=== PATIENT | female | born 1945 | race Caucasian/White ===

== ENCOUNTER 2022-11-20 09:16 | Outpatient (OUT) | payer MEDICARE, OTHER, SELFPAY | END 2022-11-20 09:17 | PROVIDERS: PCP Family Medicine; Visit Provider Physician Assistant | DX: I70.235 Atherosclerosis of native arteries of right leg with ulceration of other part of foot (principal); L97.511 Non-pressure chronic ulcer of other part of right foot limited to breakdown of skin; L97.512 Non-pressure chronic ulcer of other part of right foot with fat layer exposed; I87.9 Disorder of vein, unspecified; I70.234 Atherosclerosis of native arteries of right leg with ulceration of heel and midfoot; L97.411 Non-pressure chronic ulcer of right heel and midfoot limited to breakdown of skin | CPT/HCPCS: 99212; G0463 ==

== ENCOUNTER 2022-12-09 14:48 | Outpatient (OUT) | payer MEDICARE, OTHER, SELFPAY | END 2022-12-09 14:49 | disposition home or self-care (01) | LOC: WC 14:48 | PROVIDERS: PCP Family Medicine; Visit Provider Podiatrist Foot & Ankle Surgery | DX: I70.235 Atherosclerosis of native arteries of right leg with ulceration of other part of foot (principal); L97.511 Non-pressure chronic ulcer of other part of right foot limited to breakdown of skin; I70.234 Atherosclerosis of native arteries of right leg with ulceration of heel and midfoot; L97.411 Non-pressure chronic ulcer of right heel and midfoot limited to breakdown of skin; I96 Gangrene, not elsewhere classified; E11.621 Type 2 diabetes mellitus with foot ulcer; E11.69 Type 2 diabetes mellitus with other specified complication; E11.65 Type 2 diabetes mellitus with hyperglycemia; K21.9 Gastro-esophageal reflux disease without esophagitis; I10 Essential (primary) hypertension; I87.9 Disorder of vein, unspecified | CPT/HCPCS: G0463 ==

== ENCOUNTER 2022-12-19 09:33 | Outpatient (OUT) | payer MEDICARE, OTHER, SELFPAY | END 2022-12-19 09:34 | disposition home or self-care (01) | LOC: WC 09:33 | PROVIDERS: PCP Family Medicine; Visit Provider Podiatrist Foot & Ankle Surgery | DX: I70.235 Atherosclerosis of native arteries of right leg with ulceration of other part of foot (principal); L97.511 Non-pressure chronic ulcer of other part of right foot limited to breakdown of skin; L97.411 Non-pressure chronic ulcer of right heel and midfoot limited to breakdown of skin; I70.212 Atherosclerosis of native arteries of extremities with intermittent claudication, left leg; E11.621 Type 2 diabetes mellitus with foot ulcer; E11.21 Type 2 diabetes mellitus with diabetic nephropathy; E11.69 Type 2 diabetes mellitus with other specified complication; E11.65 Type 2 diabetes mellitus with hyperglycemia; K21.9 Gastro-esophageal reflux disease without esophagitis; I10 Essential (primary) hypertension; I87.9 Disorder of vein, unspecified; I73.9 Peripheral vascular disease, unspecified; L97.512 Non-pressure chronic ulcer of other part of right foot with fat layer exposed; I96 Gangrene, not elsewhere classified | CPT/HCPCS: G0463 ==

== ENCOUNTER 2023-01-02 09:06 | Outpatient (OUT) | payer MEDICARE, OTHER, SELFPAY ==
--- NOTE | 2023-01-02 09:11 | ECG_ITS ---
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
--- NOTE | 2023-01-02 10:11 | PM.PRESUREVA ---
History of Present Illness History of Present Illness Chief complaint: Gangrene and Arterial Ulcer 3rd Right Toe Narrative: Patient presents for preadmission testing. Please see HPI from Dr. Ware dated 12/19/2022. Review of Systems ROS Narrative REVIEW OF SYSTEMS: Negative except as stated in HPI, ten or more systems reviewed. Constitutional: No fever , chills, weakness ENT: No sore throat or epistaxis Cardiovascular: No edema, chest pain, palpitations, or activity intolerance Respiratory: No shortness of breath, cough, or wheezing Gastrointestinal: No abdominal pain, constipation, diarrhea, or vomiting Genitourinary: No dysuria or hematuria Neurological: No numbness, tingling, weakness, or headache Psychiatric: No mood changes PFSH PFS Medical History (Updated 01/02/23 @ 09:49 by Anika Choudhury NP) Surgical History (Updated 01/02/23 @ 09:49 by Anika Choudhury NP) Family History (Updated 01/02/23 @ 09:49 by Anika Choudhury NP) Other Family history of breast cancer Family history of diabetes mellitus Family history of heart disease Family history of myocardial infarction Social History (Updated 01/02/23 @ 09:42 by Anika Choudhury NP) Within the past year, how often did you have a drink containing alcohol: never Score interpretation: A score less than 3 is consistent with normal alcohol consumption. Smoking status: Never smoker Highest level of school completed/degree received: high school graduate Meds Home Medications and Allergies Home Medications Medication Instructions Recorded Confirmed Type acetaminophen 500 mg capsule 500 mg PO Q6H PRN pain 01/02/23 01/02/23 History aspirin 81 mg tablet,delayed 81 mg PO DAILY 01/02/23 01/02/23 History release (Adult Aspirin Regimen) cholecalciferol (vitamin D3) 50 50 mcg PO DAILY 01/02/23 01/02/23 History mcg (2,000 unit) capsule clopidogrel 75 mg tablet 75 mg PO QDAY 01/02/23 01/02/23 History diphenhydramine 25 1 tab PO QDAY PRN sleep 01/02/23 01/02/23 History mg-acetaminophen 500 mg tablet (Acetaminophen PM Extra Strength) duloxetine 30 mg capsule,delayed 30 mg PO QDAY 01/02/23 01/02/23 History release ferrous sulfate 325 mg (65 mg 325 mg PO BID 01/02/23 01/02/23 History iron) tablet (FeroSul) insulin aspar prt-insulin aspart 1 sliding scale dose subcut 01/02/23 01/02/23 History 100 unit/mL (70-30) subcutaneous USEASDIRECTD soln (Novolog Mix 70-30 U-100 Insuln) liraglutide 0.6 mg/0.1 mL (18 mg/3 1.2 mg subcut DAILY 01/02/23 01/02/23 History mL) subcutaneous pen injector (Victoza 2-Ananda) lisinopril 5 mg tablet 2.5 mg PO QDAY 01/02/23 01/02/23 History lovastatin 40 mg tablet 40 mg PO QDAY 01/02/23 01/02/23 History nadolol 40 mg tablet 20 mg PO QDAY 01/02/23 01/02/23 History omeprazole 40 mg capsule,delayed 40 mg PO QDAY 01/02/23 01/02/23 History release paroxetine HCl 40 mg tablet 40 mg PO QDAY 01/02/23 01/02/23 History pentoxifylline 400 mg 400 mg PO Q12H 01/02/23 01/02/23 History tablet,extended release pregabalin 100 mg capsule 100 mg PO Q12H 01/02/23 01/02/23 History ropinirole 1 mg tablet 1 mg PO QDAY 01/02/23 01/02/23 History tramadol 50 mg tablet 50 mg PO Q12H 01/02/23 01/02/23 History Allergies Allergy/AdvReac Type Severity Reaction Status Date / Time adhesive tape Allergy Rash Verified 01/02/23 09:30 codeine Allergy Nausea Verified 01/02/23 09:30 Sulfa (Sulfonamide Allergy Nausea Verified 01/02/23 09:30 Antibiotics) Exam Narrative Exam Narrative: Constitutional: Awake, alert, comfortable, pale skin, nontoxic, interactive, vital signs as charted Head: Normocephalic, atraumatic Neck: Supple, normal appearance, normal range of motion, no meningeal signs, no lymphadenopathy Respiratory: No respiratory distress, breath sounds clear Cardiovascular: Regular rate and rhythm, strong and regular heart tones Psychiatric: Oriented ?3, normal affect Assessment and Plan Assessment and Plan (1) Arterial leg ulcer: (2) Gangrene: Plan Right transmetatarsal amputation scheduled with Dr. Ware 01/12/2023.
[2023-01-02 10:24] LABS: Basophils Absolute Auto 0.1 10^3/uL (0.0-0.1); Basophils Percent Auto 1.1 % (0.2-2.0); Eosinophils Absolute Auto 0.2 10^3/uL (0.0-0.7); Eosinophils Percent Auto 3.8 % (0.9-7.0); Hematocrit 37.4 % (36.0-48.0); Hemoglobin 12.7 g/dL (12.0-16.0); Immature Granulocytes Abs Auto 0.01 10^3/uL (0.00-0.03); Immature Granulocytes Pct Auto 0.2 % (0.0-0.5); Lymphocytes Absolute Auto 1.8 10^3/uL (1.2-3.8); Lymphocytes Percent Auto 33.1 % (20.5-60.0); Mean Corpuscular Hemoglobin 32.5 pg (26.7-34.0); Mean Corpuscular Volume 95.7 fL (81.0-99.0); Mean Platelet Volume 10.1 fL (9.5-13.5); Monocytes Absolute Auto 0.4 10^3/uL (0.3-0.8); Monocytes Percent Auto 6.8 % (1.7-12.0); Platelet Count 257 10^3/uL (150-450); Red Blood Count 3.91 10^6/uL (4.20-5.40); Red Cell Distribution Width 11.7 % (11.0-15.0); White Blood Count 5.5 10^3/uL (4.0-11.0)
[2023-01-02 11:46] LABS: Anion Gap 13.1; Carbon Dioxide 26.4 mmol/L (21.0-32.0); Chloride 105 mmol/L (98-107); Estimated GFR (African America 46 (>=60); Estimated GFR (Non-African Ame 38 (>=60); Glucose 198 mg/dL (74-106); Potassium 4.5 mmol/L (3.5-5.1); Sodium 140 mmol/L (136-145)
== END 2023-01-02 09:07 | disposition home or self-care (01) ==
LOC: PST 09:06
PROVIDERS: PCP Family Medicine; Visit Provider Podiatrist Foot & Ankle Surgery
DX: Z01.812 Encounter for preprocedural laboratory examination (principal); Z01.810 Encounter for preprocedural cardiovascular examination; Z01.818 Encounter for other preprocedural examination; I96 Gangrene, not elsewhere classified; L97.511 Non-pressure chronic ulcer of other part of right foot limited to breakdown of skin; E11.9 Type 2 diabetes mellitus without complications; D64.9 Anemia, unspecified
CPT/HCPCS: 36415; 80048; 85025; 93005; G0463

== ENCOUNTER 2023-01-12 09:56 | Observation (INO) | payer MEDICARE, OTHER, SELFPAY ==
[2023-01-02 09:43] VITALS: BP 146/87; PULSE 81; RESP 16; TEMP 36; O2SAT 97; BMI 30.9
[2023-01-12] VITALS (11 sets, daily range): BP systolic 124–179; BP diastolic 63–84; PULSE 61–95; RESP 14–20; TEMP 36.3–36.6; O2SAT 94–99; BMI 29.7
[2023-01-12 07:03] LABS: Glucometer 202 mg/dL (74-106)
--- NOTE | 2023-01-12 07:12 | PC.NURSE ---
SMALL OPEN AREAS NOTED TO TOES TO RIGHT FOOT. TOES ARE SCABBED OVER.
[2023-01-12] MEDS: LACTATED RINGER'S SOLUTION 1,000 ML 50 ML IV (07:21)
[2023-01-12] MEDS: CEFAZOLIN SODIUM/DEXTROSE,ISO 2 GM/50 ML PIGGYBACK IV ×3 (07:27→22:10)
[2023-01-12] MEDS: BUPIVACAINE HCL 0.5% PF 50 MG/10 ML VIAL INJ (08:11)
--- NOTE | 2023-01-12 08:44 | XR_ITS ---
The [address] [address] Patient Name: SERGEY MEZA MRN: [id number] date: 1945 Sex: F Assigned Patient Location: [facility] Current Patient Location: [place] Accession/Order Number: [id number] Exam Date: 01/12/2023 09:25 Report Date: 01/12/2023 09:55 At the request of: JOAQUÍN CORREA Procedure: XR foot RT min 3V PROCEDURE: XR foot RT min 3V HISTORY: post-op COMPARISON: XR foot right 09/17/2022 FINDINGS: BONES:Amputation of the first through fifth toes at the level of the metatarsal necks. Prominent calcaneal plantar spur. Unremarkable midfoot. SOFT TISSUES:Soft tissue swelling surrounding the foot. Images were obtained to cast material which limits evaluation. Atherosclerotic disease. EFFUSION:None visible. OTHER: Negative. XR/XR foot RT min 3V IMPRESSION: 1. Amputation of all 5 toes at the the level of the distal forefoot. Electronically authenticated by: RAFAEL SOTO Date: 01/12/2023 09:55
[2023-01-12 09:09] LABS: Glucometer 192 mg/dL (74-106)
--- NOTE | 2023-01-12 09:36 | P.ORON_ITS ---
Brief Operative Note Date of procedure: 01/12/23 Pre-op diagnosis: right toe ulcer with gangrene/ischemia, heel ulcer & T2DM with neuropathy Post-op diagnosis: same Procedure: PROCEDURES PERFORMED: Right transmetatarsal amputation with application of short leg splint INTRAOPERATIVE FINDINGS: Right 3rd toe ulcer which is full-thickness but no signs of infection. No purulence. Bone quality overall was poor however of the metatarsals but may be considered consistent with patient's age and gender. Skin edges bled appropriately. PROCEDURES IN DETAILS: Patient was identified in pre op and consent was reviewed. Correct side and site were identified and marked. Pre-op antibiotics were started. Patient was brought to OR suite and place on table in a supine position. General anesthesia was administered. Tourniquet applied. Operative extremity was prepped and draped in usual sterile fashion. Formal time-out was performed and the foot/ankle were exsanguinated and tourniquet inflated. A fishmouth incision was placed over the distal foot. Sharp dissection down to bone was performed. An elevator was used to raised full-thickness flap dorsally. Then a sagittal saw was used to perform osteotomies of each metatarsal taking care to preserve metatarsal parabola and avoid any bony prominences. Then with a comminution sharp and blunt dissection the distal forefoot was amputated and passed back table for specimen. Surgical site was irrigated with normal saline. bones of the metatarsals were osteopenic but of normal color. There is no other signs of infection noted. The tourniquet was deflated and skin edges bled appropriately with good capillary refill. The incision was then closed loosely without tension in layers. A dry sterile dressing consisting of Xeroform on the incisions followed by 4 x 4 gauze, ABDs, and Kerlix were applied. Multiple layers of cast padding were then applied to ensure all bony prominences were well-padded. A plaster posterior splint was then applied which was held in place by Tam wraps. 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 she has had these wounds for roughly 34 weeks. She also had a right heel ulcer but after revascularization this wound has greatly improved. Most recently she was cleared by her vascular surgeon to undergo amputation given her ischemic pain has been very difficult to manage.. I educated her and her family on potential risks and benefits. All questions were answered. Potential risks include incision healing problems, infection, dehiscence, wound, pain, numbness and tingling, need for more proximal indication. Patient and family are aware that she has a limb threatening issue.
[2023-01-12] MEDS: PREGABALIN 100 MG CAPSULE PO ×2 (11:11→21:43)
[2023-01-12] MEDS: ENOXAPARIN SODIUM 40 MG/0.4 ML SYRINGE SUBQ (11:12)
[2023-01-12] MEDS: INSULIN ASPART 300 UNIT/3 ML PEN SUBQ ×3 (11:13→21:41)
--- NOTE | 2023-01-12 11:38 | PM.HP ---
H&P: HPI History of Present Illness Chief complaint: Gangrene and Arterial Ulcer 3rd Right Toe Narrative: 77 o female admitted for post op pain control/observation after right TMA performed for chronic non healing diabetic foot ulcer/infection. Denies any active complaints. Pain is controlled. Review of Systems ROS Status of ROS 10 or more systems reviewed and unremarkable except as noted in history and below [facility] PFS Medical History (Updated 01/12/23 @ 11:43 by Shaikh Tony MD) Surgical History (Updated 01/12/23 @ 11:42 by Shaikh Tony MD) Family History (Updated 01/02/23 @ 09:49 by Anika Choudhury NP) Other Family history of breast cancer Family history of diabetes mellitus Family history of heart disease Family history of myocardial infarction Social History (Updated 01/12/23 @ 11:40 by Shaikh Tony MD) Within the past year, how often did you have a drink containing alcohol: never Score interpretation: A score less than 3 is consistent with normal alcohol consumption. Smoking status: Never smoker Non-prescribed substance use: denies use Highest level of school completed/degree received: high school graduate Meds Home Medications and Allergies Home Medications Medication Instructions Recorded Confirmed Type acetaminophen 500 mg capsule 500 mg PO Q6H PRN pain 01/02/23 01/12/23 History aspirin 81 mg tablet,delayed 81 mg PO DAILY 01/02/23 01/12/23 History release (Adult Aspirin Regimen) cholecalciferol (vitamin D3) 50 50 mcg PO DAILY 01/02/23 01/12/23 History mcg (2,000 unit) capsule clopidogrel 75 mg tablet 75 mg PO QDAY 01/02/23 01/02/23 History diphenhydramine 25 1 tab PO QDAY PRN sleep 01/02/23 01/12/23 History mg-acetaminophen 500 mg tablet (Acetaminophen PM Extra Strength) duloxetine 30 mg capsule,delayed 30 mg PO QDAY 01/02/23 01/12/23 History release ferrous sulfate 325 mg (65 mg 325 mg PO BID 01/02/23 01/12/23 History iron) tablet (FeroSul) insulin aspar prt-insulin aspart 1 sliding scale dose subcut 01/02/23 01/12/23 History 100 unit/mL (70-30) subcutaneous USEASDIRECTD soln (Novolog Mix 70-30 U-100 Insuln) liraglutide 0.6 mg/0.1 mL (18 mg/3 1.2 mg subcut DAILY 01/02/23 01/12/23 History mL) subcutaneous pen injector (Victoza 2-Ananda) lisinopril 5 mg tablet 2.5 mg PO QDAY 01/02/23 01/12/23 History lovastatin 40 mg tablet 40 mg PO QDAY 01/02/23 01/12/23 History nadolol 40 mg tablet 20 mg PO QDAY 01/02/23 01/12/23 History omeprazole 40 mg capsule,delayed 40 mg PO QDAY 01/02/23 01/02/23 History release paroxetine HCl 40 mg tablet 40 mg PO QDAY 01/02/23 01/12/23 History pentoxifylline 400 mg 400 mg PO Q12H 01/02/23 01/02/23 History tablet,extended release pregabalin 100 mg capsule 100 mg PO Q12H 01/02/23 01/12/23 History ropinirole 1 mg tablet 1 mg PO QDAY 01/02/23 01/12/23 History tramadol 50 mg tablet 50 mg PO Q12H 01/02/23 01/12/23 History ondansetron 4 mg disintegrating 4 mg PO QDAY PRN nausea and 01/12/23 Rx tablet vomiting 3 days #6 tabs sennosides 8.6 mg tablet (senna) 8.6 mg PO BID PRN constipation 3 01/12/23 Rx days #6 tabs Allergies Allergy/AdvReac Type Severity Reaction Status Date / Time adhesive tape Allergy Rash Verified 01/02/23 09:30 codeine Allergy Nausea Verified 01/02/23 09:30 Sulfa (Sulfonamide Allergy Nausea Verified 01/02/23 09:30 Antibiotics) Exam Constitutional Vital Signs, click to edit/add: Last Vital Signs Temp 97.9 F 01/12/23 09:40 Pulse 94 H 01/12/23 09:40 Resp 18 01/12/23 09:40 BP 157/78 H 01/12/23 09:40 Pulse Ox 96 01/12/23 09:40 O2 Del Method Room Air 01/12/23 09:28 Documenting provider has reviewed patient's vital signs: yes Common normals: no apparent distress and oriented x3 Nutritional appearance: obese HENMT Common normals: normocephalic and head/scalp atraumatic Eye Common normals: conjunctivae normal and no scleral icterus Respiratory Common normals: normal respiratory effort, no use of accessory muscles and clear to auscultation bilaterally Cardio Common normals: no JVD, regular rate, regular rhythm, S1 normal heart sound, S2 normal heart sound and no murmurs GI Common normals: Normal to inspection, nondistended, normoactive bowel sounds present, soft to palpation, non-tender and no hepatosplenomegaly Extremity General: normal exam except as noted (right RLE in post op dressing ) Neuro Common normals: oriented x3, CN's II-XII intact bilaterally, moves all extremities, no focal motor deficits and no sensory deficits noted Psych Common normals: mental status grossly normal, thought process normal, cooperative, denies homicidal ideation and denies suicidal ideation Assessment and Plan Assessment and Plan (1) Status post transmetatarsal amputation of right foot: Assessment and Plan: s/p TMA of right foot. Pain is well controlled. Being admitted for post op observation for pain control. (2) PAD (peripheral artery disease): Assessment and Plan: On ASA, Plavix, statin (3) Diabetes: Assessment and Plan: T2 DM with neuropathy, PAD. While in patient, will keep her on sliding scale insulin along with 15 units of Levemir. Outpatient f/u with PCP and endocrine. 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 at goal (5) High cholesterol: Assessment and Plan: C/w statin. (6) Polyneuropathy: Assessment and Plan: From T2 DM. on Lyrica and Cymbalta for it.
--- NOTE | 2023-01-12 12:46 | CM.NOTE ---
Rounds made with Dr. Jimenez, surgical pt of Dr. Ware. PT will evaluate pt today and will follow pt for any discharge needs.
[2023-01-12] MEDS: OXYCODONE HCL 5 MG TABLET PO ×2 (14:55→22:45)
[2023-01-12] MEDS: ACETAMINOPHEN 500 MG TABLET PO (16:29)
--- NOTE | 2023-01-12 16:32 | SWNOTE1 ---
LAURA met with pt and her family in room, 2 daughters or grand-daughters were in room. Pt's sister will be staying in the home with her for a few days and other family is availble and will be assisting in the home as well. Pt has a walker at home with no wheels but used a wheeled walker with therapy and liked that better. Possible need for wheeled walker at discharge which we can go through her insurance. Pt's family asked about renting a wheelchair, SW to give them list of DME companies. Pt also asked about home health. LAURA went over what HH is. LAURA brought in medicare.gov star rating list and family is going to review and let know what home health company. LAURA updated case management.
[2023-01-12 20:24] LABS: Glucometer 230 mg/dL (74-106)
[2023-01-12] MEDS: INSULIN DETEMIR 300 UNIT/3 ML INSULN.PEN 15 UNIT SUBQ (21:41)
[2023-01-12] MEDS: ROPINIROLE HCL 1 MG TABLET PO (21:42)
[2023-01-12] MEDS: FERROUS SULFATE 325 MG TABLET PO (21:42)
[2023-01-13 03:53] VITALS: O2SAT 96
[2023-01-13 05:47] VITALS: BP 159/64; PULSE 54; RESP 18; TEMP 36.4; O2SAT 95
[2023-01-13] MEDS: CEFAZOLIN SODIUM/DEXTROSE,ISO 2 GM/50 ML PIGGYBACK IV (06:05)
[2023-01-13 07:39] LABS: Glucometer 172 mg/dL (74-106)
[2023-01-13] MEDS: SENNOSIDES 8.6 MG TABLET PO (08:22)
[2023-01-13] MEDS: INSULIN ASPART 300 UNIT/3 ML PEN SUBQ ×2 (08:22→13:15)
[2023-01-13] MEDS: PAROXETINE HCL 20 MG TABLET 40 MG PO (08:23)
[2023-01-13] MEDS: ATORVASTATIN CALCIUM 10 MG TABLET PO (08:23)
[2023-01-13] MEDS: OXYCODONE HCL 5 MG TABLET PO ×2 (08:23→15:06)
[2023-01-13] MEDS: DULOXETINE HCL 30 MG CAPSULE.DR PO (08:23)
[2023-01-13] MEDS: OMEPRAZOLE 40 MG CAPSULE.DR PO (08:23)
[2023-01-13] MEDS: FERROUS SULFATE 325 MG TABLET PO (08:23)
[2023-01-13] MEDS: ASPIRIN 81 MG TABLET.DR PO (08:24)
[2023-01-13] MEDS: CLOPIDOGREL BISULFATE 75 MG TABLET PO (08:24)
[2023-01-13] MEDS: CHOLECALCIFEROL (VITAMIN D3) 25 MCG/1,000 UNITS TABLET 50 MCG PO (08:27)
[2023-01-13] MEDS: NADOLOL 40 MG TABLET 20 MG PO (08:58)
--- NOTE | 2023-01-13 09:46 | P.PODCN_ITS ---
see other note HPI - Podiatry Data of Consult Requesting physician: Roel Ware MD Primary care provider: SHAHZAD TAVAREZYANY Consult Narrative cc:: CC: Roel Ware MD [facility] Medical History (Updated 01/12/23 @ 11:43 by Shaikh Tony MD) Surgical History (Updated 01/12/23 @ 11:42 by Shaikh Tony MD) Family History (Updated 01/02/23 @ 09:49 by Anika Choudhury NP) Other Family history of breast cancer Family history of diabetes mellitus Family history of heart disease Family history of myocardial infarction Social History (Updated 01/12/23 @ 11:40 by Shaikh Tony MD) Within the past year, how often did you have a drink containing alcohol: never Score interpretation: A score less than 3 is consistent with normal alcohol consumption. Smoking status: Never smoker Non-prescribed substance use: denies use Highest level of school completed/degree received: high school graduate Exam Constitutional Vital Signs, click to edit/add: Last Vital Signs Temp 97.5 F L 01/13/23 05:47 Pulse 54 L 01/13/23 05:47 Resp 18 01/13/23 05:47 BP 159/64 H 01/13/23 05:47 Pulse Ox 95 01/13/23 05:47 O2 Del Method Room Air 01/13/23 05:47 Assessment and Plan Assessment and Plan (1) Status post transmetatarsal amputation of right foot: Assessment and Plan: s/p TMA of right foot. Pain is well controlled. Being admitted for post op observation for pain control. (2) PAD (peripheral artery disease): Assessment and Plan: On ASA, Plavix, statin (3) Diabetes: Assessment and Plan: T2 DM with neuropathy, PAD. While in patient, will keep her on sliding scale insulin along with 15 units of Levemir. Outpatient f/u with PCP and endocrine. 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 at goal (5) High cholesterol: Assessment and Plan: C/w statin. (6) Polyneuropathy: Assessment and Plan: From T2 DM. on Lyrica and Cymbalta for it.
--- NOTE | 2023-01-13 09:47 | PM.PN ---
Progress Note: Subjective Subjective Interval history: sensation seen and evaluated this morning. No acute overnight events. No new complaints today. States overnight she had some restless leg syndrome which she thinks led to some foot pain. States overall her pain is better than preoperatively which is promising. Denies any constitutional symptoms. Exam Narrative Exam Narrative: splint left clean dry and intact No saturation noted No pain with calf compression Wiggles her ankle without discomfort Constitutional Vital Signs, click to edit/add: Last Vital Signs Temp 97.5 F L 01/13/23 05:47 Pulse 54 L 01/13/23 05:47 Resp 18 01/13/23 05:47 BP 159/64 H 01/13/23 05:47 Pulse Ox 95 01/13/23 05:47 O2 Del Method Room Air 01/13/23 05:47 Progress Note: A&P Assessment and Plan (1) Status post transmetatarsal amputation of right foot: (2) PAD (peripheral artery disease): (3) Diabetes: Qualifiers: Diabetes mellitus type: type 2 Diabetes mellitus residential insulin use: with residential use Diabetes mellitus complication status: with circulatory complication (4) Hypertension: (5) High cholesterol: (6) Polyneuropathy: Plan assessment: One day status post right transmetatarsal amputation for gangrene, PAD Plan Patient seen and evaluated Physical exam findings discussed with the patient Labs and vitals reviewed Bradycardic and hypertensive this morning She took one dose of Lovenox yesterday and restarted her aspirin and Plavix today She states she will likely go home today, her sister and daughters are here to offer her some partner going to stay with her We discussed nonweightbearing which she states she's worked with physical therapy yesterday and will work with them again today We discussed how to go up her stairs to be nonweightbearing We'll see her in one week in clinic for splint change After dressing become saturated she will come in earlier She may call if questions or concerns Please page with questions or concerns
--- NOTE | 2023-01-13 10:11 | CM.NOTE ---
Spoke with pt and daughter regarding transition to home. Pt voices that they have decided to go with [facility] at discharge. Pt's clinical faxed along with referral to [facility] and telephoned to make sure fax had been received. Pt also feels as if the wheeled walker has worked better for her when PT worked with her. Message sent to Dr. Jimenez for script for wheeled walker for pt at discharge. Pt wishes to use [facility] in [place] for walker if available, contacted [facility] and awaiting call back. Second choice for pt is [facility] in [place]. Pt does have good support and assistance at home, pt's children are very involved.
[2023-01-13] MEDS: ENOXAPARIN SODIUM 40 MG/0.4 ML SYRINGE SUBQ (10:59)
[2023-01-13] MEDS: PREGABALIN 100 MG CAPSULE PO (10:59)
[2023-01-13] MEDS: POLYETHYLENE GLYCOL 3350 17 GM POWDER PACKET PO (10:59)
[2023-01-13 11:06] VITALS: O2SAT 95
[2023-01-13 11:20] VITALS: O2SAT 94
--- NOTE | 2023-01-13 11:29 | P.DS_ITS ---
DS: Providers Provider Primary care physician: SHAHZAD DUMONT Consults: 01/12/23 08:44 Consult to [employer] Worker Routine Reason for consult:: Utility assistance Physical Therapy Eval and Treat Routine 01/12/23 08:46 Consult to Hospitalist Routine Consulting Provider: Shaikh Jimenez Attending physician on discharge: Shaikh Tony Discharging clinician: Shaikh Tony DS: Diagnosis Discharge Diagnosis (1) Status post transmetatarsal amputation of right foot: Assessment and plan: Well controlled pain. Ok to discharge home. F/u with Podiatry Patient had PT/OT while in patient and it was noted that she needs a wheeled walker to ambulate due to her recent TMA. She will need it to improve her balance, prevent falls and walk safely and reduce risk of falls. Patient will require it possibly for 3 months atleast until her surgical wound heels and she is able to bear weight on her post op foot w/o experiencing pain (2) PAD (peripheral artery disease): Assessment and plan: On ASA, PLAVIX and statin Outpatient f/u (3) Diabetes: Assessment and plan: Poorly controlled with erratic blood glucose. Defer to PCP and endocrine. Qualifiers: Diabetes mellitus type: type 2 Diabetes mellitus prison insulin use: with prison use Diabetes mellitus complication status: with circulatory complication (4) Hypertension: Assessment and plan: C/w home meds/ (5) High cholesterol: Assessment and plan: C/w statin (6) Polyneuropathy: Assessment and plan: From T2 DM. Lyrica for pain control DS: Summary Hospital Course Hospital Course: Admitted for observation after TMA of her righty foot. 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 No post complications. Pain is controlled. Patient has no active complaints to offer. Will d/c home with family. Patient will need a wheeled walker to ambulate as discussed above. Script written for it. Podiatry f/u as outpatient. Status at Discharge Functional status at discharge: uses cane/walker Overall status at discharge: patient is back to baseline Time Spent with Patient Time attestation: Total time spent providing and/or coordinating discharge services: Time spent: greater than 30 minutes Exam Constitutional Vital Signs, click to edit/add: Last Vital Signs Temp 97.5 F L 01/13/23 05:47 Pulse 54 L 01/13/23 05:47 Resp 18 01/13/23 05:47 BP 159/64 H 01/13/23 05:47 Pulse Ox 95 01/13/23 11:06 O2 Del Method Room Air 01/13/23 11:06 Documenting provider has reviewed patient's vital signs: yes Common normals: no apparent distress and oriented x3 Nutritional appearance: obese HENMT Common normals: normocephalic and head/scalp atraumatic Eye Common normals: conjunctivae normal and no scleral icterus Respiratory Common normals: normal respiratory effort, no use of accessory muscles and clear to auscultation bilaterally Cardio Common normals: no JVD, regular rate, regular rhythm, S1 normal heart sound, S2 normal heart sound and no murmurs GI Common normals: Normal to inspection, nondistended, normoactive bowel sounds present, soft to palpation, non-tender and no hepatosplenomegaly Extremity General: normal exam except as noted (right RLE in post op dressing ) Neuro Common normals: oriented x3, CN's II-XII intact bilaterally, moves all extremities, no focal motor deficits and no sensory deficits noted Psych Common normals: mental status grossly normal, thought process normal, cooperative, denies homicidal ideation and denies suicidal ideation DS: Data Data Completed and Pending Labs on day of discharge: Labs from last 24 hours 01/13/23 01/12/23 07:35 20:22 POC Glucose 172 H 230 H Discharge Plan Discharge Disposition: Home, Self-Care Condition: Good Discharge Medications: New sennosides [senna] 8.6 mg tablet 8.6 mg PO BID PRN (Reason: constipation) 3 Days Qty: 6 0RF ondansetron 4 mg tablet,disintegrating 4 mg PO QDAY PRN (Reason: nausea and vomiting) 3 Days Qty: 6 0RF No Action clopidogrel 75 mg tablet 75 mg PO QDAY duloxetine 30 mg capsule,delayed release(DR/EC) 30 mg PO QDAY ferrous sulfate [FeroSul] 325 mg (65 mg iron) tablet 325 mg PO BID lisinopril 5 mg tablet 2.5 mg PO QDAY lovastatin 40 mg tablet 40 mg PO QDAY nadolol 40 mg tablet 20 mg PO QDAY omeprazole 40 mg capsule,delayed release(DR/EC) 40 mg PO QDAY paroxetine HCl 40 mg tablet 40 mg PO QDAY pentoxifylline 400 mg tablet extended release 400 mg PO Q12H pregabalin 100 mg capsule 100 mg PO Q12H ropinirole 1 mg tablet 1 mg PO QDAY tramadol 50 mg tablet 50 mg PO Q12H acetaminophen 500 mg capsule 500 mg PO Q6H PRN (Reason: pain) diphenhydramine-acetaminophen [Acetaminophen PM Extra Str] 25-500 mg tablet 1 tab PO QDAY PRN (Reason: sleep) aspirin [Adult Aspirin Regimen] 81 mg tablet,delayed release (DR/EC) 81 mg PO DAILY cholecalciferol (vitamin D3) 50 mcg (2,000 unit) capsule 50 mcg PO DAILY Victoza 2-Ananda 0.6 mg/0.1 mL (18 mg/3 mL) pen injector 1.2 mg subcut DAILY insulin asp prt-insulin aspart [Novolog Mix 70-30 U-100 Insuln] 100 unit/mL (70-30) solution 1 sliding scale dose subcut USEASDIRECTD Follow Up Appointments: follow up apointment with Dr Ware on ThursdayJanuary 19 at 2:00 [phone] Activity: ambulate only with your walker, as per physical therapy and increase activity as tolerated Diet: advance to your usual diet
[2023-01-13 11:42] VITALS: BMI 29.7
--- NOTE | 2023-01-13 11:56 | CM.NOTE ---
Rounds made with Dr. Jimenez. Plan for discharge today. Follow up with Podiatry as directed.
[2023-01-13 12:27] LABS: Glucometer 273 mg/dL (74-106)
--- NOTE | 2023-01-13 12:49 | CM.NOTE ---
[facility] has accepted pt for HH therapy and will be able to see pt 01/14/23. [facility] called back and they can supply wheeled walker for pt, pt would have to pay $125 dollar up front. Pt and daughter ok with paying the $125 dollars and then [facility] will submit to insurance. Script for walker sent to [facility] and actual script given to daughter to pick walker up prior to pt's discharge. Discussed again after PT worked with pt today about skilled therapy. Pt and daughter both refuse skilled therapy and want to do HH, they believe she will have enough help at home with her children and HH. Pt does have BSC, walker, wheeled walker, and family have reached out to rent wheelchair. Pt and daughter both confident in their decision to go home with [facility].
[2023-01-13 13:51] VITALS: BP 111/66; PULSE 51; RESP 16; TEMP 36.4; O2SAT 97
--- NOTE | 2023-01-13 15:42 | CM.NOTE ---
Important Message From [employer] discussed with pt, pt verbalizes understanding and signs paper. Original given to pt and copy placed on pt's chart.
== END 2023-01-13 15:35 | disposition home health service (06) ==
LOC: SURGOUT 01-13 15:36 → MS 01-13 15:36
PROVIDERS: Podiatrist Foot & Ankle Surgery; Admitting Provider Internal Medicine; PCP Family Medicine; Visit Provider Internal Medicine
PROC: (CPT 28805; principal; 2023-01-12 07:30)
DX: E11.52 Type 2 diabetes mellitus with diabetic peripheral angiopathy with gangrene (principal); I96 Gangrene, not elsewhere classified; E11.42 Type 2 diabetes mellitus with diabetic polyneuropathy; E11.69 Type 2 diabetes mellitus with other specified complication; M86.671 Other chronic osteomyelitis, right ankle and foot; E66.9 Obesity, unspecified; Z79.02 Long term (current) use of antithrombotics/antiplatelets; I10 Essential (primary) hypertension; E78.00 Pure hypercholesterolemia, unspecified; Z79.82 Long term (current) use of aspirin; Z79.899 Other long term (current) drug therapy; Z79.4 Long term (current) use of insulin; Z68.29 Body mass index [BMI] 29.0-29.9, adult; G25.81 Restless legs syndrome
CPT/HCPCS: 28805; 36415; 73630; 82948; 88305; 88311; 94761; 96365; 96366; 96372; 97161; 97530; G0378; J2704

== ENCOUNTER 2023-01-19 13:50 | Outpatient (OUT) | payer MEDICARE, OTHER, SELFPAY | END 2023-01-19 13:51 | disposition home or self-care (01) | LOC: WC 13:50 | PROVIDERS: PCP Family Medicine; Visit Provider Physician Assistant | DX: I70.235 Atherosclerosis of native arteries of right leg with ulceration of other part of foot (principal); L97.511 Non-pressure chronic ulcer of other part of right foot limited to breakdown of skin; T87.89 Other complications of amputation stump | CPT/HCPCS: G0463 ==

== ENCOUNTER 2023-02-03 15:05 | Outpatient (OUT) | payer MEDICARE, OTHER, SELFPAY | END 2023-02-03 15:06 | disposition home or self-care (01) | LOC: WC 15:05 | PROVIDERS: PCP Family Medicine; Visit Provider Podiatrist Foot & Ankle Surgery | DX: M79.641 Pain in right hand (principal); T87.89 Other complications of amputation stump | CPT/HCPCS: 73130 ==

== ENCOUNTER 2023-02-03 16:32 | Outpatient (OUT) | payer MEDICARE, OTHER, SELFPAY ==
--- NOTE | 2023-02-03 | XR_ITS ---
The [address] [address] Patient Name: SERGEY MEZA MRN: [id number] date: 1945 Sex: F Assigned Patient Location: [facility] Current Patient Location: Accession/Order Number: [id number] Exam Date: 02/03/2023 16:50 Report Date: 02/04/2023 05:46 At the request of: YUSRA CROWDER Procedure: XR hand RT min 3V PROCEDURE: XR hand RT min 3V HISTORY: pain ; right hand pain; pain and swelling over second and third metacarpals; hit hand on doorway COMPARISON: None. FINDINGS: BONES:No fracture or dislocation. Multifocal mild degenerative joint disease. Small lucency within distal aspect of the second middle phalanx; likely bone cyst. Tiny ossification medial to the third proximal interphalangeal joint favoring sequela of remote injury. SOFT TISSUES:Mild dorsal soft tissue swelling. Marked atherosclerotic disease. EFFUSION:None visible. OTHER: Negative. XR/XR hand RT min 3V IMPRESSION: 1. No appreciable acute bone abnormality. Minimal degenerative changes. Electronically authenticated by: RAFAEL SOTO Date: 02/04/2023 05:46
== END 2023-02-03 16:33 | disposition home or self-care (01) ==
LOC: RAD 16:34
PROVIDERS: PCP Family Medicine; Visit Provider Podiatrist Foot & Ankle Surgery
DX: M79.641 Pain in right hand (principal)
CPT/HCPCS: 73130

== ENCOUNTER 2023-02-06 10:37 | Outpatient (OUT) | payer MEDICARE, OTHER, SELFPAY | END 2023-02-06 10:38 | disposition home or self-care (01) | LOC: WC 10:37 | PROVIDERS: PCP Family Medicine; Visit Provider Podiatrist Foot & Ankle Surgery | DX: T87.89 Other complications of amputation stump (principal) | CPT/HCPCS: 29445 ==

== ENCOUNTER 2023-02-13 10:42 | Outpatient (OUT) | payer MEDICARE, OTHER, SELFPAY | END 2023-02-13 10:43 | disposition home or self-care (01) | LOC: WC 10:42 | PROVIDERS: PCP Family Medicine; Visit Provider Podiatrist Foot & Ankle Surgery | DX: T87.89 Other complications of amputation stump (principal) | CPT/HCPCS: 29445; A6196 ==

== ENCOUNTER 2023-02-16 10:32 | Outpatient (OUT) | payer MEDICARE, OTHER, SELFPAY | END 2023-02-16 10:33 | disposition home or self-care (01) | LOC: WC 10:32 | PROVIDERS: PCP Family Medicine; Visit Provider Physician Assistant | DX: E11.621 Type 2 diabetes mellitus with foot ulcer (principal); L97.512 Non-pressure chronic ulcer of other part of right foot with fat layer exposed; T87.89 Other complications of amputation stump; E11.69 Type 2 diabetes mellitus with other specified complication; I70.221 Atherosclerosis of native arteries of extremities with rest pain, right leg; I70.234 Atherosclerosis of native arteries of right leg with ulceration of heel and midfoot; L97.411 Non-pressure chronic ulcer of right heel and midfoot limited to breakdown of skin | CPT/HCPCS: G0463 ==

== ENCOUNTER 2023-02-24 15:17 | Outpatient (OUT) | payer MEDICARE, OTHER, SELFPAY | END 2023-02-24 15:18 | disposition home or self-care (01) | LOC: WC 15:17 | PROVIDERS: PCP Family Medicine; Visit Provider Podiatrist Foot & Ankle Surgery | DX: T87.89 Other complications of amputation stump (principal) | CPT/HCPCS: G0463 ==

== ENCOUNTER 2023-03-04 15:25 | Outpatient (OUT) | payer MEDICARE, OTHER, SELFPAY | END 2023-03-04 15:26 | disposition home or self-care (01) | LOC: WC 15:25 | PROVIDERS: PCP Family Medicine; Visit Provider Podiatrist Foot & Ankle Surgery | DX: T87.89 Other complications of amputation stump (principal) | CPT/HCPCS: G0463 ==

== ENCOUNTER 2023-03-16 15:04 | Outpatient (OUT) | payer MEDICARE, OTHER, SELFPAY | END 2023-03-16 15:05 | disposition home or self-care (01) | LOC: WC 15:08 | PROVIDERS: PCP Family Medicine; Visit Provider Physician Assistant | DX: T87.89 Other complications of amputation stump (principal) | CPT/HCPCS: G0463 ==

== ENCOUNTER 2023-04-13 14:55 | Outpatient (OUT) | payer MEDICARE, OTHER, SELFPAY | END 2023-04-13 14:56 | disposition home or self-care (01) | LOC: WC 14:55 | PROVIDERS: PCP Family Medicine; Visit Provider Physician Assistant | DX: T87.89 Other complications of amputation stump (principal); E11.621 Type 2 diabetes mellitus with foot ulcer; L97.512 Non-pressure chronic ulcer of other part of right foot with fat layer exposed; E11.69 Type 2 diabetes mellitus with other specified complication; K21.9 Gastro-esophageal reflux disease without esophagitis; I70.221 Atherosclerosis of native arteries of extremities with rest pain, right leg; I87.9 Disorder of vein, unspecified; I10 Essential (primary) hypertension | CPT/HCPCS: 11043 ==

== ENCOUNTER 2023-05-05 14:24 | Outpatient (OUT) | payer MEDICARE, OTHER, SELFPAY | END 2023-05-05 14:25 | disposition home or self-care (01) | LOC: WC 14:25 | PROVIDERS: PCP Family Medicine; Visit Provider Podiatrist Foot & Ankle Surgery | DX: T87.89 Other complications of amputation stump (principal) | CPT/HCPCS: G0463 ==

== ENCOUNTER 2023-06-01 14:18 | Outpatient (OUT) | payer MEDICARE, OTHER, SELFPAY | END 2023-06-01 14:19 | disposition home or self-care (01) | LOC: WC 14:18 | PROVIDERS: PCP Family Medicine; Visit Provider Physician Assistant | DX: T87.89 Other complications of amputation stump (principal) | CPT/HCPCS: G0463 ==

== ENCOUNTER 2023-07-21 13:37 | Outpatient (OUT) | payer MEDICARE, OTHER, SELFPAY ==
--- OUTSIDE RECORDS SUMMARY | 2023-07-21 13:45 | XMS_ITS | CCD ---
Author Name Unknown Address [address] [place] [address] Organization [facility] Care Team Providers Care Stock Taker Name Role Phone Medina Dumont M Primary Care Provider Kana Yates Unavailable Petfina Medina M Primary Care Provider Petfina, Medina M Primary Care Provider Petznick, DO Medina Primary Care Provider MD Saúl Whelan Attending Provider PetMedina harden M Primary Care Provider Petznick, DO Medina Primary Care Provider MD Saúl Whelan Attending Provider [phone] MD Arnav Cox Emergency Provider [phone] MD Baltazar Marc Attending Provider BRUNILDA iMner Emergency Provider Jazlyn Cerda Unavailable Baltazar Marc Unavailable Michael Weller Unavailable MEDINA DUMONT Primary Care Physician Petfina, Medina Primary Care Provider MD Baltazar Marc Attending Provider BRUNILDA Miner Emergency Provider Baltazar Marc Admitting Unavailmichoacano e Baltazar Marc Attending Unavailabl e Petfina, Medina Primary Care Unavailable Petfina, Medina Primary Care Unavailable Saúl Whelan Admitting Unavailable Haladay, Saúl Attending Unavailable Petznick, Medina Primary Care Unavailable Langenberg, Baltazar T Admitting Unavailabl e Langenberg, Baltazar T Attending Unavailabl e Langenberg, Baltazar T Admitting Unavailabl e Langenberg, Baltazar T Attending Unavailabl e Petznick, Medina Primary Care Unavailable Petznick, Medina Primary Care Unavailable Arnav Cox Admitting Unavailable Cox, Arnav Attending Unavailable Isidra, Norma E Admitting Unavailable Isidra, Norma E Attending Unavailable Petznick, Mednia Primary Care Unavailable HIGHLANDER, YUSRA Casillas Admitting Unavailable HIGHLANDER, YUSRA Casillas Attending Unavailable HIGHLANDER, YUSRA Casillas Admitting Unavailable HIGHLANDER, YUSRA Casillas Attending Unavailable HIGHLNAI, YUSRA Casillas Attending Unavailable HIGHLYUSRA TRIMBLE Admitting Unavailable PETZNICK, DR PIKE Primary Care Unavailable LAKSHMIPATHY ., SHAKIRA Admitting Julisa vailable PETZNICK, DR PIKE Primary Care Unavailable LAKSHMIPATHY ., SHAKIRA Attending Julisa vailable PETZNICK, DR PIKE Primary Care Unavailable KYRA BEE Admitting Unavailable KYRA BEE Attending Unavailable YUSRA CROWDER Admitting Unavailable PETZNICK, DR PIKE Primary Care Unavailable YUSRA CROWDER Attending Unavailable WEST, DR JENNY Chung Consulting Unavailable YUSRA CROWDER Admitting Unavailable PETZNICK, DR PIKE Primary Care Unavailable HIGHLANDER, YUSRA Casillas Attending Unavailable YUSRA CROWDER Consulting Unavailable CRISTAL, KYRA Admitting Unavailable PETZNICK, DR PIKE Primary Care Unavailable KYRA BEE Attending Unavailable KYRA BEE Attending Unavailable KYRA BEE Admitting Unavailable PetMedina harden Primary Care Provider LIANNE BURNETT Admitting Unavailable LIANNE BURNETT Attending Unavailable CONNOR JONES Referring Unavailable MEDINA DUMONT Primary Care Unavailable OMAR LOWERY Consulting Unavailable LIANNE MANDEL Consulting Unavailable MEDINA DUMONT Attending Unavailable MEDINA DUMONT Referring Unavailable KoreyRamone FShabnam Admitting Unavailable Korey, Ramone FShabnam Attending Unavailable YUSRA CROWDER Referring Unavailable NONE, XXXX Referring Unavailable Korey, Mohamed FShabnam Admitting Unavailable Korey, Ramone FShabnam Attending Unavailable Joaquín Pugh Admitting Unavaila ble NONE, XXXX Referring Unavailable Joaquín Pugh Attending Unavaila ble NONE, XXXX Referring Unavailable Joaquín Pugh Attending Unavaila ble Joaquín Pugh Admitting Unavaila ble Joaquín Pugh Attending Unavaila ble Joaquín Pugh Referring Unavaila ble Nakul TORRES Attending Unavailable Carlos BARBA Referring Unavailable Joaquín Pugh Attending Unavaila ble Joaquín Pugh Referring Unavaila ble ChristJoaquín killian Admitting Unavaila ble ChristJoaquín killian Admitting Unavaila ble ChristJoaquín killian Attending Unavaila ble Joaquín Pugh Referring Unavaila ble Korey, Mohamed FShabnam Admitting Unavailable Korey, Mohamed FShabnam Attending Unavailable Korey, Mohamed FShabnam Referring Unavailable Joaquín Pugh Admitting Unavaila ble Joaquín Pugh Attending Unavaila ble Joaquín Pugh Admitting Unavaila ble Joaquín Pugh Attending Unavaila ble NONE, XXXX Referring Unavailable Joaquín Pugh Attending Unavaila ble PETZNICK, MEDINA M Primary Care Unavailable CONNOR NIXON Referring Unavailabl e PETZNICK, MEDINA M Primary Care Unavailable PETZNICK, MEDINA M Referring Unavailable PETZNICK, MEDINA M Primary Care Unavailable CONNOR NIXON Referring Unavailabl e PETZNICK, MEDINA M Primary Care Unavailable JOAQUÍN PUGH Referring Unavailab le PETZNICK, MEDINA M Primary Care Unavailable PETZNICK, MEDINA M Referring Unavailable PETZNICK, MEDINA M Primary Care Unavailable BALTAZAR MARC Referring Unavailabl e PETZNICK, MEDINA M Primary Care Unavailable KAMADANA, DEBORA Referring Unavailable PETZNICK, MEDINA M Primary Care Unavailable PETZNICK, MEDINA M Referring Unavailable KAMADANA, DEBORA Referring Unavailable PETZNICK, MEDINA M Primary Care Unavailable CONNOR JONES Attending Unavailable PETZNICK, MEDINA M Primary Care Unavailable PETZNICK, MEDINA M Primary Care Unavailable PETZNICK, MEDINA M Referring Unavailable Allergies Allergy Classification Reported Allergen(s) Allergy Type Date of Onset Reaction(s) Facility Adhesive Tape (1 source) Adhesive Tape Substance Allergy 11-28-19 14 Other (See Comments) [facility] metFORMIN (1 source) metFORMIN Drug Allergy 08-08-19 12 Nausea Only [facility] Opioid Agonists (1 source) Codeine Drug Allergy 04-12-20 11 Other (See Comments) [facility] Sulfonamides (antibiotic) (1 source) Sulfonamides (Antibiotic) Drug Allergy 04-12-20 11 Nausea Only [facility] (20 sources) Adhesive Tape; Translations: [adhesive tape] Propensity to adverse reactions to drug 11-28-19 14 Other (See Comments) [employer] [place] (20 sources) Codeine; Translations: [codeine] Drug Allergy 04-12-20 11 Other (See Comments) [employer] (20 sources) metFORMIN; Translations: [metformin] Drug Allergy 08-08-19 12 Nausea Only [employer] [facility] [place] (20 sources) Sulfonamides (Antibiotic) Propensity to adverse reactions to drug 04-12-20 11 Nausea Only [employer] [facility] [place] (12 sources) Sulfacetamide Sod-Sulfur Drug allergy stomach upset [email or web address] Other (6 sources) Sulfonamides (Antibiotic) Propensity to adverse reactions to drug 04-12-20 11 Nausea Only [facility] [employer] (3 sources) oxyCODONE; Translations: [oxycodone] Drug Allergy 07-04-19 23 Vomiting [facility] (8 sources) Adhesive Tape; Translations: [Tape] Drug allergy [facility] (1 source) Codeine Drug Allergy 07-04-19 23 [facility] (1 source) metFORMIN Drug Allergy 07-04-19 [facility] Medications Current Medications Medication Drug Class(es) Dates Sig (Normalized) Sig (Original) Accu-Chek Radha SmartView w/Device (12 sources) Start: 08-28-2017 Accu-Chek Radha SmartView w/Device fsbs once a day for 1 year *please review for potential _update for e-prescription and drug interaction check* Aug, Active Accu-Chek SmartView - (12 sources) Start: 03-11-2018 Accu-Chek SmartView - fsbs in vitro 3 times a day for 90 days Feb, Active acetaminophen 325 mg / HYDROcodone bitartrate 5 mg oral tablet (14 sources) Opioid Agonist Start: 07-04-2022 take 1 tablet by mouth every four hours Hydrocodone-Acetam inophen Active 1 TAB PO Q4H 20 July 04, 2022 take 1 tablet by kacie th every six hours as needed Cotter 7.5-325 MG 1 tablet as needed Oral ly every 6 hrs Not-Taking take 1 tablet by kacie th every six hours as needed Cotter 7.5-325 MG 1 tablet as needed Oral ly every 6 hrs Active take 1 tablet by kacie th every six hours as needed Cotter 5-325 MG 1 tablet as needed Orally every 6 hrs Active aspirin 81 mg oral tablet (20 sources) Platelet Aggregation Inhibitor, Nonsteroidal Anti-inflammatory Drug Start: 12-06-2014 take 1 tablet by mouth once daily aspirin 81 mg oral tablet 81 mg = 1 tab(s), Oral, Daily, Refills(s) 0, Prophylaxis Start Date: 12/06/14 Status: Ordered take 1 tablet by kacie th every twenty-four hours Aspirin Adult Low Strength 81 MG 1 tablet Orally Once a day Active cholecalciferol 0.05 mg oral tablet (20 sources) Vitamin D Start: 06-05-2022 take 1 tablet by mouth once daily Cholecalciferol (Vitamin D3) (Vitamin D3) 50 mcg (2,000 unit) Tablet Active 50 MCG PO Daily June 05, 2022 1:00am take 1 capsule by mouth twice da jaime Cholecalciferol (VITAMIN D) 2000 UNITS CAPS capsule Take 1 capsule by mouth 2 times daily 0 Active clopidogrel 75 mg oral tablet (19 sources) P2Y12 Platelet Inhibitor Start: 02-25-2023 take 1 tablet by mouth once daily Plavix 75 mg Tab 75 mg = 1 tab(s), Oral, Daily, Refills(s) 0 Start Date: 02/25/23 Status: Ordered Start: 06-05-2022 take 1 tablet by kacie th once daily clopidogrel (PLAVIX) 75 MG tablet Take 1 tablet by mouth daily 0 06/05/2022 Active Cymbalta 30 mg Cap-DR (4 sources) Start: 02-25-2023 take 1 capsule by mouth once daily Cymbalta 30 mg Cap-DR 30 mg, Oral, Daily, Refills(s) 0 Start Date: 02/25/23 Status: Ordered diphenhydrAMINE hydrochloride 25 mg oral tablet (1 source) Histamine-1 Receptor Antagonist Start: 04-26-2019 take 25 mg by mouth once daily as needed Benadryl 25 mg, Oral, Daily, PRN Insomnia, Refills(s) 0 Start Date: 04/26/19 Status: Ordered DULoxetine 30 mg delayed release oral capsule (15 sources) Serotonin and Norepinephrine Reuptake Inhibitor Start: 06-05-2022 take 1 capsule by mouth once daily DULoxetine (CYMBALTA) 30 MG extended release capsule Take 1 capsule by mouth daily 0 06/05/2022 Active Start: 06-05-2022 Duloxetine Act daniel MG PO June 05, 2022 1:00am Cymbalta Active ferrous sulfate 325 mg oral tablet (20 sources) Start: 06-05-2022 Ferrous Sulfat e (Ferosul) 325 mg (65 mg iron) tablet Active MG TABLET June 05, 2022 1:00am Start: 12-07-2014 take 325 mg by mouth once immanuel y ferrous sulfate 325 mg, Oral, Daily, Refills(s) 0, Prophylaxis Start Date: 12/07/14 Status: Ordered Start: 09-22-2014 take 1 tablet by kacie th every twelve hours Ferrous Sulfate 325 (65 Fe) MG 1 tablet Orally bid Sep, Active Start: 09-22-2014 take 1 tablet by kacie th twice daily Ferrous Sulfate 325 (65 Fe) MG 1 tablet Orally bid Sep, Active Folinic Acid-Vit B6-Vit B12 (FOLINIC-PLUS PO) (17 sources) Folinic Acid-Vit B6-Vit B12 (FOLINIC-PLUS PO) Take by mouth daily 0 Active Folinic-Plus (1 source) Start: 03-24-2019 take 1 tablet by mouth once daily Folinic-Plus 1 tab(s), Oral, Daily, Refill(s) 0 Start Date: 03/24/19 Status: Ordered Foltanx (1 source) Start: 12-07-2014 take 1 tablet by mouth once daily Foltanx 1 tab(s), Oral, Daily, Refill(s) 0 Start Date: 12/07/14 Status: Ordered glimepiride 1 mg oral tablet (1 source) Sulfonylurea Start: 12-06-2014 glimepiride 1 mg Tab See Instructions, 1 tab(s) Oral, Refills(s) 0, High blood sugar Start Date: 12/06/14 Status: Ordered Handicap Placard 5 year 5 year (2 sources) Start: 12-06-2018 Handicap Carlotta 5 year 5 year 1 misc daily for 1825 days *please review for potential _update for e-prescription and drug interaction check* Nov, Active Insulin Aspart Prot & Aspart (NOVOLOG MIX 70/30 FLEXPEN SC) (20 sources) Insulin Aspart P rot & Aspart (NOVOLOG MIX 70/30 FLEXPEN SC) Inject 36 Units into the skin 2 times daily 0 Active Insulin Aspart P rot & Aspart (NOVOLOG MIX 70/30 FLEXPEN SC) Inject 40 Units into the skin 2 times daily 0 Active Insulin Aspart P rot & Aspart (NOVOLOG MIX 70/30 FLEXPEN SC) Inject 25 Units into the skin See Admin Instructions Pt takes 25 units in A.M. And 35 units in P.M. 0 Active 3 ml insulin aspart protamine, human 70 unt/ml / insulin aspart, human 30 unt/ml pen injector (12 sources) Insulin Analog Start: 05-27-2017 NovoLOG Mix 70 /30 FlexPen (70-30) 100 UNIT/ML 15 units breakfast and 20 dinner Subcutaneous May, Active Lantus (1 source) Insulin Analog Start: 12-06-2014 inject 44 [IU] by subcutaneous injection once daily Lantus insulin 44 unit(s), SubCutaneous, Daily, Refills(s) 0, High blood sugar Start Date: 12/06/14 Status: Ordered Victoza (20 sources) GLP-1 Receptor Agonist Start: 12-06-2014 inject 1.2 mg by subcutaneous injection once daily Victoza 1.2 mg, SubCutaneous, Daily, Refills(s) 0, Blood glucose Start Date: 12/06/14 Status: Ordered Start: 09-19-2014 inject 1.2 mg by sub cutaneous injection once daily Victoza 18 MG/3ML 1.2 mg Subcutaneous Once a day Aug, Active lisinopril 5 mg oral tablet (20 sources) Angiotensin Converting Enzyme Inhibitor Start: 06-05-2022 Lisinopril Active MG TABLET June 05, 2022 1:00am Start: 04-03-2014 End: 03-01-2020 take 1 tablet by mouth once daily lisinopril 10 mg Tab 10 mg = 1 tab(s), Oral, Daily, Refills(s) 0, High blood pressure Start Date: 12/06/14 Status: Ordered meloxicam 7.5 mg oral tablet (15 sources) Nonsteroidal Anti-inflammatory Drug Start: 04-29-2020 take 1 tablet by mouth once daily meloxicam (MOBIC) 7.5 MG tablet Take 1 tablet by mouth daily 20 tablet 1 04/29/2020 Active nadolol 40 mg oral tablet (20 sources) beta-Adrenergic Theodore Start: 06-05-2022 Nadolo l Active MG TABLET June 05, 2022 1:00am Start: 06-22-2008 take 1 tablet by kacie th once daily nadolol 40 mg Tab 40 mg = 1 tab(s), Oral, Daily, Refills(s) 0, High blood pressure Start Date: 12/06/14 Status: Ordered NovoLog Mix 70/30 FlexPen (7 sources) Start: 03-24-2019 NovoLog Mix 70 /30 FlexPen See Instructions, Refill(s) 0 Start Date: 03/24/19 Status: Ordered oxyCODONE hydrochloride 5 mg oral tablet (3 sources) Opioid Agonist Start: 06-26-2022 take 10 mg by mouth every six hours Oxycodone Active 10 MG PO Every 6 hours 40 June 26, 2022 PARoxetine hydrochloride 40 mg oral tablet (20 sources) Serotonin Reuptake Inhibitor Start: 06-05-2022 Paroxetine Hcl Active MG PO June 05, 2022 1:00am Start: 05-09-2019 take 40 mg by mouth once daily paroxetine 40 mg, Oral, Daily, Refills(s) 0 Start Date: 05/09/19 Status: Ordered Start: 08-22-2014 End: 11-25-2022 take 1 tablet by mouth once daily in the morning PARoxetine (PAXIL) 20 MG tablet Indications: Anxiety and depression Take 1 tablet by mouth every morning. 30 tablet 5 08/22/2014 11/25/2022 Discontinued (LIST CLEANUP) take 1 tablet by kacie th every twenty-four hours PARoxetine HCl 40 MG 1 tablet Orally Once a day Active pentoxifylline 400 mg extended release oral tablet (20 sources) Blood Viscosity Track Worker Start: 02-25-2023 take 1 tablet by mouth once daily pentoxifylline 400 mg ER Tab 400 mg = 1 tab(s), Oral, Daily, Refills(s) 0 Start Date: 02/25/23 Status: Ordered Start: 06-05-2022 take 1 tablet by kacie th once daily pentoxifylline (TRENTAL) 400 MG extended release tablet Take 1 tablet by mouth daily 0 06/05/2022 Active Start: 06-05-2022 take 1 tablet by [facility] three times daily at mealtime Pentoxifylline (Trental) 400 mg Tablet Extended Release Active 400 MG PO Three times daily June 05, 2022 1:00am must administer with a meal/food Trental Active pregabalin (20 sources) Start: 06-05-2022 Pregabalin Act daniel MG June 05, 2022 1:00am Start: 06-05-2022 Pregabalin Act daniel MG June 05, 2022 12:00am Start: 09-19-2014 take 100 mg by mouth twice aj ly Lyrica 100 mg, Oral, BID, Refills(s) 0 Start Date: 05/09/19 Status: Ordered take 1 capsule by [facility] twice daily pregabalin (LYRICA) 75 MG capsule Take 1 capsule by mouth 2 times daily. 0 Active take 1 capsule by [facility] once daily at bedtime Pregabalin 150 MG TAKE 1 CAPSULE BY MOUTH DAILY AT BEDTIME. Oral for 14 Days Active rOPINIRole 1 mg oral tablet (20 sources) Nonergot Dopamine Agonist Start: 06-05-2022 Ropinirole Active MG TABLET June 05, 2022 1:00am Start: 12-06-2014 take 2 tablets by [facility] once daily ropinirole 0.25 mg Tab 0.5 mg = 2 tab(s), Oral, Daily, Refills(s) 0 Start Date: 12/06/14 Status: Ordered take 4 tablets by [facility] once daily, then take 2 tablets by mouth at bedtime rOPINIRole (REQUIP) 0.25 MG tablet Take 4 tablets by mouth nightly Per Dr. vargas at [facility]-take 2 tablets at bedtime 0 Active take 1 tablet by [facility] at bedtime rOPINIRole HCl 1 MG 1 tablet 1 to 3 hours before bedtime Orally at bedtime Active traMADol hydrochloride 50 mg oral tablet (20 sources) Opioid Agonist Start: 03-24-2019 take 50 mg by mouth every six hours Ultram 50 mg, Oral, q6hr, Refills(s) 0 Start Date: 03/24/19 Status: Ordered Vitamin D (11 sources) Start: 03-24-2019 Vitamin D 1,20 0 International_Unit , Oral, Daily, Refills(s) 0 Start Date: 03/24/19 Status: Ordered Vitamin D Active Completed/Discontinued Medications Medication Drug Class(es) Dates Sig (Normalized) Sig (Original) Tylenol (19 sources) Start: 12-06-2014 Tylenol 500 mg , Oral, PRN Pain 1-5, Refills(s) 0 Start Date: 12/06/14 Status: Ordered take 1 tablet by kacie th every six hours as needed Acetaminophen 500 MG 1 tablet as needed Orally every 6 hrs Active cholecalciferol 5000 intl units oral tablet (7 sources) Start: 12-06-2014 take 1 tablet by mouth twice daily cholecalciferol 5000 intl units oral tablet 5,000 International_Unit = 1 tab(s), Oral, BID, Refills(s) 0, Prophylaxis Start Date: 12/06/14 Status: Ordered 200 ml ciprofloxacin 2 mg/ml injection (1 source) Quinolone Antimicrobial Start: 11-26-2022 End: 11-26-2022 ciprofloxacin (CIPRO) IVPB 400 mg iopamidol (ISOVUE-370) 76 % injection 45 mL (1 source) Start: 11-25-2022 End: 11-25-2022 iopamidol (ISOVUE-370) 76 % injection 45 mL lovastatin 10 mg oral tablet (20 sources) HMG-CoA Reductase Inhibitor Start: 06-05-2022 End: 06-05-2022 take 10 mg by mouth once daily Lovastatin Discontinued 10 MG PO Daily June 05, 2022 1:00am June 05, 2022 3:07pm Start: 07-12-2014 take 1 tablet by kacie th once daily lovastatin 40 mg Tab 40 mg = 1 tab(s), Oral, Daily, Refills(s) 0, High cholesterol Start Date: 12/06/14 Status: Ordered mupirocin 0.02 mg/mg topical ointment (2 sources) RNA Synthetase Inhibitor Antibacterial Start: 12-08-2011 End: 03-01-2020 mupirocin (BACTROBAN) 2 % ointment Apply 3 times daily. 0 12/08/2011 03/01/2020 Discontinued (LIST CLEANUP) 2 ml ondansetron 2 mg/ml injection (20 sources) Serotonin-3 Receptor Antagonist Start: 11-25-2022 End: 11-25-2022 ondansetron (ZOFRAN) injection 4 mg Start: 08-26-2019 End: 08-26-2019 ondansetron (ZOFRAN-ODT) disintegrating tablet 8 mg Start: 08-25-2019 End: 08-25-2019 take 1 tablet by mouth every six hours as needed for nausea ondansetron (ZOFRAN ODT) 4 MG disintegrating tablet Take 1 tablet by mouth every 6 hours as needed for Nausea or Vomiting 15 tablet 1 08/26/2019 Active Start: 03-24-2019 take 8 mg by mouth e very eight hours as needed for nausea Zofran 8 mg, Oral, q8hr, PRN as needed for nausea/vomiting, Refills(s) 0 Start Date: 03/24/19 Status: Ordered regular insulin, human 100 unt/ml injectable solution (1 source) Insulin Start: 03-01-2020 End: 03-01-2020 insulin regular (HUMULIN R;NOVOLIN R) injection 10 Units 50 ml sodium chloride 9 mg/m l injection (2 sources) Start: 11-25-2022 End: 11-25-2022 0.9 % sodium chloride bolus Start: 03-01-2020 End: 03-01-2020 0.9 % sodium chloride bolus technetium sestamibi (CARDIOLITE) injection 10 millicurie (1 source) Start: 07-01-2021 End: 07-01-2021 technetium sestamibi (CARDIOLITE) injection 10 millicurie Problems Active Problems Problem Classification Problem Date Documented Date Episodic/Chronic Anxiety disorders (19 sources) Anxiety; Translations: [Anxiety disorder, unspecified] 03-24-2019 Chronic Cataract (19 sources) Bilateral cataracts; Translations: [Unspecified cataract] 03-24-2019 Chronic Chronic kidney disease (20 sources) Chronic kidney disease stage 3; Translations: [CKD (chronic kidney disease), stage III] Onset: 4 03-24-2019 Chronic Chronic kidney disease (2 sources) Chronic kidney disease; Translations: [Chronic kidney disease, stage 3b] Onset: 3 Chronic ulcer of skin (15 sources) Non-pressure chronic ulcer of other part of right foot with fat layer exposed; Translations: [Non-pressure chronic ulcer of other part of right foot limited to breakdown of skin] Onset: 3 Chronic Coronary atherosclerosis and other heart disease (1 source) Coronary atherosclerosis and other heart disease; Translations: [Atherosclerosis of [place] arteries of extremities with intermittent claudication, bilateral legs] Onset: 3 Deficiency and other anemia (19 sources) Iron deficiency anemia; Translations: [Iron deficiency anemia, unspecified] 03-24-2019 Episodic Diabetes mellitus with complications (20 sources) Type II diabetes mellitus uncontrolled; Translations: [Type 2 diabetes mellitus with hyperglycemia] Onset: 3 Chronic Diabetes mellitus without complication (20 sources) Diabetes mellitus; Translations: [Type 2 diabetes mellitus without complications] Onset: 1 Resolved: 3 11-08-2012 Chronic Diabetes mellitus without complication (1 source) Diabetes mellitus without complication; Translations: [Type 2 diabetes mellitus with foot ulcer] Onset: 2 Disorders of lipid metabolism (20 sources) Pure hypercholesterolemia; Translations: [Pure hypercholesterolemia, unspecified] Onset: 1 04-12-2011 Chronic Epilepsy; convulsions (1 source) Partial seizure; Translations: [Focal seizure (HCC)] Episodic Esophageal disorders (20 sources) Gastroesophageal reflux disease; Translations: [Gastro-esophageal reflux disease without esophagitis] Onset: 1 Resolved: 4 12-17-2011 Chronic Essential hypertension (20 sources) Benign essential hypertension; Translations: [Essential (primary) hypertension] Onset: 1 03-24-2019 Chronic Gangrene (1 source) 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; Translations: [Atherosclerosis of [place] arteries of extremities with gangrene, right leg] Onset: 3 Chronic Gangrene (7 sources) Gangrene of toe; Translations: [Gangrene, not elsewhere classified] Episodic Genitourinary symptoms and ill-defined conditions (5 sources) Urine drug levels - finding; Translations: [Unspecified symptoms and signs involving the genitourinary system] Onset: 4 Resolved: 4 12-07-2013 Episodic Miscellaneous mental health disorders (12 sources) Primary insomnia; Translations: [Primary insomnia] Chronic Mycoses (12 sources) Onychomycosis due to dermatophyte ; Translations: [Tinea unguium] Episodic Nausea and vomiting (1 source) Nausea and vomiting; Translations: [Non-intractable vomiting with nausea, unspecified vomiting type] Episodic Nutritional deficiencies (20 sources) Vitamin D deficiency; Translations: [Vitamin D deficiency, unspecified] Onset: 3 03-24-2019 Chronic Osteoarthritis (20 sources) Degenerative joint disease involving multiple joints; Translations: [Primary generalized (osteo)arthritis] 03-24-2019 Chronic Other acquired deformities (12 sources) Lumbar spondylolisthesis; Translations: [Spondylolisthesis, lumbar region] Episodic Other acquired deformities (7 sources) Spondylolisthesis 03-24-2019 Episodic Comment on above: lumbar Other aftercare (12 sources) Long-term current use of insulin; Translations: [resistance brazer (current) use of insulin] Episodic Other circulatory disease (5 sources) Ischemic toe; Translations: [Other disorder of circulatory system] 06-03-2022 Episodic Other circulatory disease (1 source) Other disorder of circulatory system Episodic Other connective tissue disease (12 sources) Inflammation of rotator cuff tendon; Translations: [Other shoulder lesions, left shoulder] Episodic Other connective tissue disease (20 sources) Pain in limb; Translations: [Pain in left foot] Episodic Other connective tissue disease (2 sources) Foot pain; Translations: [Pain in right foot] 07-04-2022 Episodic Other connective tissue disease (1 source) Pain in leg, unspecified Episodi c Other connective tissue disease (7 sources) Tendinitis of left rotator cuff 03-24-2019 Episodic Other connective tissue disease (5 sources) Pain in right foot; Translations: [PAIN IN RIGHT FOOT] Onset: 3 Episodic Other diseases of kidney and ureters (2 sources) Secondary hyperparathyroidism of renal origin; Translations: [Secondary hyperparathyroidism of renal origin] Onset: 3 Chronic Other diseases of veins and lymphatics (1 source) Disorder of vein, unspecified; Translations: [DISORDER OF VEIN UNSPECIFIED] Onset: 3 Episodic Other endocrine disorders (19 sources) Hypoglycemia; Translations: [Hypoglycemia, unspecified] 03-24-2019 Chronic Other gastrointestinal disorders (1 source) H/O: colitis; Translations: [Personal history of other diseases of the digestive system] Episodic Other hereditary and degenerative nervous system conditions (20 sources) Restless legs; Translations: [Restless legs syndrome] Onset: 1 03-24-2019 Chronic Other liver diseases (1 source) Alkaline phosphatase raised; Translations: [Abnormal levels of other serum enzymes] Episodic Other nervous system disorders (12 sources) Chronic pain; Translations: [Other chronic pain] Chronic Other nervous system disorders (12 sources) Polyneuropathy associated with another disorder; Translations: [Polyneuropathy in diseases classified elsewhere] Chronic Other nervous system disorders (3 sources) Other chronic pain; Translations: [Other chronic pain G89.29] Onset: 1 Resolved: 2 Chronic Other nervous system disorders (7 sources) Chronic pain syndrome 03-24-2019 Chronic Other nervous system disorders (7 sources) Polyneuropathy 03-24-2019 Chronic Other nervous system disorders (1 source) Other specified polyneuropathies; Translations: [OTHER SPECIFIED POLYNEUROPATHIES] Onset: 3 Chronic Other nervous system disorders (2 sources) Other acute postprocedural pain Episodic Other non-epithelial cancer of skin (20 sources) History of malignant basal cell neoplasm of skin; Translations: [Personal history of other malignant neoplasm of skin] 03-24-2019 Episodic Other non-traumatic joint disorders (7 sources) Arthritis of knee 03-24-2019 Chronic Other non-traumatic joint disorders (1 source) Effusion, left knee; Translations: [Effusion of left knee] Episodic Other nutritional; endocrine; and metabolic disorders (20 sources) Severe obesity; Translations: [Morbid (severe) obesity due to excess calories] 03-24-2019 Chronic Other nutritional; endocrine; and metabolic disorders (12 sources) Body mass index 30+ - obesity; Translations: [Body mass index (BMI) 35.0-35.9, adult] Chronic Other nutritional; endocrine; and metabolic disorders (7 sources) Obesity 12-07-2014 Chronic Other nutritional; endocrine; and metabolic disorders (1 source) H/O: diabetes mellitus; Translations: [Personal history of other endocrine, nutritional and metabolic disease] Episodic Other skin disorders (1 source) Nail dystrophy; Translations: [NAIL DYSTROPHY] Onset: 3 Episodic Peripheral and visceral atherosclerosis (20 sources) Peripheral vascular disease; Translations: [Peripheral vascular disease, unspecified] Onset: 2 Chronic Pulmonary heart disease (20 sources) Pulmonary hypertension; Translations: [Pulmonary hypertension, unspecified] Onset: 4 Chronic Residual codes; unclassified (1 source) Influenza-like symptoms; Translations: [Flu-like symptoms] Episodic Residual codes; unclassified (7 sources) Insomnia 03-24-2019 Episodic Spondylosis; intervertebral disc disorders; other back problems (20 sources) Cervical arthritis; Translations: [Unspecified inflammatory spondylopathy, cervical region] Onset: 1 Resolved: 2 Chronic Spondylosis; intervertebral disc disorders; other back problems (20 sources) Neck pain; Translations: [Acute back pain with sciatica] Episodic Unclassified (1 source) Patient encounter status; Translations: [Visit for screening mammogram] Unclassified (1 source) Pain in right foot; Translations: [Pain in right foot] Onset: 3 Unclassified (1 source) Pain in right toe(s); Translations: [Pain in right toe(s)] Onset: 2 Unclassified (1 source) Pain in right hand; Translations: [Pain in right hand] Onset: 2 Past or Other Problems Problem Classification Problem Date Documented Da te Episodic/Chronic Acute and unspecified renal failure (20 sources) Acute renal failure syndrome; Translations: [Acute kidney failure, unspecified] Onset: 11-27-2013 Episodic Diabetes mellitus without complication (19 sources) Hyperglycemia; Translations: [Hyperglycemia, unspecified] Onset: 03-01-2020 03-01-2020 Episodic Intestinal infection (2 sources) Infectious colitis; Translations: [Infectious gastroenteritis and colitis, unspecified] Onset: 11-25-2022 Episodic Malaise and fatigue (20 sources) Asthenia; Translations: [Weakness] Onset: 11-27-2013 Episodic Nutritional deficiencies (20 sources) Burning feet; Translations: [Other disturbances of skin sensation] Onset: 07-22-2013 07-22-2013 Episodic Other connective tissue disease (2 sources) Pain in right toe(s); Translations: [Pain in right toe(s)] Onset: 05-30-2022 Episodic Other fractures (1 source) Wedge compression fracture of first lumbar vertebra, initial encounter for closed fracture; Translations: [Compression fracture of L1 lumbar vertebra S32.010A] Onset: 04-09-2021 Resolved: 04-09-2021 Episodic Other gastrointestinal disorders (1 source) Personal history of other diseases of the digestive system; Translations: [Personal history of other diseases of the digestive system] Onset: 11-25-2022 Episodic Other injuries and conditions due to external causes (20 sources) Elevated urine levels of drugs, medicaments and biological substances; Translations: [Finding of urine substance level] Onset: 11-27-2013 Resolved: 12-07-2013 12-07-2013 Episodic Other liver diseases (1 source) Abnormal levels of other serum enzymes; Translations: [Abnormal levels of other serum enzymes] Onset: 11-25-2022 Episodic Other lower respiratory disease (20 sources) Chronic cough; Translations: [Cough] Onset: 07-22-2013 Resolved: 12-07-2013 12-07-2013 Episodic Other lower respiratory disease (1 source) Pleurodynia Onset: 09-10-2021 Resolved: 09-10-2021 Episodic Other nervous system disorders (20 sources) Numbness of toe; Translations: [Anesthesia of skin] Onset: 07-22-2013 07-22-2013 Episodic Other non-traumatic joint disorders (2 sources) Pain in left knee; Translations: [Left knee pain M25.562] Onset: 04-09-2021 Resolved: 09-10-2021 Episodic Other nutritional; endocrine; and metabolic disorders (2 sources) Other symptoms and signs concerning food and fluid intake; Translations: [Other symptoms concerning nutrition, metabolism, and development] Onset: 11-25-2022 Episodic Other nutritional; endocrine; and metabolic disorders (1 source) Personal history of other endocrine, nutritional and metabolic disease; Translations: [Personal history of other endocrine, nutritional and metabolic disease] Onset: 11-25-2022 Episodic Other screening for suspected conditions (not mental disorders or infectious disease) (20 sources) Blood chemistry abnormal; Translations: [Other specified abnormal findings of blood chemistry] Onset: 04-12-2011 Resolved: 12-07-2013 04-04-2017 Episodic Other upper respiratory disease (20 sources) Allergic rhinitis due to pollen; Translations: [Allergic rhinitis due to pollen] Onset: 04-12-2011 Resolved: 12-07-2013 12-07-2013 Chronic Other upper respiratory infections (20 sources) Sinusitis; Translations: [Chronic sinusitis, unspecified] Onset: 12-01-2013 Resolved: 12-07-2013 12-07-2013 Chronic Other upper respiratory infections (20 sources) Sinusitis; Translations: [Sinusitis] Onset: 12-01-2013 Resolved: 12-07-2013 12-07-2013 Episodic Residual codes; unclassified (20 sources) Flushing; Translations: [Flushing] Onset: 11-08-2012 11-08-2012 Episodic Unclassified (12 sources) Positive urine drug screen Onset: 11-27-2013 Resolved: 12-07-2013 12-07-2013 Urinary tract infections (4 sources) Acute cystitis; Translations: [Acute cystitis with hematuria] Onset: 07-29-2022 Episodic Results Test Name Value Interpretation Reference Range Facility Cult,Urineon 05-24-2023 Cult,Urine Specimen Description .URINE Culture ESCHERICHIA COLI >100,000 CFU/ML Report Status FINAL 05/24/2023 SUSCEPTIBILITY Organism ESCHERICHIA COLI Method REJI Ampicillin 4 SUSCEPTIBLE Cefazolin <=4 SUSCEPTIBLE Cefazolin sensitivity results can be used to predict the effectiveness of oral cephalosporins (eg. Cephalexin) in uncomplicated Urinary Tract Infections due to E. coli, K. pneumoniae, and P. mirabilis Ceftriaxone <=0.25 SUSCEPTIBLE ESBL NEGATIVE Gentamicin <=1 SUSCEPTIBLE Levofloxacin <=0.12 SUSCEPTIBLE Nitrofurantoin 64 INTERMEDIATE Piperacillin/Tazobactam <=4 SUSCEPTIBLE Tobramycin <=1 SUSCEPTIBLE Trimethoprim/Sulfa <=20 SUSCEPTIBLE Susceptible [facility] Comment on above: Performed By: #### C DP, SED #### [facility] [address] [place] [address] Furnace Door Tender: Jenny Harvey MD Coding Queryon 05-22-2023 Coding Query - From: Joyce Arango To: Melecio POTTER, Joaquín Chirinos; Cc: Venus Stone; Sent: 04/16/2023 12:50:37 EDT ! Subject: Coding Query Dr pugh, After reviewing the cardiovascular notes, it looks like atherectomy and 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 was done of the Fem/popliteal and atherectomy/stent/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 was done of the Tibial Peroneal trunk. If that information is correct, can you please do an addendum to the OP note that reflects that part of the procedure. Thanks, Amber Coding From: Melecio POTTER, Joaquín Chirinos To: Joyce Arango; Sent: 05/22/2023 10:05:42 EST Subject: RE: Coding Query Caller Name: CHLEO MEZA I; Caller Number: H completed Normal [facility] Operative Reporton 3 Operative Report Indication for Surge ry Critical limb ischemia Preoperative Diagnosis Known PAD prior intervention staged due to healing dissection Postoperative Diagnosis 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 of the right popliteal and TP trunk successful Operation 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 right popliteal and TP trunk with direct drug-eluting stent Surgeon(s) Joaquín Pugh MD Anesthesia Conscious sedation Estimated Blood Loss Trivial Findings 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 note: Successful 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 right popliteal with drug-coated balloon followed by drug-coated stent of the TP trunk for 90% stenosed PATRICE III flow reduced to 0% residual PATRICE-3 flow Complications None Technique Following full informed consent this admission for was brought to the Bag Checker where sterile prep and drape ministered in usual fashion. Anesthesia obtained left groin with lidocaine administration, stage. A 5 Armenian sheath was placed out complication. The bifurcation was crossed with a destination sheath and a what was advanced into the distal peroneal artery. Balloon angioplasty was performed in the popliteal artery following which a stent was placed in the distal popliteal artery. The groin sheath was left in place as short 7 Armenian for later removed by manual hemostasis no complications in error the above note did not include atherectomy of the distal SFA/Popliteal artery. This was performed prior to the balloon angioplasty. A CSI device 1.5 deborah was used to pass through the SFA 6 passes. No complications. Normal [facility] Comment on above: Result Comment: Elec tronically Signed By: Melecio POTTER, Joaquín Chirinos\.br\Date and Time Signed: 05/22/23 10:00 EST UA w/Reflex Cultureon 2022 Bilirubin, SemiQt,Ur Negative Normal NEG [facility] Comment on above: Performed By: #### U #### [place] [id number] Furnace Door Tender: Job Wick MD [facility] [address] [place] [address] Furnace Door Tender: Jenny Harvey MD Blood, Urine TRACE Abnormal NEG [facility] Comment on above: Performed By: #### U RC #### [facility] [address] [place] [address] Furnace Door Tender: Job Wick MD [facility] [address] [place] [address] Furnace Door Tender: Jenny Harvey MD Clarity (U) Clear Normal CLEAR [facility] Comment on above: Performed By: #### U RC #### [facility] [address] [place] [address] Furnace Door Tender: Job Wick MD [facility] [address] [place] [address] Furnace Door Tender: Jenny Harvey MD Color (U) Yellow Normal YEL [facility] Comment on above: Performed By: #### U RC #### [facility] [address] [place] [address] Furnace Door Tender: Job Wick MD [facility] [address] [place] [address] Furnace Door Tender: Jenny Harvey MD Comment Normal [facility] Comment on above: Performed By: #### U RC #### [facility] [address] [place] [address] Furnace Door Tender: Job Wick MD [facility] [address] [place] [address] Furnace Door Tender: Jenny Harvey MD Glucose Ql (U) 50 mg/dL Abnormal NEG [facility] Comment on above: Performed By: #### U RC #### [facility] [address] [place] [address] Furnace Door Tender: Job Wick MD [facility] [address] [place] [address] Furnace Door Tender: Jenny Harvey MD Ketones Ql (U) Negative Normal NEG [facility] Comment on above: Performed By: #### U RC #### [facility] [address] [place] [address] Furnace Door Tender: Job Wick MD [facility] [address] [place] [address] Furnace Door Tender: Jenny Harvey MD Leukocyte esterase Test strip Ql (U) 3+ Abnormal NEG [facility] Comment on above: Performed By: #### U RC #### [address] [address] Furnace Door Tender: Job Wick MD [facility] [address] [place] [address] Furnace Door Tender: Jenny Harvey MD Nitrite,Ur Negative Normal NEG [facility] Comment on above: Performed By: #### U RC #### [address] [address] Furnace Door Tender: Job Wick MD [facility] [address] [place] [address] Furnace Door Tender: Jenny Harvey MD PH,Ur 5.0 Normal 5.0-8.0 [facility] Comment on above: Performed By: #### U RC #### [facility] [address] [place] [address] Furnace Door Tender: Job Wick MD [facility] [address] [place] [address] Furnace Door Tender: Jenny Harvey MD Protein Ql (U) 1+ mg/dL Abnormal NEG [facility] Comment on above: Performed By: #### U RC #### [address] [address] Furnace Door Tender: Job Wick MD [facility] [address] [place], [place] [id number] Furnace Door Tender: Jenny Harvey MD Spec. [place],Ur 1.010 Normal 1.005-1.03 0 [facility] Comment on above: Performed By: #### U RC #### [address] [address] Furnace Door Tender: Job Wick MD [facility] [address] [place] [address] Furnace Door Tender: Jenny Harvey MD Urobilinogen,Ur Normal Normal 0.0-1.0 [facility] Comment on above: Performed By: #### U RC #### [address] [address] Furnace Door Tender: Job Wick MD [facility] [address] [place] [address] Furnace Door Tender: Jenny Harvey MD Urinalysis,Microon 3 ----- Normal [facility] Comment on above: Performed By: #### U RC #### [address] [address] Furnace Door Tender: Job Wick MD [facility] [address] [place] [address] Furnace Door Tender: Jenny Harvey MD Bacteria 3+ Abnormal NONE [facility] Comment on above: Performed By: #### U RC #### [address] [address] Furnace Door Tender: Job Wick MD [facility] [address] [place] [address] Furnace Door Tender: Jenny Harvey MD Epithelial cells LM Ql (Urine sed) 2 TO 5 Normal [facility] Comment on above: Performed By: #### U RC #### [address] [id number] Furnace Door Tender: Job Wick MD [facility] [address] [place], [place] [id number] Furnace Door Tender: Jenny Harvey MD Urine RBC's 0 TO 2 Normal 0-2 [facility] Comment on above: Performed By: #### U RC #### [facility] [address], [place] [address] Furnace Door Tender: Job Wick MD [facility] [address] [facility] [place], [place] [id number] Furnace Door Tender: Jenny Harvey MD Urine WBC's 10 TO 20 Normal 0 [facility] Comment on above: Performed By: #### U RC #### [facility] [address], [place] [id number] Furnace Door Tender: Job Wick MD [facility] [address] [place], [place] [address] Furnace Door Tender: Jenny Harvey MD Consent for Procedure/Surger yon 05-21-2023 Consent for Procedure/Surgery [id number] Normal [facility] Outside Labson 05-21-2023 Outside Labs [id number]#[id number] Normal [facility] Cardiovascular Reporton 04-23 Cardiovascular Report [id number] Normal [facility] Consent for Treatmenton 04-23 Consent for Treatment [id number] Normal [facility] Inpatient Clinical Summaryon 05-20-2023 Inpatient Clinical Summary [address] [address] Clinical Summary Person Information: Name: CHLOE MEZA I Age: 78 Years : 1945 Sex: Female PCP: MEDINA DUMONT DO Marital Status: Race: White Ethnicity: Non- or Language: Kazakh Visit Id: Visit Reason: I70.222 ATHEROSCLEROSIS Speciality: Acuity: Enc Type: Ambulatory/Same Day Surgery Med Service: Surgery Arrival: 05/20/2023 06:35:27 Discharge: Dispo Type: Address: [address] [place] [address] [address] [facility] [id number] Provider Notes: Diagnosis: Problems Active Restless leg syndrome Spondylisthesis Arthritis, lumbar spine Chronic pain disorder Lumbago with sciatica, right side Type 2 diabetes mellitus with hypoglycemia Hypoglycemia Severe obesity History of basal cell carcinoma (BCC) Cervical arthritis Arthritis of knee, left Both eyes affected by mild nonproliferative diabetic retinopathy with macular edema, associated with type 2 diabetes mellitus Basal cell carcinoma of left upper extremity Lumbago with sciatica, left side Iron deficiency anemia Restless leg syndrome Primary osteoarthritis involving multiple joints Vitamin D deficiency Polyneuropathy Type 2 diabetes mellitus with diabetic polyneuropathy Gastroesophageal reflux disease without esophagitis Insomnia Hypercholesterolemia Tendonitis of left rotator cuff Essential hypertension Anxiety Kidney disease, chronic, stage III (moderate, EGFR 30-59 ml/min) Cataract, bilateral Obesity Smoking Status: Never Smoker Functional Status: Sensory Deficits: History of Falls: Mobility Assistance Prior to Admission: Independent ADLs: Independent Current Level of Assistance for Self-Care/Mobility: Cognitive Status: Allergies codeine Tape metFORMIN Measurements: Height: 157 cm Weight: 76 kg Blood Pressure: 156 mmHg / 61 mmHg BMI: 30.83 kg/m2 Procedures Angiography of lower extremity arteries with serialography (05/20/2023) Immunizations No Immunizations Documented This Visit Final Med List: acetaminophen (Tylenol) 500 Milligram By Mouth as needed Pain 1-5. aspirin (aspirin 81 mg oral tablet) 1 Tablets By Mouth every day. cholecalciferol (cholecalciferol 5000 intl units oral tablet) 1 Tablets By Mouth 2 times a day. clopidogrel (Plavix 75 mg Tab) 1 Tablets By Mouth every day. duloxetine (Cymbalta 30 mg Cap-DR) 30 Milligram By Mouth every day. ferrous sulfate 325 Milligram By Mouth every day. insulin aspart-insulin aspart protamine (NovoLog Mix 70/30 FlexPen) liraglutide (Victoza) 1.2 Milligram Subcutaneous every day. lisinopril (lisinopril 10 mg Tab) 1 Tablets By Mouth every day. lovastatin (lovastatin 40 mg Tab) 1 Tablets By Mouth every day. nadolol (nadolol 40 mg Tab) 1 Tablets By Mouth every day. pentoxifylline (pentoxifylline 400 mg ER Tab) 1 Tablets By Mouth every day. pregabalin (Lyrica) 100 Milligram By Mouth 2 times a day. ropinirole (ropinirole 0.25 mg Tab) 2 Tablets By Mouth every day. Care Team Members: Attending Physician: Joaquín Pugh MD Consulting Physician: Referring Physician: Joaquín Pugh MD Follow up: With: Address: When: Joaquín Pugh 07/21/2023 11:00 AM Type Location Start [facility] Cardiology Follow Up (FT) [facility] [place] 07/21/2023 11:00 AM 07/21/2023 11:15 AM Confirmed Patient Education Information: Angiogram, Care After, [id number] Normal [facility] Inpatient Patient Summaryon 05-20-2023 Inpatient Patient Summary [place] [address] Patient Discharge Instructions PERSON INFORMATION Name: CHLOE MEZA I Date of : 1945 Current Date: 05/20/2023 10:58:31 PHYSICIANS Admitting Physician: Joaquín Pugh MD Primary Care Physician: MEDINA DUMONT DO PCP Comment: Discharge Diagnosis: Condition at Discharge: Unchanged CHLOE MEZA I has been given the following list of follow-up instructions, prescriptions, and patient education materials: PATIENT FOLLOW-UP INFORMATION Diet: Regular Discharge Activity: Resume normal activities in 24 hours Discharge Restrictions: No driving for 24 hrs, Do not make important decisions for 24 hours, Do not drink alcoholic beverages for 24 hours Wound Care Instructions: Remove Your Dressing In 1 Days Call Your Doctor For: IF UNABLE TO CONTACT YOUR PHYSICIAN AND YOU FEEL IT IS AN EMERGENCY, GO TO THE NEAREST EMERGENCY ROOM OR CALL 911 Home Treatment: Devices/Equipment: Special Services: Additional Instructions: Primary Care Physician to provide the following pending test results: None Follow up: With: Address: When: Joaquín Pugh 07/21/2023 11:00 AM In the event that this physician does not participate in your insurance network, please consult with your insurance company to find a nearby participating provider. Type Location Start [facility] Follow Up (FT) [facility] [place] 07/21/2023 11:00 AM 07/21/2023 11:15 AM Confirmed Comment: DERRICK Spicer EDNA I, have received the attached patient education materials/instructions and have verbalized understanding: Patient Signature ____ Date Clinican/Nurse Signature Date HERE ARE THE MEDICATION CHANGES THAT OCCURRED DURING YOUR HOSPITAL STAY Medications to Continue with No Changes Other Medications acetaminophen (Tylenol) 500 Milligram By Mouth as needed Pain 1-5. Last Dose: Next Dose: aspirin (aspirin 81 mg oral tablet) 1 Tablets By Mouth every day. Last Dose: Next Dose: cholecalciferol (cholecalciferol 5000 intl units oral tablet) 1 Tablets By Mouth 2 times a day. Last Dose: Next Dose: clopidogrel (Plavix 75 mg Tab) 1 Tablets By Mouth every day. Last Dose: Next Dose: duloxetine (Cymbalta 30 mg Cap-DR) 30 Milligram By Mouth every day. Last Dose: Next Dose: ferrous sulfate 325 Milligram By Mouth every day. Last Dose: Next Dose: insulin aspart-insulin aspart protamine (NovoLog Mix 70/30 FlexPen) Last Dose: Next Dose: liraglutide (Victoza) 1.2 Milligram Subcutaneous every day. Last Dose: Next Dose: lisinopril (lisinopril 10 mg Tab) 1 Tablets By Mouth every day. Last Dose: Next Dose: lovastatin (lovastatin 40 mg Tab) 1 Tablets By Mouth every day. Last Dose: Next Dose: nadolol (nadolol 40 mg Tab) 1 Tablets By Mouth every day. Last Dose: Next Dose: pentoxifylline (pentoxifylline 400 mg ER Tab) 1 Tablets By Mouth every day. Last Dose: Next Dose: pregabalin (Lyrica) 100 Milligram By Mouth 2 times a day. Last Dose: Next Dose: ropinirole (ropinirole 0.25 mg Tab) 2 Tablets By Mouth every day. Last Dose: Next Dose: Comment: MEDICATION LIST PROVIDED FOR YOU IS A LIST OF YOUR CURRENT MEDICATIONS. PLEASE CARRY THIS WITH YOU AT ALL TIMES. acetaminophen (Tylenol) 500 Milligram By Mouth as needed Pain 1-5. aspirin (aspirin 81 mg oral tablet) 1 Tablets By Mouth every day. cholecalciferol (cholecalciferol 5000 intl units oral tablet) 1 Tablets By Mouth 2 times a day. clopidogrel (Plavix 75 mg Tab) 1 Tablets By Mouth every day. duloxetine (Cymbalta 30 mg Cap-DR) 30 Milligram By Mouth every day. ferrous sulfate 325 Milligram By Mouth every day. insulin aspart-insulin aspart protamine (NovoLog Mix 70/30 FlexPen) liraglutide (Victoza) 1.2 Milligram Subcutaneous every day. lisinopril (lisinopril 10 mg Tab) 1 Tablets By Mouth every day. lovastatin (lovastatin 40 mg Tab) 1 Tablets By Mouth every day. nadolol (nadolol 40 mg Tab) 1 Tablets By Mouth every day. pentoxifylline (pentoxifylline 400 mg ER Tab) 1 Tablets By Mouth every day. pregabalin (Lyrica) 100 Milligram By Mouth 2 times a day. ropinirole (ropinirole 0.25 mg Tab) 2 Tablets By Mouth every day. Pharmacy Information: D (more content not included)... Normal [facility] Operative Reporton 3 Operative Report Indication for Surge ry Claudication, PAD, abnormal ANDREINA Preoperative Diagnosis Presumed PAD Postoperative Diagnosis Confirmed mild/moderate PAD with no significant obstruction Operation Left lower extremity runoff Surgeon(s) Joaquín Pugh MD Anesthesia Conscious sedation Estimated Blood Loss Trivial Findings LL runoff: The left lower extremity runoff shows patent common iliac and internal iliac arteries. External iliac artery is widely patent. The common femoral artery is widely patent. The superficial femoral artery has mild diffuse disease and 50% mid distal stenosis with patent profunda femoris. The popliteal artery is widely patent. There is three-vessel below-knee runoff to the ankle. Conclusions: No significant narrowings medical therapy is advised suspect pseudoclaudication Complications None Technique Following full and informed consent patient was brought to the Bag Checker where sterile prep and drape were administered in the usual fashion. Anesthesia was given to the groin with lidocaine after conscious sedation. A right femoral 5 Armenian arterial sheath was placed complication. a 5 Armenian IM catheter advanced into the contralateral common femoral artery followed which bolus was performed on the contralateral leg for runoff. Digital subtraction views were obtained of the below-knee vessels. Catheter was removed and the groin sheath removed with hemostasis obtained by manual pressure with no immediate complications. Normal [facility] Comment on above: Result Comment: Elec tronically Signed By: Melecio POTTER, Joaquín Chirinos\.br\Date and Time Signed: 05/20/23 20:21 EST Patient Education - Texton 1 07-20-2022 Patient Education - Text Radiology Angiogram, Care After This sheet gives you information about how to care for yourself after your procedure. Your doctor may also give you more specific instructions. If you have problems or questions, contact your doctor. What can I expect after the procedure? After the procedure, it is common to have these problems at the point where the catheter was inserted: ? Bruising. ? Tenderness. ? A collection of blood (hematoma). This may feel like a small lump under the skin at the insertion site. Follow these instructions at home: Insertion site care ? Follow instructions from your doctor about how to take care of the area where the catheter was inserted. Make sure you: ? Wash your hands with soap and water before you change your bandage (dressing). If you cannot use soap and water, use hand welt slasher. ? Change your bandage as told by your doctor. ? Do not take baths, swim, or use a hot tub until your doctor says it is okay. ? You may shower 24?48 hours after the procedure, or as told by your doctor. To clean the area: ? Gently wash the area with plain soap and water. ? Pat the area dry with a clean towel. ? Do not rub the area. This may cause bleeding. ? Check your insertion area every day for signs of infection. Check for: ? Redness, swelling, or pain. ? Fluid or blood. ? Warmth. ? Pus or a bad smell. ? Do not apply powder or lotion to the area. Keep the area clean and dry. Activity ? Do not drive for 24 hours if you were given a medicine to help you relax (sedative). ? Rest as told by your doctor, usually for 1?2 days. ? Do not lift anything that is heavier than 10 lbs. (4.5 kg) or as told by your doctor. ? If your insertion site was in your leg, try to avoid stairs for a few days. ? Return to your normal activities as told by your doctor. Ask your doctor what activities are safe for you. General instructions ? If the insertion area starts to bleed, lie flat and put pressure on the area. If the bleeding does not stop, get help right away. This is an emergency. ? Take [id number] and prescription medicines only as told by your doctor. ? Drink enough fluid to keep your pee (urine) pale yellow. ? Keep all follow-up visits as told by your doctor. This is important. Contact a doctor if: ? You have a fever. ? You have chills. ? You have redness, swelling, or pain around your insertion area. ? You have fluid or blood coming from your insertion area. ? The insertion area feels warm to the touch. ? You have pus or a bad smell coming from your insertion area. ? You have more bruising around the insertion area. Get help right away if: ? You have a lot of pain in the insertion area. ? The insertion area swells very fast. ? The insertion area is bleeding, and the bleeding does not stop after you hold steady pressure on the area. ? The area around the insertion area becomes pale, cool, tingly, or numb. ? You have chest pain. ? You have trouble breathing. ? You have a rash. ? You have any signs of a stroke. BE FAST is an easy way to remember the main warning signs: ? B - Balance. Signs are dizziness, sudden trouble walking, or loss of balance. ? E - Eyes. Signs are trouble seeing or a change in how you see. ? F - Face. Signs are sudden weakness or loss of feeling of the face, or the face or eyelid drooping on one side. ? A - Arms. Signs are weakness or loss of feeling in an arm. This happens suddenly and usually on one side of the body. ? S - Speech. Signs are sudden trouble speaking, slurred speech, or trouble understanding what people say. ? T - Time. Time to call emergency services. Write down what time symptoms started. ? You have other signs of a stroke, such as: ? A sudden, very bad headache with no known cause. ? Feeling like you may vomit (nausea). ? Vomiting. ? A seizure. These symptoms may be an emergency. Do not wait to see if the symptoms will go away. Get medical help right away. Call your local emergency services (911 in the [place] Do not drive yourself to the hospital. Summary ? After the procedure, it is common to have bruising and tenderness at the insertion area. ? Do not take baths, swim, or use a hot tub until your doctor says it is okay to do so. You may shower 24?48 hours after the procedure or as told by your doctor. ? It is important to rest and drink plenty of fluids. ? If the insertion area starts to bleed, lie flat and put pressure on the area. If the bleeding does not stop, get help right away. This is an emergency. This information is not intended to replace advice given to you by your health care provider. Make sure you discuss any questions you have with your health care provider. Document Revised: 04/11/2020 Document Reviewed: 04/11/2020 [employer] Patient Education ? 2022 [employer] Normal [facility] Outside Labson 05-18-2023 Outside Labs [id number] Normal [facility] Heart and Vascular Office/Cl inic Noteon 05-17-2023 Heart and Vascular Office/Clinic Note Chief Complaint 2 week f/u History of Present Illness Chloe Meza is a 78-year-old female who presents today for a follow-up evaluation of lower extremity peripheral arterial disease, critical limb ischemia, and a nonhealing wound of the right leg. The patient reports that her right leg is faring well. She experienced relief and was able to sleep soundly during the first week post-surgery. However, she now experiences sharp pains in her leg that wake her up. She mentions that her surgical wound did not heal as expected, requiring tape when the stitches were removed. She points out a small area, about the size of a needle tip, that does not heal as quickly as the rest. She has been applying Santyl cream to it twice daily. She also mentions that on the night of 04/19/2023, she experienced discomfort in her left foot. The discomfort was most severe that evening, and she notes that her left foot felt like it was asleep. She also reports persistent numbness in her toes. Review of Systems PHQ Score Initial Depression Screen Score: 0 Constitutional: no fever, no sweats, no weakness Skin: no rash, no lesions, no bruising/petechiae ENMT: no sore throat, no congestion, no hoarseness Respiratory: no shortness of breath, no cough, no orthopnea, no wheezing Cardiovascular: no chest pain, no palpitations, no edema Gastrointestinal: no nausea, no vomiting, no diarrhea, no GI bleeding Genitourinary: no anuria/oliguria no hematuria Musculoskeletal: no back pain, no trauma Neurologic: no headache, no dizziness, no numbness, no weakness Psychiatric: no sleeping problems, no irritability, no anxiety/depression. Heme/Lymph: no bleeding tendency, no bruising tendency Allergy/Immunologic: no recurrent infections, no impaired immunity Additional ROS info: Except as noted in the above Review of Systems and in the History of Present Illness all other systems have been reviewed and are negative or noncontributory Physical Exam Vitals & Measurements HR: 84(Peripheral) BP: 112/68 SpO2: 96% HT: 62 in HT: 157 cm WT: 76 kg WT: 167.2 lb BMI: 30.83 General: alert, no acute distress Skin: warm, dry intact Head: atraumatic, normocephalic Neck: trachea midline, no JVD, no bruit Eye: normal conjunctiva, sclera clear ENMT: oral mucosa moist Cardiovascular: regular rate and rhythm, no murmur, normal peripheral perfusion Respiratory: lungs CTA, respirations non labored Chest wall: no deformity. Gastrointestinal: soft, non-distended, no tenderness, no guarding. Back: no tenderness, normal ROM, normal alignment. Extremities: no edema, no deformity, no trauma Neurological: oriented x 4, LOC appropriate for age, sensation equal & normal bilaterally, speech normal Psychiatric: cooperative, affect appropriate for age, normal judgement, normal psychiatric thoughts. Assessment/Plan Chloe Meza is a 78-year-old female with lower extremity peripheral arterial disease, critical limb ischemia, and a nonhealing wound on the right leg. We did an angiogram and have now placed stents twice. She still has symptoms on the left, which I am sure represents PAD. We will do a left lower extremity angiogram and possible 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 for critical limb ischemia on the left. Follow up in 3 months. Portions of this record may have been created with voice recognition artificial intelligence software, specifically [employer], [employer] and or [employer]. Substitutions may have occurred due to the inherent limitations of voice recognition and artificial intelligence software. ATTESTATION: Documentation services were performed after patient or guardian consented to allow [employer] to record this visit. YUNIOR design engineering specialist and provider reviewed before signing. YUNIOR: Aicha Horne Brody Follow-up No qualifying data available Problem List/Past Medical History Ongoing Anxiety Arthritis of knee, left Arthritis, lumbar spine Basal cell carcinoma of left upper extremity Both eyes affected by mild nonproliferative diabetic retinopathy with macular edema, associated with type 2 diabetes mellitus Cataract, bilateral Cervical arthritis Chronic pain disorder Essential hypertension Gastroesophageal reflux disease without esophagitis History of basal cell carcinoma (BCC) Hypercholesterolemia Hypoglycemia Insomnia Iron deficiency anemia Kidney disease, chronic, stage III (moderate, EGFR 30-59 ml/min) Lumbago with sciatica, left side Lumbago with sciatica, right side Obesity Polyneuropathy Primary osteoarthritis involving multiple joints Restless leg syndrome Restless leg syndrome Severe obesity Spondylisthesis Tendonitis of left rotator cuff Type 2 diabetes mellitus with diabetic polyneuropathy Type 2 diabetes mellitus with hypoglycemia Vitamin D deficiency Historical No qualifying data Procedure/Surgical History Placement of stent (04/07/2023), Angiography of lower extremity arteries (more content not included)... Normal [facility] Comment on above: Result Comment: Elec tronically Signed By: Melecio POTTER, Joaquín Chirinos\.br\Date and Time Signed: 05/17/23 19:37 EST\.br\Electronically Co-Signed By: Aicha Skinner\.br\Date and Time Co-Signed: 04/21/23 17:51 EDT Heart and Vascular Office/Cl inic Noteon 05-16-2023 Heart and Vascular Office/Clinic Note Chief Complaint 2 week F/U Angiogram History of Present Illness Chloe Meza is a 77-year-old female who presents today for a follow-up evaluation. She is accompanied by an adult female. The patient reports feeling content for two days post-surgery, but then experienced a recurrence of symptoms. She is experiencing pain in her right foot, although she is uncertain if it is due to adequate blood circulation. She likens the pain to ?1000 bumble bees delivering stings? in her right foot. The pain does not extend to the heel. She observes that her right foot is swollen, dark red in color and the swelling appears to be worsening. She has been applying bandages to her right foot. The pain is so severe that it prevents her from sleeping in bed. She has been undergoing physical therapy at home. She mentions that Dr. Nair used a blood pressure cuff on her right leg, but she cannot recall the results. She points out that the toes on her right foot are numb, which made her feel concerned. She has been coping with this issue with her right foot since 03/2022. Review of Systems PHQ Score Initial Depression Screen Score: 0 Constitutional: no fever, no sweats, no weakness Skin: no rash, no lesions, no bruising/petechiae ENMT: no sore throat, no congestion, no hoarseness Respiratory: no shortness of breath, no cough, no orthopnea, no wheezing Cardiovascular: no chest pain, no palpitations, no edema Gastrointestinal: no nausea, no vomiting, no diarrhea, no GI bleeding Genitourinary: no anuria/oliguria no hematuria Musculoskeletal: no back pain, no trauma Neurologic: no headache, no dizziness, no numbness, no weakness Psychiatric: no sleeping problems, no irritability, no anxiety/depression. Heme/Lymph: no bleeding tendency, no bruising tendency Allergy/Immunologic: no recurrent infections, no impaired immunity Additional ROS info: Except as noted in the above Review of Systems and in the History of Present Illness all other systems have been reviewed and are negative or noncontributory Physical Exam Vitals & Measurements HR: 87(Peripheral) BP: 136/82 SpO2: 99% HT: 62 in HT: 157 cm WT: 72.2 kg WT: 158.84 lb BMI: 29.29 General: alert, no acute distress Skin: warm, dry intact Head: atraumatic, normocephalic Neck: trachea midline, no JVD, no bruit Eye: normal conjunctiva, sclera clear ENMT: oral mucosa moist Cardiovascular: regular rate and rhythm, no murmur, normal peripheral perfusion Respiratory: lungs CTA, respirations non labored Chest wall: no deformity. Gastrointestinal: soft, non-distended, no tenderness, no guarding. Back: no tenderness, normal ROM, normal alignment. Extremities: no edema, no deformity, no trauma Neurological: oriented x 4, LOC appropriate for age, sensation equal & normal bilaterally, speech normal Psychiatric: cooperative, affect appropriate for age, normal judgement, normal psychiatric thoughts. Assessment/Plan 1. Right foot pain. I will order a Doppler ultrasound of the right foot. Portions of this record may have been created with voice recognition artificial intelligence software, specifically [employer], [employer] and or [employer]. Substitutions may have occurred with voice recognition and artificial intelligence software. Documentation services were performed after patient or guardian consented to allow [employer] to record this visit. YUNIOR design engineering specialist and provider reviewed before signing. YUNIOR: Roxane Lane. Follow-up No qualifying data available Problem List/Past Medical History Ongoing Anxiety Arthritis of knee, left Arthritis, lumbar spine Basal cell carcinoma of left upper extremity Both eyes affected by mild nonproliferative diabetic retinopathy with macular edema, associated with type 2 diabetes mellitus Cataract, bilateral Cervical arthritis Chronic pain disorder Essential hypertension Gastroesophageal reflux disease without esophagitis History of basal cell carcinoma (BCC) Hypercholesterolemia Hypoglycemia Insomnia Iron deficiency anemia Kidney disease, chronic, stage III (moderate, EGFR 30-59 ml/min) Lumbago with sciatica, left side Lumbago with sciatica, right side Obesity Polyneuropathy Primary osteoarthritis involving multiple joints Restless leg syndrome Restless leg syndrome Severe obesity Spondylisthesis Tendonitis of left rotator cuff Type 2 diabetes mellitus with diabetic polyneuropathy Type 2 diabetes mellitus with hypoglycemia Vitamin D deficiency Historical No qualifying data Procedure/Surgical History Angiography of lower extremity arteries with serialography (02/25/2023), Appendectomy, Carpal tunnel release, Cataract extraction, Hysterectomy, sinus surgery, Tonsillectomy. Medications aspirin 81 mg oral tablet, 81 mg= 1 tab(s), Oral, Daily cholecalciferol 5000 intl units oral tablet, 5000 International_Unit= 1 tab(s), Oral, BID Cymbalta 30 (more content not included)... Normal [facility] Comment on above: Result Comment: Elec tronically Signed By: Melecio POTTER, Joaquín Chirinos\.br\Date and Time Signed: 05/16/23 11:30 EST\.br\Electronically Co-Signed By: Roxane Lane\.br\Date and Time Co-Signed: 03/11/23 14:07 EDT Basic Metabolic Profon 05-15 Anion gap [Moles/Vol] 7 mmol/L Low 9-17 [facility] Comment on above: Performed By: #### C DP, SED #### [facility] [address] [place] [address] Furnace Door Tender: Jenny Harvey MD BUN/CRE Ratio 19 Normal 9-20 [facility] Comment on above: Performed By: #### C DP, SED #### [facility] [address] [place], [place] [id number] Furnace Door Tender: Jenny Harvey MD Calcium [Mass/Vol] 8.6 mg/dL Normal 8.6-10.4 [facility] Comment on above: Performed By: #### C DP, SED #### [facility] [address] [place], [place] [id number] Furnace Door Tender: Jenny Harvey MD Chloride [Moles/Vol] 97 mmol/L Low 98-107 [facility] Comment on above: Performed By: #### C DP, SED #### [facility] [address] [place], [place] [id number] Furnace Door Tender: Jenny Harvey MD CO2 [Moles/Vol] 25 mmol/L Normal 20-31 [facility] Comment on above: Performed By: #### C DP, SED #### [facility] [address] [place] [address] Furnace Door Tender: Jenny Harvey MD Creatinine [Mass/Vol] 1.4 mg/dL High 0.5-0.9 [facility] Comment on above: Performed By: #### C DP, SED #### [facility] [address] [place], [place] [id number] Furnace Door Tender: Jenny Harvey MD GFR/1.73 sq M.predicted among non-blacks MDRD (S/P/Bld) [Vol rate/Area] 39 mL/min/{1.73_m2} Low >60 [facility] Comment on above: Result Comment: These results are not intended for use in patients <18 years of age. eGFR results are calculated without a race factor using the 2020 CKD-EPI equation. Careful clinical correlation is recommended, particularly when comparing to results calculated using previous equations. The CKD-EPI equation is less accurate in patients with extremes of muscle mass, extra-renal metabolism of creatine, excessive creatine ingestion, or following therapy that affects renal tubular secretion. Performed By: #### C DP, SED #### [facility] [address] [place] [address] Furnace Door Tender: Jenny Harvey MD Glucose [Mass/Vol] 573 mg/dL Critically high 70-99 [facility] Comment on above: Performed By: #### C DP, SED #### [facility] [address] [place] [address] Furnace Door Tender: Jenny Harvey MD Potassium [Moles/Vol] 4.8 mmol/L Normal 3.7-5.3 [facility] Comment on above: Performed By: #### C DP, SED #### [facility] [address] [place], [place] [id number] Furnace Door Tender: Jenny Harvey MD Sodium [Moles/Vol] 129 mmol/L Low 135-144 [facility] Comment on above: Performed By: #### C DP, SED #### [facility] [address] [place] [address] Furnace Door Tender: Jenny Harvey MD Urea nitrogen [Mass/Vol] 26 mg/dL High 8-23 [facility] Comment on above: Performed By: #### C DP, SED #### [facility] [address] [place] [address] Furnace Door Tender: Jenny Harvey MD CBC with Diffon 05-15-2023 Abs. Basophil 0.06 k/uL Normal 0.00-0.20 [facility] Comment on above: Performed By: #### C DP, SED #### [facility] [address] [place] [address] Furnace Door Tender: Jenny Harvey MD Abs.Imm.Granulocyte 0.01 k/uL Normal 0.00-0.30 [facility] Comment on above: Performed By: #### C DP, SED #### [facility] [address] [place] [address] Furnace Door Tender: Jenny Harvey MD Abs.Neutrophil (Seg) 3.85 k/uL Normal 2.5-7.0 [facility] Comment on above: Performed By: #### C DP, SED #### [facility] [address] [place] [address] Furnace Door Tender: Jenny Harvey MD Basophils/100 WBC (Bld) 1 % Normal 0-2 [facility] Comment on above: Performed By: #### C DP, SED #### [facility] [address] [place] [id number] Furnace Door Tender: Jenny Harvey MD Eosinophils (Bld) [#/Vol] 0.20 10*3/uL Normal 0.00-0.40 [facility] Comment on above: Performed By: #### C DP, SED #### [facility] [address] [place], [place] [id number] Furnace Door Tender: Jenny Harvey MD Eosinophils/100 WBC (Bld) 3 % Normal 0-5 [facility] Comment on above: Performed By: #### C DP, SED #### [facility] [address] [place], [place] [id number] Furnace Door Tender: Jenny Harvey MD Erythrocyte distribution width (RBC) [Ratio] 11.5 % Low 12.1-15.2 [facility] Comment on above: Performed By: #### C DP, SED #### [facility] [address] [place], [place] [id number] Furnace Door Tender: Jenny Harvey MD Hematocrit (Bld) [Volume fraction] 31.0 % Low 36.0-46.0 [facility] Comment on above: Performed By: #### C DP, SED #### [facility] [address] [place], [place] [id number] Furnace Door Tender: Jenny Harvey MD Hemoglobin (Bld) [Mass/Vol] 10.9 g/dL Low 12.0-16.0 [facility] Comment on above: Performed By: #### C DP, SED #### [facility] [address] [place], [place] [id number] Furnace Door Tender: Jenny Harvey MD Immature granulocytes/100 WBC (Bld) 0 % Normal 0-5 [facility] Comment on above: Performed By: #### C DP, SED #### [facility] [address] [place] [address] Furnace Door Tender: Jenny Harvey MD Lymphocytes (Bld) [#/Vol] 1.87 10*3/uL Normal 1.00-4.80 [facility] Comment on above: Performed By: #### C DP, SED #### [facility] [address] [place] [address] Furnace Door Tender: Jenny Harvey MD Lymphocytes/100 WBC (Bld) 30 % Normal 15-40 [facility] [facility] Comment on above: Performed By: #### C DP, SED #### [facility] [address] [place] [address] Furnace Door Tender: Jenny Harvey MD MCH (RBC) [Entitic mass] 32.2 pg Normal 26.0-34.0 [facility] Comment on above: Performed By: #### C DP, SED #### [facility] [address] [place] [address] Furnace Door Tender: Jenny Harvey MD MCHC (RBC) [Mass/Vol] 35.2 g/dL Normal 31.0-37.0 [facility] Comment on above: Performed By: #### C DP, SED #### [facility] [address] [place] [address] Furnace Door Tender: Jenny Harvey MD MCV (RBC) [Entitic vol] 91.7 fL Normal 80.0-100.0 [facility] Comment on above: Performed By: #### C DP, SED #### [facility] [address] [place] [address] Furnace Door Tender: Jenny Harvey MD Monocytes (Bld) [#/Vol] 0.35 10*3/uL Normal 0.00-1.00 [facility] Comment on above: Performed By: #### C DP, SED #### [facility] [address] [place] [address] Furnace Door Tender: Jenny Harvey MD Monocytes/100 WBC (Bld) 6 % Normal 4-8 [facility] Comment on above: Performed By: #### C DP, SED #### [facility] [address] [place] [address] Furnace Door Tender: Jenny Harvey MD Neutrophil (Seg) 61 % Normal 47-75 [facility] Comment on above: Performed By: #### C DP, SED #### [facility] [address] [place] [address] ([phone] Furnace Door Tender: Jenny Harvey MD Platelet mean volume (Bld) [Entitic vol] 10.0 fL Normal 6.0-12.0 [facility] Comment on above: Performed By: #### C DP, SED #### [facility] [address] [place] [address] ([phone] Furnace Door Tender: Jenny Harvey MD Platelets (Bld) [#/Vol] 258 10*3/uL Normal 140-450 [facility] Comment on above: Performed By: #### C DP, SED #### [facility] [address] [place] [address] (804) Furnace Door Tender: Jenny Harvey MD RBC (Bld) [#/Vol] 3.38 10*6/uL Low 4.00-5.20 [facility] Comment on above: Performed By: #### C DP, SED #### [facility] [address] [place] [address] (074) Furnace Door Tender: Jenny Harvey MD WBC (Bld) [#/Vol] 6.3 10*3/uL Normal 3.5-11.0 [facility] Comment on above: Performed By: #### C DP, SED #### [facility] [address] [place] [id number] ([phone] Furnace Door Tender: Jenny Harvey MD Outside Labson 05-15-2023 Outside Labs [id number] Normal [facility] Cult,Urineon 04-25-2023 Cult,Urine Specimen Description .URINE Culture ESCHERICHIA COLI >100,000 CFU/ML Report Status FINAL 04/25/2023 SUSCEPTIBILITY Organism ESCHERICHIA COLI Method REJI Ampicillin 4 SUSCEPTIBLE Cefazolin <=4 SUSCEPTIBLE Cefazolin sensitivity results can be used to predict the effectiveness of oral cephalosporins (eg. Cephalexin) in uncomplicated Urinary Tract Infections due to E. coli, K. pneumoniae, and P. mirabilis Ceftriaxone <=0.25 SUSCEPTIBLE ESBL NEGATIVE Gentamicin <=1 SUSCEPTIBLE Levofloxacin <=0.12 SUSCEPTIBLE Nitrofurantoin <=16 SUSCEPTIBLE Piperacillin/Tazobactam <=4 SUSCEPTIBLE Tobramycin <=1 SUSCEPTIBLE Trimethoprim/Sulfa <=20 SUSCEPTIBLE Susceptible [facility] Comment on above: Performed By: #### U RC #### [facility] [address] [place] [address] Furnace Door Tender: Job Wick MD [facility] [address] [facility] [place] [address] Furnace Door Tender: Jenny Harvey MD Physician Orderon 04-23-2023 Physician Order [id number]#[id number] Normal [facility] UA w/Reflex Cultureon 2022 Bilirubin, SemiQt,Ur Negative Normal NEG [facility] Comment on above: Performed By: #### U A, UMICAO #### [facility] [address] [place] [address] Furnace Door Tender: Jenny Harvey MD Blood, Urine 1+ Abnormal NEG [facility] Comment on above: Performed By: #### U A, UMICAO #### [facility] [address] [place] [address] Furnace Door Tender: Jenny Harvey MD Clarity (U) Cloudy Abnormal CLEAR [facility] Comment on above: Performed By: #### U A, UMICAO #### [facility] [address] [place] [address] Furnace Door Tender: Jenny Harvey MD Color (U) Yellow Normal YEL [facility] Comment on above: Performed By: #### U A, UMICAO #### [facility] [address] [place] [address] Furnace Door Tender: Jenny Harvey MD Comment Normal [facility] Comment on above: Performed By: #### U A, UMICAO #### [facility] [address] [place] [address] Furnace Door Tender: Jenny Harvey MD Glucose Ql (U) Negative Normal NEG [facility] Comment on above: Performed By: #### U A, UMICAO #### [facility] [address] [place] [address] Furnace Door Tender: Jenny Harvey MD Ketones Ql (U) Negative Normal NEG [facility] Comment on above: Performed By: #### U A, UMICAO #### [facility] [address] [place] [address] Furnace Door Tender: Jenny Harvey MD Leukocyte esterase Test strip Ql (U) 3+ Abnormal NEG [facility] Comment on above: Performed By: #### U A, UMICAO #### [facility] [address] [place] [address] Furnace Door Tender: Jenny Harvey MD Nitrite,Ur Positive Abnormal NEG [facility] Comment on above: Performed By: #### U A, UMICAO #### [facility] [address] [place] [address] Furnace Door Tender: Jenny Harvey MD PH,Ur 6.5 Normal 5.0-8.0 [facility] Comment on above: Performed By: #### U A, UMICAO #### [facility] [address] [place] [address] Furnace Door Tender: Jenny Harvey MD Protein Ql (U) 1+ mg/dL Abnormal NEG [facility] Comment on above: Performed By: #### U A, UMICAO #### [facility] [address] [place] [address] Furnace Door Tender: Jenny Harvey MD Spec. [place],Ur 1.015 Normal 1.005-1.03 0 [facility] Comment on above: Performed By: #### U A, UMICAO #### [facility] [address] [place], [place] [id number] Furnace Door Tender: Jenny Harvey MD Urobilinogen,Ur Normal Normal 0.0-1.0 [facility] Comment on above: Performed By: #### U A, UMICAO #### [facility] [address] [place], [place] [id number] Furnace Door Tender: Jenny Harvey MD Urinalysis,Microon 3 ----- Normal [facility] Comment on above: Performed By: #### U A, UMICAO #### [facility] [address] [place], [place] [id number] Furnace Door Tender: Jenny Harvey MD Bacteria 4+ Abnormal NONE [facility] Comment on above: Performed By: #### U A, UMICAO #### [facility] [address] [place], [place] [phone] Furnace Door Tender: Jenny Harvey MD Epithelial cells LM Ql (Urine sed) 5 TO 10 Normal [facility] Comment on above: Performed By: #### U A, UMICAO #### [facility] [address] [place], [place] [id number] Furnace Door Tender: Jenny Harvey MD Urine RBC's 2 TO 5 Normal 0-2 [facility] Comment on above: Performed By: #### U A, UMICAO #### [facility] [address] [place], [place] [id number] Furnace Door Tender: Jenny Harvey MD Urine WBC's LOADED Normal 0 [facility] Comment on above: Performed By: #### U A, UMICAO #### [facility] [address] [place], [place] [id number] Furnace Door Tender: Jenny Harvey MD PTH, Intacton 04-22-2023 PTH, Intact 64.3 pg/mL Normal 14.0-72.0 [facility] Comment on above: Result Comment: SAMP LES FROM PATIENTS ROUTINELY RECEIVING HIGH DOSE BIOTIN THERAPY MAY SHOW FALSELY DEPRESSED RESULTS. ADDITIONAL INFORMATION MAY BE REQUIRED FOR DIAGNOSIS. Performed By: #### C DP, SED #### [facility] [address] [place] [address] Furnace Door Tender: Jenny Harvey MD Vitamin D 25 OHon 04-22-2023 Vitamin D 25 [place] 40.5 ng/mL Normal >29.9 [facility] Comment on above: Result Comment: Reference Range: Vitamin D status Range Deficiency <20 ng/mL Mild Deficiency 20-30 ng/mL Sufficiency 30-100 ng/mL Toxicity >100 ng/mL Performed By: #### U RC #### [facility] [address], [place] [id number] Furnace Door Tender: Job Wick MD [facility] [address] [place] [address] Furnace Door Tender: Jenny Harvey MD Ambulatory Visit Summaryon 1 Ambulatory Visit Summary CHLOE MEZA I :1945 Visit Date:04/21/2023 Ambulatory Visit Instructions Your Care Team Attending Physician - Melecio POTTER, Joaquín Chirinos Primary Care Physician - MEDINA DUMONT DO Referring Physician - NONE, XXXX This Is Your Medications List acetaminophen (Tylenol) aspirin (aspirin 81 mg oral tablet) cholecalciferol (cholecalciferol 5000 intl units oral tablet) clopidogrel (Plavix 75 mg Tab) duloxetine (Cymbalta 30 mg Cap-DR) ferrous sulfate insulin aspart-insulin aspart protamine (NovoLog Mix 70/30 FlexPen) liraglutide (Victoza) lisinopril (lisinopril 10 mg Tab) lovastatin (lovastatin 40 mg Tab) nadolol (nadolol 40 mg Tab) pentoxifylline (pentoxifylline 400 mg ER Tab) pregabalin (Lyrica) ropinirole (ropinirole 0.25 mg Tab) Procedures Performed Placement of stent (04/07/2023), Angiography of lower extremity arteries with serialography (02/25/2023), Appendectomy, Carpal tunnel release, Cataract extraction, Hysterectomy, sinus surgery, Tonsillectomy. What to do next Scheduled Follow-Up Appointments Thursday 11:00 AM EST With: Melecio POTTER, Joaquín Chirinos Where: [facility] Medications What How Much When Instructions Unchanged acetaminophen (Tylenol) 500 Milligram By Mouth As needed for Pain 1-5 Unchanged aspirin (aspirin 81 mg oral tablet) 1 Tablets By Mouth Every day Unchanged cholecalciferol (cholecalciferol 5000 intl units oral tablet) 1 Tablets By Mouth 2 times a day Unchanged clopidogrel (Plavix 75 mg Tab) 1 Tablets By Mouth Every day Unchanged duloxetine (Cymbalta 30 mg Cap-DR) 30 Milligram By Mouth Every day Unchanged ferrous sulfate 325 Milligram By Mouth Every day Unchanged insulin aspart-insulin aspart protamine (NovoLog Mix 70/ 30 FlexPen) See instructions Unchanged liraglutide (Victoza) 1.2 Milligram Subcutaneous Every day Unchanged lisinopril (lisinopril 10 mg Tab) 1 Tablets By Mouth Every day Unchanged lovastatin (lovastatin 40 mg Tab) 1 Tablets By Mouth Every day Unchanged nadolol (nadolol 40 mg Tab) 1 Tablets By Mouth Every day Unchanged pentoxifylline (pentoxifylline 400 mg ER Tab) 1 Tablets By Mouth Every day Unchanged pregabalin (Lyrica) 100 Milligram By Mouth 2 times a day Unchanged ropinirole (ropinirole 0.25 mg Tab) 2 Tablets By Mouth Every day Allergies Tape codeine metFORMIN Problems Ongoing - Any problem that you are currently receiving treatment for. Anxiety Arthritis of knee, left Arthritis, lumbar spine Basal cell carcinoma of left upper extremity Both eyes affected by mild nonproliferative diabetic retinopathy with macular edema, associated with type 2 diabetes mellitus Cataract, bilateral Cervical arthritis Chronic pain disorder Essential hypertension Gastroesophageal reflux disease without esophagitis History of basal cell carcinoma (BCC) Hypercholesterolemia Hypoglycemia Insomnia Iron deficiency anemia Kidney disease, chronic, stage III (moderate, EGFR 30-59 ml/min) Lumbago with sciatica, left side Lumbago with sciatica, right side Obesity Polyneuropathy Primary osteoarthritis involving multiple joints Restless leg syndrome Restless leg syndrome Severe obesity Spondylisthesis Tendonitis of left rotator cuff Type 2 diabetes mellitus with diabetic polyneuropathy Type 2 diabetes mellitus with hypoglycemia Vitamin D deficiency Patient Survey You may receive a survey via text or e-mail asking about your office visit. Please share your experience with us by completing your survey. We appreciate your feedback and thank you for choosing us for your care. Normal [facility] Consent for Treatmenton 03-24 Consent for Treatment [id number]#[id number] Normal [facility] Physician Orderon 04-21-2023 Physician Order [id number]#[id number] [facility] Renal Function Panelon 04-21 Albumin [Mass/Vol] 4.0 g/dL Normal 3.5-5.2 [facility] Comment on above: Performed By: #### U RC #### [facility] [address] [place] [address] Furnace Door Tender: Job Wick MD [facility] [address] [place], [place] [id number] Furnace Door Tender: Jenny Harvey MD Anion gap [Moles/Vol] 6 mmol/L Low 9-17 [facility] Comment on above: Performed By: #### U RC #### [facility] [address] [place] [address] Furnace Door Tender: Job Wick MD [facility] [address] [place], [place] [phone] Furnace Door Tender: Jenny Harvey MD BUN/CRE Ratio 22 High 9-20 [facility] Comment on above: Performed By: #### U RC #### [facility] [address] [place] [address] Furnace Door Tender: Job Wick MD [facility] [address] [place], [place] [id number] Furnace Door Tender: Jenny Harvey MD Calcium [Mass/Vol] 9.4 mg/dL Normal 8.6-10.4 [facility] Comment on above: Performed By: #### U RC #### [facility] [address] [place] [address] Furnace Door Tender: Job Wick MD [facility] [address] [place], [place] [address] Furnace Door Tender: Jenny Harvey MD Chloride [Moles/Vol] 100 mmol/L Normal 98-107 [facility] Comment on above: Performed By: #### U RC #### [facility] [address] [place] [address] Furnace Door Tender: Job Wick MD [facility] [address] [place], [place] [address] Furnace Door Tender: Jenny Harvey MD CO2 [Moles/Vol] 28 mmol/L Normal 20-31 [facility] Comment on above: Performed By: #### U RC #### [facility] [address] [place] [address] Furnace Door Tender: Job Wick MD [facility] [address] [place], [place] [address] Furnace Door Tender: Jneny Harvey MD Creatinine [Mass/Vol] 1.3 mg/dL High 0.5-0.9 [facility] Comment on above: Performed By: #### U RC #### [facility] [address] [place] [address] Furnace Door Tender: Job Wick MD [facility] [address] [place], [place] [id number] Furnace Door Tender: Jenny Harvey MD GFR/1.73 sq M.predicted among non-blacks MDRD (S/P/Bld) [Vol rate/Area] 42 mL/min/{1.73_m2} Low >60 [facility] Comment on above: Result Comment: These results are not intended for use in patients <18 years of age. eGFR results are calculated without a race factor using the 2020 CKD-EPI equation. Careful clinical correlation is recommended, particularly when comparing to results calculated using previous equations. The CKD-EPI equation is less accurate in patients with extremes of muscle mass, extra-renal metabolism of creatine, excessive creatine ingestion, or following therapy that affects renal tubular secretion. Performed By: #### U RC #### [place] [address] [place] [address] Furnace Door Tender: Job Wick MD [facility] [address] [place] [address] Furnace Door Tender: Jenny Harvey MD Glucose [Mass/Vol] 235 mg/dL High 70-99 [facility] Comment on above: Performed By: #### U RC #### [address] [address] Furnace Door Tender: Job Wick MD [facility] [address] [place] [address] Furnace Door Tender: Jenny Harvey MD Phosphorus, Inorg. 3.7 mg/dL Normal 2.6-4.5 [facility] Comment on above: Performed By: #### U RC #### [address] [address] Furnace Door Tender: Job Wick MD [facility] [address] [place] [address] Furnace Door Tender: Jenny Harvey MD Potassium [Moles/Vol] 4.7 mmol/L Normal 3.7-5.3 [facility] Comment on above: Performed By: #### U RC #### [address] [address] Furnace Door Tender: Job Wick MD [facility] [address] [place] [address] Furnace Door Tender: Jenny Harvey MD Sodium [Moles/Vol] 134 mmol/L Low 135-144 [facility] Comment on above: Performed By: #### U RC #### [facility] [employer] [address], [place] [address] Furnace Door Tender: Job Wick MD [facility] [address] [place], [place] [address] Furnace Door Tender: Jenny Harvey MD Urea nitrogen [Mass/Vol] 28 mg/dL High 8- [facility] Comment on above: Performed By: #### U RC #### [facility] [employer] [address] [place] [address] Furnace Door Tender: Job Wick MD [facility] [address] [place] [address] Furnace Door Tender: Jenny Harvey MD OT - Otheron 04-20-2023 OT - Other [id number] [facility] Cardiovascular Reporton 03-22 Cardiovascular Report [id number]#1.00TIFF [facility] Consent for Procedure/Surger yon 04-08-2023 Consent for Procedure/Surgery [id number]#1.00TIFF [facility] Discharge Instructionson Discharge Instructions [id number]#1.00TIFF [facility] Cardiovascular Reporton 03-22 Cardiovascular Report [id number]#1.00TIFF [facility] Consent for Treatmenton 03-22 Consent for Treatment [id number]#[id number] Normal [facility] Inpatient Clinical Summaryon 04-07-2023 Inpatient Clinical Summary [address] [address] Clinical Summary Person Information: Name: CHLOE MEZA I Age: 78 Years : 1945 Sex: Female PCP: MEDINA DUMONT DO Marital Status: Race: White Ethnicity: Non- or Language: Kazakh Visit Id: Visit Reason: I73.9, I70.221 Speciality: Acuity: Enc Type: Ambulatory/Same Day Surgery Med Service: Surgery Arrival: 04/07/2023 06:39:09 Discharge: Dispo Type: Address: [address] [place] [address] [address] [facility] [id number] Provider Notes: Diagnosis: Problems Active Restless leg syndrome Spondylisthesis Arthritis, lumbar spine Chronic pain disorder Lumbago with sciatica, right side Type 2 diabetes mellitus with hypoglycemia Hypoglycemia Severe obesity History of basal cell carcinoma (BCC) Cervical arthritis Arthritis of knee, left Both eyes affected by mild nonproliferative diabetic retinopathy with macular edema, associated with type 2 diabetes mellitus Basal cell carcinoma of left upper extremity Lumbago with sciatica, left side Iron deficiency anemia Restless leg syndrome Primary osteoarthritis involving multiple joints Vitamin D deficiency Polyneuropathy Type 2 diabetes mellitus with diabetic polyneuropathy Gastroesophageal reflux disease without esophagitis Insomnia Hypercholesterolemia Tendonitis of left rotator cuff Essential hypertension Anxiety Kidney disease, chronic, stage III (moderate, EGFR 30-59 ml/min) Cataract, bilateral Obesity Smoking Status: Never Smoker Functional Status: Sensory Deficits: Uncorrected visual impairment History of Falls: Within last one year Mobility Assistance Prior to Admission: ADLs: Independent Current Level of Assistance for Self-Care/Mobility: Cognitive Status: Allergies codeine Tape metFORMIN Measurements: Height: 157 cm Weight: 72.2 kg Blood Pressure: 147 mmHg / 71 mmHg BMI: 29.29 kg/m2 Procedures Placement of stent (04/07/2023) Immunizations No Immunizations Documented This Visit Final Med List: acetaminophen (Tylenol) 500 Milligram By Mouth as needed Pain 1-5. aspirin (aspirin 81 mg oral tablet) 1 Tablets By Mouth every day. cholecalciferol (cholecalciferol 5000 intl units oral tablet) 1 Tablets By Mouth 2 times a day. clopidogrel (Plavix 75 mg Tab) 1 Tablets By Mouth every day. duloxetine (Cymbalta 30 mg Cap-DR) 30 Milligram By Mouth every day. ferrous sulfate 325 Milligram By Mouth every day. insulin aspart-insulin aspart protamine (NovoLog Mix 70/30 FlexPen) liraglutide (Victoza) 1.2 Milligram Subcutaneous every day. lisinopril (lisinopril 10 mg Tab) 1 Tablets By Mouth every day. lovastatin (lovastatin 40 mg Tab) 1 Tablets By Mouth every day. nadolol (nadolol 40 mg Tab) 1 Tablets By Mouth every day. pentoxifylline (pentoxifylline 400 mg ER Tab) 1 Tablets By Mouth every day. pregabalin (Lyrica) 100 Milligram By Mouth 2 times a day. ropinirole (ropinirole 0.25 mg Tab) 2 Tablets By Mouth every day. Care Team Members: Attending Physician: Joaquín Pugh MD Consulting Physician: Referring Physician: Joaquín Pugh MD Follow up: With: Address: When: Joaquín Pugh [address] [place] [id number] [facility] () 04/21/2023 3:15 PM Comments: Keep scheduled appointment Type Location Start [facility] Cardiology Follow Up ([facility]) [facility] [place] 04/21/2023 3:15 PM 04/21/2023 3:30 PM Confirmed Patient Education Information: CV - Cardiovascular PCI Discharge Instructions (Custom) Normal [facility] Inpatient Patient Summaryon 04-07-2023 Inpatient Patient Summary [address] [address] Patient Discharge Instructions PERSON INFORMATION Name: CHLOE MEZA I Date of : 1945 Current Date: 04/07/2023 10:41:17 PHYSICIANS Admitting Physician: Joaquín Pugh MD Primary Care Physician: MEDINA DUMONT DO PCP Comment: Discharge Diagnosis: Condition at Discharge: Stable CHLOE MEZA I has been given the following list of follow-up instructions, prescriptions, and patient education materials: PATIENT FOLLOW-UP INFORMATION Diet: Discharge Activity: Discharge Restrictions: No driving for 24 hrs, Do not operate machinery or tools, Do not make important decisions for 24 hours, Do not drink alcoholic beverages for 24 hours Wound Care Instructions: Remove dressing as instructed Remove Your Dressing In Days Call Your Doctor For: IF UNABLE TO CONTACT YOUR PHYSICIAN AND YOU FEEL IT IS AN EMERGENCY, GO TO THE NEAREST EMERGENCY ROOM OR CALL 911 Home Treatment: Blood glucose monitoring Devices/Equipment: None Special Services: Additional Instructions: Primary Care Physician to provide the following pending test results: None Follow up: With: Address: When: Joaquín Pugh [facility] [place] [address] Business (1) 04/21/2023 3:15 PM Comments: Keep scheduled appointment In the event that this physician does not participate in your insurance network, please consult with your insurance company to find a nearby participating provider. Type Location [facility] Cardiology Follow Up ([facility]) [facility] [place] 04/21/2023 3:15 PM 04/21/2023 3:30 PM Confirmed Comment: DERRICK Spicer EDNA I, have received the attached patient education materials/instructions and have verbalized understanding: Patient Signature ____ Date Clinican/Nurse Signature Date HERE ARE THE MEDICATION CHANGES THAT OCCURRED DURING YOUR HOSPITAL STAY Medications to Continue with No Changes Other Medications acetaminophen (Tylenol) 500 Milligram By Mouth as needed Pain 1-5. Last Dose: Next Dose: aspirin (aspirin 81 mg oral tablet) 1 Tablets By Mouth every day. Last Dose: Next Dose: cholecalciferol (cholecalciferol 5000 intl units oral tablet) 1 Tablets By Mouth 2 times a day. Last Dose: Next Dose: clopidogrel (Plavix 75 mg Tab) 1 Tablets By Mouth every day. Last Dose: Next Dose: duloxetine (Cymbalta 30 mg Cap-DR) 30 Milligram By Mouth every day. Last Dose: Next Dose: ferrous sulfate 325 Milligram By Mouth every day. Last Dose: Next Dose: insulin aspart-insulin aspart protamine (NovoLog Mix 70/30 FlexPen) Last Dose: Next Dose: liraglutide (Victoza) 1.2 Milligram Subcutaneous every day. Last Dose: Next Dose: lisinopril (lisinopril 10 mg Tab) 1 Tablets By Mouth every day. Last Dose: Next Dose: lovastatin (lovastatin 40 mg Tab) 1 Tablets By Mouth every day. Last Dose: Next Dose: nadolol (nadolol 40 mg Tab) 1 Tablets By Mouth every day. Last Dose: Next Dose: pentoxifylline (pentoxifylline 400 mg ER Tab) 1 Tablets By Mouth every day. Last Dose: Next Dose: pregabalin (Lyrica) 100 Milligram By Mouth 2 times a day. Last Dose: Next Dose: ropinirole (ropinirole 0.25 mg Tab) 2 Tablets By Mouth every day. Last Dose: Next Dose: Comment: MEDICATION LIST PROVIDED FOR YOU IS A LIST OF YOUR CURRENT MEDICATIONS. PLEASE CARRY THIS WITH YOU AT ALL TIMES. acetaminophen (Tylenol) 500 Milligram By Mouth as needed Pain 1-5. aspirin (aspirin 81 mg oral tablet) 1 Tablets By Mouth every day. cholecalciferol (cholecalciferol 5000 intl units oral tablet) 1 Tablets By Mouth 2 times a day. clopidogrel (Plavix 75 mg Tab) 1 Tablets By Mouth every day. duloxetine (Cymbalta 30 mg Cap-DR) 30 Milligram By Mouth every day. ferrous sulfate 325 Milligram By Mouth every day. insulin aspart-insulin aspart protamine (NovoLog Mix 70/30 FlexPen) liraglutide (Victoza) 1.2 Milligram Subcutaneous every day. lisinopril (lisinopril 10 mg Tab) 1 Tablets By Mouth every day. lovastatin (lovastatin 40 mg Tab) 1 Tablets By Mouth every day. nadolol (nadolol 40 mg Tab) 1 Tablets By Mouth every day. pentoxifylline (pentoxifylline 400 mg ER Tab) 1 Tablets By Mouth every day. pre (more content not included)... Normal [facility] Patient Education - Texton 1 Patient Education - Text [place], [place] Cardiovascular PCI DISCHARGE INSTRUCTIONS Diet: ? Resume pre-procedure diet. ? Increase water intake the next 2 days to flush dye out of the body. Activity: If groin access: ? Limit activity today. Do not operate a vehicle, machinery or power tools. ? NO LIFTING OVER 10 POUNDS (a gallon of milk weighs 8 pounds) for 3 days. ? Limit climbing stairs, bending, squatting and stooping for 3 days. ? May resume driving in 24 hours. ? Let pain/discomfort guide your activity. If you are having pain, stop. ? No sexual activity for 1 week. ? Return to the Emergency Room if you have trouble breathing, walking or nausea and vomiting. Medications: ? Resume pre-procedure medication, unless otherwise directed. ? Hold the following medications for 48 hours post procedure: Actoplus Met Glucophage Glucophage XR Glucovance Avandamet Fortamet Apo-metformin Glycon Judith-metformin Glumetza Janumet Metaglip Riomet Glycomet ? Minimal pain, soreness and/or discomfort is expected. ? If you are prescribed an aspirin and/or antiplatelet (such as Plavix, Brilinta or Effient) do NOT stop taking these medications for any reason without talking to your editor farm journal Site Care: ? Do not remove dressing for 24 hours unless it becomes saturated, then replace. ? Keep site clean and dry; inspect site daily. ? Do not use any lotions, powders, or ointments at the groin or wrist site for 1 week. ? May shower 24 hours after the procedure. Clean site with soap and water. Pat dry and apply band aid. No tub baths, swimming or hot tubs for 3 days. Post Procedure: ? Soreness and tenderness to the site can last up to one week. ? Bruising may occur to site. ? A responsible adult should be with you for the first 24 hours after you arrive home. ? Keep follow-up appointment. ? Carry your stent card with you at all times. This provides information about your heart disease for any doctor who cares for you. ? No smoking for 24 hours as it increases the risk of developing blood clots. ? If you are interested in smoking cessation, contact [facility] at [phone], ext. [phone]. ? In the event you are unable to reach your physician, please call [facility] at [phone] and the screen printing machine operator will assist you. Seek Medicare Care for: ? Bleeding: Apply continuous pressure to the site and Call 911. ? Should the arm or leg become cold, numb, blue or white call your physician immediately. ? Signs of infection are redness, warmth, swelling, getting more sore, colored drainage, fever or chills ? Chest pain ? Blood in your urine or stool ? Black tarry stools Normal [facility] Auto Diffon 03-17-2023 Basophils/100 WBC (Bld) 0.9 % Normal 0.0-2.0 [facility] Comment on above: Order Comment: Order Added by Discern Expert. Performed By: #### 1 [id number], [id number], [id number], [id number] ####[address] [address] Basophils/Leukocytes Auto (Bld) [Pure # fraction] 0.0 E9/L Normal 0.0-0.2 [facility] Comment on above: Order Comment: Order Added by Kandy Expert. Performed By: #### 1 [id number], [id number], 5403165, 1240559 ####[address] [address] Eosinophils/100 WBC (Bld) 3.5 % Normal 0.0-8.0 [facility] Comment on above: Order Comment: Order Added by Discern Expert. Performed By: #### 1 [id number], 6141485, 2907654, 2596752 ####[address] [place] [address] Eosinophils/Leukocytes Auto (Bld) [Pure # fraction] 0.2 E9/L Normal 0.0-0.5 [facility] Comment on above: Order Comment: Order Added by Discern Expert. Performed By: #### 1 [id number], 5310077, 1682960, 9105369 ####[address] [address] Lymphocytes/100 WBC (Bld) 42.9 % Normal 14.0-50.0 [facility] Comment on above: Order Comment: Order Added by Discern Expert. Performed By: #### 1 [id number], 0507868, 0627231, 0578959 ####[address] [place] [address] Lymphocytes/Leukocytes Auto (Bld) [Pure # fraction] 2.1 E9/L Normal 1.0-4.0 [facility] Comment on above: Order Comment: Order Added by Discern Expert. Performed By: #### 1 8491582, 8363595, 2833654, 7620916 ####[address] [place] [address] Monocytes/100 WBC (Bld) 8.7 % Normal 4.0-14.0 [facility] Comment on above: Order Comment: Order Added by Kandy Expert. Performed By: #### 1 [id number], 9562664, 5245034, 5026979 ####[address] [address] Monocytes/Leukocytes Auto (Bld) [Pure # fraction] 0.4 E9/L Normal 0.2-1.0 [facility] Comment on above: Order Comment: Order Added by Kandy Expert. Performed By: #### 1 [id number], 3056514, 6918673, 5839886 ####[address] [address] Neutrophils/100 WBC (Bld) 44.0 % Normal 36.0-75.0 [facility] Comment on above: Order Comment: Order Added by Kandy Expert. Performed By: #### 1 [id number], 0800432, 4673063, 8566891 ####[address] [place] [address] Neutrophils/Leukocytes Auto (Bld) [Pure # fraction] 2.2 E9/L Normal 2.0-7.5 [facility] Comment on above: Order Comment: Order Added by Kandy Expert. Performed By: #### 1 [id number], 7354154, 3204707, 6593541 ####[address] [place] [address] BMPon 03-17-2023 Anion gap [Moles/Vol] 12 mmol/L Normal 6-16 [facility] Comment on above: Performed By: #### 1 [id number], 5264716, 5205641, 9631231 ####[facility] [address] [place] [address] Calcium [Mass/Vol] 9.2 mg/dL Normal 8.9-11.1 [facility] Comment on above: Performed By: #### 1 1131225, 0413699, 8107749, 0421852 ####[facility] [address] [place] [address] Chloride [Moles/Vol] 108 mmol/L Normal 101-111 [facility] Comment on above: Performed By: #### 1 4618082, 3919220, 8118988, 1353875 ####[facility] [address] [place] [address] CO2 [Moles/Vol] 26 mmol/L Normal 21-31 [facility] Comment on above: Performed By: #### 1 1723584, 4144701, 0782510, 7839852 ####[facility] [address] [place] [address] Creatinine [Mass/Vol] 1.1 mg/dL Normal 0.5-1.3 [facility] Comment on above: Performed By: #### 1 7992226, 5533527, 6521900, 4052516 ####[facility] [address] [place] [address] Glucose [Mass/Vol] 56 mg/dL Normal 55-199 [facility] Comment on above: Result Comment: If t his glucose result represents a fasting glucose, interpretation should refer to the following reference range: 55-99 mg/dL Performed By: #### 1 6351560, 8289965, 8924160, 5506114 ####[facility] [address] [place] [address] Potassium [Moles/Vol] 4.7 mmol/L Normal 3.5-5.3 [facility] Comment on above: Performed By: #### 1 6603978, 0294872, 0613345, 3076184 ####[facility] [address] [place] [address] Sodium [Moles/Vol] 141 mmol/L Normal 135-145 [facility] Comment on above: Performed By: #### 1 2504324, 9010635, 7556628, 2755485 ####[facility] [address] [place] [address] Urea nitrogen [Mass/Vol] 27 mg/dL High 5-21 [facility] Comment on above: Performed By: #### 1 6652542, 9947058, 9023365, 6848562 ####[address] [place] [address] Urea nitrogen/Creatinine [Mass ratio] 24 No Units High 10-20 [facility] Comment on above: Performed By: #### 1 6409078, 3509865, 5802926, 4099962 ####[facility] [address] [place] [address] CBC w/ Auto Diffon 3 Erythrocyte distribution width (RBC) [Ratio] 14.1 % Normal 10.9-14.2 [facility] Comment on above: Performed By: #### 1 8077711, 9290249, 1510957, 3646495 ####[address] [place] [address] Hematocrit (Bld) [Volume fraction] 35.1 % Normal 34.0-46.0 [facility] Comment on above: Performed By: #### 1 4649817, 2606444, 7702292, 1853811 ####[facility] [address] [place] [address] Hemoglobin (Bld) [Mass/Vol] 12.2 g/dL Normal 12.0-16.0 [facility] Comment on above: Performed By: #### 1 3980080, 6930393, 5459959, 8126288 ####[address] [place] [address] MCH (RBC) [Entitic mass] 33.2 pg Normal 27.0-34.0 [facility] Comment on above: Performed By: #### 1 5571069, 5517633, 3272710, 5769849 ####[facility] [address] [place] [address] MCHC (RBC) [Mass/Vol] 34.7 g/dL Normal 31.4-36.0 [facility] Comment on above: Performed By: #### 1 3695939, 4979403, 3894142, 0462353 ####[address] [place] [address] MCV (RBC) [Entitic vol] 95.7 fL Normal 80.0-100.0 [facility] Comment on above: Performed By: #### 1 1222328, 6837972, 2034445, 3489439 ####[id number] Platelet mean volume (Bld) [Entitic vol] 8.4 fL Normal 6.4-10.8 [facility] Comment on above: Performed By: #### 1 8533445, 0878100, 2899439, 2086828 ####[address] [place] [address] Platelets (Bld) [#/Vol] 262.0 E9/L Normal 150.0-500. 0 [facility] Comment on above: Performed By: #### 1 4781442, 5867266, 3013963, 9469688 ####[address] [place] [address] RBC (Bld) [#/Vol] 3.7 E12/L Low 4.3-5.9 [facility] Comment on above: Performed By: #### 1 8660658, 5291284, 7226580, 1648615 ####[facility] [address] [place] [address] WBC corrected for nucl RBC Auto (Bld) [#/Vol] 4.9 E9/L Normal 4.0-11.0 [facility] Comment on above: Performed By: #### 1 4664378, 8472363, 1851028, 8136107 ####[facility] [address] [place] [address] CHEMISTRYOrdered By: SYSTEM SYSTEM on 03-17-2023 Anion gap [Moles/Vol] 12 mmol/L Normal 6 - 16 mEq/L FT Remisol Calcium [Mass/Vol] 9.2 mg/dL Normal 8.9 - 11. 1 mg/dL [facility] Chloride [Moles/Vol] 108 mmol/L Normal 101 - 1 11 mmol/L [facility] CO2 [Moles/Vol] 26 mmol/L Normal 21 - 31 mmol/L [facility] Creatinine [Mass/Vol] 1.1 mg/dL Normal 0.5 - 1.3 mg/dL [facility] Remisol GFR/1.73 sq M.predicted among non-blacks MDRD (S/P/Bld) [Vol rate/Area] 52 mL/min/1.73 m2 Low >=59mL/min /1.73 m2 [facility] Chem S Comment on above: Interpretive Data: C hronic kidney disease could be indicated at eGFR's of less than 60 mL/min/1.73m2. Kidney failure is indicated at less than 15 mL/min/1.73m2. Glucose [Mass/Vol] 56 mg/dL Normal 55 - 199 mg/dL [facility] Remisol Comment on above: Interpretive Data: I f this glucose result represents a fasting glucose, interpretation should refer to the following reference range: 55-99 mg/dL Potassium [Moles/Vol] 4.7 mmol/L Normal 3.5 - 5.3 mmol/L [facility] Remisol Sodium [Moles/Vol] 141 mmol/L Normal 135 - 145 mmol/L [facility] Remisol Urea nitrogen [Mass/Vol] 27 mg/dL High 5 - 21 mg/dL [facility] Remisol Urea nitrogen/Creatinine [Mass ratio] 24 mg/mg High 10 - 20 FT Remisol Consent for Treatmenton 02-21 Consent for Treatment [id number]:12 7 Normal [facility] HEMATOLOGYOrdered By: SYSTEM SYSTEM on 03-17-2023 Basophils/100 WBC (Bld) 0.9 % Normal 0.0 - 2.0 % [facility] HemeAutoSS Basophils/Leukocytes Auto (Bld) [Pure # fraction] 0.0 E9/L Normal 0.0 - 0.2 E9/L [facility]eAuto[facility] Eosinophils/100 WBC (Bld) 3.5 % Normal 0.0 - 8.0 % [facility]eAutoSS Eosinophils/Leukocytes Auto (Bld) [Pure # fraction] 0.2 E9/L Normal 0.0 - 0.5 E9/L [facility]eAuto[facility] Lymphocytes/100 WBC (Bld) 42.9 % Normal 14.0 - 50.0 % [facility] HemeAutoSS Lymphocytes/Leukocytes Auto (Bld) [Pure # fraction] 2.1 E9/L Normal 1.0 - 4.0 E9/L [facility]eAuto[facility] Monocytes/100 WBC (Bld) 8.7 % Normal 4.0 - 14.0 % [facility]eAutoSS Monocytes/Leukocytes Auto (Bld) [Pure # fraction] 0.4 E9/L Normal 0.2 - 1.0 E9/L [facility] Neutrophils/100 WBC (Bld) 44.0 % Normal 36.0 - 75.0 % [facility]eAuto[facility] Neutrophils/Leukocytes Auto (Bld) [Pure # fraction] 2.2 E9/L Normal 2.0 - 7.5 E9/L [facility] HEMATOLOGYOrdered By: Wily Day on 03-17-2023 Erythrocyte distribution width (RBC) [Ratio] 14.1 % Normal 10.9 - 14.2 % [facility] Hematocrit (Bld) [Volume fraction] 35.1 % Normal 34.0 - 46.0 % [facility]eAuto[facility] Hemoglobin (Bld) [Mass/Vol] 12.2 g/dL Normal 12.0 - 16.0 gm/dL [facility] MCH (RBC) [Entitic mass] 33.2 pg Normal 27.0 - 34.0 pg [facility]eAuto[facility] MCHC (RBC) [Mass/Vol] 34.7 g/dL Normal 31.4 - 36.0 gm/dL [facility] MCV (RBC) [Entitic vol] 95.7 fL Normal 80.0 - 100.0 fL [facility] HemeAutoSS Platelet mean volume (Bld) [Entitic vol] 8.4 fL Normal 6.4 - 10.8 fL [facility] HemeAutoSS Platelets (Bld) [#/Vol] 262.0 E9/L Normal 150.0 - 500.0 E9/L [facility]eAutoSS RBC (Bld) [#/Vol] 3.7 E12/L Low 4.3 - 5.9 E12/L [facility] HemeAutoSS WBC corrected for nucl RBC Auto (Bld) [#/Vol] 4.9 E9/L Normal 4.0 - 11.0 E9/L [facility] HemeAutoSS eGFRon 03-17-2023 GFR/1.73 sq M.predicted among non-blacks MDRD (S/P/Bld) [Vol rate/Area] 52 mL/min/1.73 m2 Low >=59 [facility] Comment on above: Order Comment: Order added by Discern Expert. Result Comment: Bias Cutter annie kidney disease could be indicated at eGFR's of less than 60 mL/min/1.73m2. Kidney failure is indicated at less than 15 mL/min/1.73m2. Performed By: #### 1 [id number], 5149040, 5676843, 1650198 ####[facility] [address] [place] [address] Physician Orderon 03-13-2023 Physician Order [id number]:12 7 Normal [facility] Consent for Treatmenton 02-21 Consent for Treatment [id number]:12 7 Normal [facility] Heart and Vascular Office/Cl inic Noteon 03-01-2023 Heart and Vascular Office/Clinic Note Chief Complaint here to establish care History of Present Illness Chloe Meza presents today for an evaluation of right leg pain. She is accompanied by her son and her sister. The patient underwent an amputation of her [address] Crowder at [place]. She initially sought help on 03/26/2023 for toe pain which might be related to diabetes. An angiogram performed on 06/05/2023, by Dr. Mckeon was successful, although the pain worsened, stating it was a different kind of pain. The procedure involved the use of balloon catheters. She reports a negative experience with Dr. Mckeon during which he attempted to remove her toenails and scabs from her toes. He abruptly left the room without explanation, leading her to scream due to the presence of blood on the floor. A nurse assisted her. She is under the care of Dr. Crowder for podiatry and is satisfied with the service provided. She underwent an ankle-brachial index assessment. She still has her toes during the tests. A referral was made to Dr. Nair at [facility] for a vascular surgery consultation. If she agrees to the procedure, she was scheduled to see Dr. Crowder again. However, her appointment got delayed due to his travel between [facility]. Her vascular surgery consultation was delayed also. She is in the process of recovery from her toe amputation. Stitches were removed two weeks ago due to them embedding into the skin. One side of the affected area is bleeding heavily and causing intense pain. She is experiencing overall foot pain and complains of pain on the side of her leg. Pressing on a specific spot on her leg exacerbates the pain. She finds it challenging for her to sleep and rest, especially at night. After the amputation, she is supposed to see vascular surgery and discuss the potential need for another angiogram. Regarding the pain, it was manageable with pain medication, but it worsened after gradually taking off the medication. She is uncertain if another vascular procedure is necessary. On 02/16/2023, she had difficulty sensing a pulse in her right foot. After multiple attempts, she eventually detected a faint and feeble pulse. She scheduled an appointment at the clinic to assess the blood flow in her foot, expressing the desire to prevent losing her foot. She reports having a bone infection that has since been resolved. She visits the collector weekly for monitoring and cleaning of the surgical site. She is unable to sleep on her own bed due to the pain, which worsens when her legs are raised. She was advised to use heating bads on her legs instead of ice packs. She finds relief when her legs are positioned downward. She reports numbness and paresthesia on her left toes. She is diagnosed with diabetes, type II. She administers insulin twice daily, with dosage adjustments as needed. Her diabetes management knowledge has improved, and her family supports her in this, especially with her diet. Her blood glucose levels are consistently stable. She denies any chest pain, breathing issues, or cardiac issues. She has not undergone any stress test or echocardiogram. She has been using extra strength Tylenol throughout the day. Review of Systems Constitutional: no fever, no sweats, no weakness Skin: no rash, no lesions, no bruising/petechiae ENMT: no sore throat, no congestion, no hoarseness Respiratory: no shortness of breath, no cough, no orthopnea, no wheezing Cardiovascular: no chest pain, no palpitations, no edema Gastrointestinal: no nausea, no vomiting, no diarrhea, no GI bleeding Genitourinary: no anuria/oliguria no hematuria Musculoskeletal: no back pain, no trauma Neurologic: no headache, no dizziness, no numbness, no weakness Psychiatric: no sleeping problems, no irritability, no anxiety/depression. Heme/Lymph: no bleeding tendency, no bruising tendency Allergy/Immunologic: no recurrent infections, no impaired immunity Additional ROS info: Except as noted in the above Review of Systems and in the History of Present Illness all other systems have been reviewed and are negative or noncontributory Physical Exam Vitals & Measurements HR: 87(Peripheral) BP: 120/62 SpO2: 98% HT: 62 in HT: 157 cm WT: 73.7 kg WT: 162.14 lb BMI: 29.9 General: alert, no acute distress Skin: warm, dry intact Head: atraumatic, normocephalic Neck: trachea midline, no JVD, no bruit Eye: normal conjunctiva, sclera clear ENMT: oral mucosa moist Cardiovascular: regular rate and rhythm, no murmur, normal peripheral perfusion Respiratory: lungs CTA, respirations non labored Chest wall: no deformity. Gastrointestinal: soft, non-distended, no tenderness, no guarding. Back: no tenderness, normal ROM, normal alignment. Extremities: no edema, status post amputation of toes. Neurological: oriented x 4, LOC appropriate for age, sensation equal & normal bilaterally, speech normal Psychiatric: cooperative, affect appropriate for age, normal judgement, norm (more content not included)... Normal [facility] Comment on above: Result Comment: Elec tronically Signed By: Melecio POTTER, Joaquín Chirinos\.br\Date and Time Signed: 03/01/23 07:31 EDT\.br\Electronically Co-Signed By: Roxane Lane\.br\Date and Time Co-Signed: 02/19/23 16:54 EDT Operative Reporton 3 Operative Report Indication for Surge ry Critical limb ischemia, rest pain, known PAD Preoperative Diagnosis PresumedPAD new or worsening narrowings Postoperative Diagnosis Confirmed PAD and severe stenosis of the distal SFA and critical stenosis of the distal pop and PT trunk. Operation Abdominal aortogram Right lower extremity runoff 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 of the right SFA with drug-coated balloon 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 of the distal popliteal and TP trunk balloon angioplasty This note is completed immediately following the procedure the date and time of this procedure are the same as this note. Surgeon(s) Joaquín Pugh MD Anesthesia Conscious sedation Estimated Blood Loss Trivial Findings AO: Abdominal aortogram at the level of the renal arteries demonstrated widely patent abdominal aorta with widely patent renal arteries and no stenosis. There is no aneurysm. The bifurcation is patent. RL runoff: The right lower extremity runoff shows patent common iliac and internal iliac arteries. External iliac artery is widely patent. The common femoral artery is widely patent. The superficial femoral artery has 70-80% distal diffuse disease and stenosis. The profunda femoris is widely patent. The popliteal artery is diffusely diseased with severe distal stenosis 99% subtotal. Just beyond the anterior tibial artery comes off and reaches the ankle. The posterior tibial artery is totally occluded and the TP trunk is severely diseased. Peroneal artery is patent with mild to moderate disease. 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 note: Success 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 distal SFA with 5.0/120 drug-coated balloon. Successful 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 distal popliteal and proximal TP trunk with balloon angioplasty 2.0, 3.0 balloons successively. Residual stenosis is minimal with dissection apparent initially that seem to be resolving after balloon inflations. Conclusions: Successful 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 of the right SFA and popliteal artery as well as TP trunk. Area was not stented due to desire for later atherectomy of the entire tibial and popliteal system. Patient will be brought back in 4 to 6 weeks for that procedure. Complications None Technique Following full and informed consent patient was brought to the Bag [facility]er where sterile prep and drape were administered in the usual fashion. Anesthesia was given to the groin with lidocaine after conscious sedation. A left femoral 5 Armenian arterial sheath was placed complication. A pigtail catheter was advanced to the abdominal aorta at the level of the renal arteries where a bolus injection was performed for abdominal aortography and digital subtraction. The pigtail catheter was pulled down to the bifurcation where oblique views were done under digital subtraction the pelvis. Pigtail was removed and a 5 Armenian IM catheter advanced into the contralateral common femoral artery followed which bolus was performed on the contralateral leg for runoff. Digital subtraction views were obtained of the below-knee vessels. This catheter was used to direct a stiff angled Glidewire into the right SFA and the sheath was removed and a 45 cm destination sheath placed across the bifurcation. Balloon angioplasty was performed of the distal SFA using drug-coated balloon. If a 6 Armenian multipurpose guide catheter was placed in the distal SFA proximal pop and the coronary guidewire was used to wire the subtotal occlusion of the distal popliteal artery. This was angioplastied using coronary balloons. The result was significantly improved and there was a residual dissection decision was made not to perform atherectomy at this time. The guide and catheter was removed and the groin sheath left in place with hemostasis obtained by manual pressure with no immediate complications. [facility] Comment on above: Result Comment: Elec tronically Signed By: Melecio POTTER, Joaquín Chirinos\.br\Date and Time Signed: 03/01/23 07:48 EDT Cardiovascular Reporton Cardiovascular Report [id number]#1.00CD:12 7 [facility] Consent for Procedure/Surger yon 02-26-2023 Consent for Procedure/Surgery [id number]#1.00CD:12 7 [facility] Discharge Instructionson Discharge Instructions [id number]#1.00CD:12 7 [facility] Cardiovascular Reporton Cardiovascular Report [id number]#1.00CD:1 27 [facility] Consent for Treatmenton Consent for Treatment [id number]#1.00CD:12 7 Normal [facility] Inpatient Clinical Summaryon 02-25-2023 Inpatient Clinical Summary [address] [address] Clinical Summary Person Information: Name: CHLOE MEZA I Age: 77 Years : 1945 Sex: Female PCP: MEDINA DUMONT DO Marital Status: Race: White Ethnicity: Non- or Language: Kazakh Visit Id: Visit Reason: I73.9 I70.221 Speciality: Acuity: Enc Type: Ambulatory/Same Day Surgery Med Service: Cardiovascular Arrival: 02/25/2023 06:37:54 Discharge: Dispo Type: Address: [address] [place] [address] [address] [place] [address] [id number] Provider Notes: Diagnosis: Problems Active Restless leg syndrome Spondylisthesis Arthritis, lumbar spine Chronic pain disorder Lumbago with sciatica, right side Type 2 diabetes mellitus with hypoglycemia Hypoglycemia Severe obesity History of basal cell carcinoma (BCC) Cervical arthritis Arthritis of knee, left Both eyes affected by mild nonproliferative diabetic retinopathy with macular edema, associated with type 2 diabetes mellitus Basal cell carcinoma of left upper extremity Lumbago with sciatica, left side Iron deficiency anemia Restless leg syndrome Primary osteoarthritis involving multiple joints Vitamin D deficiency Polyneuropathy Type 2 diabetes mellitus with diabetic polyneuropathy Gastroesophageal reflux disease without esophagitis Insomnia Hypercholesterolemia Tendonitis of left rotator cuff Essential hypertension Anxiety Kidney disease, chronic, stage III (moderate, EGFR 30-59 ml/min) Cataract, bilateral Obesity Smoking Status: Never Smoker Functional Status: Sensory Deficits: History of Falls: Mobility Assistance Prior to Admission: Independent ADLs: Independent Current Level of Assistance for Self-Care/Mobility: Cognitive Status: Allergies codeine Tape metFORMIN Measurements: Height: 157 cm Weight: 73.7 kg Blood Pressure: Not Valued / Not Valued BMI: 29.9 kg/m2 Procedures Angiography of lower extremity arteries with serialography (02/25/2023) Immunizations No Immunizations Documented This Visit Final Med List: acetaminophen (Tylenol) 500 Milligram By Mouth as needed Pain 1-5. aspirin (aspirin 81 mg oral tablet) 1 Tablets By Mouth every day. cholecalciferol (cholecalciferol 5000 intl units oral tablet) 1 Tablets By Mouth 2 times a day. clopidogrel (Plavix 75 mg Tab) 1 Tablets By Mouth every day. duloxetine (Cymbalta 30 mg Cap-DR) 30 Milligram By Mouth every day. ferrous sulfate 325 Milligram By Mouth every day. insulin aspart-insulin aspart protamine (NovoLog Mix 70/30 FlexPen) liraglutide (Victoza) 1.2 Milligram Subcutaneous every day. lisinopril (lisinopril 10 mg Tab) 1 Tablets By Mouth every day. lovastatin (lovastatin 40 mg Tab) 1 Tablets By Mouth every day. nadolol (nadolol 40 mg Tab) 1 Tablets By Mouth every day. paroxetine 40 Milligram By Mouth every day. pentoxifylline (pentoxifylline 400 mg ER Tab) 1 Tablets By Mouth every day. pregabalin (Lyrica) 100 Milligram By Mouth 2 times a day. ropinirole (ropinirole 0.25 mg Tab) 2 Tablets By Mouth every day. Care Team Members: Attending Physician: Joaquín Pugh MD Consulting Physician: Referring Physician: Joqauín Pugh MD Follow up: With: Address: When: Joaquín Pugh [address] [place], [place] [id number] Business (1) 03/11/2023 12:00 PM With: Address: When: Joaquín Pugh [address] [place], [place] [id number] Business (1) Type Location Start [facility] Cardiology Follow Up (FT) FT.Cardiology Clinic 03/11/2023 12:00 PM 03/11/2023 12:15 PM Confirmed Cardiology Follow Up (FT) FT.Cardiology Clinic [place] 03/31/2023 2:45 PM 03/31/2023 3:00 PM Confirmed Patient Education Information: CV - Cardiovascular PCI Discharge Instructions (CUSTOM) [facility] Inpatient Patient Summaryon 02-25-2023 Inpatient Patient Summary [place] [id number] Patient Discharge Instructions PERSON INFORMATION Name: CHLOE MEZA I Date of : 1945 Current Date: 02/25/2023 12:11:56 PHYSICIANS Admitting Physician: Melecio POTTER, Joaquín Chirinos Primary Care Physician: MEDINA DUMONT DO PCP Comment: Discharge Diagnosis: Condition at Discharge: Improved CHLOE MEZA I has been given the following list of follow-up instructions, prescriptions, and patient education materials: PATIENT FOLLOW-UP INFORMATION Diet: Discharge Activity: Discharge Restrictions: No driving for 24 hrs, Do not operate machinery or tools, Do not make important decisions for 24 hours, Do not drink alcoholic beverages for 24 hours Wound Care Instructions: Remove dressing as instructed Remove Your Dressing In Days Call Your Doctor For: IF UNABLE TO CONTACT YOUR PHYSICIAN AND YOU FEEL IT IS AN EMERGENCY, GO TO THE NEAREST EMERGENCY ROOM OR CALL 911 Home Treatment: Devices/Equipment: Special Services: Additional Instructions: Primary Care Physician to provide the following pending test results: None Follow up: With: Address: When: Joaquín Pugh [address] [place] [address] [place] [address] [facility] (1) 03/11/2023 12:00 PM With: Address: When: Joaquín Pugh [address] [place] [id number] [facility] (1) In the event that this physician does not participate in your insurance network, please consult with your insurance company to find a nearby participating provider. Type Location [facility] Cardiology Follow Up (FT) FT.Cardiology Clinic 03/11/2023 12:00 PM 03/11/2023 12:15 PM Confirmed Cardiology Follow Up (FT) FT.[facility]iology [facility] [place] 03/31/2023 2:45 PM 03/31/2023 3:00 PM Confirmed Comment: Dannielle, CHLOE MEZA I, have received the attached patient education materials/instructions and have verbalized understanding: Patient Signature ____ Date Clinican/Nurse Signature Date HERE ARE THE MEDICATION CHANGES THAT OCCURRED DURING YOUR HOSPITAL STAY Medications to Continue with No Changes Other Medications acetaminophen (Tylenol) 500 Milligram By Mouth as needed Pain 1-5. Last Dose: Next Dose: aspirin (aspirin 81 mg oral tablet) 1 Tablets By Mouth every day. Last Dose: Next Dose: cholecalciferol (cholecalciferol 5000 intl units oral tablet) 1 Tablets By Mouth 2 times a day. Last Dose: Next Dose: clopidogrel (Plavix 75 mg Tab) 1 Tablets By Mouth every day. Last Dose: Next Dose: duloxetine (Cymbalta 30 mg Cap-DR) 30 Milligram By Mouth every day. Last Dose: Next Dose: ferrous sulfate 325 Milligram By Mouth every day. Last Dose: Next Dose: insulin aspart-insulin aspart protamine (NovoLog Mix 70/30 FlexPen) Last Dose: Next Dose: liraglutide (Victoza) 1.2 Milligram Subcutaneous every day. Last Dose: Next Dose: lisinopril (lisinopril 10 mg Tab) 1 Tablets By Mouth every day. Last Dose: Next Dose: lovastatin (lovastatin 40 mg Tab) 1 Tablets By Mouth every day. Last Dose: Next Dose: nadolol (nadolol 40 mg Tab) 1 Tablets By Mouth every day. Last Dose: Next Dose: paroxetine 40 Milligram By Mouth every day. Last Dose: Next Dose: pentoxifylline (pentoxifylline 400 mg ER Tab) 1 Tablets By Mouth every day. Last Dose: Next Dose: pregabalin (Lyrica) 100 Milligram By Mouth 2 times a day. Last Dose: Next Dose: ropinirole (ropinirole 0.25 mg Tab) 2 Tablets By Mouth every day. Last Dose: Next Dose: Comment: MEDICATION LIST PROVIDED FOR YOU IS A LIST OF YOUR CURRENT MEDICATIONS. PLEASE CARRY THIS WITH YOU AT ALL TIMES. acetaminophen (Tylenol) 500 Milligram By Mouth as needed Pain 1-5. aspirin (aspirin 81 mg oral tablet) 1 Tablets By Mouth every day. cholecalciferol (cholecalciferol 5000 intl units oral tablet) 1 Tablets By Mouth 2 times a day. clopidogrel (Plavix 75 mg Tab) 1 Tablets By Mouth every day. duloxetine (Cymbalta 30 mg Cap-DR) 30 Milligram By Mouth every day. ferrous sulfate 325 Milligram By Mouth every day. insulin aspart-insulin aspart protamine (NovoLog Mix 70/30 FlexPen) liraglutide (Victoza) 1.2 Milligram Subcutaneous every day. lisinopril (lisinopril 10 (more content not included)... Normal [facility] Interdisciplinary Note - Megan singon 02-25-2023 Interdisciplinary Note - Nursing pt brought to [place] [address] at 1600. pt placed on phototypesetting equipment monitor. femoral artery checks taken at 1645 and 1745. both site checks had no drainage and were soft. left dorsalis pedis pulse was taken with doppler and right post tibial pulse taken with doppler with no complications. pt sat up at 1715. vitals taken and iv discontined at 1745. pt discharged via wheelchair at 1800 with daughter. Normal [facility] Patient Education - [place] 0 02-25-2023 Patient Education - Text [place], [place] DISCHARGE INSTRUCTIONS Diet: ? Resume pre-procedure diet. ? Increase water intake the next 2 days to flush dye out of the body. Activity: If groin access: ? Limit activity today. Do not operate a vehicle, machinery or power tools. ? NO LIFTING OVER 10 POUNDS (a gallon of milk weighs 8 pounds) for 3 days. ? Limit climbing stairs, bending, squatting and stooping for 3 days. ? May resume driving in 24 hours. ? Let pain/discomfort guide your activity. If you are having pain, stop. ? No sexual activity for 1 week. ? Return to the Emergency Room if you have trouble breathing, walking or nausea and vomiting. Medications: ? Resume pre-procedure medication, unless otherwise directed. ? Minimal pain, soreness and/or discomfort is expected. ? If you are prescribed an aspirin and/or antiplatelet (such as Plavix, Brilinta or Effient) do NOT stop taking these medications for any reason without talking to your editor farm journal Site Care: ? Do not remove dressing for 24 hours unless it becomes saturated, then replace. ? Keep site clean and dry; inspect site daily. ? Do not use any lotions, powders, or ointments at the groin or wrist site for 1 week. ? May shower 24 hours after the procedure. Clean site with soap and water. Pat dry and apply band aid. No tub baths, swimming or hot tubs for 3 days. Post Procedure: ? Soreness and tenderness to the site can last up to one week. ? Bruising may occur to site. ? A responsible adult should be with you for the first 24 hours after you arrive home. ? Keep follow-up appointment. ? Carry your stent card with you at all times. This provides information about your heart disease for any doctor who cares for you. ? No smoking for 24 hours as it increases the risk of developing blood clots. ? If you are interested in smoking cessation, contact [facility] at [phone], ext. [phone]. ? In the event you are unable to reach your physician, please call [facility] at [phone] and the screen printing machine operator will assist you. Seek Medicare Care for: ? Bleeding: Apply continuous pressure to the site and Call 911. ? Should the arm or leg become cold, numb, blue or white call your physician immediately. ? Signs of infection are redness, warmth, swelling, getting more sore, colored drainage, fever or chills ? Chest pain ? Blood in your urine or stool ? Black tarry stools Normal [facility] Auto Diffon 02-21-2023 Basophils/100 WBC (Bld) 1.1 % Normal 0.0-2.0 [facility] Comment on above: Order Comment: Order Added by Discern Expert. Performed By: #### 2 [id number], 9608985, 9796222, [id number] #### [facility] Laboratory [address] [place] [address] Basophils/Leukocytes Auto (Bld) [Pure # fraction] 0.1 E9/L Normal 0.0-0.2 [facility] Comment on above: Order Comment: Order Added by Discern Expert. Performed By: #### 2 692012, 2990483, 7330991, [id number] #### [facility] Laboratory [address] [place] [address] Eosinophils/100 WBC (Bld) 2.5 % Normal 0.0-8.0 [facility] Comment on above: Order Comment: Order Added by Discern Expert. Performed By: #### 2 193773, 7259121, 5918227, [id number] #### [facility] [address] [place] [address] Eosinophils/Leukocytes Auto (Bld) [Pure # fraction] 0.2 E9/L Normal 0.0-0.5 [facility] Comment on above: Order Comment: Order Added by Kandy Expert. Performed By: #### 2 613587, 3048061, 9764891, [id number] #### [facility] [address] [place] [address] Lymphocytes/100 WBC (Bld) 31.0 % Normal 14.0-50.0 [facility] Comment on above: Order Comment: Order Added by Kandy Expert. Performed By: #### 2 043416, 3102195, 4421045, [id number] #### [facility] Laboratory [address] [place] [address] Lymphocytes/Leukocytes Auto (Bld) [Pure # fraction] 1.8 E9/L Normal 1.0-4.0 [facility] Comment on above: Order Comment: Order Added by Discern Expert. Performed By: #### 2 621127, 8500347, 2944837, [id number] #### [facility] Laboratory [address] [place] [address] Monocytes/100 WBC (Bld) 7.4 % Normal 4.0-14.0 [facility] Comment on above: Order Comment: Order Added by Kandy Expert. Performed By: #### 2 344448, 5761685, 1779669, [id number] #### [facility] [address] [place] [address] Monocytes/Leukocytes Auto (Bld) [Pure # fraction] 0.4 E9/L Normal 0.2-1.0 [facility] Comment on above: Order Comment: Order Added by Discern Expert. Performed By: #### 2 889522, 6562005, 8431859, [id number] #### [facility] Laboratory [address] [place] [address] Neutrophils/100 WBC (Bld) 58.0 % Normal 36.0-75.0 [facility] Comment on above: Order Comment: Order Added by Discern Expert. Performed By: #### 2 393831, 6283646, 9690714, [id number] #### [facility] [address] [place] [address] Neutrophils/Leukocytes Auto (Bld) [Pure # fraction] 3.5 E9/L Normal 2.0-7.5 [facility] Comment on above: Order Comment: Order Added by Discern Expert. Performed By: #### 2 878678, 2283330, 9081465, [id number] #### [facility] [address] [place] [address] BMPon 02-21-2023 Anion gap [Moles/Vol] 11 mmol/L Normal 6-16 [facility] Comment on above: Performed By: #### 2 928191, 4393118, 7739688, 88702226 ####[facility] [address] [place] [address] Calcium [Mass/Vol] 9.4 mg/dL Normal 8.9-11.1 [facility] Comment on above: Performed By: #### 2 509366, 8331658, 1095038, 39336727 ####[facility] [address] [place] [address] Chloride [Moles/Vol] 109 mmol/L Normal 101-111 [facility] Comment on above: Performed By: #### 2 044376, 0957685, 4271820, 88024802 ####[facility] [address] [place] [address] CO2 [Moles/Vol] 25 mmol/L Normal 21-31 [facility] Comment on above: Performed By: #### 2 958846, 3407746, 8328203, 51498695 ####[facility] [address] [place] [address] Creatinine [Mass/Vol] 1.2 mg/dL Normal 0.5-1.3 [facility] Comment on above: Performed By: #### 2 334434, 9706595, 8303572, 07470461 ####[facility] [address] [place] [address] Glucose [Mass/Vol] 98 mg/dL Normal 55-199 [facility] Comment on above: Result Comment: If t his glucose result represents a fasting glucose, interpretation should refer to the following reference range: 55-99 mg/dL Performed By: #### 2 353107, 1984211, 9436387, 43433963 ####[facility] [address] [place] [address] Potassium [Moles/Vol] 4.5 mmol/L Normal 3.5-5.3 [facility] Comment on above: Performed By: #### 2 841534, 6778558, 2399552, 11636477 ####[facility] [address] [place] [address] Sodium [Moles/Vol] 140 mmol/L Normal 135-145 [facility] Comment on above: Performed By: #### 2 615348, 7763259, 4658567, 74335619 ####[facility] [address] [place] [address] Urea nitrogen [Mass/Vol] 28 mg/dL High 5-21 [facility] Comment on above: Performed By: #### 2 302412, 9447405, 6106424, 28618306 ####[facility] [address] [facility] [place] [address] Urea nitrogen/Creatinine [Mass ratio] 23 No Units High 10-20 [facility] Comment on above: Performed By: #### 2 958829, 8981967, 6392339, 50506996 ####[facility] [address] [place] [address] CBC w/ Auto Diffon 3 Erythrocyte distribution width (RBC) [Ratio] 13.4 % Normal 10.9-14.2 [facility] Comment on above: Performed By: #### 2 828208, 8938273, 6379580, 29474359 #### [facility] Laboratory [address] [place] [address] Hematocrit (Bld) [Volume fraction] 37.1 % Normal 34.0-46.0 [facility] Comment on above: Performed By: #### 2 482285, 5951915, 6940226, 24161055 #### [facility] Laboratory [address] [place] [address] Hemoglobin (Bld) [Mass/Vol] 12.7 g/dL Normal 12.0-16.0 [facility] Comment on above: Performed By: #### 2 898195, 2791207, 5472117, 58410101 #### [facility] Laboratory [address] [place] [address] MCH (RBC) [Entitic mass] 33.8 pg Normal 27.0-34.0 [facility] Comment on above: Performed By: #### 2 987141, 5832768, 7786238, 86823265 #### [facility] Laboratory [address] [place] [address] MCHC (RBC) [Mass/Vol] 34.3 g/dL Normal 31.4-36.0 [facility] Comment on above: Performed By: #### 2 764707, 0966087, 0263848, 92720189 #### [facility] [address] [place] [address] MCV (RBC) [Entitic vol] 98.6 fL Normal 80.0-100.0 [facility] Comment on above: Performed By: #### 2 857786, 3638474, 7044272, 06134793 #### [facility] [address] [place] [address] Platelet mean volume (Bld) [Entitic vol] 9.2 fL Normal 6.4-10.8 [facility] Comment on above: Performed By: #### 2 145384, 7748899, 9102233, 40094571 #### [facility] Laboratory [address] [place] [address] Platelets (Bld) [#/Vol] 251.0 E9/L Normal 150.0-500. 0 [facility] Comment on above: Performed By: #### 2 976346, 8873655, 6459302, 34027171 #### [facility] Laboratory [address] [place] [address] RBC (Bld) [#/Vol] 3.8 E12/L Low 4.3-5.9 [facility] Comment on above: Performed By: #### 2 074327, 2513384, 4719866, 12646695 #### [facility] Laboratory [address] [place] [address] WBC corrected for nucl RBC Auto (Bld) [#/Vol] 6.0 E9/L Normal 4.0-11.0 [facility] Comment on above: Performed By: #### 2 772687, 6074700, 8871952, 04269815 #### [facility] Laboratory [address] [place] [address] Consent for Treatmenton Consent for Treatment [id number]#1.00CD:12 7 Normal [facility] eGFRon 02-21-2023 GFR/1.73 sq M.predicted among non-blacks MDRD (S/P/Bld) [Vol rate/Area] 47 mL/min/1.73 m2 Low >=59 [facility] Comment on above: Order Comment: Order added by Discern Expert. Result Comment: Bias Cutter annie kidney disease could be indicated at eGFR's of less than 60 mL/min/1.73m2. Kidney failure is indicated at less than 15 mL/min/1.73m2. Performed By: #### 2 732127, 9255410, 4326943, 96514995 ####[facility] [address] [place] [address] Physician Orderon 02-20-2023 Physician Order [id number]#1.00CD:127 Normal [facility] Physician Order [id number]#1.00CD:12 7 Normal [facility] Consent for Treatmenton 01-22 Consent for Treatment [id number]#1.00CD:12 7 [facility] Outside Recordson 02-17-2023 Outside Records [id number]#1.00CD:12 7 [facility] [facility] Consent for Treatmenton 11-20 Consent for Treatment [id number]:12 7 [facility] Heart and Vascular Office/Cl inic Noteon 12-08-2022 Heart and Vascular Office/Clinic Note Chief Complaint 4 week F/U History of Present Illness Is a 77-year-old lady with longstanding history of diabetes no smoking she has right great toe tip dry gangrene. She had angiogram and intervention done at [facility]. She does not have any records at this time. I did PVR that showed normal ANDREINA with TBI of 0.5 and absolute toe pressure above 90. MRI showed dry gangrene of the tip of the toe involvement of the bone. She is seeing podiatry tomorrow. I discussed with her that she can have podiatry procedure. We can do an angiogram before or an angiogram after if there is any issues with healing. After thorough discussion the plan was to go ahead and proceed with podiatry procedure and if there is any issue with healing we will immediately do an angiogram to him prior to try to improve the blood flow even further since she recently had an angiogram and intervention Review of Systems PHQ Score Initial Depression Screen Score: 0 Constitutional: no fever, no chills, no sweats, no weakness Skin: no Jaundice, no rash, no lesions, nopetechiae ENMT: no ear pain, no sore throat, no congestion, no hoarseness Respiratory: no shortness of breath, no cough, no orthopnea, no wheezing Cardiovascular: no chest pain, no palpitations, no edema Gastrointestinal: no nausea, no vomiting, no diarrhea, no GI bleeding Genitourinary: no dysuria, no hematuria, no discharge, no pain Musculoskeletal: no back pain, no trauma Neurologic: no headache, no dizziness, no numbness, no weakness Psychiatric: no sleeping problems, no irritability, no mood swings/depression. Heme/Lymph: no bleeding tendency, no bruising tendency, no petechiae, no swollen nodes Allergy/Immunologic: no seasonal allergies, no food allergies, no recurrent infections, no impaired immunity Additional ROS info: Except as noted in the above Review of Systems and in the History of Present Illness all other systems have been reviewed and are negative or noncontributory. Physical Exam Vitals & Measurements HR: 82(Peripheral) BP: 122/77 SpO2: 98% HT: 62 in HT: 157 cm WT: 79.1 kg WT: 174.02 lb BMI: 32.09 General: alert, no acute distress Skin: warm, dry Head: no trauma, normocephalic Neck: Trachea midline, no adenopathy, no tenderness Eye: normal conjunctiva, sclera clear Cardiovascular: regular rate and rhythm, normal peripheral perfusion Respiratory: Lungs CTA, respirations non labored Chest wall: no deformity. Gastrointestinal: soft, non distended, no tenderness, no guarding. Back: No tenderness, Normal ROM, Normal alignment. Extremities: no edema,no deformity, no trauma Neurological: oriented x 4, LOC appropriate for age, motor strength equal & normal bilaterally, sensation equal & normal bilaterally, speech normal Psychiatric: cooperative, affect appropriate for age, normal judgement, normal psychiatric thoughts. Assessment/Plan 1. 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 She had angiogram and intervention done at [facility]. She does not have any records at this time. I did PVR that showed normal ANDREINA with TBI of 0.5 and absolute toe pressure above 90. MRI showed dry gangrene of the tip of the toe involvement of the bone. She is seeing podiatry tomorrow. I discussed with her that she can have podiatry procedure. We can do an angiogram before or an angiogram after if there is any issues with healing. After thorough discussion the plan was to go ahead and proceed with podiatry procedure and if there is any issue with healing we will immediately do an angiogram to him prior to try to improve the blood flow even further since she recently had an angiogram and intervention Follow-up No qualifying data available Problem List/Past Medical History Ongoing Anxiety Arthritis of knee, left Arthritis, lumbar spine Basal cell carcinoma of left upper extremity Both eyes affected by mild nonproliferative diabetic retinopathy with macular edema, associated with type 2 diabetes mellitus Cataract, bilateral Cervical arthritis Chronic pain disorder Essential hypertension Gastroesophageal reflux disease without esophagitis History of basal cell carcinoma (BCC) Hypercholesterolemia Hypoglycemia Insomnia Iron deficiency anemia Kidney disease, chronic, stage III (moderate, EGFR 30-59 ml/min) Lumbago with sciatica, left side Lumbago with sciatica, right side Obesity Polyneuropathy Primary osteoarthritis involving multiple joints Restless leg syndrome Restless leg syndrome Severe obesity Spondylisthesis Tendonitis of left rotator cuff Type 2 diabetes mellitus with diabetic polyneuropathy Type 2 diabetes mellitus with hypoglycemia Vitamin D deficiency Historical No qualifying data Procedure/Surgical History Appendect (more content not included)... Normal [facility] Comment on above: Result Comment: Elec tronically Signed By: Korey POTTER, Ramone Krishna\.br\Date and Time Signed: 12/08/22 11:59 EDT Outside Recordson 12-08-2022 Outside Records [id number]:1 27 Normal [facility] Cult, Bloodon 12-02-2022 Cult, Blood Specimen Description .BLOOD Special Requests 5ML R HAND Culture NO GROWTH 6 DAYS Report Status FINAL 12/02/2022 [facility] Comment on above: Performed By: #### C DP, SED #### [facility] [address] [place] [address] Furnace Door Tender: Jenny Harvey MD Cult,Bloodon 12-02-2022 Cult,Blood Specimen Description .BLOOD Special Requests 7ML LHAND Culture NO GROWTH 6 DAYS Report Status FINAL 12/02/2022 Normal [facility] Comment on above: Performed By: #### C DP, SED #### [facility] [address] [place] [address] Furnace Door Tender: Jenny Harvey MD CBC with Diffon 11-28-2022 Abs. Basophil 0.04 k/uL Normal 0.00-0.20 [facility] Comment on above: Performed By: #### C MPX, CDP #### [facility] [address] [place] [address] Furnace Door Tender: Jenny Harvey MD Abs.Imm.Granulocyte <0.03 Normal 0.00-0.30 [facility] Comment on above: Performed By: #### C MPX, CDP #### [facility] [address] [place], [place] [id number] Furnace Door Tender: Jenny Harvey MD Abs.Neutrophil (Seg) 5.37 k/uL Normal 1.50-8.10 [facility] Comment on above: Performed By: #### C MPX, CDP #### [address] [place], [place] [id number] Furnace Door Tender: Jenny Harvey MD Basophils/100 WBC (Bld) 1 % Normal 0-2 [facility] Comment on above: Performed By: #### C MPX, CDP #### [facility] [address] [place] [address] Furnace Door Tender: Jenny Harvey MD Eosinophils (Bld) [#/Vol] 0.16 10*3/uL Normal 0.00-0.44 [facility] Comment on above: Performed By: #### C MPX, CDP #### [facility] [address] [place] [address] Furnace Door Tender: Jenny Harvey MD Eosinophils/100 WBC (Bld) 2 % Normal 1-4 [facility] Comment on above: Performed By: #### C MPX, CDP #### [address] [place] [address] Furnace Door Tender: Jenny Harvey MD Erythrocyte distribution width (RBC) [Ratio] 11.9 % Normal 11.8-14.4 [facility] Comment on above: Performed By: #### C MPX, CDP #### [address] [place] [address] Furnace Door Tender: Jenny Harvey MD Hematocrit (Bld) [Volume fraction] 29.6 % Low 36.3-47.1 [facility] Comment on above: Performed By: #### C MPX, CDP #### [address] [place] [address] Furnace Door Tender: Jenny Harvey MD Hemoglobin (Bld) [Mass/Vol] 10.2 g/dL Low 11.9-15.1 [facility] Comment on above: Performed By: #### C MPX, CDP #### [address] [place] [address] Furnace Door Tender: Jenny Harvey MD Immature granulocytes/100 WBC (Bld) 0 % Normal 0 [facility] Comment on above: Performed By: #### C MPX, CDP #### [address] [place] [address] Furnace Door Tender: Jenny Harvey MD Lymphocytes (Bld) [#/Vol] 1.51 10*3/uL Normal 1.10-3.70 [facility] Comment on above: Performed By: #### C MPX, CDP #### [address] [place] [address] Furnace Door Tender: Jenny Harvey MD Lymphocytes/100 WBC (Bld) 20 % Low 24-43 [facility] Comment on above: Performed By: #### C MPX, CDP #### [facility] [address] [place] [address] Furnace Door Tender: Jenny Harvey MD MCH (RBC) [Entitic mass] 34.7 pg High 25.2-33.5 [facility] Comment on above: Performed By: #### C MPX, CDP #### [facility] [address] [place], [place] [id number] Furnace Door Tender: Jenny Harvey MD MCHC (RBC) [Mass/Vol] 34.5 g/dL Normal 28.4-34.[address] [facility] Comment on above: Performed By: #### C MPX, CDP #### [address] [place] [address] Furnace Door Tender: Jenny Harvey MD MCV (RBC) [Entitic vol] 100.7 fL Normal 82.6-102.9 [facility] Comment on above: Performed By: #### C MPX, CDP #### [address] [place] [address] Furnace Door Tender: Jenny Harvey MD Monocytes (Bld) [#/Vol] 0.62 10*3/uL Normal 0.10-1.20 [facility] Comment on above: Performed By: #### C MPX, CDP #### [facility] [address] [place] [address] [place] [address] Furnace Door Tender: Jenny Harvey MD Monocytes/100 WBC (Bld) 8 % Normal 3-12 [facility] Comment on above: Performed By: #### C MPX, CDP #### [facility] [address] [place] [address] Furnace Door Tender: Jenny Harvey MD Neutrophil (Seg) 70 % High 36-65 [facility] Comment on above: Performed By: #### C MPX, CDP #### [facility] [address] [place], [place] [id number] Furnace Door Tender: Jenny Harvey MD NRBC Automated 0.0 per 100 WBC Normal 0.0 [facility] Comment on above: Performed By: #### C MPX, CDP #### [facility] [address] [place], [place] [id number] Furnace Door Tender: Jenny Harvey MD Platelet mean volume (Bld) [Entitic vol] 10.5 fL Normal 8.1-13.5 [facility] Comment on above: Performed By: #### C MPX, CDP #### [address] [place], [place] [id number] Furnace Door Tender: Jenny Harvey MD Platelets (Bld) [#/Vol] 180 10*3/uL Normal 138-453 [facility] Comment on above: Performed By: #### C MPX, CDP #### [address] [place] [address] Furnace Door Tender: Jenny Harvey MD RBC (Bld) [#/Vol] 2.94 10*6/uL Low 3.95-5.11 [facility] Comment on above: Performed By: #### C MPX, CDP #### [address] [place], [place] [id number] Furnace Door Tender: Jenny Harvey MD WBC (Bld) [#/Vol] 7.7 10*3/uL Normal 3.5-11.3 [facility] Comment on above: Performed By: #### C MPX, CDP #### [address] [place] [address] Furnace Door Tender: Jenny Harvey MD Comp Metabolic Pr/rfx MGon 0 - Albumin [Mass/Vol] 2.9 g/dL Low 3.5-5.2 [facility] Comment on above: Performed By: #### C MPX, CDP #### [facility] [address] [place], [place] [id number] Furnace Door Tender: Jenny Harvey MD Albumin/Glob Ratio 1.1 Normal 1.0-2.5 [facility] Comment on above: Performed By: #### C MPX, CDP #### [facility] [address] [place], [place] [id number] Furnace Door Tender: Jenny Harvey MD Alkaline Phos 197 U/L High 35-104 [facility] Comment on above: Performed By: #### C MPX, CDP #### [facility] [address] [place], [place] [id number] Furnace Door Tender: Jenny Harvey MD ALT [Catalytic activity/Vol] 11 U/L Normal 5-33 [facility] Comment on above: Performed By: #### C MPX, CDP #### [facility] [address] [place] [address] Dr[address] [place], [place] [id number] Furnace Door Tender: Jenny Harvey MD Anion gap [Moles/Vol] 9 mmol/L Normal 9-[address] [facility] Comment on above: Performed By: #### C MPX, CDP #### [address] [place], [place] [address]455483 Furnace Door Tender: Jenny Harvey MD AST [Catalytic activity/Vol] 19 U/L Normal <32 [facility] Comment on above: Performed By: #### C MPX, CDP #### [facility] [address] [place], [place] [id number] Furnace Door Tender: Jenny Harvey MD Bilirubin [Mass/Vol] 0.3 mg/dL Normal 0.3-1.2 [facility] Comment on above: Performed By: #### C MPX, CDP #### [facility] [address] [place], [place] [id number] Furnace Door Tender: Jenny Harvey MD BUN/CRE Ratio 17 Normal 9-20 [facility] Comment on above: Performed By: #### C MPX, CDP #### [facility] [address] [place] [address] Furnace Door Tender: Jenny Harvey MD Calcium [Mass/Vol] 8.1 mg/dL Low 8.6-10.4 [facility] Comment on above: Performed By: #### C MPX, CDP #### [facility] [address] [place], [place] [id number] Furnace Door Tender: Jenny Harvey MD Chloride [Moles/Vol] 110 mmol/L High 98-107 [facility] Comment on above: Performed By: #### C MPX, CDP #### [facility] [address] [place], [place] [id number] Furnace Door Tender: Jenny Harvey MD CO2 [Moles/Vol] 20 mmol/L Normal 20-31 [facility] Comment on above: Performed By: #### C MPX, CDP #### [facility] [address] [place] [address] Furnace Door Tender: Jenny Harvey MD Creatinine [Mass/Vol] 1.53 mg/dL High 0.50-0.[address] [facility] Comment on above: Performed By: #### C MPX, CDP #### [facility] [address] [place], [place] [id number] Furnace Door Tender: Jenny Harvey MD GFR/1.73 sq M.predicted among non-blacks MDRD (S/P/Bld) [Vol rate/Area] 35 mL/min/{1.73_m2} Low >60 [facility] Comment on above: Result Comment: These results are not intended for use in patients <18 years of age. eGFR results are calculated without a race factor using the 2020 CKD-EPI equation. Careful clinical correlation is recommended, particularly when comparing to results calculated using previous equations. The CKD-EPI equation is less accurate in patients with extremes of muscle mass, extra-renal metabolism of creatine, excessive creatine ingestion, or following therapy that affects renal tubular secretion. Performed By: #### C MPX, CDP #### [facility] [address] [place] [address] Furnace Door Tender: Jenny Harvey MD Glucose [Mass/Vol] 100 mg/dL High 70-99 [facility] Comment on above: Performed By: #### C MPX, CDP #### [facility] [address] [place], [place] [id number] Furnace Door Tender: Jenny Harvey MD Potassium [Moles/Vol] 4.5 mmol/L Normal 3.7-5.[address] [facility] Comment on above: Performed By: #### C MPX, CDP #### [facility] [address] [place] [address] Dr[address] [place], [place] [id number] Furnace Door Tender: Jenny Harvey MD Protein [Mass/Vol] 5.5 g/dL Low 6.4-8.3 [facility] Comment on above: Performed By: #### C MPX, CDP #### [facility] [address] [place] [address] Dr[address] [place], [place] 817[address]83 Furnace Door Tender: Jenny Harvey MD Sodium [Moles/Vol] 139 mmol/L Normal 135-144 [facility] Comment on above: Performed By: #### C MPX, CDP #### [facility] [address] [place], [place] [phone] Furnace Door Tender: Jenny Harvey MD Urea nitrogen [Mass/Vol] 26 mg/dL High 8-23 [facility] Comment on above: Performed By: #### C MPX, CDP #### [facility] [address] [place] [address] Furnace Door Tender: Jenny Harvey MD CBC with Diffon 11-27-2022 Abs. Basophil 0.04 k/uL Normal 0.00-0.20 [facility] Comment on above: Performed By: #### C DP, CMPX #### [facility] [address] [place] [address] Dr[place], [facility] Furnace Door Tender: Jenny Harvey MD Abs.Imm.Granulocyte 0.03 k/uL Normal 0.00-0.30 [facility] Comment on above: Performed By: #### C DP, CMPX #### [address] [place], [place] [address] Furnace Door Tender: Jenny Harvey MD Abs.Neutrophil (Seg) 11.28 k/uL High 1.50-8.10 [facility] Comment on above: Performed By: #### C DP, CMPX #### [address] [place] [address] Furnace Door Tender: Jenny Harvey MD Basophils/100 WBC (Bld) 0 % Normal 0-2 [facility] Comment on above: Performed By: #### C DP, CMPX #### [address] [place], [place] [address] Furnace Door Tender: Jenny Harvey MD Eosinophils (Bld) [#/Vol] 0.09 10*3/uL Normal 0.00-0.44 [facility] Comment on above: Performed By: #### C DP, CMPX #### [address] [place], [facility] Furnace Door Tender: Jenny Harvey MD Eosinophils/100 WBC (Bld) 1 % Normal 1-4 [facility] Comment on above: Performed By: #### C DP, CMPX #### [address] [place] [address] Furnace Door Tender: Jenny Harvey MD Erythrocyte distribution width (RBC) [Ratio] 11.9 % Normal 11.8-14.4 [facility] Comment on above: Performed By: #### C DP, CMPX #### [address] [place] [id number] Furnace Door Tender: Jenny Harvey MD Hematocrit (Bld) [Volume fraction] 30.9 % Low 36.3-47.1 [facility] Comment on above: Performed By: #### C DP, CMPX #### [facility] [address] [place] [address] Dr. [place], [facility] Furnace Door Tender: Jenny Harvey MD Hemoglobin (Bld) [Mass/Vol] 10.8 g/dL Low 11.9-15.1 [facility] Comment on above: Performed By: #### C DP, CMPX #### [address] [place] [id number] Furnace Door Tender: Jenny Harvey MD Immature granulocytes/100 WBC (Bld) 0 % Normal 0 [facility] Comment on above: Performed By: #### C DP, CMPX #### [address] [place], [facility] Furnace Door Tender: Jenny Harvey MD Lymphocytes (Bld) [#/Vol] 1.93 10*3/uL Normal 1.10-3.70 [facility] Comment on above: Performed By: #### C DP, CMPX #### [address] [place], [facility] Furnace Door Tender: Jenny Harvey MD Lymphocytes/100 WBC (Bld) 14 % Low 24-43 [facility] Comment on above: Performed By: #### C DP, CMPX #### [facility] [address] [place] [address] Dr. [place], [facility] Furnace Door Tender: Jenny Harvey MD MCH (RBC) [Entitic mass] 34.4 pg High 25.2-33.5 [facility] Comment on above: Performed By: #### C DP, CMPX #### [facility] [address] [place] [address] Dr. [place], [facility] Furnace Door Tender: Jenny Harvey MD MCHC (RBC) [Mass/Vol] 35.0 g/dL High 28.4-34.[address] [facility] Comment on above: Performed By: #### C DP, CMPX #### [facility] [address] [place] [address] Furnace Door Tender: Jenny Harvey MD MCV (RBC) [Entitic vol] 98.4 fL Normal 82.6-102.9 [facility] Comment on above: Performed By: #### C DP, CMPX #### [address] [place] [address] Furnace Door Tender: Jenny Harvey MD Monocytes (Bld) [#/Vol] 0.70 10*3/uL Normal 0.10-1.20 [facility] Comment on above: Performed By: #### C DP, CMPX #### [address] [place], [place] [address] Furnace Door Tender: Jenny Harvey MD Monocytes/100 WBC (Bld) 5 % Normal 3-12 [facility] Comment on above: Performed By: #### C DP, CMPX #### [address] [place] [address] Furnace Door Tender: Jenny Harvey MD Neutrophil (Seg) 80 % High 36-65 [facility] Comment on above: Performed By: #### C DP, CMPX #### [address] [place], [facility] Furnace Door Tender: Jenny Harvey MD NRBC Automated 0.0 per 100 WBC Normal 0.0 [facility] Comment on above: Performed By: #### C DP, CMPX #### [address] [place] [address] Furnace Door Tender: Jenny Harvey MD Platelet mean volume (Bld) [Entitic vol] 10.6 fL Normal 8.1-13.5 [facility] Comment on above: Performed By: #### C DP, CMPX #### [facility] [address] [place], [place] [address]149[address] Furnace Door Tender: Jenny Harvey MD Platelets (Bld) [#/Vol] 209 10*3/uL Normal 138-453 [facility] Comment on above: Performed By: #### C DP, CMPX #### [facility] [address] [place] [address] Furnace Door Tender: Jenny Harvey MD RBC (Bld) [#/Vol] 3.14 10*6/uL Low 3.95-5.11 [facility] Comment on above: Performed By: #### C DP, CMPX #### [address] [place], [place] [id number] Furnace Door Tender: Jenny Harvey MD WBC (Bld) [#/Vol] 14.1 10*3/uL High 3.5-11.3 [facility] Comment on above: Performed By: #### C DP, CMPX #### [facility] [address] [place], [place] [id number] Furnace Door Tender: Jenny Harvey MD Comp Metabolic Pr/rfx MGon 0 11-27-2022 Albumin [Mass/Vol] 3.0 g/dL Low 3.5-5.2 [facility] Comment on above: Performed By: #### C DP, CMPX #### [facility] [address] [place], [place] 874[address]83 Furnace Door Tender: Jenny Harvey MD Albumin/Glob Ratio 1.3 Normal 1.0-2.5 [facility] Comment on above: Performed By: #### C DP, CMPX #### [facility] [address] [place] [address] Furnace Door Tender: Jenny Harvey MD Alkaline Phos 254 U/L High 35-104 [facility] Comment on above: Performed By: #### C DP, CMPX #### [facility] [address] [place], [place] [phone] Furnace Door Tender: Jenny Harvey MD ALT [Catalytic activity/Vol] 13 U/L Normal 5-33 [facility] Comment on above: Performed By: #### C DP, CMPX #### [facility] [address] [place], [place] [id number] Furnace Door Tender: Jenny Harvey MD Anion gap [Moles/Vol] 9 mmol/L Normal 9-[address] [facility] Comment on above: Performed By: #### C DP, CMPX #### [facility] [address] [place], [place] [id number] Furnace Door Tender: Jenny Harvey MD AST [Catalytic activity/Vol] 21 U/L Normal <32 [facility] Comment on above: Performed By: #### C DP, CMPX #### [facility] [address] [place], [place] [id number] Furnace Door Tender: Jenny Harvey MD Bilirubin [Mass/Vol] 0.3 mg/dL Normal 0.3-1.2 [facility] Comment on above: Performed By: #### C DP, CMPX #### [address] [place], [place] [address]50[address]83 Furnace Door Tender: Jenny Harvey MD BUN/CRE Ratio 18 Normal 9-20 [facility] Comment on above: Performed By: #### C DP, CMPX #### [facility] [address] [place], [place] 884[address]83 Furnace Door Tender: Jenny Harvey MD Calcium [Mass/Vol] 7.7 mg/dL Low 8.6-10.4 [facility] Comment on above: Performed By: #### C DP, CMPX #### [facility] [address] [place], [place] [id number] Furnace Door Tender: Jenny Harvey MD Chloride [Moles/Vol] 104 mmol/L Normal 98-107 [facility] Comment on above: Performed By: #### C DP, CMPX #### [facility] [address] [place] [address] Furnace Door Tender: Jenny Harvey MD CO2 [Moles/Vol] 22 mmol/L Normal 20-31 [facility] Comment on above: Performed By: #### C DP, CMPX #### [facility] [address] [place], [place] 000[address]83 Furnace Door Tender: Jenny Harvey MD Creatinine [Mass/Vol] 1.96 mg/dL High 0.50-0.[address] [facility] Comment on above: Performed By: #### C DP, CMPX #### [facility] [address] [place] [address] Furnace Door Tender: Jenny Harvey MD GFR/1.73 sq M.predicted among non-blacks MDRD (S/P/Bld) [Vol rate/Area] 26 mL/min/{1.73_m2} Low >60 [facility] Comment on above: Result Comment: These results are not intended for use in patients <18 years of age. eGFR results are calculated without a race factor using the 2020 CKD-EPI equation. Careful clinical correlation is recommended, particularly when comparing to results calculated using previous equations. The CKD-EPI equation is less accurate in patients with extremes of muscle mass, extra-renal metabolism of creatine, excessive creatine ingestion, or following therapy that affects renal tubular secretion. Performed By: #### C DP, CMPX #### [facility] [address] [place] [address] Furnace Door Tender: Jenny Harvey MD Glucose [Mass/Vol] 139 mg/dL High 70-99 [facility] Comment on above: Performed By: #### C DP, CMPX #### [facility] [address] [place] [address] Furnace Door Tender: Jenny Harvey MD Potassium [Moles/Vol] 4.5 mmol/L Normal 3.7-5.[address] [facility] Comment on above: Performed By: #### C DP, CMPX #### [facility] [address] [place] [address] Furnace Door Tender: Jenny Harvey MD Protein [Mass/Vol] 5.3 g/dL Low 6.4-8.3 [facility] Comment on above: Performed By: #### C DP, CMPX #### [facility] [address] [place] [address] Furnace Door Tender: Jenny Harvey MD Sodium [Moles/Vol] 135 mmol/L Normal 135-144 [facility] Comment on above: Performed By: #### C DP, CMPX #### [facility] [address] [place] [address] Furnace Door Tender: Jenny Harvey MD Urea nitrogen [Mass/Vol] 36 mg/dL High 8-23 [facility] Comment on above: Performed By: #### C DP, CMPX #### [address] [place] [address] Furnace Door Tender: Jenny Harvey MD Cult,Urineon 11-27-2022 Cult,Urine Specimen Description .Random Urine Culture NO SIGNIFICANT GROWTH Report Status FINAL 11/27/2022 Normal [facility] Comment on above: Performed By: #### C DP, SED #### [facility] [address] [place] [address] Furnace Door Tender: Jenny Harvey MD Hemoglobin A1Con 11-27-2022 Glucose [Mass/Vol] 174 mg/dL Normal [facility] Comment on above: Result Comment: The ADA and AACC recommend providing the estimated average glucose result to permit better patient understanding of their HBA1c result. Performed By: #### G LYHGB #### [facility] [address] [place], [place] [id number] Furnace Door Tender: Job Wick MD HbA1c (Bld) [Mass fraction] 7.7 % High 4.0-6.0 [facility] Comment on above: Performed By: #### G LYHGB #### [address] [place] [address] Furnace Door Tender: Job Wick MD Stool PCR [place] 11-28-19 Campylobacter sp PCR NEGATIVE: No Campylobacter spp. (jejuni or coli) DNA Detected Normal CAMNEG [facility] Comment on above: Performed By: #### C POBN #### [facility] [address] [place] [address] Furnace Door Tender: Jenny Harvey MD #### STLPCR #### [address] [address] Furnace Door Tender: Job Wick MD [facility] [address] [place] [address] [place] [address] Furnace Door Tender: Jenny Harvey MD E coli enterotox PCR NEGATIVE: No Enterotoxigenic E. coli (ETEC) Heat-labile and heat-stable (LT/ST) Normal EECNEG [facility] Comment on above: Result Comment: DNA Detected Performed By: #### C POBN #### [facility] [address] [place] [address] [place] [address] Furnace Door Tender: Jenny Harvey MD #### STLPCR #### [address] [place] [address] Furnace Door Tender: Job Wick MD [facility] [address] [place] [address] [place] [address] Furnace Door Tender: Jenny Harvey MD Plesiomonas sp PCR Negative [facility] Comment on above: Performed By: #### C POBN #### [facility] [address] [place] [address] Furnace Door Tender: Jenny Harvey MD #### STLPCR #### [address] [address] Furnace Door Tender: Job Wick MD [facility] [address] [place] [address] [place] [address] Furnace Door Tender: Jenny Harvey MD Salmonella sp PCR Negative [facility] Comment on above: Performed By: #### C POBN #### [facility] [address] [place] [address] [place] [address] Furnace Door Tender: Jenny Harvey MD #### STLPCR #### [facility] [address] [place] [address] Furnace Door Tender: Jbo Wick MD [facility] [address] [place] [address] [place] [address] Furnace Door Tender: Jenny Harvey MD Shigatoxin gene PCR Negative Normal STXNEG [facility] Comment on above: Performed By: #### C POBN #### [facility] [address] [place] [address] [place] [address] Furnace Door Tender: Jenny Harvey MD #### STLPCR #### [facility] [address] [place] [address] Furnace Door Tender: Job Wick MD [facility] [address] [place] [address] [place] [address] Furnace Door Tender: Jenny Harvey MD Shigella sp PCR Negative Normal SHINEG [facility] Comment on above: Performed By: #### C POBN #### [facility] [address] [place] [address] [place] [address] Furnace Door Tender: Jenny Harvey MD #### STLPCR #### [facility] [address] [place] [address] Furnace Door Tender: Job Wick MD [facility] [address] [place] [address] [place] [address] Furnace Door Tender: Jenny Harvey MD Vibrio sp PCR NEGATIVE: No Vibrio (V. vulnificus, V, parahaemolyticus and V. cholerae) DNA Normal VIBNEG [facility] Comment on above: Result Comment: Dete cted Performed By: #### C POBN #### [facility] [address] [place] [address] [place] [place], [place] [phone] Furnace Door Tender: Jenny Harvey MD #### STLPCR #### [facility] [address] [place], [place] [phone] Furnace Door Tender: Job Wick MD [facility] [address] [place] [address] [place] [address] Furnace Door Tender: Jenny Harvey MD Yersinia gene PCR Negative Normal YERNEG [facility] Comment on above: Performed By: #### C POBN #### [address] [place], [place] [id number] Furnace Door Tender: Jenny Harvey MD #### STLPCR #### [facility] [address] [place], [place] [id number] Furnace Door Tender: Job Wick MD [address] [place] [address] Furnace Door Tender: Jenny Harvey MD CT ABDOMEN PELVIS W IV CONTR Makenzie 11-26-2022 CT ABDOMEN PELVIS W IV CONTRAST CT ABDOMEN AND PELVIS WITH CONTRAST: INDICATION: Known CKD, hydrating patient, already received 500cc NS. COMPARISON: CT abdomen and pelvis 12/01/2013, lumbar spine radiographs 04/29/2020. TECHNIQUE: Helical CT images of the abdomen and pelvis were obtained after the administration of intravenous contrast. Dose reduction techniques were achieved by using automated exposure control and/or adjustment of mA and/or kV according to patient size and/or use of iterative reconstruction technique. FINDINGS: LOWER CHEST: Mild bibasilar atelectasis/scarring. Severe atherosclerotic coronary artery calcification. LIVER: Normal in size and attenuation. No focal lesions. GALLBLADDER AND BILIARY SYSTEM: Normal. SPLEEN: Normal. PANCREAS: Normal. ADRENAL GLANDS: There is a 1.7 cm right adrenal nodule and there is a 1.4 cm left adrenal nodule. On the previous study from 12/01/2013 these measured 1.5 cm on the right and 1.3 cm on the left. The left adrenal nodule was previously consistent with adenoma on noncontrast CT and the right adrenal nodule was borderline consistent with an adenoma. KIDNEYS AND URETERS: Unremarkable. VASCULATURE: Diffuse atherosclerotic arterial calcification. RETROPERITONEUM AND LYMPH NODES: Normal, with no lymphadenopathy. GASTROINTESTINAL TRACT/MESENTERY: Moderate wall thickening within the colon extending from the mid transverse colon through the rectum. Adjacent pericolonic fat stranding is also noted consistent with colitis. Bowel loops are normal in diameter. Status post appendectomy. BLADDER: Moderate diffuse wall thickening with adjacent perivesical fat stranding. REPRODUCTIVE SYSTEM: Status post hysterectomy. BODY WALL: Tiny fat-containing umbilical hernia. BONES: Moderate to severe multilevel degenerative changes of the thoracolumbar spine. Mild anterior compression fracture at L1 which is not seen on prior studies including the radiographs from 04/29/2020. There is mild sclerosis and there is mild lucency in the superior endplate and therefore this is suspicious for subacute fracture. There is approximately 40% loss of height anteriorly. There is no bony retropulsion. IMPRESSION: 1. Findings consistent with an infectious, inflammatory or ischemic colitis seen from the transverse colon through the rectum. 2. Bladder wall thickening and perivesical fat stranding suspicious for cystitis, although the bladder wall thickening is nonspecific and may also be due to underdistention or muscular hypertrophy. 3. New age indeterminate but likely subacute mild anterior compression fracture at L1. There is no bony retropulsion. 4. Bilateral adrenal nodules, stable to only slightly increased in size from 12/01/2013 consistent with adenomas. Interpreted by: Elgin Aggarwal MD Signed by: Elgin Aggarwal MD 11/25/22 Final result Normal [facility] Lactic Acidon 11-26-2022 Lactate [Moles/Vol] 2.9 mmol/L High 0.5-2.2 [facility] Comment on above: Performed By: #### U #### [facility] [address] [place] [address] Furnace Door Tender: Job Wick MD [facility] [address] [place] [address] Furnace Door Tender: Jenny Harvey MD Interpretation and review of laboratory results Abnormal [facility] Lactate (BldV) [Moles/Vol] 2.9 mmol/L High 0.5 - 2.2 mmol/L [facility] MRI FOOT RIGHT WO CONTRASTon 11-26-2022 MRI FOOT RIGHT WO CONTRAST EXAMINATION: MRI OF THE RIGHT FOOT WITHOUT CONTRAST, 11/26/2022 1:13 pm TECHNIQUE: Multiplanar multisequence MRI of the right foot was performed without the administration of intravenous contrast. COMPARISON: None HISTORY: ORDERING SYSTEM PROVIDED HISTORY: Gangrene right great toe, right 2nd toe; eval for osteomyelitis TECHNOLOGIST PROVIDED HISTORY: Gangrene right great toe, right 2nd toe; eval for osteomyelitis 77-year-old female with gangrene of the right great toe; right 2nd toe; evaluate for osteomyelitis. FINDINGS: Exam is limited due to patient motion. LISFRANC JOINT: Lisfranc ligament complex appears intact. BONE MARROW: Mild to moderate degenerative changes of the TMT joints and midfoot. Partial exclusion of the distal tip of the 1st and 2nd digits from the field of view. Subcortical cystic changes and marrow edema in the midfoot and about the TMT joints. Osseous alignment is normal. No acute fracture or dislocation. No marginal erosions. Bone marrow signal intensity otherwise grossly unremarkable. GREATER AND LESSER MTP JOINTS: Moderate degenerative changes of the 1st MTP/MTS joints. SOFT TISSUES: Moderate edema in the subcutaneous fat about the foot. Mild to moderate edema in the intertarsal musculature. No organized fluid collection. Induration and irregularity of the soft tissues of the distal great toe. Subjacent mildly high STIR signal in the distal phalanx 1st digit with intermediate T1 signal in the distal tuft of the distal phalanx 1st digit. Degenerative marrow edema at the distal aspect of the proximal phalanx 1st digit. TENDONS: Visualized peroneal, flexor and extensor tendons otherwise appear grossly intact without evidence of tearing or tenosynovitis. IMPRESSION: 1. Partial exclusion of the distal tip of the 1st and 2nd digits from the field of view which limits the study. Irregularity and induration of the visualized soft tissues of the distal great toe with suspected early osteomyelitis of the distal tuft of the distal phalanx 1st digit. 2. [id number] intertarsal myositis. Moderate cellulitis of the foot. No organized fluid collection. 3. [id number] degenerative changes as detailed above. 4. No acute fracture or dislocation. 5. Please note exam is limited due to patient motion. The findings were sent to the Radiology Results Communication Center at 2:59 pm on 11/26/2022 to be communicated to a licensed caregiver. Interpreted by: Cliff Yanez MD Signed by: Cliff Yanez MD 11/26/22 Final result Normal [facility] Microscopic Urinalysison - [facility] Amorphous sediment LM Ql (Urine sed) 1+ Abnormal None [facility] Bacteria LM Ql (Urine sed) 1+ Abnormal None [facility] Interpretation and review of laboratory results Abnormal [facility] RBC LM.HPF (Urine sed) [#/Area] 20 TO 50 [facility] WBC LM.HPF (Urine sed) [#/Area] 50 TO 100 0 /HPF [facility] Occult Blood, Fecalon 2022 Occult Blood 1 Positive Abnormal NEG [facility] Comment on above: Performed By: #### C POBN #### [facility] [address] [place] [address] [place] [address] Furnace Door Tender: Jenny Harvey MD #### STLPCR #### [address] [id number] Furnace Door Tender: Job Wick MD [facility] [address] [place] [address] [place] [address] Furnace Door Tender: Jenny Harvey MD Stool PCR [place] 11-27-19 Specimen Description .FECES Normal [facility] Comment on above: Performed By: #### C POBN #### [facility] [address] [place] [address] [place] [address] Furnace Door Tender: Jenny Harvey MD #### STLPCR #### [address] [place] [address] Furnace Door Tender: Job Wick MD [address] [place] [address] Furnace Door Tender: Jenny Harvey MD Urinalysison 11-26-2022 Bilirubin Ql (U) 2+ Abnormal NEGATIVE [facility] Comment on above: Quantity not suffici ent for confirmatory testing. Clarity (U) Cloudy Abnormal Clear [facility] Color (U) Yellow Yellow [facility] Glucose Test strip (U) [Mass/Vol] 50 mg/dL Abnormal NEGATIVE [facility] Hemoglobin Auto test strip Ql (U) 2+ Abnormal NEGATIVE [facility] Interpretation and review of laboratory results Abnormal [facility] Ketones (U) [Mass/Vol] TRACE Abnormal NEGATIVE [facility] Leukocyte esterase Test strip Ql (U) 3+ Abnormal NEGATIVE [facility] Nitrite Ql (U) Positive Abnormal NEGATIVE [facility] pH (U) 5.0 [pH] 5.0 - 8.0 [facility] Protein (U) [Mass/Vol] 2+ Abnormal NEGATIVE [facility] Specific gravity (U) [Rel density] 1.015 1.005 - 1.030 [facility] Urinalysis Comments [facility] Urinalysis Comments MICROSCOPIC EXAM PERFORMED ON UNCONCENTRATED URINE. [facility] Urobilinogen Qn (U) 4 mg/dL Abnormal Normal [facility] Urinalysis, Routineon 2022 Bilirubin, SemiQt,Ur 2+ Abnormal NEG [facility] Comment on above: Result Comment: Sal tity not sufficient for confirmatory testing. Performed By: #### U A, UMICAO #### [facility] [address] [place] [address] Furnace Door Tender: Jenny Harvey MD Blood, Urine 2+ Abnormal NEG [facility] Comment on above: Performed By: #### U A, UMICAO #### [facility] [address] [place] [address] Furnace Door Tender: Jenny Harvey MD Clarity (U) Cloudy Abnormal CLEAR [facility] Comment on above: Performed By: #### U A, UMICAO #### [facility] [address] [place] [address] Furnace Door Tender: Jenny Harvey MD Color (U) Yellow Normal YEL [facility] Comment on above: Performed By: #### U A, UMICAO #### [facility] [address] [place] [address] Furnace Door Tender: Jenny Harvey MD Comment Normal [facility] Comment on above: Result Comment: MICR OSCOPIC EXAM PERFORMED ON UNCONCENTRATED URINE. Performed By: #### U A, UMICAO #### [facility] [address] [place] [address] Furnace Door Tender: Jenny Harvey MD Glucose Ql (U) 50 mg/dL Abnormal NEG [facility] Comment on above: Performed By: #### U A, UMICAO #### [facility] [address] [place] [address] Furnace Door Tender: Jenny Harvey MD Ketones Ql (U) TRACE Abnormal NEG [facility] Comment on above: Performed By: #### U A, UMICAO #### [facility] [address] [place] [address] Furnace Door Tender: Jenny Harvey MD Leukocyte esterase Test strip Ql (U) 3+ Abnormal NEG [facility] Comment on above: Performed By: #### U A, UMICAO #### [facility] [address] [place] [address] Furnace Door Tender: Jenny Harvey MD Nitrite,Ur Positive Abnormal NEG [facility] Comment on above: Performed By: #### U A, UMICAO #### [facility] [address] [place] [address] Furnace Door Tender: Jenny Harvey MD PH,Ur 5.0 Normal 5.0-8.0 [facility] Comment on above: Performed By: #### U A, UMICAO #### [facility] [address] [place], [place] [id number] Furnace Door Tender: Jenny Harvey MD Protein Ql (U) 2+ Abnormal NEG [facility] Comment on above: Performed By: #### U A, UMICAO #### [facility] [id number] Furnace Door Tender: Jenny Harvey MD Spec. [place],Ur 1.015 Normal 1.005-1.03 0 [facility] Comment on above: Performed By: #### U A, UMICAO #### [facility] [address] [place] [address] Furnace Door Tender: Jenny Harvey MD Urobilinogen,Ur 4 mg/dL Abnormal NORM [facility] Comment on above: Performed By: #### U A, UMICAO #### [facility] [id number] Furnace Door Tender: Jenny Harvey MD Urinalysis,Microon 3 ----- Normal [facility] Comment on above: Performed By: #### U A, UMICAO #### [facility] [address] [place], [place] [id number] Furnace Door Tender: Jenny Harvey MD Amorphous sediment LM Ql (Urine sed) 1+ Abnormal NONE [facility] Comment on above: Performed By: #### U A, UMICAO #### [facility] [address] [place] [address] Furnace Door Tender: Jenny Harvey MD Bacteria 1+ Abnormal [facility] Comment on above: Performed By: #### U A, UMICAO #### [facility] [address] [place], [place] [id number] Furnace Door Tender: Jenny Harvey MD Urine RBC's 20 TO 50 Normal 0-2 [facility] Comment on above: Performed By: #### U PALAK Reynolds #### [facility] [address] [place] [address] Furnace Door Tender: Jenny Harvey MD Urine WBC's 50 TO 100 Normal 0 [facility] Comment on above: Performed By: #### U PALAK Reynolds #### [facility] [address] [place] [address] Furnace Door Tender: Jenny Harvey MD CBC with Auto Differentialon 11-25-2022 Basophils (Bld) [#/Vol] 0.00 10*3/uL [facility] Basophils/100 WBC (Bld) 0 % 0 - 2 % [facility] Eosinophils (Bld) [#/Vol] 0.00 10*3/uL [facility] Eosinophils/100 WBC (Bld) 0 % 0 - 5 % [facility] Erythrocyte distribution width (RBC) [Ratio] 12.4 % 12.1 - 15.2 % [facility] Hematocrit (Bld) [Volume fraction] 46.5 % High 36 - 46 % [facility] Hemoglobin (Bld) [Mass/Vol] 16.5 g/dL High 12.0 - 16.0 g/dL [facility] Interpretation and review of laboratory results Abnormal [facility] Lymphocytes/100 WBC (Bld) 4 % Low 15 - 40 % [facility] Lymphocytes/100 WBC (Bld) 0.79 % Low [facility] MCH (RBC) [Entitic mass] 36.0 pg High 26 - 34 pg [facility] MCHC (RBC) [Mass/Vol] 35.4 g/dL 31 - 3 7 g/dL [facility] MCV (RBC) [Entitic vol] 101.5 fL High 80 - 100 fL [facility] Monocytes/100 WBC (Bld) 5 % 4 - 8 % [facility] Monocytes/100 WBC (Bld) 0.99 % [facility] Morphology Joshua (Bld) [Interp] Scanned to verify automated differential. [facility] Neutrophils/100 WBC (Bld) 91 % High 47 - 75 % [facility] Platelets (Bld) [#/Vol] 329 10*3/uL [facility] RBC (Bld) [#/Vol] 4.59 10*6/uL 4.0 - 5.2 m/uL [facility] Segmented neutrophils/100 WBC (Bld) 18.02 % High [facility] WBC other (Bld) [#/Vol] 19.8 High [facility] CBC with Diffon 11-25-2022 Abs. Basophil 0.00 k/uL Normal 0.0-0.2 [facility] Comment on above: Performed By: #### U A, UMDANAEO #### [facility] [address] [id number] Furnace Door Tender: Jenny Harvey MD Abs.Neutrophil (Seg) 18.02 k/uL High 2.5-7.0 [facility] Comment on above: Performed By: #### U A, UMICAO #### [facility] [address] [place], [place] [phone] Furnace Door Tender: Jenny Harvey MD Basophils/100 WBC (Bld) 0 % Normal 0-2 [facility] Comment on above: Performed By: #### U A, UMICAO #### [facility] [address] [phone] Furnace Door Tender: Jenny Harvey MD Eosinophils (Bld) [#/Vol] 0.00 10*3/uL Normal 0.0-0.4 [facility] Comment on above: Performed By: #### U A, UMICAO #### [facility] [address] [place], [place] [id number] Furnace Door Tender: Jenny Harvey MD Eosinophils/100 WBC (Bld) 0 % Normal 0-5 [facility] Comment on above: Performed By: #### U A, KASSIO #### [facility] [address] [place], [place] [phone] Furnace Door Tender: Jenny Harvey MD Lymphocytes (Bld) [#/Vol] 0.79 10*3/uL Low 1.0-4.8 [facility] Comment on above: Performed By: #### U A, UMICAO #### [facility] [address] [place] [address] Furnace Door Tender: Jenny Harvey MD Lymphocytes/100 WBC (Bld) 4 % Low 15-40 [facility] Comment on above: Performed By: #### U A, UMICAO #### [facility] [address] [place] [address] Furnace Door Tender: Jenny Harvey MD Monocytes (Bld) [#/Vol] 0.99 10*3/uL Normal 0.0-1.0 [facility] Comment on above: Performed By: #### U A, UMICAO #### [facility] [facility] [address] [place], [place] [id number] Furnace Door Tender: Jenny Harvey MD Monocytes/100 WBC (Bld) 5 % Normal 4-8 [facility] Comment on above: Performed By: #### U A, UMICAO #### [facility] [address] [place], [place] [id number] Furnace Door Tender: Jenny Harvey MD Morphology Joshua (Bld) [Interp] Scanned to verify automated differential. Normal [facility] Comment on above: Performed By: #### U A, UMICAO #### [facility] [address] [place] [address] Furnace Door Tender: Jenny Harvey MD Neutrophil (Seg) 91 % High 47-75 [facility] Comment on above: Performed By: #### U A, UMICAO #### [facility] [address] [place], [place] [id number] Furnace Door Tender: Jenny Harvey MD Erythrocyte distribution width (RBC) [Ratio] 12.4 % Normal 12.1-15.2 [facility] Comment on above: Performed By: #### U A, PALAK #### [facility] [address] [place] [address] Furnace Door Tender: Jenny Harvey MD Hematocrit (Bld) [Volume fraction] 46.5 % High 36-46 [facility] Comment on above: Performed By: #### U A, KASSIO #### [facility] [address] [place] [address] Furnace Door Tender: Jenny Harvey MD Hemoglobin (Bld) [Mass/Vol] 16.5 g/dL High 12.0-16.0 [facility] Comment on above: Performed By: #### U A, KASSIO #### [facility] [address] [place] [address] Furnace Door Tender: Jenny Harvey MD MCH (RBC) [Entitic mass] 36.0 pg High 26-34 [facility] Comment on above: Performed By: #### U A, KASSIO #### [facility] [address] [place] [address] Furnace Door Tender: Jenny Harvey MD MCHC (RBC) [Mass/Vol] 35.4 g/dL Normal 31-37 [facility] Comment on above: Performed By: #### U A, KASSIO #### [facility] [address] [place] [address] Furnace Door Tender: Jenny Harvey MD MCV (RBC) [Entitic vol] 101.5 fL High 80-100 [facility] Comment on above: Performed By: #### U A, UMDANAEO #### [facility] [address] [place] [address] Furnace Door Tender: Jenny Harvey MD Platelets (Bld) [#/Vol] 329 10*3/uL Normal 140-450 [facility] Comment on above: Performed By: #### U Rodolfo, KASSIO #### [facility] [address] [place] [address] Furnace Door Tender: Jenny Harvey MD RBC (Bld) [#/Vol] 4.59 10*6/uL Normal 4.0-5.2 [facility] Comment on above: Performed By: #### U Rodolfo, KASSIO #### [facility] [address] [place], [place] [id number] Furnace Door Tender: Jenny Harvey MD WBC (Bld) [#/Vol] 19.8 10*3/uL High 3.5-11.0 [facility] Comment on above: Performed By: #### U A, KASSIO #### [facility] [address] [place] [id number] Furnace Door Tender: Jenny Harvey MD [facility] 11-25-2022 Albumin [Mass/Vol] 4.3 g/dL 3.5 - 5.2 g/dL [facility] ALP [Catalytic activity/Vol] 833 U/L High 35 - 104 U/L [facility] ALT [Catalytic activity/Vol] 32 U/L 5 - 33 U/L [facility] Anion gap [Moles/Vol] 12 mmol/L 9 - 17 mmol/L [facility] AST [Catalytic activity/Vol] 46 U/L High NINF - 32 U/L [facility] Bilirubin [Mass/Vol] 0.5 mg/dL 0.3 - 1 .2 mg/dL [facility] Calcium [Mass/Vol] 9.4 mg/dL 8.6 - 10. 4 mg/dL [facility] Chloride [Moles/Vol] 100 mmol/L 98 - 10 7 mmol/L [facility] CO2 [Moles/Vol] 24 mmol/L 20 - 31 mmol/L [facility] Creatinine [Mass/Vol] 1.84 mg/dL High 0.50 - 0.90 mg/dL [facility] GFR/1.73 sq M.predicted MDRD (S/P/Bld) [Vol rate/Area] 28 mL/min/{1.73_m2} Low - PINF [facility] Comment on above: These results are not intended for use in patients <18 years of age. eGFR results are calculated without a race factor using the 2020 CKD-EPI equation. Careful clinical correlation is recommended, particularly when comparing to results calculated using previous equations. The CKD-EPI equation is less accurate in patients with extremes of muscle mass, extra-renal metabolism of creatine, excessive creatine ingestion, or following therapy that affects renal tubular secretion. Glucose [Mass/Vol] 320 mg/dL High 70 - 99 mg/dL [facility] [employer] Interpretation and review of laboratory results Abnormal [facility] Potassium [Moles/Vol] 5.8 mmol/L High 3.7 - 5.3 mmol/L [facility] Protein [Mass/Vol] 7.2 g/dL 6.4 - 8.3 g/dL [facility] Sodium [Moles/Vol] 136 mmol/L 135 - 144 mmol/L [facility] Urea nitrogen [Mass/Vol] 29 mg/dL High 8 - 23 mg/dL [facility] Urea nitrogen/Creatinine [Mass ratio] 16 mg/mg 9 - 20 [facility] ABDOMEN PELVIS W IV CONTR AST Additional Contrast? Noneon 11-25-2022 1. Findings consistent with an infectious, inflammatory or ischemic colitis seen from the transverse colon through the rectum. 2. Bladder wall thickening and perivesical fat stranding suspicious for cystitis, although the bladder wall thickening is nonspecific and may also be due to underdistention or muscular hypertrophy. 3. New age indeterminate but likely subacute mild anterior compression fracture at L1. There is no bony retropulsion. 4. Bilateral adrenal nodules, stable to only slightly increased in size from 12/01/2013 consistent with adenomas. MHPN RIS CONSOLIDATED CT ABDOMEN AND PELVI S WITH CONTRAST: INDICATION: Known CKD, hydrating patient, already received 500cc NS. COMPARISON: CT abdomen and pelvis 12/01/2013, lumbar spine radiographs 04/29/2020. TECHNIQUE: Helical CT images of the abdomen and pelvis were obtained after the administration of intravenous contrast. Dose reduction techniques were achieved by using automated exposure control and/or adjustment of mA and/or kV according to patient size and/or use of iterative reconstruction technique. FINDINGS: LOWER CHEST: Mild bibasilar atelectasis/scarring. Severe atherosclerotic coronary artery calcification. LIVER: Normal in size and attenuation. No focal lesions. GALLBLADDER AND BILIARY SYSTEM: Normal. SPLEEN: Normal. PANCREAS: Normal. ADRENAL GLANDS: There is a 1.7 cm right adrenal nodule and there is a 1.4 cm left adrenal nodule. On the previous study from 12/01/2013 these measured 1.5 cm on the right and 1.3 cm on the left. The left adrenal nodule was previously consistent with adenoma on noncontrast CT and the right adrenal nodule was borderline consistent with an adenoma. KIDNEYS AND URETERS: Unremarkable. VASCULATURE: Diffuse atherosclerotic arterial calcification. RETROPERITONEUM AND LYMPH NODES: Normal, with no lymphadenopathy. GASTROINTESTINAL TRACT/MESENTERY: Moderate wall thickening within the colon extending from the mid transverse colon through the rectum. Adjacent pericolonic fat stranding is also noted consistent with colitis. Bowel loops are normal in diameter. Status post appendectomy. BLADDER: Moderate diffuse wall thickening with adjacent perivesical fat stranding. REPRODUCTIVE SYSTEM: Status post hysterectomy. BODY WALL: Tiny fat-containing umbilical hernia. BONES: Moderate to severe multilevel degenerative changes of the thoracolumbar spine. Mild anterior compression fracture at L1 which is not seen on prior studies including the radiographs from 04/29/2020. There is mild sclerosis and there is mild lucency in the superior endplate and therefore this is suspicious for subacute fracture. There is approximately 40% loss of height anteriorly. There is no bony retropulsion. PN RIS CONSOLIDATED Elgin Aggarwal MD - 11/25/2022 CT ABDOMEN AND PELVIS WITH CONTRAST: INDICATION: Known CKD, hydrating patient, already received 500cc NS. COMPARISON: CT abdomen and pelvis 12/01/2013, lumbar spine radiographs 04/29/2020. TECHNIQUE: Helical CT images of the abdomen and pelvis were obtained after the administration of intravenous contrast. Dose reduction techniques were achieved by using automated exposure control and/or adjustment of mA and/or kV according to patient size and/or use of iterative reconstruction technique. FINDINGS: LOWER CHEST: Mild bibasilar atelectasis/scarring. Severe atherosclerotic coronary artery calcification. LIVER: Normal in size and attenuation. No focal lesions. GALLBLADDER AND BILIARY SYSTEM: Normal. SPLEEN: Normal. PANCREAS: Normal. ADRENAL GLANDS: There is a 1.7 cm right adrenal nodule and there is a 1.4 cm left adrenal nodule. On the previous study from 12/01/2013 these measured 1.5 cm on the right and 1.3 cm on the left. The left adrenal nodule was previously consistent with adenoma on noncontrast CT and the right adrenal nodule was borderline consistent with an adenoma. KIDNEYS AND URETERS: Unremarkable. VASCULATURE: Diffuse atherosclerotic arterial calcification. RETROPERITONEUM AND LYMPH NODES: Normal, with no lymphadenopathy. GASTROINTESTINAL TRACT/MESENTERY: Moderate wall thickening within the colon extending from the mid transverse colon through the rectum. Adjacent pericolonic fat stranding is also noted consistent with colitis. Bowel loops are normal in diameter. Status post appendectomy. BLADDER: Moderate diffuse wall thickening with adjacent perivesical fat stranding. REPRODUCTIVE SYSTEM: Status post hysterectomy. BODY WALL: Tiny fat-containing umbilical hernia. BONES: Moderate to severe multilevel degenerative changes of the thoracolumbar spine. Mild anterior compression fracture at L1 which is not seen on prior studies including the radiographs from 04/29/2020. There is mild sclerosis and there is mild lucency in the superior endplate and therefore this is suspicious for subacute fracture. There is approximately 40% loss of height anteriorly. There is no bony retropulsion. IMPRESSION: 1. Findings consistent with an infectious, inflammatory or ischemic colitis seen from the transverse colon through the rectum. 2. Bladder wall thickening and perivesical fat stranding suspicious for cystitis, although the bladder wall thickening is nonspecific and may also be due to underdistention or muscular hypertrophy. 3. New age indeterminate but likely subacute mild anterior compression fracture at L1. There is no bony retropulsion. 4. Bilateral adrenal nodules, stable to only slightly increased in size from 12/01/2013 consistent with adenomas. [employer] Phone: Radiology Study observation (narrative) [employer] Phone: CT ABDOMEN PELVIS W IV CONTR AST Additional Contrast? NoneOrdered By: Elgin Aggarwal on 11-25-2022 [employer] Phone: Comp Metabolic Profon 2022 Albumin [Mass/Vol] 4.3 g/dL Normal 3.5-5.2 [facility] Comment on above: Performed By: #### U PALAK Reynolds #### [facility] [address] [place], [place] [id number] Furnace Door Tender: Jenny Harvey MD Alkaline Phos 833 U/L High 35-104 [facility] Comment on above: Performed By: #### U PALAK Reynolds #### [facility] [address] [place] [address] Furnace Door Tender: Jenny Harvey MD ALT [Catalytic activity/Vol] 32 U/L Normal 5-33 [facility] Comment on above: Performed By: #### PALAK Poole #### [facility] [address] [place], [place] [id number] Furnace Door Tender: Jenyn Harvey MD Anion gap [Moles/Vol] 12 mmol/L Normal 9-17 [facility] Comment on above: Performed By: #### PALAK Poole #### [facility] [address] [place], [place] [id number] Furnace Door Tender: Jenny Harvey MD AST [Catalytic activity/Vol] 46 U/L High <32 [facility] Comment on above: Performed By: #### PALAK Poole #### [facility] [address] [place], [place] [id number] Furnace Door Tender: Jenny Harvey MD Bilirubin [Mass/Vol] 0.5 mg/dL Normal 0.3-1.2 [facility] Comment on above: Performed By: #### U PALAK Reynolds #### [facility] [address] [place], [place] [id number] Furnace Door Tender: Jenny Harvey MD BUN/CRE Ratio 16 Normal 9-20 [facility] Comment on above: Performed By: #### U PALAK Reynolds #### [facility] [address] [place], [place] [id number] Furnace Door Tender: Jenny Harvey MD Calcium [Mass/Vol] 9.4 mg/dL Normal 8.6-10.4 [facility] Comment on above: Performed By: #### U A, UMICAO #### [facility] [address] [place] [address] Furnace Door Tender: Jenny Harvey MD Chloride [Moles/Vol] 100 mmol/L Normal 98-107 [facility] Comment on above: Performed By: #### U A, UMICAO #### [facility] [address] [place], [place] [id number] Furnace Door Tender: Jenny Harvey MD CO2 [Moles/Vol] 24 mmol/L Normal 20-31 [facility] Comment on above: Performed By: #### U A, UMICAO #### [facility] [address] [place], [place] [phone] Furnace Door Tender: Jenny Harvey MD Creatinine [Mass/Vol] 1.84 mg/dL High 0.50-0.90 [facility] Comment on above: Performed By: #### U A, UMICAO #### [facility] [address] [place], [place] [phone] Furnace Door Tender: Jenny Harvey MD GFR/1.73 sq M.predicted among non-blacks MDRD (S/P/Bld) [Vol rate/Area] 28 mL/min/{1.73_m2} Low >60 [facility] Comment on above: Result Comment: These results are not intended for use in patients <18 years of age. eGFR results are calculated without a race factor using the 2020 CKD-EPI equation. Careful clinical correlation is recommended, particularly when comparing to results calculated using previous equations. The CKD-EPI equation is less accurate in patients with extremes of muscle mass, extra-renal metabolism of creatine, excessive creatine ingestion, or following therapy that affects renal tubular secretion. Performed By: #### U A, UMICAO #### [facility] [address] [place], [place] [id number] Furnace Door Tender: Jenny Harvey MD Glucose [Mass/Vol] 320 mg/dL High 70-99 [facility] Comment on above: Performed By: #### U A, UMICAO #### [facility] [address] [place], [place] [id number] Furnace Door Tender: Jenny Harvey MD Potassium [Moles/Vol] 5.8 mmol/L High 3.7-5.3 [facility] Comment on above: Performed By: #### U A, UMICAO #### [facility] [address] [place] [address] Furnace Door Tender: Jenny Harvey MD Protein [Mass/Vol] 7.2 g/dL Normal 6.4-8.3 [facility] Comment on above: Performed By: #### U A, UMDANAEO #### [facility] [address] [place] [address] Furnace Door Tender: Jenny Harvey MD Sodium [Moles/Vol] 136 mmol/L Normal 135-144 [facility] Comment on above: Performed By: #### U A, UMICAO #### [facility] [address] [place], [place] [id number] Furnace Door Tender: Jenny Harvey MD Urea nitrogen [Mass/Vol] 29 mg/dL High 8-23 [facility] Comment on above: Performed By: #### U A, UMICAO #### [facility] [address] [place], [place] [address] Furnace Door Tender: Jenny Harvey MD Lipaseon 11-25-2022 Lipase [Catalytic activity/Vol] 57 U/L Normal 13-60 [facility] Comment on above: Performed By: #### U A, UMICAO #### [facility] [address] [place] [address] Furnace Door Tender: Jenny Harvey MD Lipase [Catalytic activity/Vol] 57 U/L 13 - 60 U/L [facility] No Panel Informationon 11-25 [facility] Sedimentation Rateon 023 Sedimentation Rate 13 mm/Hr Normal 0-30 [facility] Comment on above: Performed By: #### U A, UMICAO #### [facility] [address] [place] [address] Furnace Door Tender: Jenny Harvey MD ESR (Bld) [Velocity] 13 mm/h [facility] LE Venous Duplex Insuffic iency Bilaton 11-20-2022 LE Venous Duplex Insufficiency Bilat Exam Date/Time: 11/14/2022 15:05 EDT Reason for Exam: I70.221;Other (please specify) Report IMPRESSION: RIGHT LEG-DEEP VEINS. NEGATIVE FOR DEEP VENOUS THROMBOSIS. RIGHT LEG-SUPERFICIAL VEINS. GREATER SAPHENOUS VEIN AND SMALL SAPHENOUS VEIN NEGATIVE FOR VALVULAR INCOMPETENCY. LEFT LEG-DEEP VEINS. NEGATIVE FOR DEEP VENOUS THROMBOSIS. LEFT LEG SUPERFICIAL VEINS. GREATER SAPHENOUS VEIN AND SMALL SAPHENOUS VEIN NEGATIVE FOR VALVULAR INCOMPETENCY. CLINICAL HISTORY: I70.221. Reportedly gangrenous right great toe. COMMENT: On the right, the greater saphenous vein, common femoral vein, femoral vein, deep femoral vein, and popliteal vein demonstrate spontaneous phasic venous flow with augmentation, competence, non-pulsatility, and compressibility every 2 cm. The posterior tibial and peroneal right deep calf veins compress. On the left, the greater saphenous vein, common femoral vein, femoral vein, deep femoral vein, and popliteal vein demonstrate spontaneous phasic venous flow with augmentation, competence, non-pulsatility, and compressibility every 2 cm. The posterior tibial and peroneal left deep calf veins compress. The right and left greater saphenous and small saphenous vein measurements are detailed below. Ordering Provider: Ramone Nair FINAL REPORT Dictated: 11/20/2022 2:22 pm Daksha Jerome, Víctor Saldaña Signed (Electronic Signature): 11/20/2022 2:22 pm Signed by: Víctor Crooks M.D. Transcribed by: JCAKSON Technologist: ROSHAN Technical Comments Patient Position Reverse Trendelenburg CFV Reflux (sec): None. DFV Reflux (sec): None. FV Prox Reflux (sec): None. FV Mid Reflux (sec): None. FV Dist Reflux (sec): None. Pop V Reflux (sec): None. Right Greater Saphenous: Saphenofemoral Junction (at/near): Diameter 0.4 Depth: Intrafascial Reflux (sec): None. Technical Comments Prox thigh: Diameter 0.3 Depth: Intrafascial Reflux (sec): None. Mid thigh: Diameter 0.2 Depth: Intrafascial Reflux (sec): None. Distal thigh: Diameter 0.2 Depth: Intrafascial Reflux (sec): None. At Knee Diameter 0.2 Depth: Intrafascial Reflux (sec): None. Proximal lower leg: Diameter 0.3 Depth: Intrafascial Reflux (sec): None. Mid lower leg: Diameter 0.3 Depth: Intrafascial Reflux (sec): None. Distal lower leg: Depth: Extrafascial Accessory Saphenous: Diameter none Right Small Saphenous: Junction/Proximal Calf Diameter non vis Patient Position Reverse Trendelenburg CFV Reflux (sec): None. DFV Reflux (sec): None. FV Prox Reflux (sec): None. FV Mid Reflux (sec): None. FV Dist Reflux (sec): None. Pop V Reflux (sec): None. Left Greater Saphenous: Saphenofemoral Junction (at/near): Diameter 0.8 Depth: Intrafascial Reflux (sec): None. Prox thigh: Diameter 0.4 Mid thigh: Diameter 0.4 Depth: Intrafascial Reflux (sec): None. Distal thigh: Diameter 0.3 Depth: Extrafascial Reflux (sec): None. At Knee Diameter 0.3 Depth: Intrafascial Reflux (sec): None. Proximal lower leg: Diameter 0.2 Depth: Intrafascial Reflux (sec): None. Mid lower leg: Diameter 0.2 Depth: Intrafascial Accessory Saphenous: Diameter none Left Small Saphenous: Connects to: Popiteal Vein Junction/Proximal Calf Diameter 0.3 Depth: Intrafascial Reflux (sec): None. Mid calf: Diameter 0.2 Normal [facility] US PVR Lower EXT Complete Bi laton 11-20-2022 US PVR Lower EXT Complete Bilat Exam Date/Time: 11/14/2022 15:06 EDT Reason for Exam: I70.221;Other (please specify) Report IMPRESSION: THE RIGHT ANKLE-BRACHIAL INDEX IS CONSISTENT WITH MILD DISEASE IN THE LEG. THE LEFT ANKLE-BRACHIAL INDEX IS NORMAL AT REST. CLINICAL HISTORY: I70.221. COMMENT: On the right, the brachial systolic pressure is 163 , the high thigh pressure is >255, the low thigh pressure is >255, the calf pressure is >255, the posterior tibial ankle pressure is 143 , the dorsalis pedis ankle pressure is >255, and the digit pressure is 92. The ankle-brachial index at the posterior tibial artery is 0.88, with normal 1.0 or greater. The toe-brachial index is 0.56, with normal 0.7 or greater. The plethysmography waveforms are moderately abnormal. On the left, the brachial systolic pressure is 159 , the high thigh pressure is >255, the low thigh pressure is >255, the calf pressure is >255, the posterior tibial ankle pressure is 175 , the dorsalis pedis ankle pressure is >255, and the digit pressure is 118 . The ankle-brachial index at the posterior tibial artery is 1.07, with normal 1.0 or greater. The toe-brachial index is 0.72, with normal 0.7 or greater. The plethysmography waveforms are moderately to severely abnormal. Ordering Provider: Ramone Nair FINAL REPORT Dictated: 11/20/2022 2:25 pm Víctor Crooks M.D. Signed (Electronic Signature): 11/20/2022 2:25 pm Signed by: Víctor Crooks M.D. Transcribed by: JACKSON Technologist: ROSHAN [facility] Outside Recordson 11-18-2022 Outside Records [id number]#1.00CD:1 27 [facility] Consent for Treatmenton 10-21 Consent for Treatment [id number]#1.00CD:12 7 Normal [facility] RAD - MISCon 11-14-2022 RAD - MISC [id number]#1.00CD:1 27 Normal [facility] Progress Note-Nurseon 2022 Progress Note-Nurse [id number]#1.00CD:12 7 [facility] Release of Records Officeon 11-07-2022 Release of Records Office [id number]#[id number]:12 7 [facility] Consent for Treatmenton 10-20 Consent for Treatment [id number]#1.00CD:12 7 [facility] Heart and Vascular Office/Cl inic Noteon 11-06-2022 Heart and Vascular Office/Clinic Note Chief Complaint New Patient- Establish care- Right Great toe and right 3rd toe ulcer. History of Present Illness Is a 77-year-old lady with longstanding history of diabetes no smoking she has right great toe tip dry gangrene. She had angiogram and intervention done at [facility]. She does not have any records at this time. She did not have any recent testing. She has neuropathic pain in that leg. She is controlling her diabetes well recently. She also has some varicose veins bilaterally and there is concern that some of her symptoms could be due to venous congestion. No venous testing done. Review of Systems PHQ Score Initial Depression Screen Score: 0 Constitutional: no fever, no chills, no sweats, no weakness Skin: no Jaundice, no rash, no lesions, nopetechiae ENMT: no ear pain, no sore throat, no congestion, no hoarseness Respiratory: no shortness of breath, no cough, no orthopnea, no wheezing Cardiovascular: no chest pain, no palpitations, no edema Gastrointestinal: no nausea, no vomiting, no diarrhea, no GI bleeding Genitourinary: no dysuria, no hematuria, no discharge, no pain Musculoskeletal: no back pain, no trauma Neurologic: no headache, no dizziness, no numbness, no weakness Psychiatric: no sleeping problems, no irritability, no mood swings/depression. Heme/Lymph: no bleeding tendency, no bruising tendency, no petechiae, no swollen nodes Allergy/Immunologic: no seasonal allergies, no food allergies, no recurrent infections, no impaired immunity Additional ROS info: Except as noted in the above Review of Systems and in the History of Present Illness all other systems have been reviewed and are negative or noncontributory. Physical Exam Vitals & Measurements HR: 67(Peripheral) BP: 129/82 SpO2: 99% HT: 62 in HT: 157 cm WT: 79.9 kg WT: 175.78 lb BMI: 32.42 General: alert, no acute distress Skin: warm, dry Head: no trauma, normocephalic Neck: Trachea midline, no adenopathy, no tenderness Eye: normal conjunctiva, sclera clear Cardiovascular: regular rate and rhythm, normal peripheral perfusion Respiratory: Lungs CTA, respirations non labored Chest wall: no deformity. Gastrointestinal: soft, non distended, no tenderness, no guarding. Back: No tenderness, Normal ROM, Normal alignment. Extremities: no edema,no deformity, no trauma Neurological: oriented x 4, LOC appropriate for age, motor strength equal & normal bilaterally, sensation equal & normal bilaterally, speech normal Psychiatric: cooperative, affect appropriate for age, normal judgement, normal psychiatric thoughts. Assessment/Plan 1. Critical limb ischemia of right lower extremity (I70.221: Atherosclerosis of comanche arteries of extremities with rest pain, right leg) PVR and obtain records from [facility] 2. Varicose veins of both lower extremities with pain (I83.813: Varicose veins of bilateral lower extremities with pain) Venous reflux ultrasound Follow-up No qualifying data available Problem List/Past Medical History Ongoing Anxiety Arthritis of knee, left Arthritis, lumbar spine Basal cell carcinoma of left upper extremity Both eyes affected by mild nonproliferative diabetic retinopathy with macular edema, associated with type 2 diabetes mellitus Cataract, bilateral Cervical arthritis Chronic pain disorder Essential hypertension Gastroesophageal reflux disease without esophagitis History of basal cell carcinoma (BCC) Hypercholesterolemia Hypoglycemia Insomnia Iron deficiency anemia Kidney disease, chronic, stage III (moderate, EGFR 30-59 ml/min) Lumbago with sciatica, left side Lumbago with sciatica, right side Obesity Polyneuropathy Primary osteoarthritis involving multiple joints Restless leg syndrome Restless leg syndrome Severe obesity Spondylisthesis Tendonitis of left rotator cuff Type 2 diabetes mellitus with diabetic polyneuropathy Type 2 diabetes mellitus with hypoglycemia Vitamin D deficiency Historical No qualifying data Procedure/Surgical History Appendectomy, Carpal tunnel release, Cataract extraction, Hysterectomy, sinus surgery, Tonsillectomy. Medications aspirin 81 mg oral tablet, 81 mg= 1 tab(s), Oral, Daily cholecalciferol 5000 intl units oral tablet, 5000 International_Unit= 1 tab(s), Oral, BID ferrous sulfate, 325 mg, Oral, Daily lisinopril 10 mg Tab, 10 mg= 1 tab(s), Oral, Daily lovastatin 40 mg Tab, 40 mg= 1 tab(s), Oral, Daily Lyrica, 100 mg, Oral, BID nadolol 40 mg Tab, 40 mg= 1 tab(s), Oral, Daily NovoLog Mix 70/30 FlexPen, See Instructions paroxetine, 40 mg, Oral, Daily ropinirole 0.25 mg Tab, 0.5 mg= 2 tab(s), Oral, Daily Tylenol, 500 mg, Oral, PRN Victoza, 1.2 mg, SubCutaneous, Daily Allergies Tape codeine metFORMIN Social History Alcohol - Denies Alcohol Use, 04/26/2019 Substance Abuse - Denies Substance Abuse, 04/26/2019 Tobacco - Denies Tobacco Use, 04/26/2019 Never (less than 100 in lifetime) Tobacco (more content not included)... Normal [facility] Comment on above: Result Comment: Elec tronically Signed By: Korey POTTER, Ramone Krishna\.br\Date and Time Signed: 11/06/22 14:26 EDT [facility] ALICIA DIGITAL SCREEN TAMERA Greenejorge 11-03-2022 [facility] ALICIA DIGITAL SCREEN BILATERAL HISTORY: Screening. TECHNIQUE: Bilateral digital screening mammogram with CAD. 2-D and 3-D tomography. FINDINGS: Two views of each breast show scattered areas of fibroglandular density. BREAST DENSITY CODE: S Scattered No change from prior studies, the most recent of 06/21/2021. Suspicious calcifications: None. Suspicious mass: None. (If skin markers were applied, circles represent skin lesions and linear markers represent scars.) IMPRESSION: OVERALL ASSESSMENT: BIRADS: 1 Negative, no evidence of malignancy. A letter of notification will be mailed to the patient. Interpreted by: Kan Angel Jr., MD Signed by: Kan Angel Jr., MD 11/03/22 Final result Normal [facility] OVERALL ASSESSMENT: BIRADS: 1 Negative, no evidence of malignancy. A letter of notification will be mailed to the patient. [facility] HISTORY: Screening. TECHNIQUE: Bilateral digital screening mammogram with CAD. 2-D and 3-D tomography. FINDINGS: Two views of each breast show scattered areas of fibroglandular density. BREAST DENSITY CODE: S Scattered No change from prior studies, the most recent of 06/21/2021. Suspicious calcifications: None. Suspicious mass: None. (If skin markers were applied, circles represent skin lesions and linear markers represent scars.) [facility] Radiology Study observation (narrative) [employer] Phone: [employer] ALICIA DIGITAL SCREEN BILA TERALOrdered By: Kan Angel on 11-03-2022 [facility] Phone: Referrals Officeon 3 Referrals Office [phone] [id number] Normal [facility] US ankle/arm indiceson 09-18 US ankle/arm indices [facility] Main [place] [address] [place] [address] Ultrasound Report Signed Patient: Chloe Meza MR#: [id number] : 1945 Acct:[id number] Age/Sex: 77 / F ADM Date: 09/18/22 Loc: [facility] Room: Type: [facility] Attending Dr: Baltazar Marc MD Ordering Provider: Baltazar Marc MD Date of Service: 09/18/22 US/US ankle/arm indices: SARBJIT ANDREINA Copies to: Baltazar Marc MD LOWER EXTREMITY SEGMENTAL ARTERIAL DOPSCAN (PVR) INDICATION: Surveillance study after right leg revascularization PROCEDURE: Right arm blood pressure is 178 , left is 167 . Pressures at the right ankle are 201 using the posterior tibial artery, and 210 using the dorsalis pedis artery with ankle-brachial index of -NC-,1.13 -NC-,1.18 . Pressures at the left ankle are cno using the posterior tibial artery, and >240 with ankle-brachial index of -NC-,1.13 -NC- . Wave forms by plethysmography are normal. US/US ankle/arm indices IMPRESSION: NO HEMODYNAMICALLY SIGNIFICANT PERIPHERAL VASCULAR OCCLUSIVE DISEASE AT REST IN EITHER LOWER EXTREMITY. Impression dictated by: Baltazar Marc MD09/18/2022 2:35 PM Dictation Location: [place] [address] Tech: Lynsey Doherty Transcribed By: ROULA 09/18/22 143 Dictated By: Baltazar Marc MD 09/18/22 143 Signed By: 09/18/22 143 [facility] Cult,Urineon 07-31-2022 Cult,Urine Specimen Description .URINE Culture NO SIGNIFICANT GROWTH Report Status FINAL 07/30/2022 [facility] Comment on above: Performed By: #### U A, UMICAO #### [facility] [address] [place] [address] Furnace Door Tender: Jenny Harvey MD PTH, Intacton 07-31-2022 PTH, Intact 51.8 pg/mL Normal 14.0-72.0 [facility] Comment on above: Result Comment: SAMP LES FROM PATIENTS ROUTINELY RECEIVING HIGH DOSE BIOTIN THERAPY MAY SHOW FALSELY DEPRESSED RESULTS. ADDITIONAL INFORMATION MAY BE REQUIRED FOR DIAGNOSIS. Performed By: #### U RC #### [facility] [address], [place] [id number] Furnace Door Tender: Job Wick MD [facility] [address] [place] [address] Furnace Door Tender: Jenny Harvey MD Creatinine, Random Urineon 0 07-30-2022 Creatinine, Ur 137.3 mg/dL 28.0 - 217.0 mg/dL [facility] Creatinine,Random Uron 07-30 Creatinine [Mass/Vol] 137.3 mg/dL Normal 28.0-217.0 [facility] Comment on above: Performed By: #### U RC #### [facility] [employer] [address], [place] [id number] Furnace Door Tender: Job Wick MD [facility] [address] [place], [place] [phone] Furnace Door Tender: Jenny Harvey MD No Panel Informationon 07-30 [facility] Protein, urine, randomon Protein (U) [Mass/Vol] 23 mg/dL [facility] Comment on above: No normal range esta blished. Protein,Tot,[place] Uron 2022 Tot Prot. Conc. 23 mg/dL Normal [facility] Comment on above: Result Comment: No n ormal range established. Performed By: #### U RC #### [facility] [address], [place] [id number] Furnace Door Tender: Job Wick MD [facility] [address] [facility] [address] [place], [place] [phone] Furnace Door Tender: Jenny Harvey MD Vitamin D 25 OHon 07-30-2022 Vitamin D 25 [place] 43.6 ng/mL Normal >29.9 [facility] Comment on above: Result Comment: Reference Range: Vitamin D status Range Deficiency <20 ng/mL Mild Deficiency 20-30 ng/mL Sufficiency 30-100 ng/mL Toxicity >100 ng/mL Performed By: #### U RC #### [facility] [address] [place] [address] Furnace Door Tender: Job Wick MD [facility] [address] [facility] [address] [place], [place] [phone] Furnace Door Tender: Jenny Harvey MD Hemoglobin and Hematocriton 07-29-2022 Hematocrit (Bld) [Volume fraction] 36.3 % 36 - 46 % [facility] Hemoglobin (Bld) [Mass/Vol] 12.3 g/dL 12.0 - 16.0 g/dL [facility] Hgb/Hcton 07-29-2022 Hematocrit (Bld) [Volume fraction] 36.3 % Normal 36-46 [facility] Comment on above: Performed By: #### U A, UMICAO #### [facility] [address] [place] [address] Furnace Door Tender: Jenny Harvey MD Hemoglobin (Bld) [Mass/Vol] 12.3 g/dL Normal 12.0-16.0 [facility] Comment on above: Performed By: #### U AKASSIO #### [facility] [address] [place] [address] Furnace Door Tender: Jenny Harvey MD Microscopic Urinalysison - [facility] Bacteria, UA 2+ Abnormal None [facility] Epithelial Cells UA 20 TO 50 /HPF [facility] Interpretation and review of laboratory results Abnormal [facility] RBC clumps Auto (Urine sed) [#/Area] NONE SEEN [facility] WBC, UA 10 TO 20 0 /HPF [facility] Renal Function Panelon 07-29 Albumin [Mass/Vol] 4.1 g/dL Normal 3.5-5.2 [facility] Comment on above: Performed By: #### U A, PALAK #### [facility] [address] [place] [address] Furnace Door Tender: Jenny Harvey MD Anion gap [Moles/Vol] 10 mmol/L Normal 9-17 [facility] Comment on above: Performed By: #### U A, PALAK #### [facility] [address] [place] [address] Furnace Door Tender: Jenny Harvey MD BUN/CRE Ratio 17 Normal 9-20 [facility] Comment on above: Performed By: #### U A, KASSIO #### [facility] [address] [place] [address] Furnace Door Tender: Jenny Harvey MD Calcium [Mass/Vol] 9.7 mg/dL Normal 8.6-10.4 [facility] Comment on above: Performed By: #### U A, KASSIO #### [facility] [address] [place], [place] [phone] Furnace Door Tender: Jenny Harvey MD Chloride [Moles/Vol] 101 mmol/L Normal 98-107 [facility] Comment on above: Performed By: #### U A, UMICAO #### [facility] [address] [place], [place] [phone] Furnace Door Tender: Jenny Harvey MD CO2 [Moles/Vol] 27 mmol/L Normal 20-31 [facility] Comment on above: Performed By: #### U A, UMICAO #### [facility] [address] [place] [address] Furnace Door Tender: Jenny Harvey MD Creatinine [Mass/Vol] 1.45 mg/dL High 0.50-0.90 [facility] Comment on above: Performed By: #### U A, UMICAO #### [facility] [address] [place], [place] [phone] Furnace Door Tender: Jenny Harvey MD GFR/1.73 sq M.predicted among non-blacks MDRD (S/P/Bld) [Vol rate/Area] 37 mL/min/{1.73_m2} Low >60 [facility] Comment on above: Result Comment: These results are not intended for use in patients <18 years of age. eGFR results are calculated without a race factor using the 2020 CKD-EPI equation. Careful clinical correlation is recommended, particularly when comparing to results calculated using previous equations. The CKD-EPI equation is less accurate in patients with extremes of muscle mass, extra-renal metabolism of creatine, excessive creatine ingestion, or following therapy that affects renal tubular secretion. Performed By: #### U A, UMICAO #### [facility] [address] [place], [place] [phone] Furnace Door Tender: Jenny Harvey MD Glucose [Mass/Vol] 179 mg/dL High 70-99 [facility] Comment on above: Performed By: #### U A, UMICAO #### [facility] [address] [place], [place] [phone] Furnace Door Tender: Jenny Harvey MD Phosphorus, Inorg. 3.6 mg/dL Normal 2.6-4.5 [facility] Comment on above: Performed By: #### U A, KASSIO #### [facility] [address] [place], [place] [phone] Furnace Door Tender: Jenny Harvey MD Potassium [Moles/Vol] 4.7 mmol/L Normal 3.7-5.3 [facility] Comment on above: Performed By: #### U A, PALAK #### [facility] [address] [place], [place] [phone] Furnace Door Tender: Jenny Harvey MD Sodium [Moles/Vol] 138 mmol/L Normal 135-144 [facility] Comment on above: Performed By: #### U A, PALAK #### [facility] [address] [place], [place] [phone] Furnace Door Tender: Jenny Harvey MD Urea nitrogen [Mass/Vol] 25 mg/dL High 8-23 [facility] Comment on above: Performed By: #### U A, PALAK #### [facility] [address] [place], [place] [address] Furnace Door Tender: Jenny Harvey MD Albumin [Mass/Vol] 4.1 g/dL 3.5 - 5.2 g/dL [facility] Anion gap [Moles/Vol] 10 mmol/L 9 - 17 mmol/L [facility] Calcium [Mass/Vol] 9.7 mg/dL 8.6 - 10. 4 mg/dL [facility] Chloride [Moles/Vol] 101 mmol/L 98 - 10 7 mmol/L [facility] CO2 [Moles/Vol] 27 mmol/L 20 - 31 mmol/L [facility] Creatinine [Mass/Vol] 1.45 mg/dL High 0.50 - 0.90 mg/dL [facility] GFR/1.73 sq M.predicted MDRD (S/P/Bld) [Vol rate/Area] 37 mL/min/{1.73_m2} Low - PINF [facility] Comment on above: These results are not intended for use in patients <18 years of age. eGFR results are calculated without a race factor using the 2020 CKD-EPI equation. Careful clinical correlation is recommended, particularly when comparing to results calculated using previous equations. The CKD-EPI equation is less accurate in patients with extremes of muscle mass, extra-renal metabolism of creatine, excessive creatine ingestion, or following therapy that affects renal tubular secretion. Glucose [Mass/Vol] 179 mg/dL High 70 - 99 mg/dL [facility] Interpretation and review of laboratory results Abnormal [facility] Phosphate [Mass/Vol] 3.6 mg/dL 2.6 - 4 .5 mg/dL [facility] Potassium [Moles/Vol] 4.7 mmol/L 3.7 - 5.3 mmol/L [facility] Sodium [Moles/Vol] 138 mmol/L 135 - 144 mmol/L [facility] Urea nitrogen [Mass/Vol] 25 mg/dL High 8 - 23 mg/dL [facility] Urea nitrogen/Creatinine (Bld) [Mass ratio] 17 9 - 20 [facility] UA w/Reflex Cultureon 2022 Bilirubin, SemiQt,Ur Negative Normal NEG [facility] Comment on above: Performed By: #### U APALAK #### [facility] [address] [facility] [place] [address] Furnace Door Tender: Jenny Harvey MD Blood, Urine Negative Normal NEG [facility] Comment on above: Performed By: #### U APALAK #### [facility] [address] [place] [address] Furnace Door Tender: Jenny Harvey MD Clarity (U) Clear Normal CLEAR [facility] Comment on above: Performed By: #### U A, UMICAO #### [facility] [address] [place] [address] Furnace Door Tender: Jenny Harvey MD Color (U) Yellow Normal YEL [facility] Comment on above: Performed By: #### U A, UMICAO #### [facility] [address] [place] [address] Furnace Door Tender: Jenny Harvey MD Comment Normal [facility] Comment on above: Performed By: #### U A, UMICAO #### [facility] [address] [place] [address] Furnace Door Tender: Jenny Harvey MD Glucose Ql (U) Negative Normal NEG [facility] Comment on above: Performed By: #### U A, UMICAO #### [facility] [address] [place], [place] [phone] Furnace Door Tender: Jenny Harvey MD Ketones Ql (U) Negative Normal NEG [facility] Comment on above: Performed By: #### U A, UMICAO #### [facility] [address] [place], [place] [phone] Furnace Door Tender: Jenny Harvey MD Leukocyte esterase Test strip Ql (U) 2+ Abnormal NEG [facility] Comment on above: Performed By: #### U A, UMICAO #### [facility] [address] [place] [address] Furnace Door Tender: Jenny Harvey MD Nitrite,Ur Negative Normal NEG [facility] Comment on above: Performed By: #### U A, UMICAO #### [facility] [address] [place], [place] [phone] Furnace Door Tender: Jenny Harvey MD PH,Ur 5.0 Normal 5.0-8.0 [facility] Comment on above: Performed By: #### U A, UMICAO #### [facility] [address] [facility] [address] Furnace Door Tender: Jenny Harvey MD Protein Ql (U) 1+ Abnormal NEG [facility] Comment on above: Performed By: #### U A, UMICAO #### [facility] [address] [place], [place] [address] Furnace Door Tender: Jenny Harvey MD Spec. [place],Ur 1.015 Normal 1.005-1.03 0 [facility] Comment on above: Performed By: #### U A, UMICAO #### [facility] [address] [place], [place] [phone] Furnace Door Tender: Jenny Harvey MD Urobilinogen,Ur Normal Normal NORM [facility] Comment on above: Performed By: #### U A, UMDANAEO #### [facility] [address] [place] [address] Furnace Door Tender: Jenny Harvey MD Urinalysis with Reflex to Cu ltureon 07-29-2022 Bilirubin Urine Negative NEGATIVE [facility] Color, UA Yellow Yellow [facility] Glucose Auto test strip (U) [Mass/Vol] Negative NEGATIVE [facility] Interpretation and review of laboratory results Abnormal [facility] Ketones (U) [Mass/Vol] Negative NEGATIVE [facility] Leukocyte esterase Auto test strip Ql (U) 2+ Abnormal NEGATIVE [facility] Nitrite Auto test strip Ql (U) Negative NEGATIVE [facility] Protein (U) [Mass/Vol] 5.0 mg/dL 5.0 - 8.0 [facility] Protein (U) [Mass/Vol] 1+ Abnormal NEGATIVE [facility] Specific [place], UA 1.015 1.005 - 1.030 [facility] Turbidity UA Clear Clear [facility] Urinalysis Comments [facility] Urine Hgb Negative NEGATIVE [facility] Urobilinogen, Urine Normal Normal [facility] Urinalysis,Microon 3 ----- Normal [facility] Comment on above: Performed By: #### U RC #### [facility] [address] [place] [address] Furnace Door Tender: Job Wick MD [facility] [address] [place], [place] [phone] Furnace Door Tender: Jenny Harvey MD Bacteria 2+ Abnormal NONE [facility] Comment on above: Performed By: #### U RC #### [facility] [address] [place] [address] Furnace Door Tender: Job Wick MD [facility] [address] [place] [address] Furnace Door Tender: Jenny Harvey MD Epithelial cells LM Ql (Urine sed) 20 TO 50 Normal [facility] Comment on above: Performed By: #### U RC #### [address] [address] Furnace Door Tender: Job Wick MD [facility] [address] [place], [place] [address] Furnace Door Tender: Jenny Harvey MD Urine RBC's NONE SEEN Normal 0-2 [facility] Comment on above: Performed By: #### U RC #### [facility] [address] [place] [address] Furnace Door Tender: Job Wick MD [facility] [address] [place] [address] Furnace Door Tender: Jenny Harvey MD Urine WBC's 10 TO 20 Normal 0 [facility] Comment on above: Performed By: #### U RC #### [address] [address] Furnace Door Tender: Job Wick MD [facility] [address] [place], [place] [phone] Furnace Door Tender: Jenny Harvey MD US ankle/arm indiceson 06-26 US ankle/arm indices [facility] Main [place] [address] [place] [address] Ultrasound Report Signed Patient: Chloe Meza MR#: [id number] : 1945 Acct:[id number] Age/Sex: 77 / F ADM Date: 06/26/22 Loc: [facility] Room: Type: [facility] Attending Dr: Baltazar Marc MD Ordering Provider: Baltazar Marc MD Date of Service: 06/26/22 US/US ankle/arm indices: I70.213 Copies to: Baltazar Marc MD LOWER EXTREMITY SEGMENTAL ARTERIAL DOPSCAN (PVR) INDICATION: Post procedure new baseline study. Recent right leg angiogram with intervention. PROCEDURE: Right arm blood pressure is 166 , left is 165 . Pressures of the right leg are cno at the ankle using the posterior tibial artery and 162 at the ankle using the dorsalis pedis artery with ankle-brachial index of -NC-,0.98 -NC-,-NC- . Pressures of the left leg are cno at the ankle using the posterior tibial artery and cno at the ankle using the dorsalis pedis artery with ankle-brachial index of -NC- -NC-,-NC- . Wave forms by plethysmography are multiphasic, bilaterally. 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 Impression dictated by: Baltazar Marc MD06/26/2022 3:39 PM Dictation [facility] Tech: Lynsey Doherty Transcribed By: ROULA 06/26/22 1539 Dictated By: Baltazar Marc MD 06/26/22 1538 Signed By: 06/26/22 1539 Normal [facility] VL LOWER EXTREMITY ARTERIAL SEGMENTAL PRESSURES W PPGon 06-04-2022 VL LOWER EXTREMITY ARTERIAL SEGMENTAL PRESSURES W PPG Begin Addendum #1 Please disregard the original report. Interpreted by: Ben Hernandez MD Signed by: Ben Hernandez MD 06/04/22 Edited Result - FINAL Normal [facility] Activated partial thrombopla stin time (aPTT) in platelet poor plasma by coagulation aOrdered By: Arnav Cox on 06-03-2022 aPTT Coag (PPP) [Time] 31.1 s 25.1-36.5 [facility] Basic Metabolic Panelon 05-22 Anion gap [Moles/Vol] 16.6 mmol/L High 6.0-15.0 [facility] Comment on above: Performed By: #### C BC, BMP, CK, PTT, PT #### [facility] [address] Calcium [Mass/Vol] 9.3 mg/dL Normal 8.2-10.2 [facility] Comment on above: Performed By: #### C BC, BMP, CK, PTT, PT #### [facility] [address] Chloride [Moles/Vol] 103 mmol/L Normal 95-114 [facility] Comment on above: Performed By: #### C BC, BMP, CK, PTT, PT #### [address] CO2 [Moles/Vol] 24.0 mmol/L Normal 22.0-30.0 [facility] Comment on above: Performed By: #### C BC, BMP, CK, PTT, PT #### [address] Creatinine [Mass/Vol] 1.44 mg/dL High 0.44-1.03 [facility] Comment on above: Performed By: #### C BC, BMP, CK, PTT, PT #### [address] Creatinine Clr Calc Pharmacy 34.49 Normal [facility] Comment on above: Result Comment: PERF ORMED BY: [place] [address] PATHOLOGIST MINE TECHNICIAN BISMARK SIMS M.D. Performed By: #### C BC, BMP, CK, PTT, PT #### [address] Estimated GFR ( Traci 43 [facility] Comment on above: Result Comment: GFR estimated reference range: According to KDOQI guidelines, <60 ml/min/1.73m2 is sufficient to diagnose a patient with chronic kidney disease. Performed By: #### C BC, BMP, CK, PTT, PT #### [facility] [address] Estimated GFR (Non- Am 35 [facility] Comment on above: Performed By: #### C BC, BMP, CK, PTT, PT #### [facility] [address] Glucose [Mass/Vol] 58 mg/dL Low 70-100 [facility] Comment on above: Result Comment: [facility] Glucose Reference Range is dependent on time and content of last meal. Glucose of more than 200 mg/dL in a nonstressed, ambulatory subject supports the diagnosis of Diabetes Mellitus. ADA recommended reference range Performed By: #### C BC, BMP, CK, PTT, PT #### [facility] [address] Potassium [Moles/Vol] 4.6 mmol/L Normal 3.5-5.1 [facility] Comment on above: Performed By: #### C BC, BMP, CK, PTT, PT #### [facility] [address] Sodium [Moles/Vol] 139 mmol/L Normal 136-146 [facility] Comment on above: Performed By: #### C BC, BMP, CK, PTT, PT #### [facility] [address] [place] [address] [place] Urea nitrogen [Mass/Vol] 21 mg/dL Normal 9-23 [facility] Comment on above: Performed By: #### C BC, BMP, CK, PTT, PT #### [facility] [address] Basophils Auto (Bld) [#/Vol] Ordered By: Arnav Cox on 06-03-2022 Basophils (Bld) [#/Vol] 0.1 10*3/uL 0.0-0.2 [facility] Basophils/100 WBC Auto (Bld) Ordered By: Arnav Cox on 06-03-2022 Basophils/100 WBC (Bld) 1.2 % . [facility] Complete Blood Count Auto Di ffon 06-03-2022 Basophils (Bld) [#/Vol] 0.1 10*3/uL Normal 0.0-0.2 [facility] Comment on above: Result Comment: PERF ORMED BY: [place] [address] PATHOLOGIST MINE TECHNICIAN BISMARK SIMS M.D. Performed By: #### C BC, BMP, CK, PTT, PT #### [address] Basophils/100 WBC (Bld) 1.2 % Normal . [facility] Comment on above: Performed By: #### C BC, BMP, CK, PTT, PT #### [facility] [address] [place] [address] Eosinophils (Bld) [#/Vol] 0.1 10*3/uL Normal 0.0-0.45 [facility] Comment on above: Performed By: #### C BC, BMP, CK, PTT, PT #### [address] Eosinophils/100 WBC (Bld) 2.1 % Normal . [facility] Comment on above: Performed By: #### C BC, BMP, CK, PTT, PT #### [address] Erythrocyte distribution width (RBC) [Ratio] 13.9 % Normal 11.9-15.3 [facility] Comment on above: Performed By: #### C BC, BMP, CK, PTT, PT #### [address] Hematocrit (Bld) [Volume fraction] 36.8 % Normal 34.0-46.4 [facility] Comment on above: Performed By: #### C BC, BMP, CK, PTT, PT #### [address] Hemoglobin (Bld) [Mass/Vol] 12.2 g/dL Normal 11.8-15.4 [facility] Comment on above: Performed By: #### C BC, BMP, CK, PTT, PT #### [address] Lymphocytes (Bld) [#/Vol] 1.9 10*3/uL Normal 1.00-4.8 [facility] Comment on above: Performed By: #### C BC, BMP, CK, PTT, PT #### [address] Lymphocytes/100 WBC (Bld) 27.5 % Normal . [facility] Comment on above: Performed By: #### C BC, BMP, CK, PTT, PT #### [address] MCH (RBC) [Entitic mass] 31.5 pg Normal 24.7-34.3 [facility] Comment on above: Performed By: #### C BC, BMP, CK, PTT, PT #### [address] MCV (RBC) [Entitic vol] 95.0 fL Normal 80-100 [facility] Comment on above: Performed By: #### C BC, BMP, CK, PTT, PT #### [address] Mean Corpuscular HGB Conc 33.1 g/dL Normal 32.0-35.0 [facility] Comment on above: Performed By: #### C BC, BMP, CK, PTT, PT #### [address] Monocytes (Bld) [#/Vol] 0.6 10*3/uL Normal 0.0-0.8 [facility] Comment on above: Performed By: #### C BC, BMP, CK, PTT, PT #### [address] Monocytes/100 WBC (Bld) 17.58 % Normal 0.00-20.00 [facility] Comment on above: Performed By: #### C BC, BMP, CK, PTT, PT #### [address] Monocytes/100 WBC (Bld) 8.3 % Normal . [facility] Comment on above: Performed By: #### C BC, BMP, CK, PTT, PT #### [address] Neutrophils (Bld) [#/Vol] 4.2 10*3/uL Normal 1.8-7.7 [facility] Comment on above: Performed By: #### C BC, BMP, CK, PTT, PT #### [address] Neutrophils/100 WBC (Bld) 60.9 % Normal . [facility] Comment on above: Performed By: #### C BC, BMP, CK, PTT, PT #### [address] NRBC% 0.1 /100{WBC} Normal 0-0.5 [facility] Comment on above: Performed By: #### C BC, BMP, CK, PTT, PT #### [address] Platelet mean volume (Bld) [Entitic vol] 7.7 fL Normal 6.3-10.7 [facility] Comment on above: Performed By: #### C BC, BMP, CK, PTT, PT #### [address] Platelets (Bld) [#/Vol] 312 10*3/uL Normal 150-450 [facility] Comment on above: Performed By: #### C BC, BMP, CK, PTT, PT #### [address] RBC (Bld) [#/Vol] 3.88 10*6/uL Normal 3.60-5.00 [facility] Comment on above: Performed By: #### C BC, BMP, CK, PTT, PT #### [facility] [address] [place] [address] [place] WBC (Bld) [#/Vol] 6.9 10*3/uL Normal 3.8-11.6 [facility] Comment on above: Performed By: #### C BC, BMP, CK, PTT, PT #### [facility] [address] [place] [address] [place] Creatine Kinaseon 06-03-2022 CK [Catalytic activity/Vol] 79 U/L Normal 22-269 [facility] Comment on above: Result Comment: PERF ORMED BY: [facility] [address] [place] [address] PATHOLOGIST MINE TECHNICIAN BISMARK SIMS M.D. Performed By: #### C BC, BMP, CK, PTT, PT ####[facility] [id number] [place] [address] [facility] Creatine kinase [Enzymatic a ctivity/volume] in Serum or PlasmaOrdered By: Arnav Cox on 06-03-2022 CK [Catalytic activity/Vol] 79 U/L 22-269 [facility] Creatinine and Glomerular fi ltration rate.predicted panel (S/P/Bld)Ordered By: Arnav Cox on 06-03-2022 Creatinine [Mass/Vol] 1.44 mg/dL 0.44-1.03 [facility] Eosinophils Auto (Bld) [#/Vo l]Ordered By: Arnav Cox on 06-03-2022 Eosinophils (Bld) [#/Vol] 0.1 10*3/uL 0.0-0.45 [facility] Eosinophils/100 WBC Auto (Bl d)Ordered By: Arnav Cox on 06-03-2022 Eosinophils/100 WBC (Bld) 2.1 % . [facility] Erythrocyte distribution wid th Auto (RBC) [Ratio]Ordered By: Arnav Cox on 06-03-2022 Erythrocyte distribution width (RBC) [Ratio] 13.9 % 11.9-15.3 [facility] Estimated glomerular filtrat ion rate (GFR) non- AmericanOrdered By: Arnav Cox on 06-03-2022 GFR/1.73 sq M.predicted among non-blacks MDRD (S/P/Bld) [Vol rate/Area] 35 mL/Min [facility] Hematocrit Auto (Bld) [Volum e fraction]Ordered By: Arnav Cox on 06-03-2022 Hematocrit (Bld) [Volume fraction] 36.8 % 34.0-46.4 [facility] Hemoglobin [Mass/volume] in BloodOrdered By: Arnav Cox on 06-03-2022 Hemoglobin (Bld) [Mass/Vol] 12.2 g/dL 11.8-15.4 [facility] Laboratory - CoagulationOrde red By: Arnav Cox on 06-03-2022 PT Coag (PPP) [Time] 12.2 s 9.0-12.9 [facility] Leukocytes [#/volume] correc perfecto for nucleated erythrocytes in Blood by Automated counOrdered By: Arnav Cox on 06-03-2022 WBC corrected for nucl RBC Auto (Bld) [#/Vol] 6.9 10*3/uL 3.8-11.6 [facility] Lymphocytes Auto (Bld) [#/Vo l]Ordered By: Arnav Cox on 06-03-2022 Lymphocytes (Bld) [#/Vol] 1.9 10*3/uL 1.00-4.8 [facility] Lymphocytes/100 WBC Auto (Bl d)Ordered By: Arnav Cox on 06-03-2022 Lymphocytes/100 WBC (Bld) 27.5 % . [facility] MCH Auto (RBC) [Entitic mass ]Ordered By: Arnav Cox on 06-03-2022 MCH (RBC) [Entitic mass] 31.5 pg 24.7-34.3 [facility] MCHC Auto (RBC) [Mass/Vol]Or dered By: Arnav Cox on 06-03-2022 MCHC (RBC) [Mass/Vol] 33.1 g/dL 32.0-35.0 [facility] MCV Auto (RBC) [Entitic vol] Ordered By: Arnav Cox on 06-03-2022 MCV (RBC) [Entitic vol] 95.0 fL 80-100 [facility] Monocyte distribution width [Entitic volume] in Blood by AutomatedOrdered By: Arnav Cox on 06-03-2022 Monocyte distribution width Auto (Bld) [Entitic vol] 17.58 % 0.00-20.00 [facility] Monocytes Auto (Bld) [#/Vol] Ordered By: Arnav Cox on 06-03-2022 Monocytes (Bld) [#/Vol] 0.6 10*3/uL 0.0-0.8 [facility] Monocytes/100 WBC Auto (Bld) Ordered By: Arnav Cox on 06-03-2022 Monocytes/100 WBC (Bld) 8.3 % . [facility] Neutrophils Auto (Bld) [#/Vo l]Ordered By: Arnav Cox on 06-03-2022 Neutrophils (Bld) [#/Vol] 4.2 10*3/uL 1.8-7.7 [facility] Neutrophils/100 WBC Auto (Bl d)Ordered By: Arnav Cox on 06-03-2022 Neutrophils/100 WBC (Bld) 60.9 % . [facility] No Panel InformationOrdered By: Arnav Cox on 06-03-2022 Estimated GFR () 43 mL/Min [facility] Comment on above: GFR estimated refere nce range: According to KDOQI guidelines, <60 ml/min/1.73m2 is sufficient to diagnose a patient with chronic kidney disease. Pharmacy Creatinine Clearance (Chem 34.49 [facility] Nucleated erythrocytes [Pres ence] in Blood by Automated countOrdered By: Arnav Cox on 06-03-2022 Nucleated RBC Auto Ql (Bld) 0.1 /100{WBC} 0-0.5 [facility] Partial Thromboplastin Timeo n 06-03-2022 aPTT Coag (Bld) [Time] 31.1 s Normal 25.1-36.5 [facility] Comment on above: Result Comment: PERF ORMED BY: [place] [address] PATHOLOGIST MINE TECHNICIAN BISMARK SIMS M.D. Performed By: #### C BC, BMP, CK, PTT, PT #### [address] Platelet mean volume Auto (B ld) [Entitic vol]Ordered By: Arnav Cox on 06-03-2022 Platelet mean volume (Bld) [Entitic vol] 7.7 fL 6.3-10.7 [facility] Platelet poor plasma interna tional normalized ratio (INR) by coagulation assay (relatOrdered By: Arnav Cox on 06-03-2022 INR Coag (PPP) [Relative time] 1.1 {INR} [facility] Comment on above: INR Therapeutic Rang e A) Pre- and Peroperative OAT started two weeks before surgery. NOT HIP SURGERY: 1.5 - 2.5 HIP SURGERY: 2 - 3B) Primary and secondary prevention of venous THROMBOSIS: 2 - 3C) Active venous thrombosis, pulmonary embolismand prevention of recurrent venous thrombosis: 2 - 3D) Prevention of arterial thromboembolismincluding patients with mechanical heart valves: 3 - 4.5 Platelets Auto (Bld) [#/Vol] Ordered By: Arnav Cox on 06-03-2022 Platelets (Bld) [#/Vol] 312 10*3/uL 150-450 [facility] Prothrombin Time INRon 06-03 INR Coag (PPP) [Relative time] 1.1 {INR} Normal [facility] Comment on above: Result Comment: INR Therapeutic Range A) Pre- and Peroperative OAT started two weeks before surgery. NOT HIP SURGERY: 1.5 - 2.5 HIP SURGERY: 2 - 3 B) Primary and secondary prevention of venous THROMBOSIS: 2 - 3 C) Active venous thrombosis, pulmonary embolism and prevention of recurrent venous thrombosis: 2 - 3 D) Prevention of arterial thromboembolism including patients with mechanical heart valves: 3 - 4.5 Performed By: #### C BC, BMP, CK, PTT, PT #### [facility] [address] PT Coag (PPP) [Time] 12.2 s Normal 9.0-12.9 [facility] Comment on above: Performed By: #### C BC, BMP, CK, PTT, PT #### [facility] [address] RBC Auto (Bld) [#/Vol]Ordere d By: Arnav Cox on 06-03-2022 RBC (Bld) [#/Vol] 3.88 10*6/uL 3.60-5.00 [facility] Serum or plasma anion gap de terminationOrdered By: Arnav Cox on 06-03-2022 Anion gap [Moles/Vol] 16.6 mmol/L 6.0-15.0 [facility] Serum or plasma calcium mimi urement (mass/volume)Ordered By: Arnav Cox on 06-03-2022 Calcium [Mass/Vol] 9.3 mg/dL 8.2-10.2 [facility] Serum or plasma chloride serafin surement (moles/volume)Ordered By: Arnav Cox on 06-03-2022 Chloride [Moles/Vol] 103 mmol/L 95-114 [facility] Serum or plasma glucose mimi urement (mass/volume)Ordered By: Arnav Cox on 06-03-2022 Glucose [Mass/Vol] 58 mg/dL 70-100 [facility] Comment on above: ADA recommended refe rence rangeRandom Glucose Reference Range is dependent on time and content of last meal. Glucose of more than 200 mg/dL in a nonstressed, ambulatory subject supports the diagnosis of Diabetes Mellitus. Serum or plasma potassium me asurement (moles/volume)Ordered By: Arnav Cox on 06-03-2022 Potassium [Moles/Vol] 4.6 mmol/L 3.5-5.1 [facility] Serum or plasma sodium measu rement (moles/volume)Ordered By: Arnav Cox on 06-03-2022 Sodium [Moles/Vol] 139 mmol/L 136-146 [facility] Serum or plasma total carbon dioxide measurement (moles/volume)Ordered By: Arnav Cox on 06-03-2022 CO2 [Moles/Vol] 24.0 mmol/L 22.0-30.0 [facility] Serum or plasma urea nitroge n measurement (mass/volume)Ordered By: Arnav Cox on 06-03-2022 Urea nitrogen [Mass/Vol] 21 mg/dL 9-23 [facility] WBC Auto (Bld) [#/Vol]Ordere d By: Arnav Cox on 06-03-2022 WBC (Bld) [#/Vol] 6.9 10*3/uL 3.8-11.6 [facility] XR chest 1V portableon 06-03 XR chest 1V portable [address] [place] [address] XRay Report Signed Patient: Chloe Meza MR#: [id number] : 1945 Acct:[id number] Age/Sex: 77 / F ADM Date: 06/03/22 Loc: ER Room: Type: [facility] ER Attending Dr: Copies to: Arnav Cox MD Ordering Provider: Arnav Cox MD Date of Service: 06/03/22 XR/XR chest 1V portable: Extremity Injury, Lower PORTABLE AP ERECT CHEST 1622 hours CLINICAL HISTORY: Right foot pain and erythema. Ulcer at the third toe. COMPARISON: 03/05/2021 The heart is within normal limits. There is no vascular congestion. Breast attenuation is seen at the lower lungs. There is no focal consolidation.. There is no effusion or pneumothorax. The osseous structures are intact. XR/XR chest 1V portable IMPRESSION: NO ACUTE FINDINGS Impression dictated by: Brandi Nagy M.D.06/03/2022 4:39 PM Dictation Location: [place] [address] Transcribed By: [facility] 06/03/22 1639 Dictated By: Brandi Nagy MD 06/03/22 1624 Signed By: 06/03/22 1639 Normal [facility] XR foot RT min 3V*on 022 XR foot RT min 3V* [place] [id number] XRay Report Signed Patient: Chloe Meza MR#: [id number] : 1945 Acct:[id number] Age/Sex: 77 / F ADM Date: 06/03/22 Loc: ER Room: Type: [facility] ER Attending Dr: Copies to: Arnav Cox MD Ordering Provider: Arnav Cox MD Date of Service: 06/03/22 XR/XR foot RT min 3V*: Extremity Injury, Lower RIGHT FOOT - 3 views CLINICAL DATA: Erythema and swelling at the toes for the past 2 weeks. Ulcer at the distal third toe. COMPARISON: None AP, lateral and oblique views were obtained. There is osteopenia. There is no evidence of fracture or dislocation. No bony destruction is noted. There is moderate degenerative change at the first metatarsal phalangeal joint with narrowing of the joint space and hypertrophy. There is an enthesophyte at the base of the fifth metatarsal. There is a moderate size plantar calcaneal spur. There are no significant soft tissue abnormalities. Atherosclerotic disease is visualized. XR/XR foot RT min 3V* IMPRESSION: OSTEOPENIA AND DEGENERATIVE CHANGES. NO ACUTE BONY FINDINGS. Impression dictated by: Brandi Nagy M.D.06/03/2022 3:37 PM Dictation Location: [place] [address] Transcribed By: [facility] 06/03/22 153 Dictated By: Brandi Nagy MD 06/03/22 153 Signed By: 06/03/22 153 [facility] Lipid Profileon 05-31-2022 Cholesterol [Mass/Vol] 171 mg/dL Normal <200 [facility] Comment on above: Result Comment: Cholesterol Guidelines: <200 Desirable 200-240 Borderline >240 Undesirable Performed By: #### C LEA PAZ, ZFAST #### [facility] [address] [place], [place] [id number] Furnace Door Tender: Jenny Harvey MD #### DAO, LIPR #### [facility] [employer] [address] [place] [id number] Furnace Door Tender: Job Wick MD Cholesterol in HDL [Mass/Vol] 38 mg/dL Low >40 [facility] Comment on above: Result Comment: HDL Guidelines: <40 Undesirable 40-59 Borderline >59 Desirable Performed By: #### C LEA PAZ, ZFAST #### [facility] [address] [place] [address] Furnace Door Tender: Jenny Harvey MD #### DAO, LIPR #### [facility] [employer] [address] [place] [address] Furnace Door Tender: Job Wick MD Cholesterol in LDL [Mass/Vol] 96 mg/dL Normal 0-130 [facility] Comment on above: Result Comment: LDL Guidelines: <100 Desirable 100-129 Near to/above Desirable 130-159 Borderline >159 Undesirable Direct (measured) LDL and calculated LDL are not interchangeable tests. Performed By: #### C LEA PAZ ZFAST #### [facility] [address] [place], [place] [phone] Furnace Door Tender: Jenny Harvey MD #### DAO, LIPR #### [place] [address] [place], [place] [phone] Furnace Door Tender: Job Wick MD Cholesterol.total/Chol esterol in HDL [Mass ratio] 4.5 {ratio} Normal <5 [facility] Comment on above: Performed By: #### C LEA PAZ ZFAST #### [facility] [address] [place], [place] [phone] Furnace Door Tender: Jenny Harvey MD #### DAO, LIPR #### [address] [phone] Furnace Door Tender: oJb Wick MD Triglyceride [Mass/Vol] 183 mg/dL High <150 [facility] Comment on above: Result Comment: Triglyceride Guidelines: <150 Desirable 150-199 Borderline 200-499 High >499 Very high Based on AHA Guidelines for fasting triglyceride, March 2012. Performed By: #### C LEA PAZ ZFAST #### [facility] [address] [place] [address] Furnace Door Tender: Jenny Harvey MD #### DAO, LIPR #### [place] [address] [place], [place] [phone] Furnace Door Tender: Job Wick MD Microalb.,Random Uron 2021 Creatinine [Mass/Vol] 75.2 mg/dL Normal 28.0-217.0 [facility] Comment on above: Performed By: #### C LEA PAZ ZFAST #### [facility] [address] [place], [place] [phone] Furnace Door Tender: Jenny Harvey MD #### URNMAB, LIPR #### [facility] [address] [place], [place] [address] Furnace Door Tender: Job Wick MD Microalb/Creat Ratio 92 mcg/mg creat High <25 [facility] Comment on above: Performed By: #### C DP, CP, ZFAST #### [facility] [address] [place], [place] [phone] Furnace Door Tender: Jenny Harvey MD #### URNMAB, LIPR #### [facility] [address] [place], [place] [phone] Furnace Door Tender: Job Wick MD Microalbumin conc. 69 mg/L High <21 [facility] Comment on above: Performed By: #### C DP, CP, ZFAST #### [facility] [address] [place] [address] Furnace Door Tender: Jenny Harvey MD #### URNMAB, LIPR #### [facility] [address] [place], [place] [phone] Furnace Door Tender: Job Wick MD CBC with Auto Differentialon 05-30-2022 Absolute Eos # 0.20 [facility] Absolute Lymph # 1.90 [facility] Absolute [place] # 0.30 [facility] Basophils (Bld) [#/Vol] 0.10 10*3/uL [facility] Basophils/100 WBC (Bld) 1 % 0 - 2 % [facility] Differential Type YES [facility] Eosinophils/100 WBC (Bld) 3 % 0 - 5 % [facility] Hematocrit (Bld) [Volume fraction] 35.0 % Low 36 - 46 % [facility] Hemoglobin (Bld) [Mass/Vol] 11.8 g/dL Low 12.0 - 16.0 g/dL [facility] Interpretation and review of laboratory results Abnormal [facility] Lymphocytes/100 WBC (Bld) 28 % 15 - 40 % [facility] MCH (RBC) [Entitic mass] 31.5 pg 26 - 34 pg [facility] MCHC (RBC) [Mass/Vol] 33.6 g/dL 31 - 3 7 g/dL [facility] MCV (RBC) [Entitic vol] 93.6 fL 80 - 100 fL [facility] Monocytes/100 WBC (Bld) 5 % 4 - 8 % [facility] Platelet distribution width (Bld) [Ratio] 13.8 % 12.1 - 15.2 % [facility] Platelets (Bld) [#/Vol] 338 10*3/uL [facility] RBC (Bld) [#/Vol] 3.73 10*6/uL Low 4.0 - 5.2 m/uL [facility] Segmented neutrophils/100 WBC (Bld) 63 % 47 - 75 % [facility] Segs Absolute 4.30 [facility] WBC (Bld) [#/Vol] 6.9 10*3/uL [facility] CBC with Diffon 05-30-2022 Abs. Basophil 0.10 k/uL Normal 0.0-0.2 [facility] Comment on above: Performed By: #### C DP, SED #### [facility] [address] [place] [address] Furnace Door Tender: Jenny Harvey MD Abs.Neutrophil (Seg) 4.30 k/uL Normal 2.5-7.0 [facility] Comment on above: Performed By: #### C DP, SED #### [facility] [address] [place] [address] Furnace Door Tender: Jenny Harvey MD Auto Diff Performed YES Normal [facility] Comment on above: Performed By: #### C DP, SED #### [facility] [address] [place] [phone] Furnace Door Tender: Jenny Harvey MD Basophils/100 WBC (Bld) 1 % Normal 0-2 [facility] Comment on above: Performed By: #### C DP, SED #### [facility] [address] [place] [phone] Furnace Door Tender: Jenny Harvey MD Eosinophils (Bld) [#/Vol] 0.20 10*3/uL Normal 0.0-0.4 [facility] Comment on above: Performed By: #### C DP, SED #### [facility] [address] [place] [phone] Furnace Door Tender: Jenny Harvey MD Eosinophils/100 WBC (Bld) 3 % Normal 0-5 [facility] Comment on above: Performed By: #### C DP, SED #### [facility] [address] [place] [address] Furnace Door Tender: Jenny Harvey MD Erythrocyte distribution width (RBC) [Ratio] 13.8 % Normal 12.1-15.2 [facility] Comment on above: Performed By: #### C DP, SED #### [facility] [address] [place] [phone] Furnace Door Tender: Jenny Harvey MD Hematocrit (Bld) [Volume fraction] 35.0 % Low 36-46 [facility] Comment on above: Performed By: #### C DP, SED #### [facility] [address] [place] [address] Furnace Door Tender: Jenny Harvey MD Hemoglobin (Bld) [Mass/Vol] 11.8 g/dL Low 12.0-16.0 [facility] Comment on above: Performed By: #### C DP, SED #### [facility] [facility] [address] [id number] Furnace Door Tender: Jenny Harvey MD Lymphocytes (Bld) [#/Vol] 1.90 10*3/uL Normal 1.0-4.8 [facility] Comment on above: Performed By: #### C DP, SED #### [facility] [address] [place], [place] [id number] Furnace Door Tender: Jenny Harvey MD Lymphocytes/100 WBC (Bld) 28 % Normal 15-40 [facility] Comment on above: Performed By: #### C DP, SED #### [facility] [address] [place], [place] [id number] Furnace Door Tender: Jenny Harvey MD MCH (RBC) [Entitic mass] 31.5 pg Normal 26-34 [facility] Comment on above: Performed By: #### C DP, SED #### [facility] [address] [place], [place] [phone] Furnace Door Tender: Jenny Harvey MD MCHC (RBC) [Mass/Vol] 33.6 g/dL Normal 31-37 [facility] Comment on above: Performed By: #### C DP, SED #### [facility] [address] [place], [place] [address]590 Furnace Door Tender: Jenny Harvey MD MCV (RBC) [Entitic vol] 93.6 fL Normal 80-100 [facility] Comment on above: Performed By: #### C DP, SED #### [facility] [address] [place], [place] [phone] Furnace Door Tender: Jenny Harvey MD Monocytes (Bld) [#/Vol] 0.30 10*3/uL Normal 0.0-1.0 [facility] Comment on above: Performed By: #### C DP, SED #### [facility] [address] [place], [place] [phone] Furnace Door Tender: Jenny Harvey MD Monocytes/100 WBC (Bld) 5 % Normal 4-8 [facility] Comment on above: Performed By: #### C DP, SED #### [facility] [address] [place], [place] [phone] Furnace Door Tender: Jenny Harvey MD Neutrophil (Seg) 63 % Normal 47-75 [facility] Comment on above: Performed By: #### C DP, SED #### [facility] [address] [place] [address] Furnace Door Tender: Jenny Harvey MD Platelets (Bld) [#/Vol] 338 10*3/uL Normal 140-450 [facility] Comment on above: Performed By: #### C DP, SED #### [facility] [address] [place] [address] (312) Furnace Door Tender: Jenny Harvey MD RBC (Bld) [#/Vol] 3.73 10*6/uL Low 4.0-5.2 [facility] Comment on above: Performed By: #### C DP, SED #### [facility] [address] [place] [address] Furnace Door Tender: Jenny Harvey MD WBC (Bld) [#/Vol] 6.9 10*3/uL Normal 3.5-11.0 [facility] Comment on above: Performed By: #### C DP, SED #### [facility] [address] [place] [address] Furnace Door Tender: Jenny Harvey MD Abs. Basophil 0.10 k/uL Normal 0.0-0.2 [facility] Comment on above: Performed By: #### C DP CP, ZFAST #### [facility] [address] [place] [address] Furnace Door Tender: Jenny Harvey MD #### URNMAB, LIPR #### [address] [address] Furnace Door Tender: Job Wick MD Abs.Neutrophil (Seg) 4.30 k/uL Normal 2.5-7.0 [facility] Comment on above: Performed By: #### C DP CP, ZFAST #### [facility] [address] [phone] Furnace Door Tender: Jenny Harvey MD #### URNMAB, LIPR #### [place] [phone] Furnace Door Tender: Job Wick MD Auto Diff Performed YES Normal [facility] Comment on above: Performed By: #### C LEA PAZ, ZFAST #### [facility] [address] [phone] Furnace Door Tender: Jenny Harvey MD #### URNMAB, LIPR #### [place] [phone] Furnace Door Tender: Job Wick MD Basophils/100 WBC (Bld) 1 % Normal 0-2 [facility] Comment on above: Performed By: #### C LEA PAZ, ZFAST #### [facility] [address] [place] [address] Furnace Door Tender: Jenny Harvey MD #### URNMAB, LIPR #### [place] [address] Furnace Door Tender: Job Wick MD Eosinophils (Bld) [#/Vol] 0.20 10*3/uL Normal 0.0-0.4 [facility] Comment on above: Performed By: #### C LEA PAZ, ZFAST #### [facility] [address] [place] [address] Furnace Door Tender: Jenny Harvey MD #### URNMAB, LIPR #### [place] [phone] Furnace Door Tender: Job Wick MD Eosinophils/100 WBC (Bld) 3 % Normal 0-5 [facility] Comment on above: Performed By: #### C LEA PAZ, ZFAST #### [facility] [address] [phone] Furnace Door Tender: Jenny Harvey MD #### URNMAB, LIPR #### [address] [address] Furnace Door Tender: Job Wick MD Erythrocyte distribution width (RBC) [Ratio] 13.8 % Normal 12.1-15.2 [facility] Comment on above: Performed By: #### C LEA PAZ ZFAST #### [facility] [address] [phone] Furnace Door Tender: Jenny Harvey MD #### DAO, LIPR #### [place] [phone] Furnace Door Tender: Job Wick MD Hematocrit (Bld) [Volume fraction] 35.0 % Low 36-46 [facility] Comment on above: Performed By: #### C LEA PAZ ZFAST #### [facility] [address] [phone] Furnace Door Tender: Jenny Harvey MD #### DAO, LIPR #### [place] [phone] Furnace Door Tender: Job Wick MD Hemoglobin (Bld) [Mass/Vol] 11.8 g/dL Low 12.0-16.0 [facility] Comment on above: Performed By: #### C LEA PAZ, ZFAST #### [facility] [address] [phone] Furnace Door Tender: Jenny Harvey MD #### NADINEAB, LIPR #### [place] [phone] Furnace Door Tender: Job Wick MD Lymphocytes (Bld) [#/Vol] 1.90 10*3/uL Normal 1.0-4.8 [facility] Comment on above: Performed By: #### C LEA PAZ, ZFAST #### [facility] [address] [place] [address] Furnace Door Tender: Jenny Harvey MD #### URNMAB, LIPR #### [facility] [address] [place] [address] Furnace Door Tender: Job Wick MD Lymphocytes/100 WBC (Bld) 28 % Normal 15-40 [facility] Comment on above: Performed By: #### C LEA PAZ, ZFAST #### [facility] [address] [place] [address] Furnace Door Tender: Jenny Harvey MD #### DAO, LIPR #### [facility] [address] [place], [place] [phone] Furnace Door Tender: Job Wick MD MCH (RBC) [Entitic mass] 31.5 pg Normal 26-34 [facility] Comment on above: Performed By: #### C LEA PAZ, ZFAST #### [facility] [address] [place] [address] Furnace Door Tender: Jenny Harvey MD #### DAO, LIPR #### [facility] [address] [place], [place] [phone] Furnace Door Tender: Job Wick MD MCHC (RBC) [Mass/Vol] 33.6 g/dL Normal 31-37 [facility] Comment on above: Performed By: #### C LEA PAZ, ZFAST #### [facility] [address] [place] [address] Furnace Door Tender: Jenny Harvey MD #### NADINEAB, LIPR #### [facility] [address] [place] [address] Furnace Door Tender: Job Wick MD MCV (RBC) [Entitic vol] 93.6 fL Normal 80-100 [facility] Comment on above: Performed By: #### C LEA PAZ, ZFAST #### [facility] [address] [place], [place] [phone] Furnace Door Tender: Jenny Harvey MD #### URNMAB, LIPR #### [address] [phone] Furnace Door Tender: Job Wick MD Monocytes (Bld) [#/Vol] 0.30 10*3/uL Normal 0.0-1.0 [facility] Comment on above: Performed By: #### C LEA PAZ, ZFAST #### [facility] [address] [place], [place] [phone] Furnace Door Tender: Jenny Harvey MD #### DAO, LIPR #### [address] [phone] Furnace Door Tender: Job Wick MD Monocytes/100 WBC (Bld) 5 % Normal 4-8 [facility] Comment on above: Performed By: #### C LEA PAZ, ZFAST #### [facility] [address] [place], [place] [phone] Furnace Door Tender: Jenny Harvey MD #### DAO, LIPR #### [address] [phone] Furnace Door Tender: Job Wick MD Neutrophil (Seg) 63 % Normal 47-75 [facility] Comment on above: Performed By: #### C LEA PAZ, ZFAST #### [facility] [address] [place], [place] [phone] Furnace Door Tender: Jenny Harvey MD #### NADINEAB, LIPR #### [address] [phone] Furnace Door Tender: Job Wick MD Platelets (Bld) [#/Vol] 338 10*3/uL Normal 140-450 [facility] Comment on above: Performed By: #### C LEA PAZ, ZFAST #### [facility] [address] [place] [address] Furnace Door Tender: Jenny Harvey MD #### URNMAB, LIPR #### [address] [address] Furnace Door Tender: Job Wick MD RBC (Bld) [#/Vol] 3.73 10*6/uL Low 4.0-5.2 [facility] Comment on above: Performed By: #### C LEA PAZ, ZFAST #### [facility] [address] [place] [address] Furnace Door Tender: Jenny Harvey MD #### DAO, LIPR #### [address] [address] Furnace Door Tender: Job Wick MD WBC (Bld) [#/Vol] 6.9 10*3/uL Normal 3.5-11.0 [facility] Comment on above: Performed By: #### C LEA PAZ, ZFAST #### [facility] [address] [place], [place] [phone] Furnace Door Tender: Jenny Harvey MD #### URNMAB, LIPR #### [address] [address] Furnace Door Tender: Job Wick MD Comp Metabolic Profon 2021 Albumin [Mass/Vol] 3.6 g/dL Normal 3.5-5.2 [facility] Comment on above: Performed By: #### C LEA PAZ, ZFAST #### [facility] [address] [place] [address] Furnace Door Tender: Jenny Harvey MD #### URNMAB, LIPR #### [address] [place] [address] Furnace Door Tender: Job Wick MD Alkaline Phos 79 U/L Normal 35-104 [facility] Comment on above: Performed By: #### C LEA PAZ, ZFAST #### [facility] [address] [place], [place] [phone] Furnace Door Tender: Jenny Harvey MD #### URNMAB, LIPR #### [address] [place], [place] 9559808 Furnace Door Tender: Job Wick MD ALT [Catalytic activity/Vol] 16 U/L Normal 5-33 [facility] Comment on above: Performed By: #### C LEA PAZ, ZFAST #### [facility] [address] [place] [address] Furnace Door Tender: Jenny Harvey MD #### DAO, LIPR #### [address] [phone] Furnace Door Tender: Job Wick MD Anion gap [Moles/Vol] 8 mmol/L Low 9-17 [facility] Comment on above: Performed By: #### C LEA PAZ, ZFAST #### [facility] [address] [place], [place] [phone] Furnace Door Tender: Jenny Harvey MD #### DAO, LIPR #### [address] [phone] Furnace Door Tender: Job Wick MD AST [Catalytic activity/Vol] 15 U/L Normal <32 [facility] Comment on above: Performed By: #### C LEA PAZ, ZFAST #### [facility] [address] [place], [place] [phone] Furnace Door Tender: Jenny Harvey MD #### URNMAB, LIPR #### [address] [phone] Furnace Door Tender: Job Wick MD Bilirubin [Mass/Vol] 0.2 mg/dL Low 0.3-1.2 [facility] Comment on above: Performed By: #### C JACKSON CP, ZFAST #### [facility] [address] [place] [address] Furnace Door Tender: Jenny Harvey MD #### URNMAB, LIPR #### [facility] [address] [place] [address] Furnace Door Tender: Job Wick MD BUN/CRE Ratio 16 Normal 9-20 [facility] Comment on above: Performed By: #### C JACKSON CP, ZFAST #### [facility] [address] [place] [address] Furnace Door Tender: Jenny Harvey MD #### NADINEAB, LIPR #### [address] [address] Furnace Door Tender: Job Wick MD Calcium [Mass/Vol] 8.9 mg/dL Normal 8.6-10.4 [facility] Comment on above: Performed By: #### C JACKSON CP, ZFAST #### [facility] [address] [place] [address] Furnace Door Tender: Jenny Harvey MD #### NADINEAB, LIPR #### [facility] [address] [place] [address] Furnace Door Tender: Job Wick MD Chloride [Moles/Vol] 100 mmol/L Normal 98-107 [facility] Comment on above: Performed By: #### C JACKSON CP, ZFAST #### [facility] [address] [place] [address] Furnace Door Tender: Jenny Harvey MD #### URNMAB, LIPR #### [facility] [address] [place] [address] Furnace Door Tender: Job Wick MD CO2 [Moles/Vol] 28 mmol/L Normal 20-31 [facility] Comment on above: Performed By: #### C LEA PAZ, ZFAST #### [facility] [address] [place], [place] [phone] Furnace Door Tender: Jenny Harvey MD #### DAO, LIPR #### [facility] [address], [place] [phone] Furnace Door Tender: Job Wick MD Creatinine [Mass/Vol] 1.41 mg/dL High 0.50-0.90 [facility] Comment on above: Performed By: #### C LEA PAZ, ZFAST #### [facility] [address] [place] [address] Furnace Door Tender: Jenny Harvey MD #### DAO, LIPR #### [address] 1870[address] Furnace Door Tender: oJb Wick MD GFR/1.73 sq M.predicted among non-blacks MDRD (S/P/Bld) [Vol rate/Area] 39 mL/min/{1.73_m2} Low >60 [facility] Comment on above: Result Comment: Effective Mar 24, 2022 These results are not intended for use in patients <18 years of age. eGFR results are calculated without a race factor using the 2020 CKD-EPI equation. Careful clinical correlation is recommended, particularly when comparing to results calculated using previous equations. The CKD-EPI equation is less accurate in patients with extremes of muscle mass, extra-renal metabolism of creatine, excessive creatine ingestion, or following therapy that affects renal tubular secretion. Performed By: #### C LEA PAZ, ZFAST #### [facility] [address] [place] [address] Furnace Door Tender: Jenny Harvey MD #### DAO, LIPR #### [facility] [address] [place] [phone] Furnace Door Tender: Job Wick MD Glucose [Mass/Vol] 288 mg/dL High 70-99 [facility] Comment on above: Performed By: #### C LEA PAZ, ZFAST #### [facility] [address] [place], [place] [address]266[address] Furnace Door Tender: Jenny Harvey MD #### URNMAB, LIPR #### [address] [address] Furnace Door Tender: Job Wikc MD Potassium [Moles/Vol] 4.9 mmol/L Normal 3.7-5.3 [facility] Comment on above: Performed By: #### C LEA PAZ, ZFAST #### [facility] [address] [place], [place] [phone] Furnace Door Tender: Jenny Harvey MD #### DAO, LIPR #### [address] [phone] Furnace Door Tender: Job Wick MD Protein [Mass/Vol] 6.8 g/dL Normal 6.4-8.3 [facility] Comment on above: Performed By: #### C LEA PAZ, ZFAST #### [facility] [address] [place], [place] [phone] Furnace Door Tender: Jenny Harvey MD #### DAO, LIPR #### [address] [address] Furnace Door Tender: Job Wick MD Sodium [Moles/Vol] 136 mmol/L Normal 135-144 [facility] Comment on above: Performed By: #### C LEA PAZ, ZFAST #### [facility] [address] [place], [place] [phone] Furnace Door Tender: Jenny Harvey MD #### URNMAB, LIPR #### [address] [phone] Furnace Door Tender: Job Wick MD Urea nitrogen [Mass/Vol] 23 mg/dL Normal 8-23 [facility] Comment on above: Performed By: #### C DP, CP, ZFAST #### [facility] [address] [place], [place] [phone] Furnace Door Tender: Jenny Harvey MD #### URNMAB, LIPR #### [facility] [address], [place] [phone] Furnace Door Tender: Job Wick MD Patient fasting?on 2 Patient fasting? NO Normal [facility] Comment on above: Performed By: #### C DP, CP, ZFAST #### [facility] [address] [place], [place] [address] Furnace Door Tender: Jenny Harvey MD #### URNMAB, LIPR #### [facility] [address], [place] [phone] Furnace Door Tender: Job Wick MD Sedimentation Rateon 022 Sedimentation Rate 23 mm/Hr Normal 0-30 [facility] Comment on above: Performed By: #### C DP, SED #### [facility] [address] [place] [address] Furnace Door Tender: Jenny Harvey MD Sed Rate 23 [facility] LOWER EXTREMITY ARTERIAL SEGMENTAL PRESSURES W PPGon 05-30-2022 1. Normal resting right ANDREINA with no gradients noted. 2. Nondiagnostic left ANDREINA and segmental pressures. This is secondary to vascular rigidity. [facility] EXAM: VL LOWER EXTRE MITY ARTERIAL SEGMENTAL PRESSURES W PPG HISTORY: Peripheral vascular disease, unspecified (HCC) COMPARISON: None. TECHNIQUE: Resting ABIs and segmental limb pressures were obtained. FINDINGS: Right resting ANDREINA 1.29. Left resting ANDREINA unobtainable due to vascular rigidity. RIGHT LOWER EXTREMITY: No significant pressure gradients were seen. LEFT LOWER EXTREMITY: Elevated pressures were needed and some vessels could not be compressed. Segmental pressures and ABIs are nondiagnostic. [facility] Ben Hernandez MD - 06/01/2022 EXAM: VL LOWER EXTREMITY ARTERIAL SEGMENTAL PRESSURES W PPG HISTORY: Peripheral vascular disease, unspecified (HCC) COMPARISON: None. TECHNIQUE: Resting ABIs and segmental limb pressures were obtained. FINDINGS: Right resting ANDREINA 1.29. Left resting ANDREINA unobtainable due to vascular rigidity. RIGHT LOWER EXTREMITY: No significant pressure gradients were seen. LEFT LOWER EXTREMITY: Elevated pressures were needed and some vessels could not be compressed. Segmental pressures and ABIs are nondiagnostic. IMPRESSION: 1. Normal resting right ANDREINA with no gradients noted. 2. Nondiagnostic left ANDREINA and segmental pressures. This is secondary to vascular rigidity. [facility] [employer] Work Phone: Radiology Study observation (narrative) [facility] [employer] Work Phone: VL LOWER EXTREMITY ARTERIAL SEGMENTAL PRESSURES W PPGOrdered By: Ben Hernandez on 05-30-2022 [facility] [employer] [place] Antinuclear Antibodieson 04-24-2022 Antinuclear Abs, IFA Negative Normal . [facility] Comment on above: Result Comment: Nega tive <1:80 Borderline 1:80 Positive >1:80 ICAP nomenclature: AC-0 For more information about Hep-2 cell patterns use ANApatterns.org, the official website for the International Consensus on Antinuclear Antibody ([place]) Patterns (ICAP). Performed at: - [facility] [id number] Furnace Door Tender: Alec Ro PhD, Phone: [phone] PERFORMED BY: [place] [address] PATHOLOGIST MINE TECHNICIAN BISMARK SIMS M.D. Performed By: #### A NA #### [facility] , #### ESR, CRP #### [address] C reactive protein [Mass/vol ume] in Serum or PlasmaOrdered By: Saúl Whelan on 04-24-2022 CRP [Mass/Vol] 2.1 mg/dL 0.0-1.0 [facility] C-Reactive Proteinon 022 C-Reactive Protein 2.1 mg/dL High 0.0-1.0 [facility] Comment on above: Result Comment: PERF ORMED BY: [place] [address] PATHOLOGIST MINE TECHNICIAN BISMARK SIMS M.D. Performed By: #### A NA #### [facility] , #### ESR, CRP #### [address] Erythrocyte Sedimentation Ra tamiko 04-24-2022 ESR (Bld) [Velocity] 27 mm/h Normal 0-29 [facility] Comment on above: Result Comment: PERF ORMED BY: [place] [address] PATHOLOGIST MINE TECHNICIAN BISMARK SIMS M.D. Performed By: #### A NA #### [facility] , #### ESR, CRP #### [address] Erythrocyte sedimentation ra te by Photometric methodOrdered By: Saúl Whelan on 04-24-2022 ESR Photometric method (Bld) [Velocity] 27 mm/hr 0-29 [facility] Serum nuclear antibody titer Ordered By: Saúl Whelan on 04-24-2022 Nuclear Ab (S) [Titer] Negative . [facility] Comment on above: Negative <1:80 Borde rline 1:80 Positive >1:80ICAP nomenclature: AC-0For more information about Hep-2 cell patterns useANApatterns.org, the official website for theInternational Consensus on Antinuclear Antibody ([place])Patterns (ICAP).Performed at: - [facility] [address] [id number] Director: Alec Ro PhD, Phone: [phone] XR hand BI 2Von 04-24-2022 XR hand BI 2V [facility] [place] [address] [place] [address] XRay Report Signed Patient: Chloe Meza MR#: [id number] : 1945 Acct:[id number] Age/Sex: 77 / F ADM Date: 04/24/22 Loc: ICXD Room: Type: [facility] Attending Dr: Saúl Whelan MD Copies to: Saúl Whelan MD Ordering Provider: Saúl Whelan MD Date of Service: 04/24/22 XR/XR hand BI 2V: HAND PAIN 2 viewsboth handsplain film COMPARISON:None HISTORY:Bilateral hand pain. Mild interphalangeal degenerative changes. Moderate bilateral 1st carpometacarpal degeneration. Atherosclerosis. No acute bony findings. Adequate bony alignment. XR/XR hand BI 2V IMPRESSION:Bilateral hand degeneration. Impression dictated by: Get Davis M.D.04/24/2022 3:55 PM Dictation Location: [place] [address] Transcribed By: [facility] 04/24/22 1555 Dictated By: Get Davis DO 04/24/22 1554 Signed By: 04/24/22 1555 [facility] CBC with Auto Differentialon 04-02-2022 Absolute Eos # 0.20 [facility] Absolute Lymph # 1.70 [facility] Absolute [place] # 0.40 [facility] Basophils (Bld) [#/Vol] 0.00 10*3/uL [facility] Basophils/100 WBC (Bld) 0 % 0 - 2 % [facility] Differential Type YES [facility] Eosinophils/100 WBC (Bld) 3 % 0 - 5 % [facility] Hematocrit (Bld) [Volume fraction] 37.0 % 36 - 46 % [facility] Hemoglobin (Bld) [Mass/Vol] 12.7 g/dL 12 - 16 g/dL [facility] Interpretation and review of laboratory results Abnormal [facility] Lymphocytes/100 WBC (Bld) 26 % 15 - 40 % [facility] MCH (RBC) [Entitic mass] 32.0 pg 26 - 34 pg [facility] MCHC (RBC) [Mass/Vol] 34.5 g/dL 31 - 3 7 g/dL [facility] MCV (RBC) [Entitic vol] 92.9 fL 80 - 100 fL [facility] Monocytes/100 WBC (Bld) 5 % 4 - 8 % [facility] Platelet distribution width (Bld) [Ratio] 14.2 % 12.1 - 15.2 % [facility] Platelets (Bld) [#/Vol] 300 10*3/uL [facility] RBC (Bld) [#/Vol] 3.98 10*6/uL Low 4 - 5.2 m/uL [facility] Segmented neutrophils/100 WBC (Bld) 66 % 47 - 75 % [facility] Segs Absolute 4.40 [facility] WBC (Bld) [#/Vol] 6.7 10*3/uL [facility] Comprehensive Metabolic Pane esperanza 04-02-2022 Albumin [Mass/Vol] 3.8 g/dL 3.5 - 5.2 g/dL [facility] ALP (Bld) [Catalytic activity/Vol] 96 U/L 35 - 104 U/L [facility] ALT [Catalytic activity/Vol] 14 U/L 5 - 33 U/L [facility] Anion gap [Moles/Vol] 9 mmol/L 9 - 17 mmol/L [facility] AST [Catalytic activity/Vol] 14 U/L NINF - 32 U/L [facility] Bilirubin [Mass/Vol] 0.3 mg/dL 0.3 - 1 .2 mg/dL [facility] Calcium [Mass/Vol] 9.1 mg/dL 8.6 - 10. 4 mg/dL [facility] Chloride [Moles/Vol] 99 mmol/L 98 - 10 7 mmol/L [facility] CO2 [Moles/Vol] 26 mmol/L 20 - 31 mmol/L [facility] Creatinine [Mass/Vol] 1.31 mg/dL High 0.5 - 0.9 mg/dL [facility] GFR/1.73 sq M.predicted MDRD (S/P/Bld) [Vol rate/Area] 42 mL/min/{1.73_m2} Low - PINF [facility] Comment on above: Effective Mar 24, 2022 These results are not intended for use in patients <18 years of age. eGFR results are calculated without a race factor using the 2020 CKD-EPI equation. Careful clinical correlation is recommended, particularly when comparing to results calculated using previous equations. The CKD-EPI equation is less accurate in patients with extremes of muscle mass, extra-renal metabolism of creatine, excessive creatine ingestion, or following therapy that affects renal tubular secretion. Glucose [Mass/Vol] 247 mg/dL High 70 - 99 mg/dL [facility] Interpretation and review of laboratory results Abnormal [facility] Potassium [Moles/Vol] 5.3 mmol/L 3.7 - 5.3 mmol/L [facility] Protein [Mass/Vol] 6.7 g/dL 6.4 - 8.3 g/dL [facility] Sodium [Moles/Vol] 134 mmol/L Low 135 - 144 mmol/L [facility] Urea nitrogen (BldV) [Mass/Vol] 20 mg/dL 8 - 23 mg/dL [facility] Urea nitrogen/Creatinine (Bld) [Mass ratio] 15 9 - 20 [facility] Lipid Panelon 04-02-2022 Cholesterol [Mass/Vol] 172 mg/dL NINF - 200 mg/dL [facility] Comment on above: Cholesterol Guidelines: <200 Desirable 200-240 Borderline >240 Undesirable Cholesterol in HDL [Mass/Vol] 39 mg/dL Low 40 - PINF mg/dL [facility] Comment on above: HDL Guidelines: <40 Undesirable 40-59 Borderline >59 Desirable Cholesterol in LDL [Mass/Vol] 93 mg/dL 0 - 130 mg/dL [facility] [employer] Comment on above: LDL Guidelines: <100 Desirable 100-129 Near to/above Desirable 130-159 Borderline >159 Undesirable Direct (measured) LDL and calculated LDL are not interchangeable tests. Cholesterol.total/Chol esterol in HDL [Mass ratio] 4.4 {ratio} NINF - 5 [facility] Interpretation and review of laboratory results Abnormal [facility] Triglyceride [Mass/Vol] 199 mg/dL High NINF - 150 mg/dL [facility] Comment on above: Triglyceride Guidelines: <150 Desirable 150-199 Borderline 200-499 High >499 Very high Based on AHA Guidelines for fasting triglyceride, March 2012. [facility] Microalbumin, Uron Albumin/Creatinine DL <= 20 mg/L (24H U) [Mass ratio] 168 mg/L High NINF - 21 mg/L [facility] Albumin/Creatinine DL <= 20 mg/L (U) [Ratio] 249 High [facility] Creatinine [Mass/Vol] 67.4 mg/dL 28 - 2 17 mg/dL [facility] Interpretation and review of laboratory results Abnormal [facility] Creatinine, Random Urineon 0 01-20-2022 Creatinine, Ur 131.3 mg/dL 28 - 217 mg/dL [facility] Hemoglobin and Hematocriton 01-20-2022 Hematocrit (Bld) [Volume fraction] 34.7 % Low 36 - 46 % [facility] Hemoglobin (Bld) [Mass/Vol] 12.3 g/dL 12 - 16 g/dL [facility] Interpretation and review of laboratory results Abnormal [facility] Iron and TIBCon 01-20-2022 Interpretation and review of laboratory results Abnormal [facility] Iron [Mass/Vol] 60 ug/dL 37 - 145 ug/dL [facility] Iron Saturation 33 % 20 - 55 % [facility] TIBC 184 ug/dL Low 250 - 450 ug/dL [facility] UIBC 124 ug/dL 112 - 347 ug/dL [facility] No Panel Informationon 01-20 [facility] PTH, Intacton 01-20-2022 Interpretation and review of laboratory results Abnormal [facility] Pth Intact 148.6 pg/mL High 15 - 65 pg/mL [facility] Comment on above: SAMPLES FROM PATIENT S ROUTINELY RECEIVING HIGH DOSE BIOTIN THERAPY MAY SHOW FALSELY DEPRESSED RESULTS. ADDITIONAL INFORMATION MAY BE REQUIRED FOR DIAGNOSIS. [facility] Protein, urine, randomon Protein (U) [Mass/Vol] 50 mg/dL [facility] Comment on above: No normal range esta blished. Renal Function Panelon 01-20 Albumin [Mass/Vol] 3.7 g/dL 3.5 - 5.2 g/dL [facility] Anion gap [Moles/Vol] 10 mmol/L 9 - 17 mmol/L [facility] Calcium [Mass/Vol] 9.3 mg/dL 8.6 - 10. 4 mg/dL [facility] Chloride [Moles/Vol] 103 mmol/L 98 - 10 7 mmol/L [facility] CO2 [Moles/Vol] 26 mmol/L 20 - 31 mmol/L [facility] Creatinine [Mass/Vol] 1.34 mg/dL High 0.5 - 0.9 mg/dL [facility] GFR 47 mL/min Low 60 - PI NF mL/min [facility] GFR Non- 39 mL/min Low 60 - PINF mL/min [facility] GFR/1.73 sq M.predicted MDRD (S/P/Bld) [Vol rate/Area] [facility] Comment on above: Average GFR for 70 o r more years old: 75 mL/min/1.73sq m Chronic Kidney Disease: <60 mL/min/1.73sq m Kidney failure: <15 mL/min/1.73sq m eGFR calculated using average adult body mass. Additional eGFR calculator available at: http://www.UiTV/multiple_crcl_2012.htm Glucose [Mass/Vol] 161 mg/dL High 70 - 99 mg/dL [facility] Interpretation and review of laboratory results Abnormal [facility] Phosphate [Mass/Vol] 3.1 mg/dL 2.6 - 4 .5 mg/dL [facility] Potassium [Moles/Vol] 4.5 mmol/L 3.7 - 5.3 mmol/L [facility] Sodium [Moles/Vol] 139 mmol/L 135 - 144 mmol/L [facility] Urea nitrogen (BldV) [Mass/Vol] 16 mg/dL 8 - 23 mg/dL [facility] Urea nitrogen/Creatinine (Bld) [Mass ratio] 12 9 - 20 [facility] Vitamin D 25 Hydroxyon 01-20 Vit D, 25-Hydroxy 33.7 ng/mL 29.9 - PINF ng/mL [facility] [employer] Comment on above: Reference Range: Vitamin D status Range Deficiency <20 ng/mL Mild Deficiency 20-30 ng/mL Sufficiency 30-100 ng/mL Toxicity >100 ng/mL CBC Auto DifferentialOrdered By: Medina Dumont on 12-26-2020 Absolute Eos # 0.30 [facility] Work Phone: Absolute Immature Granulocyte NOT REPORTED [facility] Work Phone: Absolute Lymph # 2.60 [facility] Work Phone: Absolute [place] # 0.70 [facility] Work Phone: Basophils (Bld) [#/Vol] 0.00 10*3/uL [employer] Work Phone: Basophils/100 WBC (Bld) 1 % 0 - 2 % [facility] Work Phone: Differential Type YES [facility] Work Phone: Eosinophils/100 WBC (Bld) 3 % 0 - 5 % [employer] Work Phone: Hematocrit (Bld) [Volume fraction] 38.0 % 36 - 46 % [facility] Work Phone: Hemoglobin.gastrointes tinal spec 1 Ql (Stl) 12.9 g/dL 12.0 - 16.0 g/dL [employer] Work Phone: Immature Granulocytes NOT REPORTED 0 % [facility] Work Phone: Interpretation and review of laboratory results Abnormal [facility] Work Phone: Lymphocytes/100 WBC (Bld) 33 % 15 - 40 % [facility] Work Phone: MCH (RBC) [Entitic mass] 32.0 pg 26 - 34 pg [facility] Work Phone: MCHC (RBC) [Mass/Vol] 34.0 g/dL 31 - 3 7 g/dL [employer] Work Phone: MCV (RBC) [Entitic vol] 94.3 fL 80 - 100 fL [employer] Work Phone: Monocytes/100 WBC (Bld) 9 % High 4 - 8 % [employer] Phone: NRBC Automated NOT REPORTED per 100 WBC [employer] Phone: Platelet distribution width (Bld) [Ratio] 13.5 % 12.1 - 15.2 % [employer] Phone: Platelet Estimate NOT REPORTED [employer] Phone: Platelet mean volume (Bld) [Entitic vol] NOT REPORTED 6.0 - 12.0 fL [employer] Phone: Platelets (Bld) [#/Vol] 364 10*3/uL [employer] Phone: RBC (Bld) [#/Vol] 4.03 10*6/uL 4.0 - 5.2 m/uL [employer] Phone: RBC (Bld) [#/Vol] NOT REPORTED [employer] Phone: Segmented neutrophils/100 WBC (Bld) 54 % 47 - 75 % [employer] Phone: Segs Absolute 4.40 [employer] Work Phone: WBC (Bld) [#/Vol] 8.0 10*3/uL [employer] Work Phone: WBC (Bld) [#/Vol] NOT REPORTED [employer] Phone: [employer] Work Phone: Comprehensive Metabolic Pane lOrdered By: Medina Dumont on 12-26-2020 Albumin [Mass/Vol] 4.2 g/dL 3.5 - 5.2 g/dL [employer] Phone: Albumin/Globulin Ratio NOT REPORTED [employer] Phone: ALP (Bld) [Catalytic activity/Vol] 77 U/L 35 - 104 U/L [employer] Phone: ALT [Catalytic activity/Vol] 15 U/L 5 - 33 U/L [employer] Phone: Anion gap [Moles/Vol] 8 mmol/L Low 9 - 17 mmol/L [employer] Phone: AST [Catalytic activity/Vol] 17 U/L <32 [employer] Phone: Bilirubin [Mass/Vol] 0.36 mg/dL 0.30 - 1.20 mg/dL [employer] Phone: Calcium [Mass/Vol] 9.3 mg/dL 8.6 - 10. 4 mg/dL [employer] Phone: Chloride [Moles/Vol] 101 mmol/L 98 - 10 7 mmol/L [employer] Phone: CO2 [Moles/Vol] 28 mmol/L 20 - 31 mmol/L [employer] Phone: Creatinine [Mass/Vol] 1.15 mg/dL High 0.50 - 0.90 mg/dL [employer] Phone: Free PSA/Total PSA [Mass fraction] 7.0 g/dL 6.4 - 8.3 g/dL [employer] Phone: GFR 56 mL/min Low >60 [employer] Phone: GFR Non- 46 mL/min Low >60 [employer] Phone: GFR/1.73 sq M.predicted MDRD (S/P/Bld) [Vol rate/Area] [employer] Phone: Comment on above: Average GFR for 70 o r more years old: 75 mL/min/1.73sq m Chronic Kidney Disease: <60 mL/min/1.73sq m Kidney failure: <15 mL/min/1.73sq m eGFR calculated using average adult body mass. Additional eGFR calculator available at: http://www.UiTV/multiple_crcl_2012.htm GFR/1.73 sq M.predicted MDRD (S/P/Bld) [Vol rate/Area] NOT REPORTED [employer] Phone: Glucose [Mass/Vol] 88 mg/dL 70 - 99 mg/dL [employer] Phone: Interpretation and review of laboratory results Abnormal [employer] Phone: Potassium [Moles/Vol] 4.4 mmol/L 3.7 - 5.3 mmol/L [employer] Phone: Sodium [Moles/Vol] 137 mmol/L 135 - 144 mmol/L [employer] Phone: Urea nitrogen (BldV) [Mass/Vol] 15 mg/dL 8 - 23 mg/dL [employer] Phone: Urea nitrogen/Creatinine (Bld) [Mass ratio] 13 [employer] Phone: [employer] Phone: Lipid PanelOrdered By: Bob Vangfarhatquincy on 12-26-2020 Cholesterol [Mass/Vol] 169 mg/dL <200 [facility] [employer] Phone: Comment on above: Cholesterol Guidelines: <200 Desirable 200-240 Borderline >240 Undesirable Cholesterol in HDL [Mass/Vol] 38 mg/dL Low >40 [employer] Phone: Comment on above: HDL Guidelines: <40 Undesirable 40-59 Borderline >59 Desirable Cholesterol in LDL [Mass/Vol] 91 mg/dL 0 - 130 mg/dL [employer] Phone: Comment on above: LDL Guidelines: <100 Desirable 100-129 Near to/above Desirable 130-159 Borderline >159 Undesirable Direct (measured) LDL and calculated LDL are not interchangeable tests. Cholesterol in VLDL [Mass/Vol] NOT REPORTED High 1 - 30 mg/dL [employer] Phone: Cholesterol.total/Chol esterol in HDL [Mass ratio] 4.4 {ratio} <5 [employer] Phone: Interpretation and review of laboratory results Abnormal [employer] Phone: Triglyceride [Mass/Vol] 200 mg/dL High <150 [employer] Phone: Comment on above: Triglyceride Guidelines: <150 Desirable 150-199 Borderline 200-499 High >499 Very high Based on AHA Guidelines for fasting triglyceride, March 2012. [employer] Phone: Microalbumin, UrOrdered By: Medina Dumont on 12-26-2020 Albumin/Creatinine DL <= 20 mg/L (24H U) [Mass ratio] 142 mg/L High <21 [employer] Phone: Albumin/Creatinine DL <= 20 mg/L (U) [Ratio] 125 High <25 mcg/mg creat [employer] Phone: Creatinine [Mass/Vol] 113.6 mg/dL 28.0 - 217.0 mg/dL [employer] Phone: Interpretation and review of laboratory results Abnormal [employer] Phone: [employer] Phone: Patient Fasting?Ordered By: Medina Dumont on 12-26-2020 Patient Fasting? YES [employer] Phone: [employer] Phone: Albuminon 07-09-2020 Albumin [Mass/Vol] 4 g/dL 3.5 - 5.2 g/dL [facility] BUN & Creatinineon Creatinine [Mass/Vol] 1.56 mg/dL High 0.5 - 0.9 mg/dL [facility] GFR 39 mL/min Low >60 [place] GFR Non- 32 mL/min Low >60 [place] GFR/1.73 sq M predicted among non-blacks MDRD (S/P/Bld) [Vol rate/Area] NOT REPORTED [place] GFR/1.73 sq M predicted among non-blacks MDRD (S/P/Bld) [Vol rate/Area] [place] Comment on above: Average GFR for 70 o r more years old: 75 mL/min/1.73sq m Chronic Kidney Disease: <60 mL/min/1.73sq m Kidney failure: <15 mL/min/1.73sq m eGFR calculated using average adult body mass. Additional eGFR calculator available at: http://www.UiTV/multiple_crcl_2011.htm Urea nitrogen [Mass/Vol] 46 mg/dL High 8 - 23 mg/dL [place] Calciumon 07-09-2020 Calcium [Mass/Vol] 9.7 mg/dL 8.6 - 10. 4 mg/dL [place] Creatinine, Random Urineon 0 07-09-2020 Creatinine, Ur 119.5 mg/dL 28 - 217 mg/dL [place] Electrolyte Panelon 07-09-19 Anion gap [Moles/Vol] 8 mmol/L Low 9 - 17 mmol/L [place] Chloride [Moles/Vol] 107 mmol/L 98 - 10 7 mmol/L [place] CO2 [Moles/Vol] 24 mmol/L 20 - 31 mmol/L [place] Potassium [Moles/Vol] 5.3 mmol/L 3.7 - 5.3 mmol/L [place] Sodium [Moles/Vol] 139 mmol/L 135 - 144 mmol/L [place] Hemoglobin and Hematocrit, B loodon 07-09-2020 Hematocrit (Bld) [Volume fraction] 38.7 % 36 - 46 % [place] Hemoglobin (Bld) [Mass/Vol] 13.1 g/dL 12 - 16 g/dL [place] Otheron 07-09-2020 Interpretation and review of laboratory results Abnormal [place] PTH, Int[place] 07-09-2020 Interpretation and review of laboratory results Abnormal [place] Pth Intact 161.3 pg/mL High 15 - 65 pg/mL [place] Comment on above: SAMPLES FROM PATIENT S ROUTINELY RECEIVING HIGH DOSE BIOTIN THERAPY MAY SHOW FALSELY DEPRESSED RESULTS. ADDITIONAL INFORMATION MAY BE REQUIRED FOR DIAGNOSIS. Phosphoruson 07-09-2020 Phosphate [Mass/Vol] 4.7 mg/dL High 2.6 - 4 .5 mg/dL [place] Protein, urine, randomon Protein (U) [Mass/Vol] 24 mg/dL [place] Comment on above: No normal range esta blished. Vitamin D 25 Hydroxyon 07-09 Interpretation and review of laboratory results Abnormal [place] Vit D, 25-Hydroxy 28.9 ng/mL Low 30 - 100 ng/mL [place] Comment on above: Reference Range: Vitamin D status Range Deficiency <20 ng/mL Mild Deficiency 20-30 ng/mL Sufficiency 30-100 ng/mL Toxicity >100 ng/mL CBC Auto Differentialon 02-20 Basophils (Bld) [#/Vol] 0.00 10*3/uL [place] Basophils/100 WBC (Bld) 0 % 0 - 2 % [place] Differential Type YES [place] Eosinophils (Bld) [#/Vol] 0.20 10*3/uL [place] Eosinophils/100 WBC (Bld) 3 % 0 - 5 % [place] Erythrocyte distribution width (RBC) [Ratio] 13.0 % 12.1 - 15.2 % [place] Hematocrit (Bld) [Volume fraction] 34.1 % Low 36 - 46 % [place] Hemoglobin (Bld) [Mass/Vol] 12.3 g/dL 12 - 16 g/dL [place] Interpretation and review of laboratory results Abnormal [place] Lymphocytes (Bld) [#/Vol] 2.00 10*3/uL [place] Lymphocytes/100 WBC (Bld) 30 % 15 - 40 % [place] MCH (RBC) [Entitic mass] 35.9 pg High 26 - 34 pg [place] MCHC (RBC) [Mass/Vol] 36.0 g/dL 31 - 3 7 g/dL [place] MCV (RBC) [Entitic vol] 99.7 fL 80 - 100 fL [place] Monocytes (Bld) [#/Vol] 0.50 10*3/uL [place] Monocytes/100 WBC (Bld) 7 % 4 - 8 % [place] Platelet mean volume (Bld) [Entitic vol] NOT REPORTED 6 - 12 fL [place] Platelets (Bld) [#/Vol] 250 10*3/uL [place] Platelets (Bld) [#/Vol] NOT REPORTED [place] RBC (Bld) [#/Vol] 3.42 10*6/uL Low 4 - 5.2 m/uL [place] RBC morphology finding Nom (Bld) NOT REPORTED [place] Segmented neutrophils/100 WBC (Bld) 60 % 47 - 75 % [place] Segs Absolute 4.10 [place] WBC (Bld) [#/Vol] 6.8 10*3/uL [place] WBC (Bld) [#/Vol] NOT REPORTED per 100 WBC [place] WBC Morphology NOT REPORTED [place], [place] CT HEAD WO CONTRASTon 2019 CT HEAD WITHOUT IV CONTRAST - 03/01/2020 COMPARISON: CT head 11/27/2013. HISTORY: New onset seizures TECHNIQUE: Axial images were obtained through the head without IV contrast. Dose reduction techniques were achieved by using: automated exposure control and/or adjustment of mA and/or kV according to patient size and/or use of iterative reconstruction technique. FINDINGS: Atherosclerotic changes are seen in the distal vertebral and internal carotid arteries. Mild patchy decreased attenuation is seen in the periventricular white matter. No acute hemorrhage, extra-axial fluid collection, mass effect, midline shift, or evidence of an acute stroke. Corticomedullary differentiation is preserved. Ventricles are normal in caliber. Partially imaged is near complete opacification of the maxillary sinuses bilaterally and moderate opacification of the ethmoid air cells and frontal sinuses. Similar changes were seen on the 2013 study. The sphenoid sinus and mastoid air cells are clear. No fracture or suspicious osseous lesion is identified. [place] 1. No acute intracra nial process is identified. 2. Mild patchy decreased attenuation in the periventricular white matter again noted, likely related to chronic, microvascular ischemia. 3. Chronic/recurrent moderate to severe sinus inflammatory disease in the maxillary sinuses, ethmoid air cells, and frontal sinuses. [place] [employer], [facility] Incoming Radiant Results From [employer] - 03/01/2020 2:[address] HEAD WITHOUT IV CONTRAST - 03/01/2020 COMPARISON: CT head 11/27/2013. HISTORY: New onset seizures TECHNIQUE: Axial images were obtained through the head without IV contrast. Dose reduction techniques were achieved by using: automated exposure control and/or adjustment of mA and/or kV according to patient size and/or use of iterative reconstruction technique. FINDINGS: Atherosclerotic changes are seen in the distal vertebral and internal carotid arteries. Mild patchy decreased attenuation is seen in the periventricular white matter. No acute hemorrhage, extra-axial fluid collection, mass effect, midline shift, or evidence of an acute stroke. Corticomedullary differentiation is preserved. Ventricles are normal in caliber. Partially imaged is near complete opacification of the maxillary sinuses bilaterally and moderate opacification of the ethmoid air cells and frontal sinuses. Similar changes were seen on the 2013 study. The sphenoid sinus and mastoid air cells are clear. No fracture or suspicious osseous lesion is identified. IMPRESSION: 1. No acute intracranial process is identified. 2. Mild patchy decreased attenuation in the periventricular white matter again noted, likely related to chronic, microvascular ischemia. 3. Chronic/recurrent moderate to severe sinus inflammatory disease in the maxillary sinuses, ethmoid air cells, and frontal sinuses. [place] Comprehensive Metabolic Pane esperanza 03-01-2020 Albumin [Mass/Vol] 4.3 g/dL 3.5 - 5.2 g/dL [place] Albumin/Globulin [Mass ratio] NOT REPORTED [place] ALP [Catalytic activity/Vol] 103 U/L 35 - 104 U/L [place] ALT [Catalytic activity/Vol] 19 U/L 5 - 33 U/L [place] Anion gap [Moles/Vol] 12 mmol/L 9 - 17 mmol/L [place] AST [Catalytic activity/Vol] 15 U/L <32 [place] Bilirubin Ql (U) 0.41 mg/dL 0.3 - 1.2 mg/dL [place] Bun/Cre Ratio 17 [place] Calcium [Mass/Vol] 9.2 mg/dL 8.6 - 10. 4 mg/dL [place] Chloride [Moles/Vol] 91 mmol/L Low 98 - 10 7 mmol/L [place] CO2 [Moles/Vol] 22 mmol/L 20 - 31 mmol/L [place] Creatinine [Mass/Vol] 1.43 mg/dL High 0.5 - 0.9 mg/dL [place] GFR 44 mL/min Low >60 [place] GFR Non- 36 mL/min Low >60 [place] GFR/1.73 sq M predicted among non-blacks MDRD (S/P/Bld) [Vol rate/Area] NOT REPORTED [place] GFR/1.73 sq M predicted among non-blacks MDRD (S/P/Bld) [Vol rate/Area] [place] Comment on above: Average GFR for 70 o r more years old: 75 mL/min/1.73sq m Chronic Kidney Disease: <60 mL/min/1.73sq m Kidney failure: <15 mL/min/1.73sq m eGFR calculated using average adult body mass. Additional eGFR calculator available at: http://www.[employer].Tribotek/multiple_crcl_2011.htm Glucose [Mass/Vol] 714 mg/dL Critically high 70 - 9 9 mg/dL [place] Interpretation and review of laboratory results Abnormal [place] Potassium [Moles/Vol] 5.0 mmol/L 3.7 - 5.3 mmol/L [place] Protein [Mass/Vol] 8.2 g/dL 6.4 - 8.3 g/dL [place] Sodium [Moles/Vol] 125 mmol/L Low 135 - 144 mmol/L [place] Urea nitrogen [Mass/Vol] 25 mg/dL High 8 - 23 mg/dL [place] Glucose, Whole Bloodon 03-01 Glucose [Mass/Vol] 418 mg/dL High 65 - 99 mg/dL [place] Interpretation and review of laboratory results Abnormal [place] Glucose [Mass/Vol] 453 mg/dL High 65 - 99 mg/dL [place] Interpretation and review of laboratory results Abnormal [place] Glucose [Mass/Vol] mg/dL Critically high 65 - 9 9 mg/dL [place] Interpretation and review of laboratory results Abnormal [place] Otheron 03-01-2020 Immature granulocytes (Bld) [#/Vol] NOT REPORTED [place] Urinalysison 03-01-2020 Bilirubin Urine Negative NEGATIVE [place] Color, UA YELLOW YELLOW [place] Glucose, Ur 1000 mg/dL Abnormal NEGATIVE [place] Interpretation and review of laboratory results Abnormal [place] Ketones Ql (U) Negative NEGATIVE [place] Leukocyte esterase Test strip Ql (U) Negative NEGATIVE [place] Nitrite, Urine Negative NEGATIVE [place] pH, UA 6.0 [place] Protein (U) [Mass/Vol] TRACE Abnormal NEGATIVE [place] Specific [place], UA 1.010 [place] Turbidity UA CLEAR CLEAR [place] Urinalysis Comments [place] Urine Hgb Negative NEGATIVE [place] Urobilinogen, Urine Normal Normal [place] Albuminon 12-22-2019 Albumin [Mass/Vol] 4.3 g/dL 3.5 - 5.2 g/dL [place] BUN & Creatinineon 0 Creatinine [Mass/Vol] 1.32 mg/dL High 0.5 - 0.9 mg/dL [place] GFR 48 mL/min Low >60 [place] GFR Non- 39 mL/min Low >60 [place] GFR/1.73 sq M predicted among non-blacks MDRD (S/P/Bld) [Vol rate/Area] [place] Comment on above: Average GFR for 70 o r more years old: 75 mL/min/1.73sq m Chronic Kidney Disease: <60 mL/min/1.73sq m Kidney failure: <15 mL/min/1.73sq m eGFR calculated using average adult body mass. Additional eGFR calculator available at: http://www.UiTV/multiple_crcl_2012.htm GFR/1.73 sq M predicted among non-blacks MDRD (S/P/Bld) [Vol rate/Area] NOT REPORTED [place] Urea nitrogen [Mass/Vol] 19 mg/dL 8 - 23 mg/dL [place] Calciumon 12-22-2019 Calcium [Mass/Vol] 9.9 mg/dL 8.6 - 10. 4 mg/dL [place] Electrolyte Panelon 12-22-19 20 Anion gap [Moles/Vol] 8 mmol/L Low 9 - 17 mmol/L [place] Chloride [Moles/Vol] 103 mmol/L 98 - 10 7 mmol/L [place] CO2 [Moles/Vol] 27 mmol/L 20 - 31 mmol/L [place] Potassium [Moles/Vol] 4.9 mmol/L 3.7 - 5.3 mmol/L [place] Sodium [Moles/Vol] 138 mmol/L 135 - 144 mmol/L [place] Hemoglobin and Hematocrit, B loodon 12-22-2019 Hematocrit (Bld) [Volume fraction] 34.4 % Low 36 - 46 % [place] Hemoglobin (Bld) [Mass/Vol] 12.1 g/dL 12 - 16 g/dL [place] Interpretation and review of laboratory results Abnormal [place] Otheron 12-22-2019 Interpretation and review of laboratory results Abnormal [place] PTH, [place] 12-22-2019 Interpretation and review of laboratory results Abnormal [place] Pth Intact 87.12 pg/mL High 15 - 65 pg/mL [place] Comment on above: SAMPLES FROM PATIENT S ROUTINELY RECEIVING HIGH DOSE BIOTIN THERAPY MAY SHOW FALSELY DEPRESSED RESULTS. ADDITIONAL INFORMATION MAY BE REQUIRED FOR DIAGNOSIS. Phosphoruson 12-22-2019 Phosphate [Mass/Vol] 3.6 mg/dL 2.6 - 4 .5 mg/dL [place] Protein / creatinine ratio, urineon 12-22-2019 Creatinine, Ur 103.9 mg/dL 28 - 217 mg/dL [place] Interpretation and review of laboratory results Abnormal [place] Protein (U) [Mass/Vol] 35 mg/dL [place] Comment on above: No normal range esta blished. Urine Total Protein Creatinine Ratio 0.34 High [place] Vitamin D 25 Hydroxyon 12-21 Vit D, 25-Hydroxy 30.6 ng/mL 30 - 100 ng/mL [place] Comment on above: Reference Range: Vitamin D status Range Deficiency <20 ng/mL Mild Deficiency 20-30 ng/mL Sufficiency 30-100 ng/mL Toxicity >100 ng/mL Lipid Panelon 12-08-2019 Cholesterol [Mass/Vol] 133 mg/dL <200 [place] Comment on above: Cholesterol Guidelines: <200 Desirable 200-240 Borderline >240 Undesirable Cholesterol in HDL [Mass/Vol] 34 mg/dL Low >40 [place] Comment on above: HDL Guidelines: <40 Undesirable 40-59 Borderline >59 Desirable Cholesterol in LDL [Mass/Vol] 63 mg/dL 0 - 130 mg/dL [place] Comment on above: LDL Guidelines: <100 Desirable 100-129 Near to/above Desirable 130-159 Borderline >159 Undesirable Direct (measured) LDL and calculated LDL are not interchangeable tests. Cholesterol in VLDL [Mass/Vol] NOT REPORTED High 1 - 30 mg/dL [place] Cholesterol.total/Chol esterol in HDL [Mass ratio] 3.9 {ratio} <5 [place] Interpretation and review of laboratory results Abnormal [place] Triglyceride [Mass/Vol] 182 mg/dL High <150 [place] Comment on above: Triglyceride Guidelines: <150 Desirable 150-199 Borderline 200-499 High >499 Very high Based on AHA Guidelines for fasting triglyceride, March 2012. GLORY DIGITAL SCREEN W OR WO C AD BILATERALon 12-08-2019 Stable mammogram. BI -RADS 1 - Negative, no evidence of malignancy. Normal interval followup in 12 months. OVERALL ASSESSMENT- NEGATIVE A letter of notification will be sent to the patient regarding the results. [place] HISTORY: Screening. TECHNIQUE: Craniocaudal and mediolateral oblique views of the breasts were obtained with digital mammography and CAD. COMPARISON: 07/13/2018, 04/16/2017, 01/15/2016. FINDINGS: There is scattered fibroglandular tissue present. No dominant masses, suspicious calcifications, or areas of architectural distortion are identified. [place] [facility], [facility] Incoming Radiant Results From [facility] - 12/08/2019 1:30 PM EDT HISTORY: Screening. TECHNIQUE: Craniocaudal and mediolateral oblique views of the breasts were obtained with digital mammography and CAD. COMPARISON: 07/13/2018, 04/16/2017, 01/15/2016. FINDINGS: There is scattered fibroglandular tissue present. No dominant masses, suspicious calcifications, or areas of architectural distortion are identified. IMPRESSION: Stable mammogram. BI-RADS 1 - Negative, no evidence of malignancy. Normal interval followup in 12 months. OVERALL ASSESSMENT- NEGATIVE A letter of notification will be sent to the patient regarding the results. [place] PTH, Intacton 12-08-2019 Interpretation and review of laboratory results Abnormal [place] Pth Intact 109.7 pg/mL High 15 - 65 pg/mL [place] Comment on above: SAMPLES FROM PATIENT S ROUTINELY RECEIVING HIGH DOSE BIOTIN THERAPY MAY SHOW FALSELY DEPRESSED RESULTS. ADDITIONAL INFORMATION MAY BE REQUIRED FOR DIAGNOSIS. Vitamin D 25 Hydroxyon 12-07 Vit D, 25-Hydroxy 38 ng/mL 30 - 100 ng/mL [place] Comment on above: Reference Range: Vitamin D status Range Deficiency <20 ng/mL Mild Deficiency 20-30 ng/mL Sufficiency 30-100 ng/mL Toxicity >100 ng/mL Albuminon 12-07-2019 Albumin [Mass/Vol] 4.3 g/dL 3.5 - 5.2 g/dL [place] BUN & Creatinineon 0 Creatinine [Mass/Vol] 1.34 mg/dL High 0.5 - 0.9 mg/dL [place] GFR 47 mL/min Low >60 [place] GFR Non- 39 mL/min Low >60 [place] GFR/1.73 sq M predicted among non-blacks MDRD (S/P/Bld) [Vol rate/Area] [place] Comment on above: Average GFR for 70 o r more years old: 75 mL/min/1.73sq m Chronic Kidney Disease: <60 mL/min/1.73sq m Kidney failure: <15 mL/min/1.73sq m eGFR calculated using average adult body mass. Additional eGFR calculator available at: http://www.[employer]/multiple_crcl_2012.htm GFR/1.73 sq M predicted among non-blacks MDRD (S/P/Bld) [Vol rate/Area] NOT REPORTED [place] Urea nitrogen [Mass/Vol] 31 mg/dL High 8 - 23 mg/dL [place] CBC Auto Differentialon 11-20 Basophils (Bld) [#/Vol] 0.00 10*3/uL [place] Basophils/100 WBC (Bld) 0 % 0 - 2 % [place] Differential Type YES [place] Eosinophils (Bld) [#/Vol] 0.10 10*3/uL [place] Eosinophils/100 WBC (Bld) 2 % 0 - 5 % [place] Erythrocyte distribution width (RBC) [Ratio] 12.8 % 12.1 - 15.2 % [place] Hematocrit (Bld) [Volume fraction] 32.8 % Low 36 - 46 % [place] Hemoglobin (Bld) [Mass/Vol] 11.5 g/dL Low 12 - 16 g/dL [place] Interpretation and review of laboratory results Abnormal [place] Lymphocytes (Bld) [#/Vol] 1.90 10*3/uL [place] Lymphocytes/100 WBC (Bld) 28 % 15 - 40 % [place] MCH (RBC) [Entitic mass] 35.5 pg High 26 - 34 pg [place] MCHC (RBC) [Mass/Vol] 35.2 g/dL 31 - 3 7 g/dL [place] MCV (RBC) [Entitic vol] 100.8 fL High 80 - 100 fL [place] Monocytes (Bld) [#/Vol] 0.20 10*3/uL [place] Monocytes/100 WBC (Bld) 4 % 4 - 8 % [place] Platelet mean volume (Bld) [Entitic vol] NOT REPORTED 6 - 12 fL [place] Platelets (Bld) [#/Vol] NOT REPORTED [place] Platelets (Bld) [#/Vol] 269 10*3/uL [place] RBC (Bld) [#/Vol] 3.25 10*6/uL Low 4 - 5.2 m/uL [place] RBC morphology finding Nom (Bld) NOT REPORTED [place] Segmented neutrophils/100 WBC (Bld) 66 % 47 - 75 % [place] Segs Absolute 4.50 [place] WBC (Bld) [#/Vol] 6.9 10*3/uL [place] WBC (Bld) [#/Vol] NOT REPORTED per 100 WBC [place] WBC Morphology NOT REPORTED [place] Calciumon 12-07-2019 Calcium [Mass/Vol] 9.7 mg/dL 8.6 - 10. 4 mg/dL [place] Comprehensive Metabolic Pane esperanza 12-07-2019 Albumin [Mass/Vol] 4.4 g/dL 3.5 - 5.2 g/dL [place] Albumin/Globulin [Mass ratio] NOT REPORTED [place] ALP [Catalytic activity/Vol] 82 U/L 35 - 104 U/L [place] ALT [Catalytic activity/Vol] 18 U/L 5 - 33 U/L [place] Anion gap [Moles/Vol] 6 mmol/L Low 9 - 17 mmol/L [place] AST [Catalytic activity/Vol] 16 U/L <32 [place] Bilirubin Ql (U) 0.52 mg/dL 0.3 - 1.2 mg/dL [place] Bun/Cre Ratio 22 High [place] Calcium [Mass/Vol] 9.7 mg/dL 8.6 - 10. 4 mg/dL [place] Chloride [Moles/Vol] 105 mmol/L 98 - 10 7 mmol/L [place] CO2 [Moles/Vol] 24 mmol/L 20 - 31 mmol/L [place] Creatinine [Mass/Vol] 1.35 mg/dL High 0.5 - 0.9 mg/dL [place] GFR 47 mL/min Low >60 [place] GFR Non- 38 mL/min Low >60 [place] GFR/1.73 sq M predicted among non-blacks MDRD (S/P/Bld) [Vol rate/Area] [place] Comment on above: Average GFR for 70 o r more years old: 75 mL/min/1.73sq m Chronic Kidney Disease: <60 mL/min/1.73sq m Kidney failure: <15 mL/min/1.73sq m eGFR calculated using average adult body mass. Additional eGFR calculator available at: http://www.[employer]/multiple_crcl_2012.htm GFR/1.73 sq M predicted among non-blacks MDRD (S/P/Bld) [Vol rate/Area] NOT REPORTED [place] Glucose [Mass/Vol] 254 mg/dL High 70 - 99 mg/dL [place] Interpretation and review of laboratory results Abnormal [place] Potassium [Moles/Vol] 5.9 mmol/L High 3.7 - 5.3 mmol/L [place] Protein [Mass/Vol] 7.4 g/dL 6.4 - 8.3 g/dL [place] Sodium [Moles/Vol] 135 mmol/L 135 - 144 mmol/L [place] Urea nitrogen [Mass/Vol] 30 mg/dL High 8 - 23 mg/dL [place] Creatinine, Random Urineon 0 12-07-2019 Creatinine, Ur 91.0 mg/dL 28 - 217 mg/dL [place] Electrolyte Panelon 12-07-19 20 Anion gap [Moles/Vol] 7 mmol/L Low 9 - 17 mmol/L [place] Chloride [Moles/Vol] 104 mmol/L 98 - 10 7 mmol/L [place] CO2 [Moles/Vol] 24 mmol/L 20 - 31 mmol/L [place] Potassium [Moles/Vol] 5.9 mmol/L High 3.7 - 5.3 mmol/L [place] Sodium [Moles/Vol] 135 mmol/L 135 - 144 mmol/L [place] Hemoglobin and Hematocrit, B loodon 12-07-2019 Hematocrit (Bld) [Volume fraction] 32.8 % Low 36 - 46 % [place] Hemoglobin (Bld) [Mass/Vol] 11.5 g/dL Low 12 - 16 g/dL [place] Interpretation and review of laboratory results Abnormal [place] Microalbumin, Uron 0 Albumin/Creatinine DL <= 20 mg/L (24H U) [Mass ratio] 24 mg/L High <21 [place] Albumin/Creatinine DL <= 20 mg/L (U) [Ratio] 26 High <25 mcg/mg creat [place] Creatinine [Mass/Vol] 93.0 mg/dL 28 - 2 17 mg/dL [place] Interpretation and review of laboratory results Abnormal [place] Otheron 12-07-2019 Immature granulocytes (Bld) [#/Vol] NOT REPORTED [place] Interpretation and review of laboratory results Abnormal [place] Phosphoruson 12-07-2019 Phosphate [Mass/Vol] 3.4 mg/dL 2.6 - 4 .5 mg/dL [place] Protein, urine, randomon Protein (U) [Mass/Vol] 12 mg/dL [place] Comment on above: No normal range esta blished. Glucose, Whole Bloodon 08-24 Glucose [Mass/Vol] 352 mg/dL High 65 - 99 mg/dL [place] Interpretation and review of laboratory results Abnormal [place] Otheron 08-25-2019 Direct Exam Negative [place] Rapid influenza A/B antigens on 08-25-2019 Special Requests NOT REPORTED [place] Specimen Description .NASOPHARYNGEAL SWAB [place] Albuminon 08-16-2019 Albumin [Mass/Vol] 4.4 g/dL 3.5 - 5.2 g/dL [place] BUN & Creatinineon 0 Creatinine [Mass/Vol] 1.35 mg/dL High 0.5 - 0.9 mg/dL [place] GFR 47 mL/min Low >60 [place] GFR Non- 38 mL/min Low >60 [place] GFR/1.73 sq M predicted among non-blacks MDRD (S/P/Bld) [Vol rate/Area] NOT REPORTED [place] GFR/1.73 sq M predicted among non-blacks MDRD (S/P/Bld) [Vol rate/Area] [place] Comment on above: Average GFR for 70 o r more years old: 75 mL/min/1.73sq m Chronic Kidney Disease: <60 mL/min/1.73sq m Kidney failure: <15 mL/min/1.73sq m eGFR calculated using average adult body mass. Additional eGFR calculator available at: http://www.[employer]/multiple_crcl_2012.htm Urea nitrogen [Mass/Vol] 13 mg/dL 8 - 23 mg/dL [place] Calciumon 08-16-2019 Calcium [Mass/Vol] 9.5 mg/dL 8.6 - 10. 4 mg/dL [place] Electrolyte Panelon 08-16-19 20 Anion gap [Moles/Vol] 14 mmol/L 9 - 17 mmol/L [place] Chloride [Moles/Vol] 97 mmol/L Low 98 - 10 7 mmol/L [place] CO2 [Moles/Vol] 24 mmol/L 20 - 31 mmol/L [place] Potassium [Moles/Vol] 4.9 mmol/L 3.7 - 5.3 mmol/L [place] Sodium [Moles/Vol] 135 mmol/L 135 - 144 mmol/L [place] Hemoglobin and Hematocrit, B loodon 08-16-2019 Hematocrit (Bld) [Volume fraction] 36.5 % 36 - 46 % [place] Hemoglobin (Bld) [Mass/Vol] 12.2 g/dL 12 - 16 g/dL [place] Otheron 08-16-2019 Interpretation and review of laboratory results Abnormal [place] PTH, Intacton 08-16-2019 Interpretation and review of laboratory results Abnormal [place] Pth Intact 123.9 pg/mL High 15 - 65 pg/mL [place] Comment on above: SAMPLES FROM PATIENT S ROUTINELY RECEIVING HIGH DOSE BIOTIN THERAPY MAY SHOW FALSELY DEPRESSED RESULTS. ADDITIONAL INFORMATION MAY BE REQUIRED FOR DIAGNOSIS. Phosphoruson 08-16-2019 Phosphate [Mass/Vol] 3.3 mg/dL 2.6 - 4 .5 mg/dL [place] Protein / creatinine ratio, urineon 08-16-2019 Creatinine, Ur 70.8 mg/dL 28 - 217 mg/dL [place] Protein (U) [Mass/Vol] 12 mg/dL [place] Comment on above: No normal range esta blished. Urine Total Protein Creatinine Ratio 0.17 [place] Vitamin D 25 Hydroxyon 08-16 Vit D, 25-Hydroxy 36.5 ng/mL 30 - 100 ng/mL [place] Comment on above: Reference Range: Vitamin D status Range Deficiency <20 ng/mL Mild Deficiency 20-30 ng/mL Sufficiency 30-100 ng/mL Toxicity >100 ng/mL XR CERVICAL SPINE (4-5 VIEWS )on 07-28-2019 Degenerative changes and soft tissue spasm without fracture. [employer] Phone: EXAM: XR CERVICAL SP INE (4-5 VIEWS) HISTORY: M54.2 74-year-old female, fell 2 weeks ago. COMPARISON: Cervical spine series 10/13/2017. TECHNIQUE: Cervical spine 5 views, 6 images. FINDINGS: Prominent disc degenerative change at C5-C6 and C6-C7 is similar. Straightening of the cervical spine suggesting soft tissue spasm, unchanged. Minimal degenerative change facets. Spinous processes normal. Prevertebral soft tissues normal. Mild foraminal narrowing C5-C6 and C6-C7 bilaterally due to uncovertebral osteophytes, unchanged. Odontoid normal. Lung apices clear. [employer] Phone: [facility]ine[facility], pn Incoming Radiant Results From [facility] - 07/28/2019 2:02 PM EST EXAM: XR CERVICAL SPINE (4-5 VIEWS) HISTORY: M54.2 74-year-old female, fell 2 weeks ago. COMPARISON: Cervical spine series 10/13/2017. TECHNIQUE: Cervical spine 5 views, 6 images. FINDINGS: Prominent disc degenerative change at C5-C6 and C6-C7 is similar. Straightening of the cervical spine suggesting soft tissue spasm, unchanged. Minimal degenerative change facets. Spinous processes normal. Prevertebral soft tissues normal. Mild foraminal narrowing C5-C6 and C6-C7 bilaterally due to uncovertebral osteophytes, unchanged. Odontoid normal. Lung apices clear. IMPRESSION: Degenerative changes and soft tissue spasm without fracture. [employer] Phone: XR LUMBAR SPINE (MIN 4 VIEWS )Ordered By: Prieto Mcgowan on 07-19-2019 Increased degenerati ve changes lower lumbar spine, without fracture. [employer] Phone: EXAM: XR LUMBAR SPIN E (MIN 4 VIEWS) HISTORY: M54.5 74-year-old female fell 1.5 weeks ago. Back pain. COMPARISON: Lumbar spine 03/15/2013. TECHNIQUE: 5 views lumbar spine. FINDINGS: Increase in degenerative change at L4-L5 and L5-S1 without fracture, lytic or blastic lesion. [employer] Phone: [facility]ine[facility], pn Incoming Radiant Results From [facility] - 07/19/2019 5:19 PM EST EXAM: XR LUMBAR SPINE (MIN 4 VIEWS) HISTORY: M54.5 74-year-old female fell 1.5 weeks ago. Back pain. COMPARISON: Lumbar spine 03/15/2013. TECHNIQUE: 5 views lumbar spine. FINDINGS: Increase in degenerative change at L4-L5 and L5-S1 without fracture, lytic or blastic lesion. IMPRESSION: Increased degenerative changes lower lumbar spine, without fracture. [employer] Phone: XR THORACIC SPINE (3 VIEWS)O rdered By: Prieto Mcgowan on 07-19-2019 Degenerative changes , without fracture. [employer] Phone: EXAM: XR THORACIC SP INE (3 VIEWS) HISTORY: M54.6 74-year-old female fell one week ago, pain upper thoracic region. COMPARISON: Chest x-ray 04/21/2016. TECHNIQUE: Thoracic spine 3 views. FINDINGS: Multilevel moderate disc degenerative change with no fracture, lytic or blastic lesion. [employer] Phone: [facility]ine[facility], pn Incoming Radiant Results From [facility] - 07/19/2019 5:19 PM EST EXAM: XR THORACIC SPINE (3 VIEWS) HISTORY: M54.6 74-year-old female fell one week ago, pain upper thoracic region. COMPARISON: Chest x-ray 04/21/2016. TECHNIQUE: Thoracic spine 3 views. FINDINGS: Multilevel moderate disc degenerative change with no fracture, lytic or blastic lesion. IMPRESSION: Degenerative changes, without fracture. [employer] Phone: Microscopic Urinalysison Amorphous, UA NOT REPORTED None [facility] [place] Bacteria, UA NOT REPORTED None [facility] [place] Casts UA NOT REPORTED /LPF [facility] [place] Crystals UA NOT REPORTED None /HPF [facility] [place] Epithelial Cells UA NOT REPORTED /HPF [facility] [place] Mucus, UA NOT REPORTED None [facility] [place] Other Observations UA NOT REPORTED NOT REQ. [facility] [place] RBC (U) [#/Vol] LOADED [place], [place] Renal Epithelial, Urine NOT REPORTED 0 /HPF [place] Trichomonas, UA NOT REPORTED None [place] WBC, UA 10 TO 20 0 /HPF [place] Yeast, UA NOT REPORTED None [place] Urinalysison 05-10-2019 Bilirubin Urine Negative NEGATIVE [place], [place] Color, UA BROWN Abnormal YELLOW [place] Glucose, Ur 1000 mg/dL Abnormal NEGATIVE [place] Interpretation and review of laboratory results Abnormal [place] Ketones Ql (U) Negative NEGATIVE [place] Leukocyte esterase Test strip Ql (U) 2+ Abnormal NEGATIVE [place] Nitrite, Urine Negative NEGATIVE [place] pH, UA 5.0 [place] Protein (U) [Mass/Vol] 2+ Abnormal NEGATIVE [place] Specific [place], UA 1.020 [place] Turbidity UA CLOUDY Abnormal CLEAR [place] Urinalysis Comments [place] Urine Hgb 3+ Abnormal NEGATIVE [place] Urobilinogen, Urine Normal Normal [place] Albuminon 02-07-2019 Albumin [Mass/Vol] 4.1 g/dL 3.5 - 5.2 g/dL [place] BUN & Creatinineon 9 Creatinine [Mass/Vol] 1.28 mg/dL High 0.5 - 0.9 mg/dL [place] GFR 50 mL/min Low >60 [place] GFR Non- 41 mL/min Low >60 [place] GFR/1.73 sq M predicted among non-blacks MDRD (S/P/Bld) [Vol rate/Area] NOT REPORTED [place] GFR/1.73 sq M predicted among non-blacks MDRD (S/P/Bld) [Vol rate/Area] [place] Comment on above: Average GFR for 70 o r more years old: 75 mL/min/1.73sq m Chronic Kidney Disease: <60 mL/min/1.73sq m Kidney failure: <15 mL/min/1.73sq m eGFR calculated using average adult body mass. Additional eGFR calculator available at: http://www.[employer]/multiple_crcl_2012.htm Interpretation and review of laboratory results Abnormal [place] Urea nitrogen [Mass/Vol] 23 mg/dL 8 - 23 mg/dL [place] Calciumon 02-07-2019 Calcium [Mass/Vol] 10.1 mg/dL 8.6 - 10. 4 mg/dL [place] Creatinine, Random Urineon 0 02-07-2019 Creatinine, Ur 100.5 mg/dL 28 - 217 mg/dL [place] Electrolyte Panelon 02-08-20 Anion gap [Moles/Vol] 10 mmol/L 9 - 17 mmol/L [place] Chloride [Moles/Vol] 99 mmol/L 98 - 10 7 mmol/L [place] CO2 [Moles/Vol] 26 mmol/L 20 - 31 mmol/L [place] Potassium [Moles/Vol] 4.8 mmol/L 3.7 - 5.3 mmol/L [place] Sodium [Moles/Vol] 135 mmol/L 135 - 144 mmol/L [place] Hemoglobin and Hematocrit, B loodon 02-07-2019 Hematocrit (Bld) [Volume fraction] 33.8 % Low 36 - 46 % [place] Hemoglobin (Bld) [Mass/Vol] 11.7 g/dL Low 12 - 16 g/dL [place] Interpretation and review of laboratory results Abnormal [place] PTH, Int[place]on 02-07-2019 Interpretation and review of laboratory results Abnormal [place] Pth Intact 86.16 pg/mL High 15 - 65 pg/mL [place] Comment on above: SAMPLES FROM PATIENT S ROUTINELY RECEIVING HIGH DOSE BIOTIN THERAPY MAY SHOW FALSELY DEPRESSED RESULTS. ADDITIONAL INFORMATION MAY BE REQUIRED FOR DIAGNOSIS. Phosphoruson 02-07-2019 Phosphate [Mass/Vol] 2.7 mg/dL 2.6 - 4 .5 mg/dL [place] Protein, urine, randomon Protein (U) [Mass/Vol] 15 mg/dL [place] Comment on above: No normal range esta blished. Vitamin D 25 Hydroxyon 02-07 Vit D, 25-Hydroxy 52.7 ng/mL 30 - 100 ng/mL [place] Comment on above: Reference Range: Vitamin D status Range Deficiency <20 ng/mL Mild Deficiency 20-30 ng/mL Sufficiency 30-100 ng/mL Toxicity >100 ng/mL Vital Signs Date Time Vital Sign Value Performing Clinician Lailai litkatya 05-20-2023 07:02-0500 Blood Pressure Location Joaquín [facility] 05-20-2023 07:02-0500 Body temperature 97.88 [degF] Joaquín [facility] 05-20-2023 07:02-0500 Diastolic blood pressure 61 mm[Hg] Jo[facility]ín [facility] 05-20-2023 07:02-0500 Heart rate 49 /min Joaquín [facility] 05-20-2023 07:02-0500 Respiratory rate 18 /min Joaquín [facility] 05-20-2023 07:02-0500 SaO2% (BldA) [Mass fraction] 96 % Joaquín [facility] 05-20-2023 07:02-0500 Systolic blood pressure 156 mm[Hg] Joaquín [facility] 04-07-2023 18:41-0400 Hourly Rounding Joaquín De La Oerson [facility] 04-07-2023 18:41-0400 Promise to Return Joaquín Pugh [facility] 04-07-2023 17:31-0400 Hourly Rounding Joaquín [facility]off[facility] 04-07-2023 17:31-0400 Promise to Return Joaquín [facility]offerson [facility] 04-07-2023 17:00-0400 Body temperature 97.7 [degF] Joaquín [facility] 04-07-2023 17:00-0400 Diastolic blood pressure 59 mm[Hg] Joaquín [facility] 04-07-2023 17:00-0400 Heart rate 61 /min Joaquín [facility] 04-07-2023 17:00-0400 Mean blood pressure 84 mm[Hg] Joaquín [facility] 04-07-2023 17:00-0400 SaO2% (BldA) [Mass fraction] 96 % Joaquín [facility] 04-07-2023 17:00-0400 Systolic blood pressure 135 mm[Hg] Joaquín [facility] 04-07-2023 16:00-0400 Hourly Rounding Joaquín [facility] 04-07-2023 16:00-0400 Promise to Return Joaquín [facility]off[facility] 04-07-2023 06:47-0400 Blood Pressure Location Joaquín [facility]off[facility] 04-07-2023 06:47-0400 Diastolic blood pressure 71 mm[Hg] Joaquín [facility] 04-07-2023 06:47-0400 Heart rate 70 /min Joaquín [facility] 04-07-2023 06:47-0400 Respiratory rate 18 /min Joaquín [facility] 04-07-2023 06:47-0400 SaO2% (BldA) [Mass fraction] 97 % Joaquín Pugh [facility] 04-07-2023 06:47-0400 Systolic blood pressure 147 mm[Hg] Joaquín Pugh [facility] 03-11-2023 12:10-0400 Blood Pressure Location Joaquín Pugh [facility] 03-11-2023 12:10-0400 Diastolic blood pressure 82 mm[Hg] Joaquín Sonioffpavan [facility] 03-11-2023 12:10-0400 Heart rate 87 /min Joaquín Pugh [facility] 03-11-2023 12:10-0400 SaO2% (BldA) [Mass fraction] 99 % Joaquín Pugh [facility] 03-11-2023 12:10-0400 Systolic blood pressure 136 mm[Hg] Joaquín Pugh [facility] 12-08-2022 11:17-0400 Diastolic blood pressure 77 mm[Hg] Ramone Wallsan [facility] 12-08-2022 11:17-0400 Heart rate 82 /min Ramone Korey [facility] 12-08-2022 11:17-0400 SaO2% (BldA) [Mass fraction] 98 % Ramone Korey [facility] 12-08-2022 11:17-0400 Systolic blood pressure 122 mm[Hg] Ramone Korey [facility] 11-26-2022 01:49-0400 Diastolic blood pressure 46 mm[Hg] Connor Jones MD Work Phone: [facility] 11-26-2022 01:49-0400 SaO2% (BldA) [Mass fraction] 95 % Connor Jones MD Work Phone: [facility] [employer] 11-26-2022 01:49-0400 Systolic blood pressure 110 mm[Hg] Connor Jones MD Work Phone: [facility] [employer] 11-25-2022 20:35-0400 Body height 160 cm Connor Jones MD Work Phone: [facility] [employer] 11-25-2022 20:35-0400 Body mass index (BMI) [Ratio] 30.65 kg/m2 Connor Jones MD Work Phone: [facility] [employer] 11-25-2022 20:35-0400 Body temperature 97.59 [degF] Connor Jones MD Work Phone: [facility] [employer] 11-25-2022 20:35-0400 Body weight 78.47 kg Connor Jones MD Work Phone: [facility] [employer] 11-25-2022 20:35-0400 Heart rate 89 /min Connor Jones MD Work Phone: [facility] [employer] 11-25-2022 20:35-0400 Respiratory rate 18 /min Connor Jones MD Work Phone: [facility] [employer] 09-18-2022 12:00-0400 Body height 156.21 cm Baltazar Marc Other [email or web address] Other 09-18-2022 12:00-0400 Body mass index (BMI) [Ratio] 31.78 kg/m2 Baltazar Marc Other [email or web address] Other 09-18-2022 12:00-0400 Body temperature 96.3 [degF] Baltazar Marc Other [email or web address] Other 09-18-2022 12:00-0400 Body weight 77.57 kg Baltazar Marc Other [employer] Other 09-18-2022 12:00-0400 Diastolic blood pressure 62 mm[Hg] Baltazar Silvajoey Other [email or web address] Other 09-18-2022 12:00-0400 SaO2% (BldA) [Mass fraction] 97 % Baltazar Silvajoey Other [employer] Other 09-18-2022 12:00-0400 Systolic blood pressure 128 mm[Hg] Baltazar Silvajoey Other [facility] [employer] Other 07-04-2022 15:06-0500 Diastolic blood pressure 71 mm[Hg] DO Medina Petznick Work Phone: [facility] 07-04-2022 15:06-0500 Heart rate 65 /min DO Medina Petznick Work Phone: [facility] 07-04-2022 15:06-0500 Respiratory rate 20 /min DO Medina Petznick Work Phone: [facility] 07-04-2022 15:06-0500 SaO2% (BldA) [Mass fraction] 98 % DO Medina Petznick Work Phone: [facility] 07-04-2022 15:06-0500 Systolic blood pressure 151 mm[Hg] DO Medina Petznick Work Phone: [facility] 07-04-2022 13:40-0500 Body height 160.02 cm DO Medina Petznick Work Phone: [facility] 07-04-2022 13:40-0500 Body temperature 98.1 [degF] DO Medina Petznick Work Phone: [facility] 07-04-2022 13:40-0500 Body weight 86.18 kg DO Medina Petznick Work Phone: [facility] 06-26-2022 13:30-0500 Body height 156.21 cm Baltazar Marc Other [email or web address] Other 06-26-2022 13:30-0500 Body mass index (BMI) [Ratio] 35.13 kg/m2 Baltazar Marc Other [email or web address] Other 06-26-2022 13:30-0500 Body temperature 97.8 [degF] Baltazar Marc Other [email or web address] Other 06-26-2022 13:30-0500 Body weight 85.73 kg Baltazar Marc Other [email or web address] Other 06-26-2022 13:30-0500 Diastolic blood pressure 62 mm[Hg] Baltazar Marc Other [email or web address] Other 06-26-2022 13:30-0500 SaO2% (BldA) [Mass fraction] 96 % Baltazar Marc Other [email or web address] Other 06-26-2022 13:30-0500 Systolic blood pressure 102 mm[Hg] Baltazar Marc Other [email or web address] Other 06-05-2022 16:30-0500 Diastolic blood pressure 71 mm[Hg] DO Medina Petznick Work Phone: [facility] 06-05-2022 16:30-0500 Heart rate 63 /min DO Medina Petznick Work Phone: [facility] 06-05-2022 16:30-0500 Respiratory rate 16 /min DO Medina Petznick Work Phone: [facility] 06-05-2022 16:30-0500 SaO2% (BldA) [Mass fraction] 97 % DO Medina Petznick Work Phone: [facility] 06-05-2022 16:30-0500 Systolic blood pressure 165 mm[Hg] DO Medina Petznick Work Phone: [facility] 06-05-2022 14:01-0500 Inhaled oxygen flow rate 3 L/min DO Medina Petznick Work Phone: [facility] 06-05-2022 12:06-0500 Body height 160.02 cm DO Medina Petznick Work Phone: [facility] 06-05-2022 12:06-0500 Body weight 85.72 kg DO Medina Petznick Work Phone: [facility] 06-04-2022 11:15-0500 Body height 156.21 cm Baltazar Marc Other [email or web address] Other 06-04-2022 11:15-0500 Body mass index (BMI) [Ratio] 35.17 kg/m2 Baltazar Marc Other [email or web address] Other 06-04-2022 11:15-0500 Body temperature 97.4 [degF] Baltazar Marc Other [email or web address] Other 06-04-2022 11:15-0500 Body weight 85.82 kg Baltazar Marc Other [email or web address] Other 06-04-2022 11:15-0500 Diastolic blood pressure 70 mm[Hg] Baltazar Marc Other [email or web address] Other 06-04-2022 11:15-0500 SaO2% (BldA) [Mass fraction] 97 % Baltazar Marc Other [email or web address] Other 06-04-2022 11:15-0500 Systolic blood pressure 118 mm[Hg] Baltazar Marc Other [facility] [employer] Other 06-03-2022 16:32-0500 Diastolic blood pressure 67 mm[Hg] DO Medina Petznick Work Phone: [facility] 06-03-2022 16:32-0500 Heart rate 68 /min DO Medina Petznick Work Phone: [facility] 06-03-2022 16:32-0500 Respiratory rate 18 /min DO Medina Petznick Work Phone: [facility] 06-03-2022 16:32-0500 SaO2% (BldA) [Mass fraction] 98 % DO Medina Petznick Work Phone: [facility] 06-03-2022 16:32-0500 Systolic blood pressure 161 mm[Hg] DO Medina Petznick Work Phone: [facility] 06-03-2022 14:27-0500 Body height 160.02 cm DO Medina Petznick Work Phone: [facility] 06-03-2022 14:27-0500 Body temperature 97.6 [degF] DO Medina Petznick Work Phone: [facility] 06-03-2022 14:27-0500 Body weight 85.72 kg DO Medina Petznick Work Phone: [facility] 09-10-2021 17:00-0400 Body height 156.21 cm Kana Yates Other [email or web address] Other 09-10-2021 17:00-0400 Body mass index (BMI) [Ratio] 35.31 kg/m2 Kana Yates Other [email or web address] Other 09-10-2021 17:00-0400 Body weight 86.18 kg Kana Yates Other [facility] [employer] Other 06-05-2020 10:08-0500 BMI (Body Mass Index) 36.74 kg/m2 [facility] [place] [place] 06-05-2020 10:08-0500 Body weight 94.08 kg [facility] [place] [facility] [place] 06-05-2020 10:08-0500 BP Diastolic 71 mm[Hg] [facility] [place] [facility] [place] 06-05-2020 10:08-0500 BP Systolic 162 mm[Hg] [facility] [place] [facility] [place] 06-05-2020 10:08-0500 Height 160 cm [facility] [place] [facility] [place] 04-29-2020 08:26-0500 BMI (Body Mass Index) 34.77 kg/m2 [facility] Amina [facility] [place] 04-29-2020 08:26-0500 Body Temperature 98.8 [degF] [facility] [place] 04-29-2020 08:26-0500 Body weight 89.04 kg [facility] [place] 04-29-2020 08:26-0500 BP Diastolic 72 mm[Hg] Ves[facility] [place] 04-29-2020 08:26-0500 BP Systolic 189 mm[Hg] [facility] [place] 04-29-2020 08:26-0500 Height 160 cm [facility] [place] 04-29-2020 08:26-0500 Pulse (Heart Rate) 68 /min [facility]a [facility] [place] 04-29-2020 08:26-0500 Pulse Oximetry 97 % [facility] [place] 04-29-2020 08:26-0500 Respiratory Rate 18 /min [facility] Amina [facility] [place] 04-25-2020 09:59-0500 BMI (Body Mass Index) 34.9 kg/m2 [facility] [place] 04-25-2020 09:59-0500 Body weight 89.36 kg [facility] , [place] 04-25-2020 09:59-0500 Height 160 cm [facility] , [place] 03-01-2020 15:38-0400 BP Diastolic 65 mm[Hg] [facility], [place] 03-01-2020 15:38-0400 BP Systolic 170 mm[Hg] [facility] , [place] 03-01-2020 13:26-0400 Pulse (Heart Rate) 57 /min [facility] 03-01-2020 13:26-0400 Pulse Oximetry 93 % [facility], [place] 03-01-2020 13:26-0400 Respiratory Rate 15 /min [facility], [place] 03-01-2020 13:25-0400 BMI (Body Mass Index) 34.19 kg/m2 [facility], [place] 03-01-2020 13:25-0400 Body Temperature 98.01 [degF] [facility], [place] 03-01-2020 13:25-0400 Body weight 87.54 kg [facility], [place] 08-25-2019 22:56-0500 BMI (Body Mass Index) 32.9 kg/m2 [facility] 08-25-2019 22:56-0500 Body Temperature 98.4 [degF] [facility] 08-25-2019 22:56-0500 Body weight 84.23 kg [facility], [place] 08-25-2019 22:56-0500 BP Diastolic 81 mm[Hg] [facility] 08-25-2019 22:56-0500 BP Systolic 184 mm[Hg] [facility] 08-25-2019 22:56-0500 Height 160 cm [facility], [place] 08-25-2019 22:56-0500 Pulse (Heart Rate) 64 /min [facility], [place] 08-25-2019 22:56-0500 Pulse Oximetry 95 % [place], [place] 08-25-2019 22:56-0500 Respiratory Rate 16 /min [place] Encounters Encounter Date Encounter Type Care Provider Facility Start: 05-22-2023 End: 05-23-2023 ambulatory [facility] Start: 05-20-2023 End: 05-20-2023 ambulatory Joaquín Pugh Facility:[facility] Start: 05-20-2023 End: 05-20-2023 Admission to same day surgery center Joaquín Pugh [facility] Start: 05-15-2023 End: 05-16-2023 ambulatory [facility] Start: 05-15-2023 End: 05-16-2023 Encounter for other preprocedural examination [facility] Start: 05-07-2023 End: 05-07-2023 ambulatory [facility] Not Available Start: 04-23-2023 End: 04-24-2023 ambulatory [facility] Start: 04-21-2023 End: 04-22-2023 ambulatory XXXX NONE Facility:[facility] Start: 04-07-2023 End: 04-07-2023 ambulatory Joaquín Pugh Facility:[facility] Start: 04-07-2023 End: 04-07-2023 Admission to same day surgery [place] Joaquín Pugh [facility] Start: 03-17-2023 End: 03-18-2023 ambulatory Joaquín Pugh Facility:[facility] Start: 03-17-2023 End: 03-17-2023 Patient encounter procedure Joaquín Pugh [facility] Start: 03-11-2023 End: 03-12-2023 ambulatory Joaquín Pugh Facility:[facility] Start: 03-11-2023 End: 03-11-2023 Patient encounter procedure Joaquín Pugh [facility] Start: 02-25-2023 End: 02-25-2023 ambulatory Joaquín Pugh Facility:[facility] Start: 02-21-2023 End: 02-22-2023 ambulatory Joaquín Pugh Facility:[facility] Start: 02-19-2023 End: 02-20-2023 ambulatory XXXX NONE Facility:[facility] Start: 12-08-2022 End: 12-09-2022 ambulatory XXXX NONE Facility:[facility] Start: 12-08-2022 End: 12-08-2022 Patient encounter procedure Ramone Nair [facility] Start: 11-26-2022 End: 11-28-2022 Evaluation and management of inpatient LIANNE LUIS A HORTENCIA [facility] Start: 11-25-2022 End: 11-26-2022 Emergency department patient visit CONNOR JONES [facility] Start: 11-25-2022 End: 11-26-2022 Emergency department patient visit Connor Jones MD Work Phone: [facility] ED Comment on above: Infectious colitis ( Primary Dx); Symptoms of dehydration; History of colitis; History of diabetes mellitus; Acute cystitis with hematuria; Elevated alkaline phosphatase level Start: 11-14-2022 End: 11-15-2022 ambulatory Ramone Nair Facility:[facility] Start: 11-14-2022 End: 11-14-2022 Patient encounter procedure Ramone Nair [facility] Start: 11-06-2022 End: 11-07-2022 ambulatory Ramone Nair Facility:[facility] Start: 11-03-2022 End: 11-06-2022 ambulatory MEDINA DUMONT [facility] Start: 11-03-2022 End: 11-05-2022 Subsequent hospital visit by physician [facility] Comment on above: Encounter for screen ing mammogram for malignant neoplasm of breast Start: 10-30-2022 End: 10-31-2022 ambulatory YUSRA CROWDER Facility:[facility] Start: 10-16-2022 End: 10-17-[address] MEDINA DUMONT Facility:[facility] Start: 09-23-2022 End: 09-24-2022 ambulatory YUSRA CROWDER Facility:[facility] Start: 09-18-2022 Office outpatient vi sit 15 minutes Baltazar Marc [facility] Start: 09-18-2022 End: 09-18-2022 ambulatory DO Medina Dumont Work Phone: [email or web address] Other Start: 09-18-2022 End: 09-18-2022 Patient encounter procedure DO Medina Dumont Work Phone: [facility] Start: 09-17-2022 End: 09-18-[address] JENNY PANG Facility: Start: 09-01-2022 End: 09-02-2022 ambulatory Nakul TORRES Facility: [facility] Start: 09-01-2022 End: 09-01-2022 Patient encounter procedure Nakul TORRES [facility] Start: 08-27-2022 End: 08-27-2022 ambulatory Kana Yates Other [email or web address] Other Start: 08-27-2022 Telephone encounter Kana Yates [employer] Start: 08-21-2022 End: 08-21-2022 ambulatory Kana Yates Other [email or web address] Other Start: 08-21-2022 Office outpatient vi sit 25 minutes Kana Yates [facility] Start: 08-19-2022 ambulatory SHAKIRA GOSSMIPATHY . Facility:[facility] Start: 08-18-2022 End: 08-19-2022 ambulatory KYRA BEE Facility: Start: 08-13-2022 End: 08-14-2022 ambulatory [facility] Start: 08-13-2022 End: 08-13-2022 Subsequent hospital visit by physician Janice Yates PT [facility] Comment on above: Arrived Start: 08-06-2022 ambulatory Ramone Nair Facility: [facility] Start: 08-05-2022 End: 08-05-2022 ambulatory Michael Weller Other [email or web address] Other Start: 08-05-2022 Telephone encounter Michael Weller [facility] Start: 07-29-2022 End: 07-29-2022 Subsequent hospital visit by physician Medina Dumont Work Phone: [facility] Start: 07-29-2022 End: 07-30-2022 ambulatory MEDINA James [facility] [email or web address] Other Start: 07-29-2022 Telephone encounter Baltazar pettit [facility] Start: 07-24-2022 End: 07-24-2022 ambulatory Baltazar Marc Other [email or web address] Other Start: 07-24-2022 Telephone encounter Baltazar pettit [facility] Start: 07-22-2022 End: 07-23-2022 ambulatory KYRA BEE Facility:[facility] Start: 07-07-2022 End: 07-07-2022 ambulatory Jazlyn Cerda Other [email or web address] Other Start: 07-07-2022 Telephone encounter Jazlyn [facility] Start: 07-04-2022 End: 07-04-2022 Emergency department patient visit Norma Miner Facility:[facility] Start: 07-04-2022 End: 07-05-2022 ambulatory YUSRA CROWDER Facility: Start: 07-04-2022 End: 07-04-2022 Emergency department patient visit DO Medina Cierafina Work Phone: [facility] Work Phone: Start: 06-26-2022 End: 06-26-2022 ambulatory Baltazar Marc Facility:[facility] Start: 06-26-2022 Office outpatient vi sit 25 minutes Baltazar Marc [facility] Surgery Start: 06-26-2022 End: 06-26-2022 ambulatory DO Medina Petznick Work Phone: [facility] Work Phone: Start: 06-26-2022 End: 06-26-2022 Patient encounter procedure DO Medina Petznick Work Phone: [facility] Start: 06-17-2022 End: 06-17-2022 ambulatory Jazlyn Cerda Other [facility] [employer] Other Start: 06-17-2022 Telephone encounter Jazlyn [facility] Start: 06-10-2022 End: 06-11-2022 ambulatory YUSRA CROWDER Facility: Start: 06-05-2022 End: 06-05-2022 ambulatory Medina Petznick Facility:[facility] Start: 06-05-2022 End: 06-05-2022 Admission to same day surgery center DO Medina Petznick Work Phone: [facility] Start: 06-05-2022 End: 06-05-2022 ambulatory DO Medina Petznick Work Phone: [facility] Work Phone: Start: 06-04-2022 End: 06-04-2022 ambulatory Baltazar Marc Other [email or web address] Other Start: 06-04-2022 Office outpatient ne w 60 minutes Baltazar Marc [facility] Vascular Surgery Start: 06-03-2022 End: 06-03-2022 Emergency department patient visit Medina Petznick Facility:[facility] Start: 06-03-2022 End: 06-03-2022 Emergency department patient visit DO Medina Petznick Work Phone: [facility] Start: 05-30-2022 End: 06-02-2022 [facility] Start: 05-30-2022 End: 06-01-2022 Subsequent hospital visit by physician Jeet Chester [facility] Comment on above: Peripheral vascular disease, unspecified (HCC) Start: 04-24-2022 End: 04-24-2022 ambulatory Medina Petznick Facility:[facility] Start: 04-24-2022 End: 04-24-2022 ambulatory DO Medina Petznick Work Phone: [facility] Work Phone: Start: 04-24-2022 End: 04-24-2022 Patient encounter procedure DO Medina Petznick Work Phone: [facility] [address] Start: 04-02-2022 End: 04-02-2022 Subsequent hospital visit by physician Medina Dumont Work Phone: [facility] Start: 01-20-2022 End: 01-20-2022 Subsequent hospital visit by physician Medina Dumnot Work Phone: [facility] Start: 09-10-2021 End: 09-10-2021 ambulatory Kana Yates Other [email or web address] Other Start: 09-10-2021 Office outpatient vi sit 15 minutes Kana Yates [facility] Start: 07-01-2021 End: 07-03-2021 Subsequent hospital visit by physician Jeet [facility] Comment on above: Arrived Start: 05-30-2021 End: 05-30-2021 Subsequent hospital visit by physician Roula Johnston PT Work Phone: [facility] Start: 05-01-2021 End: 05-01-2021 Subsequent hospital visit by physician Roula Johnston PT Work Phone: [facility] Comment on above: Arrived Start: 04-09-2021 Office outpatient vi sit 25 minutes Kana Yates [facility] Start: 12-26-2020 End: 12-26-2020 Subsequent hospital visit by physician Medina Dumont Work Phone: [facility] Start: 07-09-2020 End: 07-09-2020 Subsequent hospital visit by physician Medina Dumont [facility] Start: 06-05-2020 End: 06-05-2020 Subsequent hospital visit by physician [facility] Work Phone: [facility] Start: 04-29-2020 End: 04-29-2020 Emergency department patient visit Mark Villasenorv Work Phone: [facility] ED Comment on above: Acute left-sided low back pain with left-sided sciatica (Primary Dx); Effusion of left knee Start: 04-25-2020 End: 04-25-2020 Subsequent hospital visit by physician [facility] Work Phone: [facility] Start: 04-23-2020 End: 04-23-2020 Subsequent hospital visit by physician Eduardo Irving Work Phone: [facility] Comment on above: Arrived Start: 03-01-2020 End: 03-01-2020 Emergency department patient visit Mark Gainesitrov Work Phone: [facility] ED Comment on above: Focal seizure (HCC) (Primary Dx); Hyperglycemia Start: 12-22-2019 End: 12-22-2019 Subsequent hospital visit by physician Medina Dumont [facility] Start: 12-07-2019 End: 12-09-2019 Subsequent hospital visit by physician [facility] Mammography [facility] Comment on above: Visit for screening mammogram Start: 09-02-2019 End: 09-02-2019 Subsequent hospital visit by physician Ashanti Willingham [facility] Comment on above: Arrived Start: 08-25-2019 End: 08-25-2019 Subsequent hospital visit by physician Roula Johnston Work Phone: [facility] Start: 08-25-2019 End: 08-26-2019 Emergency department patient visit Connor Jones Work Phone: [facility] ED Comment on above: Non-intractable vomi ting with nausea, unspecified vomiting type (Primary Dx); Flu-like symptoms Start: 08-23-2019 End: 08-23-2019 Subsequent hospital visit by physician Roula Johnston Work Phone: [facility] Comment on above: Arrived Start: 08-18-2019 End: 08-18-2019 Subsequent hospital visit by physician Ashanti Willingham [facility] Start: 08-16-2019 End: 08-16-2019 Subsequent hospital visit by physician Medina Dumont [facility] Start: 08-16-2019 End: 08-16-2019 Subsequent hospital visit by physician Roula Johnston Work Phone: [facility] Comment on above: Arrived Start: 07-28-2019 End: 07-30-2019 Subsequent hospital visit by physician [facility] Comment on above: Neck pain Start: 07-19-2019 End: 07-21-2019 Subsequent hospital visit by physician [facility] Comment on above: Thoracic back pain, unspecified back pain laterality, unspecified chronicity Low back pain, unspe cified back pain laterality, unspecified chronicity, unspecified whether sciatica present Start: 07-04-2019 End: 07-04-2019 Subsequent hospital visit by physician Janice Yates PT [facility] Comment on above: Arrived Start: 06-30-2019 End: 06-30-2019 Subsequent hospital visit by physician Anika Dunlap [facility] Comment on above: Arrived Start: 06-27-2019 End: 06-27-2019 Subsequent hospital visit by physician Janice Yates PT [facility] Comment on above: Arrived Start: 06-14-2019 End: 06-14-2019 Subsequent hospital visit by physician Kenia Salamanca [facility] Start: 06-09-2019 End: 06-09-2019 Subsequent hospital visit by physician Kenia Salamanca [facility] Comment on above: Arrived Start: 06-07-2019 End: 06-07-2019 Subsequent hospital visit by physician Janice Yates PT [facility] Comment on above: Arrived Start: 05-30-2019 End: 05-30-2019 Subsequent hospital visit by physician Kenia Salamanca [facility] Comment on above: Arrived Start: 05-26-2019 End: 05-26-2019 Subsequent hospital visit by physician Anika Dunlap [facility] Physical Therapy Comment on above: Arrived Start: 05-23-2019 End: 05-23-2019 Subsequent hospital visit by physician Janice Yates [facility] Physical Therapy Comment on above: Arrived Start: 05-10-2019 End: 05-10-2019 Subsequent hospital visit by physician Medina Dumont [facility] Laboratory Start: 02-07-2019 End: 02-07-2019 Subsequent hospital visit by physician Medina Dumont [facility] Laboratory Procedures Date Procedure Procedure Detail Performing Clinician Start: 05-20-2023 Angiography of lower extremity arteries with serialography Joaquín Pugh Start: 04-07-2023 Placement of stent Joaquín De La Opavan Comment on above: Popliteal artery Start: 02-25-2023 Angiography of lower extremity arteries with serialography Joaquín Pugh Comment on above: 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 Start: 11-26-2022 Assay of lactate Zachariah Jones MD Work Phone: Start: 11-26-2022 Urinalysis microscop ic only Connor Jones MD Work Phone: Start: 11-26-2022 Urnls dip stick/tabl et rgnt auto w/o microscopy Connor Jones MD Work Phone: Start: 11-25-2022 Ct abdomen & pelvis w/contrast material Connor Jones MD Work Phone: Start: 11-25-2022 Comprehensive metabo lic panel Connor Jones MD Work Phone: Start: 11-03-2022 Screening mammograph y bi 2-view breast inc cad Medina Dumont Work Phone: Start: 09-18-2022 Ankle brachial press ure index DO Medina Dumont Work Phone: Start: 07-29-2022 Renal function panel Courtney Parmar MD Work Phone: Start: 07-29-2022 Urinalysis microscop ic only Debora Parmar MD Work Phone: Start: 07-29-2022 Urnls dip stick/tabl et rgnt auto w/o microscopy Debora Parmar MD Work Phone: Start: 06-26-2022 Ankle brachial press ure index DO Medina Dumont Work Phone: Start: 06-05-2022 IR Angiogram w/TLA/S tent Right Leg (Right) DO Medina Dumont Work Phone: Start: 06-03-2022 Plain chest X-ray DO Al clemente Dumont Work Phone: Start: 06-03-2022 End: 06-03-2022 X-ray of right foot DO Medina Dumont Work Phone: Start: 05-30-2022 Non-invasive physiol ogic study extremity 3 levls Connor Nixon DPM Work Phone: Start: 05-30-2022 Blood count complete auto&auto difrntl wbc Connor Nixon DPM Work Phone: Start: 04-24-2022 Plain X-ray of bilat eral hands DO Medina Dumont Work Phone: Start: 04-02-2022 Comprehensive metabo lic panel Medina Dumont Work Phone: Start: 04-02-2022 Lipid panel Medina Reynaick Work Phone: Start: 04-02-2022 Urine albumin quantitative Medina Reynaick Work Phone: Start: 01-20-2022 Renal function panel Courtney Parmar MD Work Phone: Start: 07-01-2021 Myocardial spect mul tiple studies Gabe Alicia MD Work Phone: Start: 12-26-2020 Urine albumin quantitative Medina Reynaick Work Phone: Start: 12-26-2020 Comprehensive metabo lic panel Medina Reynaick Work Phone: Start: 12-26-2020 Lipid panel Medina Jacob Dumont Work Phone: Start: 12-26-2020 PATIENT FASTING? Colemaniso jorge Dumont Work Phone: Start: 07-09-2020 Creatinine other source Topher Farnsworth Work Phone: Start: 07-09-2020 Protein total xcpt refractometry urine Topher Farnsworth Work Phone: Start: 07-09-2020 25 hydroxy includes fractions if performed Topher Farnsworth Work Phone: Start: 07-09-2020 Albumin serum plasma/whole blood Topher Farnsworth Work Phone: Start: 07-09-2020 Assay of parathormone J ackstawnya Farnsworth Work Phone: Start: 07-09-2020 Assay of phosphorus inorganic Topher Farnsworth Work Phone: Start: 07-09-2020 Assay of urea nitrog en quantitative Topher Farnsworth Work Phone: Start: 07-09-2020 Blood count hemoglobin Topher Farnsworth Work Phone: Start: 07-09-2020 Calcium total Topher ann Work Phone: Start: 07-09-2020 Electrolyte panel Jacks tawnya Farnsworth Work Phone: Start: 04-29-2020 Radiologic exam knee complete 4/more views Veselin Amina Work Phone: Start: 04-29-2020 Radex spine lumbosac ral minimum 4 views Veselin Amina Work Phone: Start: 04-29-2020 Radex sacrum & coccy x minimum 2 views Veselin Amina Work Phone: Start: 03-01-2020 Gluc bld gluc mntr d ev cleared fda spec home use Veselin Amina Work Phone: Start: 03-01-2020 Urnls dip stick/tabl et rgnt auto w/o microscopy Veselin Amina Work Phone: Start: 03-01-2020 Ct head/brain w/o contrast material Mark Gainesitrov Work Phone: Start: 03-01-2020 Blood count complete auto&auto difrntl wbc Mark Gainesitrov Work Phone: Start: 03-01-2020 Comprehensive metabo lic panel Kenelin Amina Work Phone: Start: 03-01-2020 End: 03-01-2020 Gluc bld gluc mntr dev cleared fda spec home use Mark Huynh Work Phone: Start: 12-22-2019 25 hydroxy includes fractions if performed Topher Farnsworth Work Phone: Start: 12-22-2019 Albumin serum plasma/whole blood Topher Farnsworth Work Phone: Start: 12-22-2019 Assay of parathormone J ackson Javad Work Phone: Start: 12-22-2019 Assay of phosphorus inorganic Topher Farnsworth Work Phone: Start: 12-22-2019 Assay of urea nitrog en quantitative Topher Farnsworth Work Phone: Start: 12-22-2019 Blood count hemoglobin Topher Farnsworth Work Phone: Start: 12-22-2019 Calcium total Topher ann Work Phone: Start: 12-22-2019 Electrolyte panel Jacks tawnya Farnsworth Work Phone: Start: 12-22-2019 Protein total xcpt refractometry urine Topher Farnsworth Work Phone: Start: 12-07-2019 Screening mammograph y bi 2-view breast inc cad Medina James Tessy Other Phone: Start: 12-07-2019 Blood count complete auto&auto difrntl wbc Medina Dumont Other Phone: Start: 12-07-2019 Comprehensive metabo lic panel Medina Reynaquincy Other Phone: Start: 12-07-2019 Lipid panel Medina James Tessy Other Phone: Start: 12-07-2019 Urine albumin quantitative Medina Dumont Other Phone: Start: 12-07-2019 25 hydroxy includes fractions if performed Topher Farnsworth Work Phone: Start: 12-07-2019 Albumin serum plasma/whole blood Topher Farnsworth Work Phone: Start: 12-07-2019 Assay of parathormone J bull Farnsworth Work Phone: Start: 12-07-2019 Assay of phosphorus inorganic Topher Farnsworth Work Phone: Start: 12-07-2019 Assay of urea nitrog en quantitative Topher Farnsworth Work Phone: Start: 12-07-2019 Blood count hemoglobin Topher Farnsworth Work Phone: Start: 12-07-2019 Calcium total Topher ann Work Phone: Start: 12-07-2019 Creatinine other source Topher Farnsworth Work Phone: Start: 12-07-2019 Electrolyte panel Jacks tawnya Farnsworth Work Phone: Start: 12-07-2019 Protein total xcpt refractometry urine Topher Farnsworth Work Phone: Start: 08-25-2019 Iaadiadoo influenza Chr shakira Jones Work Phone: Start: 08-25-2019 Gluc bld gluc mntr d ev cleared fda spec home use Connor Jones Work Phone: Start: 08-16-2019 25 hydroxy includes fractions if performed Topher Farnsworth Work Phone: Start: 08-16-2019 Albumin serum plasma/whole blood Topher Farnsworth Work Phone: Start: 08-16-2019 Assay of parathormone J bull Farnsworth Work Phone: Start: 08-16-2019 Assay of phosphorus inorganic Topher Farnsworth Work Phone: Start: 08-16-2019 Assay of urea nitrog en quantitative Topher Farnsworth Work Phone: Start: 08-16-2019 Blood count hemoglobin Topher Farnsworth Work Phone: Start: 08-16-2019 Calcium total Topher L iu Work Phone: Start: 08-16-2019 Electrolyte panel Jacks tawnya Farnsworth Work Phone: Start: 08-16-2019 Protein total xcpt refractometry urine Topher Farnsworth Work Phone: Start: 07-28-2019 Radex spine cervical 4 or 5 views Susie Sal Work Phone: Start: 07-19-2019 End: 07-19-2019 Radex spine thoracic 3 views Prieto Mcgowan MD Work Phone: Start: 05-10-2019 Urinalysis microscop ic only Medina Dumont Other Phone: Start: 05-10-2019 Urnls dip stick/tabl et rgnt auto w/o microscopy Medina Dumont Other Phone: Start: 02-07-2019 25 hydroxy includes fractions if performed Topher Farnsworth Work Phone: Start: 02-07-2019 Albumin serum plasma/whole blood Tophre Farnsworth Work Phone: Start: 02-07-2019 Assay of parathormone J ackstawnya Farnsworth Work Phone: Start: 02-07-2019 Assay of phosphorus inorganic Topher Farnsworth Work Phone: Start: 02-07-2019 Assay of urea nitrog en quantitative Topher Farnsworth Work Phone: Start: 02-07-2019 Blood count hemoglobin Topher Farnsworth Work Phone: Start: 02-07-2019 Calcium total Topher L iu Work Phone: Start: 02-07-2019 Creatinine other source Topher Farnsworth Work Phone: Start: 02-07-2019 Electrolyte panel Jacks tawnya Farnsworth Work Phone: Start: 02-07-2019 Protein total xcpt refractometry urine Topher Farnsworth Work Phone: Start: 09-04-2004 Guera moreno Work Phone: Appendectomy Nakul TORRES Decompression of med ivtet nerve Nakul TORRES Extraction of cataract Catherine TORRES Hysterectomy Nakul TORRES sinus surgery Nakul TORRES Tonsillectomy Nakul TORRES Plan of Treatment Date Care Activity Detail Author Start: 05-30-2023 Lipid panel Lipids [facility] [employer] Start: 04-02-2023 [facility]id panel [facility]ids [facility] Start: 06-05-2022 [facility] Start: 04-24-2022 [facility] Start: 02-20-2022 Influenza vaccination Flu vaccine (#1) [facility] [employer] Start: 01-20-2022 Influenza vaccination Flu vaccine (#1) [facility] Start: 12-26-2021 Creatinine measurement Creatinine monitoring [employer] Start: 12-26-2021 Lipid panel [employer] Start: 12-26-2021 Potassium monitoring Potassium monitoring [facility] Start: 12-06-2021 Screening for malignant neoplasm of breast [facility] [place] [facility] [place] Start: 07-19-2021 COVID-19 Vaccine (4 - Booster for Pfizer series) COVID-19 Vaccine (4 - Booster for Pfizer series) [facility] [employer] Start: 07-12-2021 End: 07-12-2021 Patient encounter procedure 07/12/2021 Appointment Physical Therapy Anika Dunlap [facility] Physical Therapy Start: 07-10-2021 End: 07-10-2021 Patient encounter procedure 07/10/2021 Appointment Physical Therapy Roula Johnston, PT [address] [place] [address] [facility] Physical Therapy Start: 07-09-2021 Creatinine measurement Creatinine monitoring [employer] [facility] [place], [place] Start: 07-09-2021 Potassium monitoring Potassium monitoring [facility] [place] Start: 07-04-2021 End: 07-04-2021 Patient encounter procedure 07/04/2021 Appointment Physical Therapy Roula Johnston, PT [address] [place] [address] [facility] Start: 06-10-2021 End: 06-10-2021 Patient encounter procedure 06/10/[address] [facility] Dexa Scan Start: 06-03-2021 End: 06-03-2021 Patient encounter procedure 06/03/2021 Appointment Physical Therapy Ashanti Willingham PTA [facility] Start: 06-03-2021 End: 06-03-2021 Patient encounter procedure 06/03/[address] [facility] Mammography Start: 05-14-2021 COVID-19 Vaccine (4 - Booster for Pfizer series) COVID-19 Vaccine (4 - Booster for Pfizer series) [facility] Start: 05-14-2021 End: 05-14-2021 Patient encounter procedure 05/14/2021 Appointment Physical Therapy Roula Johnston, PT [address] [place] [address] [facility] Start: 05-09-2021 End: 05-09-2021 Patient encounter procedure 05/09/2021 Appointment Physical Therapy Kenia Salamanca [facility] Start: 05-07-2021 End: 05-07-2021 Patient encounter procedure 05/07/2021 Appointment Physical Therapy Kenia Salamanca [facility] Start: 04-10-2021 Depression Screen Depression Screen [facility] [employer] Start: 03-01-2021 Creatinine measurement Creatinine monitoring [facility] [place], [place] Start: 03-01-2021 Potassium monitoring [facility] [place] Start: 02-20-2021 Influenza vaccination Flu vaccine (#1) [employer] Work Phone: Start: 12-21-2020 Creatinine measurement Creatinine monitoring [employer] [place] Start: 12-21-2020 Potassium monitoring [facility] [place] Start: 12-06-2020 Creatinine measurement Creatinine monitoring [facility] Start: 12-06-2020 Diabetic microalbuminuria test Diabetic microalbuminuria test [facility] Start: 12-06-2020 Lipid panel Lipid screen [facility] Start: 12-06-2020 Potassium monitoring Potassium monitoring [facility] Start: 08-16-2020 Creatinine measurement Creatinine monitoring [facility] [place] [facility] Start: 08-16-2020 Creatinine monitoring Creatinine monitoring [facility] [place] Start: 08-16-2020 Potassium monitoring Potassium monitoring [facility] Start: 07-13-2020 Breast cancer screen Breast cancer screen [place], [place] Start: 07-13-2020 Screening for malignant neoplasm of breast Breast cancer screen [place], [place] Start: 06-26-2020 End: 06-26-2020 Appointment 06/26/2020 Appointment Diabetes Services [facility] Diabetic Education Start: 05-03-2020 End: 05-03-2020 Appointment 05/03/2020 Appointment Diabetes Services [facility] Diabetic Education Start: 04-25-2020 End: 04-25-2020 Appointment 04/25/2020 Appointment Diabetes Services [facility] Diabetic Education Start: 03-29-2020 Creatinine monitoring Creatinine monitoring [facility] Start: 03-29-2020 Potassium monitoring Potassium monitoring [facility] Start: 02-21-2020 Influenza vaccination [facility] Start: 12-11-2019 Creatinine monitoring Creatinine monitoring [facility] Start: 12-11-2019 Potassium monitoring Potassium monitoring [facility] Start: 09-09-2019 End: 09-09-2019 Appointment 09/09/2019 Appointment Physical Therapy Roula Johnston, PT [address] [place] [address] [phone] [facility] Start: 09-05-2019 End: 09-05-2019 Appointment 09/05/2019 Appointment Physical Therapy Ashanti Willingham PTA [facility] Physical Therapy Start: 09-02-2019 End: 09-02-2019 Appointment 09/02/2019 Appointment Physical Therapy Ashanti Willingham PTA [facility] Physical Therapy Start: 08-31-2019 End: 08-31-2019 Appointment 08/31/2019 Appointment Physical Therapy Roula Johnston, PT [address] [place] [address] [phone] [facility] Start: 08-26-2019 End: 08-26-2019 Appointment 08/26/2019 Appointment Physical Therapy Ashanti Willingham PTA [facility] Start: 08-25-2019 End: 08-25-2019 Appointment 08/25/2019 Appointment Physical Therapy Roula Johnston, PT [address] [place] [address] [phone] [facility] Start: 08-25-2019 Lipid panel Lipid screen [facility] [place] Start: 08-25-2019 Lipid screen Lipid screen [facility], [place] Start: 08-23-2019 End: 08-23-2019 Appointment 08/23/2019 Appointment Physical Therapy Roula Johnston, PT [address] [place] [address] [phone] [facility] Start: 08-18-2019 End: 08-18-2019 Appointment 08/18/2019 Appointment Physical Therapy Ashanti Willingham PTA [facility] Start: 07-04-2019 End: 07-04-2019 Patient encounter procedure 07/04/2019 Appointment Physical Therapy Janice Yates, PT [facility] Start: 06-30-2019 End: 06-30-2019 Patient encounter procedure 06/30/2019 Appointment Physical Therapy Anika Dunlap [facility] Start: 06-27-2019 End: 06-27-2019 Patient encounter procedure 06/27/2019 Appointment Physical Therapy Janice Yates, PT [facility] Start: 06-14-2019 End: 06-14-2019 Patient encounter procedure 06/14/2019 Appointment Physical Therapy Janice Yates, PT [facility] Start: 06-09-2019 End: 06-09-2019 Patient encounter procedure 06/09/2019 Appointment Physical Therapy Anika Dunlap [facility] Start: 06-07-2019 End: 06-07-2019 Patient encounter procedure 06/07/2019 Appointment Physical Therapy Janice Yates, PT [facility] Start: 06-02-2019 End: 06-02-2019 Appointment [facility] Physical Therapy Start: 05-30-2019 End: 05-30-2019 Appointment 05/30/2019 Appointment Physical Therapy Anika Dunlap [facility] Physical Therapy Start: 05-26-2019 End: 05-26-2019 Appointment 05/26/2019 Appointment Physical Therapy Anika Dunlap [facility] Physical Therapy Start: 05-13-2019 End: 05-13-2019 Appointment 05/13/2019 Appointment Physical Therapy Janice Yates, PT [facility] Physical Therapy Start: 02-20-2019 Influenza vaccination Flu vaccine (#1) [place], [place] Start: 12-11-2018 Annual Wellness Visit (AWV) Annual Wellness Visit (AWV) [facility] Start: 05-10-2015 A1C test (Diabetic or Prediabetic) A1C test (Diabetic or Prediabetic) [place] Start: 05-10-2015 HbA1c (Bld) [Mass fraction] A1C test (Diabetic or Prediabetic) [place] Start: 05-10-2015 Hemoglobin A1c measurement A1C test (Diabetic or Prediabetic) [facility] Start: 09-04-2014 Colon cancer screen colonoscopy Colon cancer screen colonoscopy [place], [place] Start: 09-04-2014 Screening for malignant neoplasm of colon [facility] Start: 03-15-2014 [object Object] Diabetic foot exam [place] Start: 03-15-2014 Diabetic foot examination Diabetic foot exam [facility] Start: 04-21-2012 Pneumococcal 65+ years Vaccine (2 of 2 - PCV13) Pneumococcal 65+ years Vaccine (2 of 2 - PCV13) [place] Start: 2011 DEXA (modify frequency per FRAX score) DEXA (modify frequency per FRAX score) [place] Start: 2009 Annual Wellness Visit (AWV) Annual Wellness Visit (AWV) [place] Start: 2001 Screening for osteoporosis DEXA (modify frequency per FRAX score) [facility] Start: 1996 Shingles Vaccine (1 of 2) Shingles Vaccine (1 of 2) [facility] Start: 1991 Screening for malignant neoplasm of colon [facility] Start: 1965 DTaP/Tdap/Td vaccine (1 - Tdap) DTaP/Tdap/Td vaccine (1 - Tdap) [facility] Start: 1965 Hepatitis B vaccine (1 of 3 - Risk 3-dose series) Hepatitis B vaccine (1 of 3 - Risk 3-dose series) [employer] Phone: Start: 1964 Diabetic retinal exam Diabetic retinal exam [facility] Start: 1958 COVID-19 Vaccine (1) COVID-19 Vaccine (1) [facility] Phone: Start: 1958 Depression Screen Depression Screen [facility] [employer] Start: 1957 DTaP/Tdap/Td vaccine (1 - Tdap) DTaP/Tdap/Td vaccine (1 - Tdap) [place], [place] Start: 1956 Diabetic retinal exam Diabetic retinal exam [facility] [employer] Start: 1946 Annual Wellness Visit (AWV) Annual Wellness Visit (AWV) [facility] End: 05-10-2019 Bacteria identified Cx Nom (U) Urine Culture Microbiology Routine Once for 1 Occurrences starting 05/10/2019 until 05/10/2019 [place] Comment on above: Once for 1 Occurrences starting 05/10/20 until 05/10/2019 Bacteria identified Cx Nom (U) Urine Culture Microbiology Routine 05/10/2019 10:55 AM EST [place] End: 11-26-2022 Blood Culture 1 Blood Culture 1 Microbiology STAT One Time for 1 Occurrences starting 11/26/2022 until 11/26/2022 [facility] [employer] Phone: Comment on above: One Time for 1 Occurrences starting 12/2022 until 11/26/2022 Blood Culture 1 Blood Culture 1 Microbiology STAT 11/26/2022 12:30 AM EDT [facility] [employer] Phone: End: 03-01-2020 COVID-19, PCR COVID-19, PCR Lab Routine One Time for 1 Occurrences starting 03/01/2020 until 03/01/2020 [place] Comment on above: One Time for 1 Occurrences starting 02/20 until 03/01/2020 End: 11-26-2022 Culture, Blood 2 Culture, Blood 2 Microbiology STAT One Time for 1 Occurrences starting 11/26/2022 until 11/26/2022 [employer] Work Phone: Comment on above: One Time for 1 Occurrences starting 12/2022 until 11/26/2022 Culture, Blood 2 Culture, Blood 2 Microbiology Stat [employer] Label print 11/26/2022 12:40 AM EDT [employer] Work Phone: End: 07-29-2022 Culture, Urine [employer] Work Phone: Comment on above: Once for 1 Occurrences starting 07/29/19 until 07/29/2022 End: 11-26-2022 Culture, Urine Culture, Urine Microbiology Routine Once for 1 Occurrences starting 11/26/2022 until 11/26/2022 [employer] Work Phone: Comment on above: Once for 1 Occurrences starting 11/27/19 until 11/26/2022 Culture, Urine Culture, Urine Microbiology Routine 11/26/2022 12:05 AM EDT [employer] Work Phone: End: 12-07-2019 Ferritin [Mass/Vol] Ferritin Lab Routine Once for 1 Occurrences starting 12/07/2019 until 12/07/2019 [facility] above: Once for 1 Occurrences starting 12/07/19 until 12/07/2019 Ferritin [Mass/Vol] Ferritin Lab Routine 12/07/2019 11:17 AM EDT [facility] Homogenous nuclear A b pattern [Titer] in [facility] Work Phone: End: 12-07-2019 Iron and TIBC Iron and TIBC Lab Routine Once for 1 Occurrences starting 12/07/2019 until 12/07/2019 [facility] Comment on above: Once for 1 Occurrences starting 12/07/19 20 until 12/07/2019 Iron and TIBC Iron and TIBC La b Routine 12/07/2019 11:17 AM EDT [employer] Nuclear Ab [Titer] i n Serum [facility] Work Phone: Patient Education [facility] Work Phone: Patient referral [facility] Work Phone: End: 07-29-2022 PTH, Intact BON [employer] Work Phone: Comment on above: Once for 1 Occurrences starting 07/29/19 23 until 07/29/2022 End: 12-07-2019 Vitamin D 25 Hydroxy Vitamin D 25 Hydroxy Lab Routine Once for 1 Occurrences starting 12/07/2019 until 12/07/2019 [employer] Comment on above: Once for 1 Occurrences starting 12/07/19 20 until 12/07/2019 Vitamin D 25 Hydroxy Vitamin D 2 5 Hydroxy Lab Routine 12/07/2019 11:17 AM EDT [employer] [place] End: 07-29-2022 Vitamin D 25 Hydroxy BON [employer] Work Phone: Comment on above: Once for 1 Occurrences starting 07/29/19 23 until 07/29/2022 XR KNEE LEFT (MIN 4 VIEWS) XR KNEE LEFT (MIN 4 VIEWS) Imaging STAT 04/29/2020 9:30 AM EST [employer] [place] XR LUMBAR SPINE (MIN 4 VIEWS) XR LUMBAR SPINE (MIN 4 VIEWS) Imaging STAT 04/29/2020 9:30 AM EST [employer] [place] XR SACRUM COCCYX (ME N 2 VIEWS) XR SACRUM COCCYX (MIN 2 VIEWS) Imaging STAT 04/29/2020 9:30 AM EST [employer] Immunizations Immunization Date Immunization Notes Care Provider Sharon madison 03-22-2017 influenza, injectable,quadrivale nt, preservative free, pediatric Kana Yates Other [email or web address] Other 04-04-2016 influenza, injectable,quadrivale nt, preservative free, pediatric Kana Yates Other [email or web address] Other 04-22-2014 pneumococcal polysaccharide vaccine, 23 valent Kana Yates Other [email or web address] Other 04-20-2014 influenza virus vaccine, unspecified formulation [facility], [place] 04-25-2013 influenza virus vaccine, unspecified formulation [facility], [place] 04-22-2012 influenza virus vaccine, unspecified formulation [facility] 04-21-2011 pneumococcal polysaccharide vaccine, 23 valent [facility] NEGATED: Highlighted row has not occurred!03-11-2023 influenza virus vaccine, unspecified formulation Joaquín Pugh [facility] Payers Date Payer Category Payer Self-pay [id number] 2014 Medicare MEDICARE MEDICAR E PART A AND B xxxxxxxxxxx 2014-Present [phone] [address] [address] [place] [address] xxxxxxxxxxx [id number] 2014 Private Health Insurance HUMANA HUMANA (PPO) xxxxxxxxx 2014-Present [address] [address] [place] [address] xxxxxxxxx [id number] 1959 Medicare [id number] .[id number] 1959 Private Health Insurance [id number] [id number] .7.3.114469.315 1946 Unknown [id number] 2.16.840.1.480246.3.579.2 .593 1946 Unknown [id number] 2.16.840.1.969716.3.579.2 .593 1946 Unknown [id number] 2.16.840.1.700346.3.579.2 .593 1946 Unknown [id number] 2.16.840.1.496954.3.579.2 .593 1946 Unknown [id number] 2.16.840.1.619979.3.579.2 .593 1946 Unknown [id number] 2.16.840.1.332021.3.579.2 .593 1946 Unknown [id number] 2.16.840.1.093348.3.579.2 .593 1946 Unknown [id number] 2.16.840.1.713011.3.579.2 .593 1946 Unknown [id number] 2.16.840.1.417556.3.579.2 .593 1946 Unknown [id number] 2.16.840.1.747715.3.579.2 .173 1946 Unknown [id number] 2.16.840.1.288327.3.579.2 .1259 1946 Unknown [id number] 2.16.840.1.120553.3.579.2 .727 1946 Unknown [id number] 2.16.840.1.953325.3.579.2 .727 1946 Unknown [id number] 2.16.840.1.216502.3.579.2 .727 1946 Unknown [id number] 2.16.840.1.114867.3.579.2 .727 1946 Unknown [id number] 2.16.840.1.494901.3.579.2 .727 1946 Unknown [id number] 2.16.840.1.534406.3.579.2 .727 1946 Unknown [id number] 2.16.840.1.943114.3.579.2 .727 1946 Unknown [id number] 2.16.840.1.537778.3.579.2 .727 1946 Unknown [id number] 2.16.840.1.816964.3.579.2 .727 1946 Unknown [id number] 2.16.840.1.860781.3.579.2 .727 1946 Unknown [id number] 2.16.840.1.108801.3.579.2 .727 1946 Unknown [id number] 2.16.840.1.533084.3.579.2 .727 1946 Unknown [id number] 2.16.840.1.226666.3.579.2 .727 1946 Unknown [id number] 2.16.840.1.971720.3.579.2 .174 1946 Unknown [id number] 2.16.840.1.420358.3.579.2 .174 1946 Unknown [id number] 2.16.840.1.590186.3.579.2 .174 1946 Unknown [id number] 2.16.840.1.761508.3.579.2 .174 1946 Unknown [id number] 2.16.840.1.777533.3.579.2 .174 1946 Unknown [id number] 2.16.840.1.625295.3.579.2 .174 1946 Unknown [id number] 2.16.840.1.742843.3.579.2 .174 1946 Unknown [id number] 2.16.840.1.745279.3.579.2 .174 1946 Unknown [id number] 2.16.840.1.124503.3.579.2 .174 1946 Unknown [id number] 2.16.840.1.315168.3.579.2 .174 1946 Unknown [id number] 2.16.840.1.547251.3.579.2 .174 Unknown [id number] 2.16.840.1.877647.3.579.2 .531 Unknown [id number] 2.16.840.1.138233.3.579.2 .531 Unknown [id number] 2.16.840.1.440348.3.579.2 .531 Unknown [id number] 2.16.840.1.347701.3.579.2 .531 Unknown [id number] 2.16.840.1.129873.3.579.2 .531 Unknown [id number] 2.16.840.1.851649.3.579.2 .531 Social History Date Type Detail Facility Start: 10-03-2018 End: 03-11-2023 Tobacco smoking status NHIS Never smoker [facility] Start: 10-03-2018 Alcohol intake No [facility] Start: 1945 Sex Assigned At Not on file [place] Start: 03-29-2019 End: 11-25-2022 Alcohol intake Current non-drinker of alcohol (finding) [place], [place] Start: 10-03-2018 End: 03-01-2020 Tobacco use and exposure Never used [place] Exposure to SARS-CoV -2 (event) Not sure [place] Start: 1945 Sex Assigned At Female F [facility] Tobacco smoking status No Smokin g Status Entered [facility] Tobacco smoking status Never [facility] Medical Equipment Procedure Code Equipment Code Equipment Origin al Text Equipment Identifier Dates [id number] Start: 10-27-2012 Use to inject insulin per sliding scale [id number] Start: 07-21-2011 Test blood sugar twice daily and as needed [id number] 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 Unknown 03/22 01/11 Unknown Right Popliteal Artery/Vein FDA Start: 04-07-2023 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 Unknown 03/22 01/11 Unknown Right Popliteal Artery/Vein FDA Start: 04-07-2023 Functional Status Date Assessment Result Facility 05-20-2023 Functional Status No [facility] 04-07-2023 Functional Status N/A [facility] 03-11-2023 Functional Status No [facility] 12-08-2022 Functional Status No [facility] Clinical Notes 05-30-2019 to 05-21-2023 Note Date & Type Note Facility 05-21-2023 Note [id number] 32#1.00TIFF [facility] 05-20-2023 Note Procedure Left lower extremity angio poss 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 Patient seen and examined. The risk/benefits of the procedure were thoroughly discussed with patient including specific attention to lack of onsite surgical backup and risk of [place] covid, and the patient agrees to proceed. Airway Assessment: Class I: Visualization of the soft palate, fauces, uvula, anterior and posterior pillars Airway Abnormalities: none ASA Classification: ASA 1: A normal healthy patient Risks/Benefits of IV Sedation: Have been explained IV Sedation Plan: Patient agrees to IV sedation plan [facility] Comment on above: Result Comment: Elec tronically Signed By: Melecio POTTER, Joaquín Chirinos\.br\Date and Time Signed: 05/20/23 20:18 EST 05-20-2023 Hospital Discharge instructions Patient Education 05/20/2023 10:58:29 Angiogram, Care After, [id number] Angiogram, Care After This sheet gives you information about how to care for yourself after your procedure. Your doctor may also give you more specific instructions. If you have problems or questions, contact your doctor. What can I expect after the procedure? After the procedure, it is common to have these problems at the point where the catheter was inserted: Bruising. Tenderness. A collection of blood (hematoma). This may feel like a small lump under the skin at the insertion site. Follow these instructions at home: Insertion site care Follow instructions from your doctor about how to take care of the area where the catheter was inserted. Make sure you: ?Wash your hands with soap and water before you change your bandage (dressing). If you cannot use soap and water, use hand welt slasher. ?Change your bandage as told by your doctor. Do not take baths, swim, or use a hot tub until your doctor says it is okay. You may shower 24 48 hours after the procedure, or as told by your doctor. To clean the area: ?Gently wash the area with plain soap and water. ?Pat the area dry with a clean towel. ?Do not rub the area. This may cause bleeding. Check your insertion area every day for signs of infection. Check for: ?Redness, swelling, or pain. ?Fluid or blood. ?Warmth. ?Pus or a bad smell. Do not apply powder or lotion to the area. Keep the area clean and dry. Activity Do not drive for 24 hours if you were given a medicine to help you relax (sedative). Rest as told by your doctor, usually for 1 2 days. Do not lift anything that is heavier than 10 lbs. (4.5 kg) or as told by your doctor. If your insertion site was in your leg, try to avoid stairs for a few days. Return to your normal activities as told by your doctor. Ask your doctor what activities are safe for you. General instructions If the insertion area starts to bleed, lie flat and put pressure on the area. If the bleeding does not stop, get help right away. This is an emergency. Take noav-brj-etgmzup and prescription medicines only as told by your doctor. Drink enough fluid to keep your pee (urine) pale yellow. Keep all follow-up visits as told by your doctor. This is important. Contact a doctor if: You have a fever. You have chills. You have redness, swelling, or pain around your insertion area. You have fluid or blood coming from your insertion area. The insertion area feels warm to the touch. You have pus or a bad smell coming from your insertion area. You have more bruising around the insertion area. Get help right away if: You have a lot of pain in the insertion area. The insertion area swells very fast. The insertion area is bleeding, and the bleeding does not stop after you hold steady pressure on the area. The area around the insertion area becomes pale, cool, tingly, or numb. You have chest pain. You have trouble breathing. You have a rash. You have any signs of a stroke. BE FAST is an easy way to remember the main warning signs: ?B - Balance. Signs are dizziness, sudden trouble walking, or loss of balance. ?E - Eyes. Signs are trouble seeing or a change in how you see. ?F - Face. Signs are sudden weakness or loss of feeling of the face, or the face or eyelid drooping on one side. ?A - Arms. Signs are weakness or loss of feeling in an arm. This happens suddenly and usually on one side of the body. ?S - Speech. Signs are sudden trouble speaking, slurred speech, or trouble understanding what people say. ?T - Time. Time to call emergency services. Write down what time symptoms started. You have other signs of a stroke, such as: ?A sudden, very bad headache with no known cause. ?Feeling like you may vomit (nausea). ?Vomiting. ?A seizure. These symptoms may be an emergency. Do not wait to see if the symptoms will go away. Get medical help right away. Call your local emergency services (911 in the [place] Do not drive yourself to the hospital. Summary After the procedure, it is common to have bruising and tenderness at the insertion area. Do not take baths, swim, or use a hot tub until your doctor says it is okay to do so. You may shower 24 48 hours after the procedure or as told by your doctor. It is important to rest and drink plenty of fluids. If the insertion area starts to bleed, lie flat and put pressure on the area. If the bleeding does not stop, get help right away. This is an emergency. This information is not intended to replace advice given to you by your health care provider. Make sure you discuss any questions you have with your health care provider. Document Revised: 04/11/2020 Document Reviewed: 04/11/2020 [employer] Patient Education 2022 [employer] 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 The risk/benefits of the procedure were thoroughly discussed with patient including specific attention to lack of onsite surgical backup and risk of [place] covid, and the patient agrees to proceed. Airway Assessment: Class I: Visualization of the soft palate, fauces, uvula, anterior and posterior pillars Airway Abnormalities: none ASA Classification: ASA 2: Mild systemic disease Risks/Benefits of IV Sedation: Have been explained IV Sedation Plan: Patient agrees to IV sedation plan [facility] Comment on above: Result Comment: Elec tronically Signed By: Melecio POTTER, Joaquín Chirinos\.br\Date and Time Signed: 04/15/23 13:58 EDT 04-08-2023 Note [id number] [facility] 04-07-2023 Hospital Discharge instructions Patient Education 04/07/2023 10:41:15 CV - Cardiovascular PCI Discharge Instructions (Custom) [place], [place] Cardiovascular PCI DISCHARGE INSTRUCTIONS Diet: Resume pre-procedure diet. Increase water intake the next 2 days to flush dye out of the body. Activity: If groin access: Limit activity today. Do not operate a vehicle, machinery or power tools. NO LIFTING OVER 10 POUNDS (a gallon of milk weighs 8 pounds) for 3 days. Limit climbing stairs, bending, squatting and stooping for 3 days. May resume driving in 24 hours. Let pain/discomfort guide your activity. If you are having pain, stop. No sexual activity for 1 week. Return to the Emergency Room if you have trouble breathing, walking or nausea and vomiting. Medications: Resume pre-procedure medication, unless otherwise directed. Hold the following medications for 48 hours post procedure: Actoplus MetGlucophageGlucophage XR GlucovanceAvandametFortamet Tvu-ttusrokbhIujqbvBjfp-kolybencd GlumetzaJanumetMetaglip RiometGlycomet Minimal pain, soreness and/or discomfort is expected. If you are prescribed an aspirin and/or antiplatelet (such as Plavix, Brilinta or Effient) do NOT stop taking these medications for any reason without talking to your editor farm journal Site Care: Do not remove dressing for 24 hours unless it becomes saturated, then replace. Keep site clean and dry; inspect site daily. Do not use any lotions, powders, or ointments at the groin or wrist site for 1 week. May shower 24 hours after the procedure. Clean site with soap and water. Pat dry and apply band aid. No tub baths, swimming or hot tubs for 3 days. Post Procedure: Soreness and tenderness to the site can last up to one week. Bruising may occur to site. A responsible adult should be with you for the first 24 hours after you arrive home. Keep follow-up appointment. Carry your stent card with you at all times. This provides information about your heart disease for any doctor who cares for you. No smoking for 24 hours as it increases the risk of developing blood clots. If you are interested in smoking cessation, contact [facility] at [phone], ext. [phone]. In the event you are unable to reach your physician, please call [facility] at [phone] and the screen printing machine operator will assist you. Seek Medicare Care for: Bleeding: Apply continuous pressure to the site and Call 911. Should the arm or leg become cold, numb, blue or white call your physician immediately. 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 The risk/benefits of the procedure were thoroughly discussed with patient including specific attention to lack of onsite surgical backup and risk of [place] covid, and the patient agrees to proceed. Airway Assessment: Class I: Visualization of the soft palate, fauces, uvula, anterior and posterior pillars Airway Abnormalities: none ASA Classification: ASA 2: Mild systemic disease Risks/Benefits of IV Sedation: Have been explained IV Sedation Plan: Patient agrees to IV sedation plan [facility] Comment on above: Result Comment: Elec tronically Signed By: Melecio POTTER, Joaquín Chirinos\.br\Date and Time Signed: 03/01/23 07:32 EDT 02-26-2023 Note [id number] [facility] 09-18-2022 Evaluation note Encounter Date Diagnosis Assessment Notes Aug, PAD (periphera l artery disease) (ICD-10 - I73.9) Patient's ANDREINA in the right lower extremity is 1. She has excellent waveforms. She is on the right medications. I am very pleased with her care. She narrowly avoided amputation of her right leg. I will see her back in 3 months with a checkup of her blood supply to her right foot. [email or web address] Other 03-30-2023 NotePROCEDURE: XR FOOT RT MIN 3 VIEWS COMPARISON: None. HISTORY: Pain in right foot FINDINGS: BONES:No acute fracture or dislocation. Severe degenerative changes of the first metatarsal-phalangeal joint with siie-jp-yhqq articulation. Moderate plantar enthesopathic spurring of the calcaneus SOFT TISSUES:Negative. No visible soft tissue swelling. EFFUSION:None visible. OTHER: Intensive vascular calcifications IMPRESSION: Severe osteoarthritis first metatarsal phalangeal joint Electronically authenticated by: JENNY PANG Date: 2022-09-18 08:04[facility] [place] Evaluation note* Encounter Date Diagnosis Assessment Notes Treatment Notes Treatment Clinical Notes Aug, Right foot pain (ICD-10 - M79.671) We discussed treatment options for the patient's persistent right foot pain. 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 Unfortunately, recent opioids have not provided any relief and have caused severe constipation. As such she agress there is no point in continueing opioid medications. She is requesting other medication options, we discussed trialing Naltrexone titrated up to 4.5 mg daily, which can be successful for severe neuropathy and other similar pain, it was explained that this may provide some relief. Risks and side effects of this medication was discussed in detail with the patient who voiced understanding. We will follow up with her in three weeks, sooner if needed. Aug, Toe gangrene (ICD-10 - I96) Aug, Other chronic pain (ICD-10 - G89.29) Aug, Other Above note writ ten by Barb Obando LPN, Sales Agent Insurance. Edited and approved by Dr. Kana Yates MD. [employer] Other 02-22-2023 History of Present illness Narrative* Jancie Yates, PT - 08/13/2022 10:15 AM EST Images from the original note were not included. [facility] Outpatient Physical Therapy Evaluation Date: 08/13/2022 Patient: Chloe Meza : 1945 Referring Provider (secondary): Dr. Marc Diagnosis: R foot pain, generalized weakness Treatment Diagnosis: R foot and toe pain, generalized weakness, difficult ambulation Onset Date: 05/30/22 PT Insurance Information: [employer] Total # of Visits Approved: 10 Per Physician Order Total # of Visits to Date: 1 Subjective Additional Pertinent Hx: Patient has 4 ulcers/ wounds on R foot. Tried pain meds but meds kept making her vomit. Only taking extra strength tylenol. Toes red/ discolored and swollen toes. Pain 9-10/10 in R toes. Patient c/o pain in both buttocks. Unable to put shoe on foot due to pain. Patient c/o pain in pubic area since had vein proceedure that went through groin. Patient depended on children to do everything at home. Can't drive. Walks with cane and limp. Hasn't slept through night since May 2022. Hx- diabetes, stage 3 kidney failure, back pain, shld surgery, B carpal tunnel surgery, hysterectomy, HBP, obesity, peripheral vascular disease. Pain Assessment Pain Level: 9 Pain Location: Foot, Toe (Comment which one) Social/Functional History Occupation: Retired Objective Strength RLE Strength RLE: Exception R Hip Flexion: 4-/5 R Hip ABduction: 4/5 R Hip ADduction: 4+/5 R Knee Flexion: 4+/5 R Knee Extension: 4/5 R Ankle Dorsiflexion: 3+/5 R Great Toe Extension: 0/5 R Toe Extension: 2/5 AROM RLE (degrees) RLE AROM: Exceptions R Hip External Rotation (0-45): WFL R Ankle Dorsiflexion (0-20): 5 R Ankle Plantar Flexion (0-45): 35 R Ankle Forefoot Inversion (0-40): 20 R Ankle Forefoot Eversion (0-20): 10 AROM LLE (degrees) LLE AROM : WFL AROM RLE (degrees) RLE AROM: Exceptions R Hip External Rotation (0-45): WFL R Ankle Dorsiflexion (0-20): 5 R Ankle Plantar Flexion (0-45): 35 R Ankle Forefoot Inversion (0-40): 20 R Ankle Forefoot Eversion (0-20): 10 AROM LLE (degrees) LLE AROM : WFL Additional Measures Special Tests: LEFS score 21/80 WB Status: Patient ambulating with cane and limp Assessment Body Structures, Functions, Activity Limitations Requiring Skilled Therapeutic Intervention: Decreased functional mobility , Decreased ROM, Decreased strength, Increased pain, Decreased balance Assessment: Patient presents with neuropathy, 9-10/10 pain constant in R toes and foot. Patient requested therapist not to touch her toes due to pain. Patient has minimal AROM in R toes. Educated patient on and issued HEP handout. Educated patient on gait training to use cane in left hand verse right hand. Plan for therex, HEP; patient wanted to wait until Dr approved POC before scheduling further PT. Therapy Prognosis: Fair Clinical Presentation: Unstable/Unpredictable The Following Comorbities will impact the patient s progression and Plan of Care: Diabetes, Obesity, Previous Orthopedic Injury/Surgery, and Neuropathy High Complexity Education: On POC and HEP [employer] Access Code [email or web address] Goals Short Term Goals Time Frame for Short Term Goals: 8 Short Term Goal 1: Patient to be independent with HEP Short Term Goal 2: Increase strength R ankle Df 4+/5 Short Term Goal 3: Increase strength R hip flexion 4+/5 Thermoforming Operator Goals Time Frame for Thermoforming Operator Goals : 10 Thermoforming Operator Goal 1: Patient to ambulate with heel to toe gait pattern independently Nursing Home Goal 2: Improve functional mobility with LEFS score >40/80 Patient's Goal: Patient wants less pain in R foot/toes and to have improved strength in R LE to walk normal again Timed Code Treatment Minutes: 5 Minutes Total Treatment Time: 45 Time In: 10:05 Time Out: 10:50 Janice Yates, PT Date: 08/13/2022 [facility] Work Phone: [phone]) 749-125302-15-2023 Hospital Discharge instructions Follow Up Care 08/06/2022 14:08:02 With:MELISSA POTTER, Nakul Clark, URL Address: [facility] [address], [place] [address]- When: Unknown [facility] 01-16-2023 Evaluation note* Encounter Date Diagnosis Assessment Notes Treatment Notes Treatment Clinical Notes Jun, PAD (peripheral artery disease) (ICD-10 - I73.9) Patient underwent recent endovascular intervention and continues to suffer from postoperative pain in relation to her PAD. She did have recent visit to the emergency department where they gave her a small amount of Cotter. Patient calls today saying her pain continues and she is requesting additional Cotter for use at bedtime. OARRS was checked, small amount of pain medication was sent to her pharmacy. Jun, Post-op pain (ICD-10 - G89.18) [email or web address] Other 01-05-2023 Evaluation note* Encounter Date Diagnosis Assessment Notes Treatment Notes Treatment Clinical Notes Jun, PAD (peripheral artery disease) (ICD-10 - I73.9) This patient is recovering from [place] acute ischemic right foot with rest pain. She has had nerve injury due to the lack of blood supply to her right foot. This is going to take many weeks to recover from. She has had a traumatic ischemic injury to the right forefoot. Her blood supply now is near normal. We will have to give her additional pain medicine with stool softeners to get her through this. I spent much time giving specific instructions on how to take the pain medicine. I gave a prescription electronically to her pharmacy. I instructed her not to drive and family should be with her at all times. She understands agrees the plan of her questions were answered we will see her back in 1 month. 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 She is at high risk for amputation of the leg. I am concerned that she has a palpable pedal pulse at the dorsalis pedis location with ischemia distally. This implies severe pedal disease. This is likely due to the microvascular disease affected by diabetes. I suggest we perform an angiogram on this patient tomorrow for diagnostic and therapeutic purposes. Our goal will be to improve the blood supply to the right foot and heal the wound. The risks and benefits were explained as well as medical surgical alternatives. We will plan for this tomorrow. We will also plan on using carbon dioxide gas due to her chronic renal insufficiency. We will access her via the contralateral groin and use the commander. This was thoroughly explained to the patient and her family present today in the room I spent at least 25 minutes in this room today. [email or web address] Other 03-22-2022 Evaluation note* Encounter Date Diagnosis Assessment Notes Treatment Notes Treatment Clinical Notes Aug, Arthritis of lumbosacral spine (ICD-10 - M47.817) Despite multiple pain issues, the patient does believe that her pain is reasonably controlled and certainly improved overall Aug, Rib pain (ICD-10 - R07.81) We discussed treatment options for the patient's persistent left rib pain. She has failed multiple conservative measures. We discussed with patient obtaining a TENS unit to apply to the area. Patient also informed on use of OTC lidocaine patches to apply to the area as well. In the future if the pain persists, it may be worth repeating an intercostal nerve block. We discussed with patient continuing with current Lyrica medication as prescribed. Aug, Left knee pain (ICD-10 - M25.562) Aug, DDD (degenerative disc disease), lumbar (ICD-10 - M51.36) Aug, Other chronic pain (ICD-10 - G89.29) Aug, Other Above note writ ten by Barb Obando LPN, Sales Agent Insurance. Edited and approved by Dr. Kana Yates MD. [employer] Other 12-09-2021 History of Present illness Narrative* Anika Vergara - 05/30/2021 10:30 AM EST [facility] Date: 05/30/2021 Patient Name: Chloe Meza : 1945 Pt Cancelled Appt due to Illness Anika Vergara Date: 05/30/2021 [facility] Phone: 1(400) 267-869611-10-2021 History of Present illness Narrative* Roula Johnston, PT - 05/01/2021 9:00 AM EST Images from the original note were not included. [facility] Outpatient [facility] Therapy Evaluation Date: 05/01/2021 Patient: Chloe Meza : 1945 Referring Practitioner: Medina Dumont DO Referral Date : 01/29/21 Diagnosis: Lumbago Treatment Diagnosis: Lumbar pain; falls, dizziness Onset Date: 01/29/21 PT Insurance Information: MCR Per Physician Order Total # of Visits to Date: 1 No Show: 0 Canceled Appointment: 0 Subjective Additional Pertinent Hx: Patient reports multiple falls since December 2020 related to dizziness, LE weakness, and decreased balance. She also notes low back pain. Worst pain in the morning until moving around. Also with sit to stand transfers. Patient states she has been so sore she hasn't been able to start therapy sooner. Ambulates primarily without device but may take cane if on uneven surfaces. No recent diagnostic testing of lumbar region. She denies headaches or cervical pain; also notes no dizziness when lying down. Oswestry =16/45. 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 She is limitedmildly by LBP or dizziness Objective Vision Vision: Within Functional Limits Hearing Hearing: Within functional limits Observation/Palpation Posture: Fair Palpation: Minimal tenderness of LS region however tightness noted of paraspinals. Mild tightness of SCM left > right Spine Cervical: WFL; limitd with full rotation noted when driving/turning Lumbar: Forward flex to touch toes without discomfort; mild discomfort with left SB but intermittent when completed Strength RLE Strength RLE: WFL Comment: Generally 4+/5 with MMT AROM RLE (degrees) RLE AROM: WFL Strength LLE Strength LLE: WFL Comment: Generally 4+/5 with MMT AROM LLE (degrees) LLE AROM : WFL AROM RLE (degrees) RLE AROM: WFL AROM LLE (degrees) LLE AROM : WFL PROM LLE (degrees) LLE PROM: WFL LLE General PROM: Mild tightness hip IR/ER and HS PROM RLE (degrees) RLE PROM: WFL RLE General PROM: Mild tightness of hip IR/ER and HS Assessment Assessment: Patient presents with mulitple recent falls since December 2020 due to dizziness but also notes lumbar pain which limits her functonal mobility and safety. Patient would benefit from PT to address stretching, strengthening and balance activities as well as education on home program. Prognosis: Good Decision Making: Medium Complexity Exam: Oswestry = 16/45 Clinical Presentation: Evolving The Following Comorbities will impact the patient s progression and Plan of Care: Diabetes and Previous Orthopedic Injury/Surgery Activity Tolerance: Patient Tolerated treatment well Education: PT POC; Issued written HEP for figure 4, piriformis and HS 90 stretch Goals Short term goals Time Frame for Short term goals: 5 visits Short term goal 1: Educate on home program of hip and neck stretching ex to improve functional mobility shelter goals Time Frame for shelter goals : 16 visits resistance brazer goal 1: Subjective reduction in episodes of dizziness by > 75% to reduce falls risk resistance brazer goal 2: Subjective lumbar pain rated < 5/10 in morning with improved ability to ambulate without use of assistive device resistance brazer goal 3: LE strength and balance WFL to complete sit to stand and 8 inch step ups without UE assist Patient's Goal: Not fall; Improved back pain in morning Timed Code Treatment Minutes: 0 Minutes Total Treatment Time: 50 Time In: 904 Time Out: 09 ROULA JOHNSTON PT Date: 05/01/2021 [facility] Phone: [phone]) 658-697210-19-2021 Evaluation note* Encounter Date Diagnosis Assessment Notes Treatment Notes Treatment Clinical Notes Mar, Arthritis of lumbosacral spine (ICD-10 - M47.817) We discussed considering lumbar facet medial branch nerve blocks vs radiofrequency ablations should the intercostal nerve block provide no relief. Mar, Compression fracture of L1 lumbar vertebra (ICD-10 - S32.010A) Patient notes minimal complaints of left rib pain at this time. She attributes this to recent intercostal nerve blocks. We will proceed with future injections as needed. In the meantime, patient will obtain a TENS unit to apply to the area. Patient was encouraged to continue with physical therapy. We will follow up with the patient in three months, sooner if needed. Overall, patient believes their pain is reasonably well controlled and she is in agreement with our treatment plan. Mar, Left knee pain (ICD-10 - M25.562) Mar, DDD (degenerative disc disease), lumbar (ICD-10 - M51.36) Mar, Other chronic pain (ICD-10 - G89.29) Mar, Other Above note writ ten by Devonte Mata MA, Sales Agent Insurance. Edited and approved by Dr. Kana Yates MD. [email or web address] Other 01-13-2020 History of Present illness Narrative* Janice Yates, PT - 07/04/2019 11:15 AM EST [facility] Outpatient Physical Therapy Daily Note Date: 07/04/2019 Patient Name: Chloe Meza : 1945 (74 y.o.) Referring Practitioner: Dr.Joshua Mcgowan and Dr. Kristine Dumont Referral Date : 05/09/19 Diagnosis: Back pain with radiculopathy; M48.062, M54.16, G89.29 Treatment Diagnosis: Back pain Onset Date: 05/09/19(Referral) PT Insurance Information: [employer], [employer] Total # of Visits Approved: 10 Per Physician Order Total # of Visits to Date: 10 Canceled Appointment: 2 Plan of Care/Certification Expiration Date: 07/04/19 Pre-Treatment Pain: 4/10 Assessment Assessment: Pain 4/10 back ; denies radicular pain into legs. Strength B hip flexion 4+/5. Main c/ostanding limited due to increase pain, but walking is doing much better per patient. Oswestry score7/45. Patient independent with HEP and reports compliance. Patient reports falling on library stairs last week, but denies injury. Advised patient to use cane to help with balance and follow up with Dr if decrease balance/ fall happens again. Chart Reviewed: Yes Plan Plan: Discharge Exercises/Modalities/Manual: See DocFlow Sheet Education: Goals (Total # of Visits to Date: 10) Short Term Goals - Time Frame for Short term goals: 8 Short term goal 1: Patient to be independent with HEP-Met Short term goal 2: Decrease pain low back and right leg 5/10 at worst x3 days-Met Short term goal 3: Increase strength right hip flexion 4+/5-MET Thermoforming Operator Goals - Time Frame for shelter goals : 10 resistance brazer goal 1: Decrease pain low back and right leg 3/10 at worst x3 days-Not Met shelter goal 2: Patient to be able to walk and stand without pain interfering- Not Met shelter goal 3: Improve functional mobility with Oswestry score < 11/45-Met Post Treatment Pain: 3/10 Time In: 11:15 Time Out : 12:00 Timed Code Treatment Minutes: 45 Minutes Total Treatment Time: 45 Minutes Janice Yates, PT Date: 07/04/2019 [facility]: [phone]) 959-236301-13-2020 Hospital course Narrative* Janice Yates, PT - 07/04/2019 11:15 AM EST [facility] Outpatient Physical Therapy Discharge Summary Patient: Chloe Meza : 1945 Referring Practitioner: Dr.Joshua Mcgowan and Dr. Kristine Dumont Diagnosis: Back pain with radiculopathy; M48.062, M54.16, G89.29 Date Treatment Initiated: 05/23/19 Date of Last Treatment: 07/04/2019 PT Visit Information Onset Date: 05/09/19(Referral) PT Insurance Information: [facility], [employer] Total # of Visits Approved: 10 Total # of Visits to Date: 10 Plan of Care/Certification Expiration Date: 07/04/19 Canceled Appointment: 2 Frequency/Duration Days: 2 times per week Weeks: 5 weeks Treatment Received Patient Education/HEP, Back Education, Therapeutic Exercise, Manual Therapy: Myofacial Release/Cupping and Manual Therapy: Mobilization/Manipulation Pain Level: 4 Assessment Assessment: Pain 4/10 back ; denies radicular pain into legs. Strength B hip flexion 4+/5. Main c/ostanding limited due to increase pain, but walking is doing much better per patient. Oswestry score7/45. Patient independent with HEP and reports compliance. Patient reports falling on library stairs last week, but denies injury. Advised patient to use cane to help with balance and follow up with Dr if decrease balance/ fall happens again. Ambulation 1 Quality of Gait: kyphotic posture, slowed gait, shotyened strides Reason for Discharge Completion of Prescribed visits and Optimal Function Achieved Comments: Thank you for this referral Janice Yates Date: 07/04/2019 [facility] Phone: [phone] 940-106601-09-2020 History of Present illness Narrative* Anika Dunlap Vinny - 06/30/2019 11:15 AM EST [facility] Outpatient Physical Therapy Daily Note Date: 06/30/2019 Patient Name: Chloe Meza : 1945 (74 y.o.) Referring Practitioner: Dr.Joshua Mcgowan Referral Date : 05/09/19 Diagnosis: Back pain with radiculopathy; M48.062, M54.16, G89.29 Treatment Diagnosis: Back pain Onset Date: 05/09/19(Referral) PT Insurance Information: [employer], [employer] Total # of Visits Approved: 10 Per Physician Order Total # of Visits to Date: 9 No Show: 0 Canceled Appointment: 2 Plan of Care/Certification Expiration Date: 07/04/19 Pre-Treatment Pain: 09/29 Assessment Assessment: Pt reports she fell yesterday at the library trying to walk down3 steps with her hands full therefore no handrail. She fell onto her right side. Notes soreness but no significant injury. She notes she has fallen numerous time on stairs as well as from dizziness and reaching to the floor. She also states she may be suffering from depression. Advised pt to let her Dr know about all these symptoms. Continued today with ex and manual therapy . Anticipate DC next visit and will notify Drof pts symptoms in DC report. 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 Phone: [phone] 395-735501-06-2020 History of Present illness Narrative* Janice Yates, PT - 06/27/2019 11:15 AM EST [facility] Outpatient Physical Therapy Daily Note Date: 06/27/2019 Patient Name: Chloe Meza : 1945 (74 y.o.) Referring Practitioner: Dr.Joshua Mcgowan Referral Date : 05/09/19 Diagnosis: Back pain with radiculopathy; M48.062, M54.16, G89.29 Treatment Diagnosis: Back pain Onset Date: 05/09/19(Referral) PT Insurance Information: [employer], [employer] Total # of Visits Approved: 10 Per Physician Order Total # of Visits to Date: 8 Canceled Appointment: 2 Plan of Care/Certification Expiration Date: 07/04/19 Pre-Treatment Pain: 3 Assessment Assessment: Patient reports missed PT due to weather and holidays, but would like to resume PT to finish her 10 visits prior to her follow up with Dr. Domínguez 08/29 tailbone/ low back area over past week. Denies numbness/ radicular symptoms in legs. Strength hip flexion R 4+/5, abd 4+/5. Continue per plan x2 visits. Chart Reviewed: Yes Plan Plan: Continue with current plan Exercises/Modalities/Manual: See DocFlow Sheet Education: Goals (Total # of Visits to Date: 8) Short Term Goals - Time Frame for Short term goals: 8 Short term goal 1: Patient to be independent with HEP-Met Short term goal 2: Decrease pain low back and right leg 5/10 at worst x3 days-Met Short term goal 3: Increase strength right hip flexion 4+/5-MET Nursing Home Goals - Time Frame for resistance brazer goals : 10 shelter goal 1: Decrease pain low back and right leg 3/10 at worst x3 days resistance brazer goal 2: Patient to be able to walk and stand without pain interfering shelter goal 3: Improve functional mobility with Oswestry score < 11/45 Post Treatment Pain: 1/10 Time In: 11;15 Time Out : 12:00 Timed Code Treatment Minutes: 45 Minutes Total Treatment Time: 45 Minutes Janice Yates, PT Date: 06/27/2019 [facility]: [phone] 497-172712-24-2019 History of Present illness Narrative* Anika Vergara - 06/14/2019 9:45 AM EST [facility] Date: 06/14/2019 Patient Name: Chloe Meza : 1945 Pt Cancelled Appt due to FOG Anika Vergara Date: 06/14/2019 [facility]: [phone] 973-471212-19-2019 History of Present illness Narrative* Kenia Salamanca - 06/09/2019 10:15 AM EST [facility] Outpatient Physical Therapy Daily Note Date: 06/09/2019 Patient Name: Chloe Meza : 1945 (74 y.o.) Referring Practitioner: Dr.Joshua Mcgowan Referral Date : 05/09/19 Diagnosis: Back pain with radiculopathy; M48.062, M54.16, G89.29 Treatment Diagnosis: Back pain Onset Date: 05/09/19(Referral) PT Insurance Information: [employer] Total # of Visits Approved: 10 Per Physician Order Total # of Visits to Date: 7 No Show: 0 Canceled Appointment: 1 Plan of Care/Certification Expiration Date: 06/27/19 Pre-Treatment Pain: 2/10 Assessment Assessment: Pain in her back today is 2/10. States her knees are better but now R is slightly swelled and currently not huring due to just sitting to drive. Able to complete standing exercises today without difficulty. Chart Reviewed: Yes Plan Plan: Continue with current plan Exercises/Modalities/Manual: See DocFlow Sheet Education: Goals (Total # of Visits to Date: 7) Short Term Goals - Time Frame for Short term goals: 8 Short term goal 1: Patient to be independent with HEP-Met Short term goal 2: Decrease pain low back and right leg 5/10 at worst x3 days-Met Short term goal 3: Increase strength right hip flexion 4+/5 Nursing Home Goals - Time Frame for resistance brazer goals : 10 resistance brazer goal 1: Decrease pain low back and right leg 3/10 at worst x3 days shelter goal 2: Patient to be able to walk and stand without pain interfering resistance brazer goal 3: Improve functional mobility with Oswestry score < 11/45 Post Treatment Pain: 0/10 Time In: 1015 Time Out : 1100 Timed Code Treatment Minutes: 45 Minutes Total Treatment Time: 45 Minutes Shabnam Serna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 Date: 06/09/2019 [facility] Phone: [phone] History of Present illness Narrative* Janice Yates PT - 06/07/2019 10:15 AM EST [facility] Outpatient Physical Therapy Daily Note Date: 06/07/2019 Patient Name: Chloe Meza : 1945 (74 y.o.) Referring Practitioner: Dr.Joshua Mcgowan Referral Date : 05/09/19 Diagnosis: Back pain with radiculopathy; M48.062, M54.16, G89.29 Treatment Diagnosis: Back pain Onset Date: 05/09/19(Referral) PT Insurance Information: Scott [employer] Total # of Visits Approved: 10 Per Physician Order Total # of Visits to Date: 6 Plan of Care/Certification Expiration Date: 06/27/19 Pre-Treatment Pain: 3/10 back; 6/10 left knee Assessment Assessment: Patient walking into PT with mild limp favoring left leg. Patient reports fell in houseyesterday when reaching firward and landed on left knee hard. Pain left knee 6/10 today. Mild swelling in left knee. Back pain 2-3/10, overall back doing much better. Reviewed HEP, patient demonstrates correctly and reports compliance. Held standing exercises due to c/o knee pain; did left knee distraction mob in sitting and advise patient to apply ice pack to knee 15 min 3-4 times a day for a couple days. Chart Reviewed: Yes Plan Plan: Continue with current plan Exercises/Modalities/Manual: See DocFlow Sheet Education: Goals (Total # of Visits to Date: 6) Short Term Goals - Time Frame for Short term goals: 8 Short term goal 1: Patient to be independent with HEP-Met Short term goal 2: Decrease pain low back and right leg 5/10 at worst x3 days-Met Short term goal 3: Increase strength right hip flexion 4+/5 Nursing Home Goals - Time Frame for resistance brazer goals : 10 shelter goal 1: Decrease pain low back and right leg 3/10 at worst x3 days resistance brazer goal 2: Patient to be able to walk and stand without pain interfering resistance brazer goal 3: Improve functional mobility with Oswestry score < 11/45 Post Treatment Pain: 1/10- back; 4/10 left knee Time In: 10:20 Time Out : 11:00 Timed Code Treatment Minutes: 40 Minutes Total Treatment Time: 40 Minutes Janice Yates PT Date: 06/07/2019 [facility] Phone: [phone] History of Present illness Narrative* Hener, Kenia S - 05/30/2019 10:30 AM EST [facility] Outpatient Physical Therapy Daily Note Date: 05/30/2019 Patient Name: Chloe Meza : 1945 (74 y.o.) Referring Practitioner: Dr.Joshua Mcgowan Referral Date : 05/09/19 Diagnosis: Back pain with radiculopathy; M48.062, M54.16, G89.29 Treatment Diagnosis: Back pain Onset Date: 05/09/19(Referral) PT Insurance Information: [facility], [employer] Total # of Visits Approved: 10 Per Physician Order Total # of Visits to Date: 4 No Show: 0 Canceled Appointment: 1 Plan of Care/Certification Expiration Date: 06/27/19 Pre-Treatment Pain: 4/10 Assessment Assessment: Pain prior to session 09/29. Reports having pain over the weekend as high as 8/10. C/o pain and tightness in her neck over the weekend. Continued with exercise and manual as stated above with good tolerance. Continue. Chart Reviewed: Yes Plan Plan: Continue with current plan Exercises/Modalities/Manual: See DocFlow Sheet Education: Goals (Total # of Visits to Date: 4) Short Term Goals - Time Frame for Short term goals: 8 Short term goal 1: Patient to be independent with HEP Short term goal 2: Decrease pain low back and right leg 5/10 at worst x3 days Short term goal 3: Increase strength right hip flexion 4+/5 Nursing Home Goals - Time Frame for resistance brazer goals : 10 shelter goal 1: Decrease pain low back and right leg 3/10 at worst x3 days shelter goal 2: Patient to be able to walk and stand without pain interfering shelter goal 3: Improve functional mobility with Oswestry score < 11/45 Post Treatment Pain: 1-2/10 Time In: 1026 Time Out : 1112 Timed Code Treatment Minutes: 46 Minutes Total Treatment Time: 46 Minutes Kenia Salamanca,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 Date: 05/30/2019 documented in this [facility] [employer] Work Phone: evaluation + Plan note No data available for this section [facility] evaluation + Plan note Future Appointments Appointment Date:12/08/2022 11:30:00 AM Scheduled Provider:Ramone Nair [facility] Future Appointments Appointment Date:04/07/2023 03:15:00 PM Scheduled Provider:Joaquín Pugh [facility] Type:[facility] Future Appointments Appointment Date:04/07/2023 08:00:00 AM Scheduled Provider: [facility]:CV Angiogram (FT) Appointment Date:04/21/2023 03:15:00 PM Scheduled Provider:Joaquín Pugh MD [facility] Type:Cardiology Follow Up (FT) Future Scheduled Tests Radiology* CV Peripheralvascular [facility]07/23 [facility] Future Appointments Appointment Date:04/21/2023 03:15:00 PM Scheduled Provider:Joaquín Pugh MD [facility] Type:Cardiology [facility] ([facility] + Plan note Future Appointments Appointment Date:07/21/2023 11:00:00 AM Scheduled Provider:Joaquín Pugh MD [facility] Type:Cardiology Follow Up (FT) Future Scheduled Tests Laboratory* Basic Metabolic Panel 04/23/23 * CBC w/ Auto Diff 04/23/23 [facility]* Diagnosis Thoracic back pain, unspecified back pain laterality, unspecified chronicity documented in this encounter [facility] [employer] Work Phone: [email or web address] note* Diagnosis Low back pain, unspecified back pain laterality, unspecified chronicity, unspecified whether sciatica present documented in this encounter [facility] [employer] Work Phone: [email or web address] noteNo assessment information available [facility] Work Phone: Evaluation note* Diagnosis Peripheral vascular disease, unspecified (HCC) Peripheral vascular disease, unspecified documented in this encounter [employer] Phone: [facility] [employer] Other Evaluation note* Diagnosis Encounter for screening mammogram for malignant neoplasm of breast Other screening mammogram documented in this encounter [employer] Phone: evalifigeo note* Diagnosis Infectious colitis- Primary Infectious colitis, enteritis, and gastroenteritis Symptoms of dehydration History of colitis History of diabetes mellitus Personal history of other endocrine, metabolic, and immunity disorders Acute cystitis with hematuria Acute cystitis Elevated alkaline phosphatase level Other nonspecific abnormal serum enzyme levels documented in this encounter [employer] Phone: Hisyhad general Narrative - Reported* Type Description Date Medical History 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 Medical History Pure hypercholesterolemia Medical History Essential hypertension Medical History Stage III chronic kidney disease Medical History Bilateral cataracts Medical History Anxiety Medical History Gastroesophageal reflux disease without esophagitis Medical History Polyneuropathy associated with u nderlying disease Medical History Presence of intraocular lens Medical History Restless leg syndrome Medical History Anxiety Medical History Primary insomnia Medical History Tendonitis of left rotator cuff Medical History Vitamin D deficiency Surgical History Procedure:Tonsillectomy 1956 Surgical History Procedure:Appendectomy 1958 Surgical History Procedure:Hysterectomy 1977 Surgical History Procedure:sinus sx 1997 Surgical History Procedure:Carpal tunnel release 1998 Surgical History Procedure:Cataract extraction 2 008 Hospitalization History see sx history [facility] [employer] Other Hisxgcv general Narrative - Reported* Type Description Date Medical History 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 Medical History Pure hypercholesterolemia Medical History Essential hypertension Medical History Stage III chronic kidney disease Medical History Bilateral cataracts Medical History Anxiety Medical History Gastroesophageal reflux disease without esophagitis Medical History Polyneuropathy associated with u nderlying disease Medical History Presence of intraocular lens Medical History Restless leg syndrome Medical History Anxiety Medical History Primary insomnia Medical History Tendonitis of left rotator cuff Medical History Vitamin D deficiency Surgical History Procedure:Tonsillectomy 1956 Surgical History Procedure:Appendectomy 1958 Surgical History Procedure:Hysterectomy 1977 Surgical History Procedure:sinus sx 1997 Surgical History Procedure:Carpal tunnel release 1998 Surgical History Procedure:Cataract extraction 2 008 Surgical History shoulder arthroscopy LEFT Hospitalization History see sx history [facility] [employer] Other Hospital Discharge instructions Additional Instructions Return for new or worsening symptoms [facility]: Hospital Discharge instructions No data available for this section [facility] No data available for this section [facility] reason for visit NarrativeReferral update - pain managementNortJefferson Hospital [employer] Other Advance Directives No Advanced Directives Records FoundDocuments on File Type Date Recorded 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 Advance Directives and Living Will Power of Heat Treat Puller Latest Code Status on File Code Status Date Activated Date Inactivated Comments Full Code 11/27/2013 7:57 PM 12/02/2013 1:44 PM Documents on File Type Date Recorded 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 Advance Directives and Living Will Power of Heat Treat Puller Latest Code Status on File Code Status Date Activated Date Inactivated Comments Full Code 11/27/2013 7:57 PM 12/02/2013 1:44 PM Documents on File Type Date Recorded 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 ACP-Advance Directive ACP-Power of Heat Treat Puller Documents on File Type Date Recorded 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 ACP-Advance Directive ACP-Power of Heat Treat Puller Advance Directive Response Recorded Date/ Time Advance Directives No July 16, 2017 12:25pm Advance Directive Response Recorded Date/ Time Advance Directives No July 16, 2017 11:25am Latest Code Status on File Code Status Date Activated Date Inactivated Comments Full Code 11/27/2013 7:57 PM 12/02/2013 1:44 PM Latest Code Status on File Code Status Date Activated Date Inactivated Comments Full Code 11/27/2013 7:57 PM 12/02/2013 1:44 PM History of Present Illness * Janice Yates, PT - 05/23/2019 9:45 AM EST [facility] Therapy Evaluation Date: 05/23/2019 Patient: Chloe Jo Derrick : 1945 Referring Practitioner: Dr.Joshua Mcgowan Referral Date : 05/09/19 Diagnosis: Back pain with radiculopathy; M48.062, M54.16, G89.29 Treatment Diagnosis: Back pain Onset Date: 05/09/19(Referral) PT Insurance Information: [employer] Total # of Visits Approved: 10 Per Physician Order Total # of Visits to Date: 2 Canceled Appointment: 1 Subjective Additional Pertinent Hx: Deysi reports gradual onset of pain in back and tailbone for over 5 years. Has gone to chiropractor off and on for many years, was there a couple weeks ago. Pain radiates down right leg with numbness in thigh and burning pain in calf. Also c/o restless legs syndrome . Meds- lyrica, extra strength tylenol. 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 Xray-DDD/DJD back. Pain 08/01- 01/29. Being on feet standing and walking pain increases up to 01/29. C/o pain in Bilateral calfs. Pain Screening Patient Currently in Pain: Yes Pain Assessment Pain Assessment: 0-10 Pain Level: 8 Pain Location: Back, Leg Pain Orientation: Right Social/Functional History Lives With: Alone Type of Home: House Occupation: Retired Objective Spine Lumbar: 25% limited all planes Joint Mobility Spine: kyphosis, tightness/ stiffness throughout spine, but worse mid thoracic Strength RLE Strength RLE: Exception R Hip Flexion: 4-/5 R Hip ABduction: 4-/5 R Hip ADduction: 4/5 R Knee Flexion: 4/5 R Knee Extension: 4-/5 R Ankle Dorsiflexion: 4-/5 Strength LLE Strength LLE: WFL AROM LLE (degrees) LLE AROM : WFL AROM LLE (degrees) LLE AROM : WFL PROM LLE (degrees) LLE PROM: WFL PROM RLE (degrees) RLE General PROM: SLR limited by pain 25% Additional Measures Special Tests: positive SLR Right Ambulation 1 Quality of Gait: kyphotic posture, slowed gait, shotyened strides Assessment Body structures, Functions, Activity limitations: Decreased functional mobility , Decreased ROM, Decreased strength, Increased pain, Decreased posture Assessment: Patient with hx of chronic back pain, diabetes and strat of neuropathy. Patient c/o back pain radiates down right leg which makes it difficult to stand and walk more than 10 minutes. Educated patient on and issued HEP handout. Manual Therapy per Doc Flow. Prognosis: Good Decision Making: High Complexity History: complex Exam: Oswestry score16/45 Clinical Presentation: Evolving The Following Comorbities will impact the patient s progression and Plan of Care: Diabetes, Obesity, Previous Orthopedic Injury/Surgery and Neuropathy Education: On POC and HEP handout Goals Short term goals Time Frame for Short term goals: 8 Short term goal 1: Patient to be independent with HEP Short term goal 2: Decrease pain low back and right leg 5/10 at worst x3 days Short term goal 3: Increase strength right hip flexion 4+/5 resistance brazer goals Time Frame for resistance brazer goals : 10 resistance brazer goal 1: Decrease pain low back and right leg 3/10 at worst x3 days shelter goal 2: Patient to be able to walk and stand without pain interfering shelter goal 3: Improve functional mobility with Oswestry score < 11/45 Patient's Goal: Decrease pain back and right leg to walk better Timed Code Treatment Minutes: 15 Minutes Total Treatment Time: 45 Time In: 9:50 Time Out: 10:35 Janice Yates PT Date: 05/23/2019 documented in this encounter* Anika Dunlap - 05/26/2019 10:15 AM EST [facility] Outpatient Physical Therapy Daily Note Date: 05/26/2019 Patient Name: Chloe Meza : 1945 (74 y.o.) Referring Practitioner: Dr.Joshua Mcgowan Referral Date : 05/09/19 Diagnosis: Back pain with radiculopathy; M48.062, M54.16, G89.29 Treatment Diagnosis: Back pain Onset Date: 05/09/19(Referral) PT Insurance Information: HYACINTH, Delmy Total # of Visits Approved: 10 Per Physician Order Total # of Visits to Date: 3 No Show: 0 Canceled Appointment: 1 Plan of Care/Certification Expiration Date: 06/27/19 Pre-Treatment Pain: 0/10 Assessment Assessment: Pt denies pain at time of appt as she has been sitting. Initiated ex/manual therapy as outlined. Good hannah to sessioln. Chart Reviewed: Yes Plan Plan: Continue with current plan Exercises/Modalities/Manual: See DocFlow Sheet Goals (Total # of Visits to Date: 3) Short Term Goals - Time Frame for Short term goals: 8 Short term goal 1: Patient to be independent with HEP Short term goal 2: Decrease pain low back and right leg 5/10 at worst x3 days Short term goal 3: Increase strength right hip flexion 4+/5 Thermoforming Operator Goals - Time Frame for resistance brazer goals : 10 resistance brazer goal 1: Decrease pain low back and right leg 3/10 at worst x3 days shelter goal 2: Patient to be able to walk and stand without pain interfering resistance brazer goal 3: Improve functional mobility with Oswestry score < 11/45 Post Treatment Pain: 0/10 Time In: 1015 Time Out : 1100 Timed Code Treatment Minutes: 45 Minutes Total Treatment Time: 45 Minutes Anika Dunlap 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 Date: 05/26/2019 documented in this encounter* Roula Johnston PT - 08/16/2019 9:15 AM EST [facility] Outpatient Physical Therapy Evaluation Date: 08/16/2019 Patient: Chloe Meza : 1945 Referring Practitioner: Medina AGUIAR Referral Date : 08/01/19 Diagnosis: Cervical spondylosis Treatment Diagnosis: Cervical pain Onset Date: 08/01/19 PT Insurance Information: MCR Per Physician Order Total # of Visits to Date: 1 No Show: 0 Canceled Appointment: 0 Subjective Additional Pertinent Hx: Deysi reports falling down library steps approx 1 month ago sustaining injury to her upper back/neck. She reports bilateral cervical pain with limited mobility as well as difficulty raising arms due to upper back pain. She denies headaches or radicular UE pain. Her discomfort is present primarily with activity and does not note sleep deprivation. X-rays reveal DJD/DDD. Oswestry =17. 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 Leisure & Hobbies: Enjoys making sewing/cutting out stars for [employer] Objective Vision Vision: Within Functional Limits Hearing Hearing: Within functional limits Observation/Palpation Posture: Fair Palpation: Moderate tenderness right SCM > left; bilateral UT left > right Spine Cervical: Limited 25% bilateral rotation due to lower cervical discomfort; extension limited 50% while flexion is WFL Joint Mobility Spine: kyphosis, tightness/ stiffness throughout spine, but worse mid thoracic Strength RLE Strength RLE: WFL Strength LLE Strength LLE: WFL AROM RUE (degrees) RUE AROM : Exceptions R Shoulder Flexion 0-180: Able to flex overhead to 130 deg without discomfort AROM LUE (degrees) LUE AROM : Exceptions L Shoulder Flexion 0-180: Active flexion to 80 deg without discomfort ; able to achieve 120 deg flexion with discomfort Additional Measures Special Tests: DTRS symetrical and intact C5 and C6 Assessment Assessment: Patient presents with cervical tightness/discomfort which limits ability to reach overhead or complete daily and leisure tasks Prognosis: Good Decision Making: Low Complexity Exam: Oswestry = Clinical Presentation: Stable/Uncomplicated The Following Comorbities will impact the patient s progression and Plan of Care: Diabetes, Obesity and Previous Orthopedic Injury/Surgery Activity Tolerance: Patient Tolerated treatment well Education: PT POC; Chin tucks and postural awareness Goals Short term goals Time Frame for Short term goals: 5 visits Short term goal 1: Educate on home program of postural awareness and cervical stretches shelter goals Time Frame for shelter goals : 10 visits - expires 10/11/19 shelter goal 1: Upgrade home program for postural strengthening shelter goal 2: decrease subjective cervical/upper thoracic pain to <2/10 with daily tasks shelter goal 3: Oswestry improvement to <13/50 shelter goal 4: UE flexion/mobility overhead to complete hair care and self- care without discomfort Patient's Goal: Decrease neck pain and be able to raise arms and do crafting Timed Code Treatment Minutes: 0 Minutes Total Treatment Time: 50 Time In: 0915 Time Out: 1005 ROULA JOHNSTON PT Date: 08/16/2019 documented in this encounter* Roula Johnston, PT - 08/23/2019 10:15 AM EST [facility] Outpatient Physical Therapy Daily Note Date: 08/23/2019 Patient Name: Chloe Meza : 1945 (74 y.o.) Referring Practitioner: Medina AGUIAR Referral Date : 08/01/19 Diagnosis: Cervical spondylosis Treatment Diagnosis: Cervical pain Onset Date: 08/01/19 PT Insurance Information: MCR Per Physician Order Total # of Visits to Date: 2 No Show: 0 Canceled Appointment: 1 Plan of Care/Certification Expiration Date: 10/11/19 Pre-Treatment Pain: 3-4/10 Assessment Assessment: Patient reprots good pain reduction for several days after initial visit. Cervical painrated 3-4/10 with upper thoracic and limited left shoulder pain to complete functional self-care activities. Educated on tband postural strengthening ex and doorway stretch. Manual therapy to cervical region to addres muscular tightness. Active ROM left shoulder improved post treatment to reach overhead to touch top of head. Progress wit postural awarness/strengthening and manual to address cervical and UE restrictions Chart Reviewed: Yes Plan Plan: Continue with current plan Exercises/Modalities/Manual: See DocFlow Sheet Education: HEP of postural strengthening with orange tband - shld ext with scap retraction and alsodoorway stretch. Goals (Total # of Visits to Date: 2) Short Term Goals - Time Frame for Short term goals: 5 visits Short term goal 1: Educate on home program of postural awareness and cervical stretches Thermoforming Operator Goals - Time Frame for resistance brazer goals : 10 visits - expires 10/11/19 resistance brazer goal 1: Upgrade home program for postural strengthening shelter goal 2: decrease subjective cervical/upper thoracic pain to <2/10 with daily tasks resistance brazer goal 3: Oswestry improvement to <13/50 resistance brazer goal 4: UE flexion/mobility overhead to complete hair care and self- care without discomfort Post Treatment Pain: 08/29 Time In: 1015 Time Out : 1100 Timed Code Treatment Minutes: 40 Minutes Total Treatment Time: 45 Minutes ROULA OJHNSTON, PT Date: 08/23/2019 documented in this encounter* Roula Johnston, PT - 08/25/2019 2:45 PM EST [facility] Date: 08/25/2019 Patient Name: Chloe Meza : 1945 Pt No Showed Appt- Called patient regarding missed appt. Patient states she is not feeling well andforgot about her scheduled appt. Reminded patient next appt 08/31/19 @ 945. ROULA JOHNSTON, PT Date: 08/25/2019 documented in this encounter* Lexi Gutierres - 09/02/2019 10:30 AM EDT [facility] Date: 08/30/2019 Patient Name: Chloe Meza : 1945 Pt Cancelled Appt due to Illness Lexi Gutierres Date: 08/30/2019 documented in this encounter* Eduardo Irving RD, LD - 04/23/2020 10:00 AM EST MNT provided for Diabetes Inappropriate intake of types of carbohydrates related to Food and nutrition- related knowledge deficit as evidenced by Food/nutrition history-report or observation of: inconsistent carbohydrate use. Client data Ht: 63 Wt: 193# BMI: 34.2 (obese I) Weight changes: 199.# in office CBW: 87.5 kg BMR: 1442 calories Est. total calorie needs: ~1400 Client overall goal for weight is for losses towards a healthier BMI. Current eating pattern includes 3 well timed meals, but inconsistent in use of carbohydrate. She is not currently measuring portions, nor reading food labels for foods, and states she did better after diabetes education years ago(2012). Use of whole grains, whole fruits and vegetables appear lower than recommended quantities. She keeps food diaries, but doesn't list portions. She also reports regular hypoglycemia in afternoons, with lows in mid 20's. These instances are also NOT recorded on her food diaries, where she also records her blood sugars. Activity is low r/t balance issues and falls. FBS this AM 221 mg/dl (had peanut butter cup and rice krispie treat last night). Client presents for MNT today with self. Client was educated on carbohydrate counting with the following goals at meals and snacks: Breakfast: 45 grams Lunch: 30 grams Snack: 15 grams (plus protein) Supper: 30-45 grams Bedtime Snack: 15 grams Client received information on limiting fat in diet to lessen heart disease risk, with goals of: Total Fat: 54 grams Saturated Fat: 9 grams Trans Fat: 0 grams daily Discussed and provided literature on: Carbohydrate counting, utilizing materials: Choose Your Foodsbook for meal planning, Food Label, MyPlate and individual carbohydrate counts (as noted above). Reinforced importance of measuring portions and reading food labels for Total Carbohydrate and Serving Sizes. Additionally provided a Nutrition in The Fast Jimi book for identifying carbohydrate in fastfood and restaurant items (no computer or smart phone). Discussed and demonstrated portions using food models and associated literature, as well as label reading. Encouraged more use of non-starchy vegetables, as these were very scarce on her food diaries, and made suggestions to ensure adequate carbohydrate at meals and snacks otherwise. Client goals: Measure food portions Read food labels for Total Carbohydrate and Serving Size Keep consistent meal timing (doing well here) Avoid excess fat, saturated fat and trans fats Develop a routine exercise program Use MyPlate as template for nutrition balance Look up restaurant and fast food information in book provided Use your food scale to weigh out portions of items like baked potato, home baked goods (1 oz=15 g carbohydrate) Increase use of non-starchy vegetables Add carbohydrate to afternoon and HS snack Record any LOW glucose on your food diaries Expected compliance: Fair to good. Deysi was attentive and engaged throughout meeting and seemed toidentify areas which she could make changes Client appears to be in a contemplative to action phase of change. Recommend follow up as needed. RD name and phone number provided. Thank you for the referral. Education session duration: 75 minutes; ([id number]). Reminder to ordering Physician/Provider: Diabetes and CKD (non-dialysis) patients may have 2 hours of MNT education in subsequent years. Hours can be spread over any number of visits. documented in this encounter* Michelle Wagner RN - 04/29/2020 8:39 AM EST Med rec completed with patient. Pt denies any injury to back. documented in this encounter Assessments Diagnosis Neck pain Cervicalgia Diagnosis Non-intractable vomiting with nausea, unspecified vomiting type- Primary Flu-like symptoms Influenza with other respiratory manifestations Diagnosis Visit for screening mammogram Other screening mammogram Diagnosis Focal seizure (HCC) Other convulsions Hyperglycemia Other abnormal glucose Diagnosis Acute left-sided low back pain with left-sided sciatica Effusion of left knee Effusion of lower leg joint Discharge Instructions * Attachments The following attachments cannot be sent through Care Everywhere. * Nausea and Vomiting (Kazakh) * Influenza (Kazakh) documented in this encounter* Attachments The following attachments cannot be sent through Care Everywhere. * Back Pain (Kazakh) documented in this encounter Reason for Referral Status Reason Specialty Diagnoses / Procedures Referred By Contact Referred To Contact Pending Review Radiology Diagnoses Visit for screening mammogram Procedures GLORY DIGITAL SCREEN W OR WO CAD BILATERAL Medina Dumont [address] [place] [address] Specialty Diagnoses / Procedures Referred By Contac t Referred To Contact Radiology Diagnoses Peripheral vascular disease, unspecified (HCC) Procedures VL LOWER EXTREMITY ARTERIAL SEGMENTAL PRESSURES W PPG Connor Nixon, DPM [address] [facility], [place] [address] Referral ID Status Reason Start Date Expiration Date Visits Re quested Visits Authorized [id number] Closed 05/29/2022 05/29/2023 1 1 Specialty Diagnoses / Procedures Referred By Contac t Referred To Contact Radiology Diagnoses Encounter for screening mammogram for malignant neoplasm of breast Procedures GLORY ALICIA DIGITAL SCREEN BILATERAL GLORY DIGITAL SCREEN W OR WO CAD BILATERAL Medina Dumont [address] [id number] Referral ID Status Reason Start Date Expiration Date Visits Re quested Visits Authorized [id number] Closed 10/27/2022 10/27/2023 1 1 Chief Complaint and Reason for Visit Chief Complaint hand pain rt foot pain Chief Complaint hand pain rt foot pain PVd w/breast pain Chief Complaint hand pain rt foot pain PVd w/breast pain i73.9 Chief Complaint hand pain rt foot pain PVd w/breast pain i73.9 rt foot pain Chief Complaint i73.9 rt foot pain I70.213 Summary Purpose Family History No Family History Records FoundNo Family History Records FoundNo Family History Records Found No data available for this section No Family History Records Found No data available for this section No Family History Records FoundNo Family History Records Found Additional Source Comments Reason for Visit (unrecogniz ed section and content) Status Reason Specialty Diagnoses / Procedures Referred By Contact Referred To Contact Open Physical Therapy Diagnoses Back pain Procedures physical therapy Prieto Mcgowan MD [address] [facility] [address] [place] [address] Janice Ytaes, PT Status Reason Specialty Diagnoses / Procedures Referred By Contact Referred To Contact Open Physical Therapy Diagnoses Dorsalgia, unspecified Procedures physical therapy Susie Sal PA [address] [place] [address] Roula Johnston, PT [address] [place] [address] Reason Comments Emesis started today at 1pm . Has thrown up approximately 11 times since then. patient having chills at home Status Reason Specialty Diagnoses / Procedures Referre d By Contact Referred To Contact Closed Radiology Diagnoses Encounter for screening mammogram for malignant neoplasm of breast Procedures HC MAMMOGRAM DIGITAL SCREEN Medina Khan [address] [place] [address] [facility] [address] [place] [address] Reason Comments Tremors facial tremors off a nd on since this AM- when tremors occur speech becomes slurred Status Reason Specialty Diagnoses / Procedures Referred By Contact Referred To Contact Closed Dietitian / IP Unit Diagnoses DM (diabetes mellitus), type 2, uncontrolled (HCC) Procedures HC MED NUT THERAPY IND INIT 15 MIN Connor Nixon DPM [address] [facility] [place] [address] Eduardo Irving, RD, LD Reason Comments Education Class Reason Comments Back Pain lower left back pain with pain radiating down to ankle. Denies injury Specialty Diagnoses / Procedures Referred By Contac t Referred To Contact Physical Therapy Diagnoses Lumbago with sciatica, left side Lumbago with sciatica, right side Procedures Lumbago with sciatica, left and right side Medina Dumont [address] [place] [address] [facility] [address] [place] [address] Referral ID Status Reason Start Date Expiration Date Visits Re quested Visits Authorized [id number] Open 04/26/2021 04/26/2022 1 1 Specialty Diagnoses / Procedures Referred By Contac t Referred To Contact Cardiology Diagnoses Orthopnea Chest pain, unspecified type Procedures Cardiac Stress Test - w/Pharm Medina Dumont [address] [place] [address] Referral ID Status Reason Start Date Expiration Date Visits Re quested Visits Authorized [id number] Closed 05/12/2021 05/12/2022 1 1 Specialty Diagnoses / Procedures Referred By Contac t Referred To Contact Radiology Diagnoses Peripheral vascular disease, unspecified (HCC) Procedures VL LOWER EXTREMITY ARTERIAL SEGMENTAL PRESSURES W PPG Connor Nixon DPM [address] [facility] [place] [address] Referral ID Status Reason Start Date Expiration Date Visits Re quested Visits Authorized [id number] Closed 05/29/2022 05/29/2023 1 1 Specialty Diagnoses / Procedures Referred By Contac t Referred To Contact Radiology Diagnoses Encounter for screening mammogram for malignant neoplasm of breast Procedures GLORY ALICIA DIGITAL SCREEN BILATERAL GLORY DIGITAL SCREEN W OR WO CAD BILATERAL TessyColemanMedina M [address] [place] [address] Referral ID Status Reason Start Date Expiration Date Visits Re quested Visits Authorized [id number] Closed 10/27/2022 10/27/2023 1 1 Reason Comments Illness Patient presents to the ER today d/t colitis flare up,emesis, and states her tongue is numb. Care Teams (unrecognized sec tion and content) Team Status: Active Member Role Status Dates Medina Dumont DO Primary Care Provider Active Team Status: Inactive Member Role Status Dates Medina Dumont DO Primary Care Provider Active Baltazar Marc MD Attending Provider Active Team Status: Inactive Member Role Status Dates Medina Dumont DO Primary Care Provider Active Norma Miner PA-C Emergency Provider Active Stock Taker Relationship Specialty Start Date End Date Tessy Medina M PCP - General Family Medicine 11/08/14 Stock Taker Relationship Specialty Start Date End Date Cierafina Medina M PCP - General Family Medicine 11/08/14 Stock Taker Relationship Specialty Start Date End Date Tessy Medina M PCP - General Family Medicine 11/08/14 Stock Taker Relationship Specialty Start Date End Date Tessy Medina M PCP - General Family Medicine 11/08/14 Stock Taker Relationship Specialty Start Date End Date Tessy Medina M PCP - General Family Medicine 11/08/14 Team Status: Inactive Member Role Status Dates Medina Dumont DO Primary Care Provider Active Saúl Whelan MD Attending Provider Active Stock Taker Relationship Specialty Start Date End Date Tessy Medina M PCP - General Family Medicine 11/08/14 Stock Taker Relationship Specialty Start Date End Date Medina Dumont PCP - General Family Medicine 11/08/14 Team Status: Inactive Member Role Status Dates Medina Dumont DO Primary Care Provider Active Arnav Cox MD Emergency Provider Active Stock Taker Relationship Specialty Start Date End Date Medina Dumont PCP - General Family Medicine 11/08/14 Stock Taker Relationship Specialty Start Date End Date Medina Dumont PCP - General Family Medicine 11/08/14 Stock Taker Relationship Specialty Start Date End Date Medina Dumont PCP - General Family Medicine 11/08/14 Stock Taker Relationship Specialty Start Date End Date Medina Dumont PCP - General Family Medicine 11/08/14 Goals (unrecognized section and content) Goals may be documented in a n alternate section INFORMATION SOURCE (unrecogn ized section and content) DATE CREATED AUTHOR 09/30/2022 [facility] DATE CREATED AUTHOR AUTHOR'S ORGANIZ ATION 11/06/2022 [facility] DATE CREATED AUTHOR AUTHOR'S ORGANIZ ATION 12/26/2022 Esmer Rodrigues [facility] DATE CREATED AUTHOR AUTHOR'S ORGANIZ ATION 05/09/2023 [facility] DATE CREATED AUTHOR AUTHOR'S ORGANIZ ATION 05/25/2023 [facility] DATE CREATED AUTHOR AUTHOR'S ORGANIZ ATION 05/25/2023 Esmer ramirez Scheduled Active and Recently Administ ered Medications (unrecognized section and content) Medication Order 11/24/2022 11/25/2022 11/26/2022 0.9 % sodium chloride bolus (COMPLETED) 500 mL (6.37 mL/kg), IntraVENous, at 967.7 mL/hr, Administer over 31 Minutes, ONCE, On Thu11/25/22 at 2100, For 1 dose 2113 (New Bag - Provider: Demi Mendez RN)2144 (Stopped - Provider: Demi Mendez RN) ciprofloxacin (CIPRO) IVPB 400 mg (COMPLETED) 400 mg, IntraVENous, ONCE, 1 dose, On Thu11/26/22 at 0030, Antimicrobial Indications: Intra-Abdominal Infection 0057 (New Bag - Provider: Mery Nixon RN)0200 (Rate/Dose Change - Provider: Demi Mendez RN)0200 (Stopped - Provider: Demi Mendez RN) metronidazole (FLAGYL) 500 mg in 0.9% NaCl 100 mL IVPB premix 500 mg, IntraVENous, ONCE, 1 dose, On Thu11/26/22 at 0030, Antimicrobial Indications: Intra-Abdominal Infection 0212 (Not Given - Provider: Demi Mendez RN - Reason: Other - Comment: tansferred to other facility via private car and per Dr Robert curran) ondansetron (ZOFRAN) injection 4 mg (COMPLETED) 4 mg, IntraVENous, ONCE, 1 dose, On Thu11/25/22 at 2100 2117 (Given - Provider: Demi Mendez RN) PRN Medication Order 11/24/2022 11/25/2022 11/26/2022 iopamidol (ISOVUE-370) 76 % injection 45 mL (COMPLETED) 45 mL, IntraVENous, IMG ONCE PRN, 1 dose, Starting on Thu11/25/22 at 2155, Until Thu11/25/22 at 2210, Other 2210 (Given - Provider: Toan Lawrence) FOR RECORDS PERTAINING TO PATIENTS WHO ARE OR HAVE BEEN ENROLLED IN A CHEMICAL DEPENDENCY/SUBSTANCEABUSE PROGRAM, SOME INFORMATION MAY BE OMITTED. This clinical summary was aggregated from multiple sources. Caution should be exercised in using it in the provision of clinical care. This summary normalizes information from multiple sources, and as a consequence, information in this document may materially change the coding, format and clinical context of patient data. In addition, data may be omitted in some cases. CLINICAL DECISIONS SHOULD BE BASED ON THE PRIMARY CLINICAL RECORDS. [employer] [facility]. provides no warranty or guarantee of the accuracy or completeness of information in this document.
== END 2023-07-21 13:38 | disposition home or self-care (01) ==
LOC: WC 13:37
PROVIDERS: PCP Family Medicine; Visit Provider Podiatrist Foot & Ankle Surgery
DX: L98.8 Other specified disorders of the skin and subcutaneous tissue (principal)
CPT/HCPCS: G0463

== ENCOUNTER 2023-08-31 13:23 | Outpatient (OUT) | payer MEDICARE, OTHER, SELFPAY | END 2023-08-31 13:24 | disposition home or self-care (01) | LOC: WC 13:23 | PROVIDERS: PCP Family Medicine; Visit Provider Physician Assistant | DX: E11.621 Type 2 diabetes mellitus with foot ulcer (principal); L97.521 Non-pressure chronic ulcer of other part of left foot limited to breakdown of skin | CPT/HCPCS: 11042 ==

== ENCOUNTER 2023-10-05 15:45 | Outpatient (OUT) | payer MEDICARE, OTHER, SELFPAY | END 2023-10-05 15:46 | disposition home or self-care (01) | LOC: WC 15:45 | PROVIDERS: PCP Family Medicine; Visit Provider Physician Assistant | DX: E11.621 Type 2 diabetes mellitus with foot ulcer (principal); L97.512 Non-pressure chronic ulcer of other part of right foot with fat layer exposed; I70.221 Atherosclerosis of native arteries of extremities with rest pain, right leg; E11.21 Type 2 diabetes mellitus with diabetic nephropathy; K21.9 Gastro-esophageal reflux disease without esophagitis; I10 Essential (primary) hypertension; I87.9 Disorder of vein, unspecified | CPT/HCPCS: G0463 ==